=== PATIENT | female | born 1980 | race Caucasian/White ===

== ENCOUNTER 2017-11-21 10:54 | Emergency (ER) | payer MEDICAID, SELFPAY ==
[2017-11-21 11:01] VITALS: BP 120/79; PULSE 91; RESP 18; TEMP 36.6; O2SAT 95
--- NOTE | 2017-11-21 11:17 | W.ED.GENAD ---
Discharge Plan Disposition Patient Disposition: HOME Condition: Fair Discharge Details Chief Complaint: EarProblem Clinical Impression: Acute serous otitis media of right ear Primary Care Provider: Shelli Martin ED Provider: Octaviano Beth Home Meds and New Rx's Prescriptions: New ibuprofen [IBU] 600 mg tablet 600 mg PO QID PRN (Reason: fever or pain) Qty: 14 RF: 0 fluticasone [Flonase Allergy Relief] 50 mcg/actuation spray,suspension 2 spray JUSTIN DAILY 14 Days Qty: 9.9 RF: 0 Continue methadone 10 MG/ML concentrate 40 mg PO DAILY RF: 0 Discharge Instructions Instructions: Serous Otitis Media (ED) Additional Instructions: Feel free to return to the emergency department for any new or worsening symptoms otherwise follow-up with your primary care provider for reassessment in the next 2 weeks if not improving in your symptoms Referrals: Shelli Martin MD [Primary Care Provider] - 2 weeks (If not improving) Medical Decision Making Patient presenting to the emergency department for chief complaint of right ear pain. Patient also states some swelling to her right upper extremity. Patient reports the upper extremity swelling and inability to crack her middle finger knuckle has been going on a week and the right ear pain has been the last 3 days. Patient denies fever or chills, states no other associated symptoms. Physical exam of the upper extremity is unremarkable and I cannot appreciate any swelling, any vascular abnormalities, and range of motion inspection and other assessment of bilateral upper extremities is unremarkable. The only appreciable difference that I can see between the right and left upper extremities slightly increased size of forearm muscle in the right which patient is right-handed. As far as examination of patient's right ear which she said is her main concern it appears that there are abrasions to the right ear canal without any signs of otitis externa and right TM is pearly hall with some clear fluid present behind the TM otherwise no other physical exam findings are noted with HEENT exam. I feel the patient is suffering from serous otitis media. Patient was recommended to take ibuprofen as needed for pain and discomfort and for possible upper respiratory congestion patient placed upon nasal steroid to see if this helps with her serous otitis media otherwise she was recommended to follow-up with her primary care provider in the next 2 weeks for reassessment if this is not improving. After discussion of diagnosis and plan of care patient is no further needs, questions, or concerns and states clear understanding to return to the emergency department for any worsening symptoms. HPI General Mode of arrival: ambulatory. Date/Time Provider Initiated Documentation: 11/21/17 10:55. Limitations to Documentation: no limitations. Information obtained by: patient. History of Present Illness 37 year old F presents to the emergency department with the chief complaint of Right ear pain, described as moderate, with intensity rated at 8. Quality is described as aching and sharp, and is localized to the right (ear). Patient reports no radiation. Patient started experiencing this day(s) (3) and it has been constant. No relieving factors improve symptom(s), No exacerbating factors reported . Patient notes no other symptoms.. Patient did receive the following treatments prior to arrival, none Related Data Home Medications Medication Instructions Recorded Confirmed methadone 40 mg PO DAILY 12/11/16 11/21/17 fluticasone [Flonase Allergy 2 spray JUSTIN DAILY 14 Days #9.9 gm 11/21/17 Relief] ibuprofen [IBU] 600 mg PO QID PRN #14 tab 11/21/17 Previous Rx's Medication Instructions Recorded fluticasone [Flonase Allergy 2 spray JUSTIN DAILY 14 Days #9.9 gm 11/21/17 Relief] ibuprofen [IBU] 600 mg PO QID PRN #14 tab 11/21/17 Allergies Allergy/AdvReac Type Severity Reaction Status Date / Time No Known Allergies Allergy Unverified 11/21/17 11:05 General Stated Complaint: EarProblem CINDY: 4 Review of Systems Constitutional Denies body ache(s), Denies chills and Denies fever(s) ENT Reports as per HPI, Reports otalgia, Reports nasal congestion, Denies nasal discharge, Denies nasal obstruction, Denies sinus pain, Denies sore throat, Denies throat swelling and Denies tongue swelling Cardiovascular Denies chest pain and Denies dyspnea Respiratory Denies dyspnea Gastrointestinal Denies abdominal pain, Denies nausea and Denies vomiting Musculoskeletal Reports other (Right upper extremity swelling) Integumentary/Breasts Denies rash Neurologic Denies confusion and Denies sensory deficit Psychiatric Denies confusion Allergic/Immunologic Denies throat swelling and Denies tongue swelling [facility] Medical History kidney stones Social History Smoking/Tobacco Use Status: Current every day Surgical History section Exam Const General: cooperative, no acute distress and not ill appearing Orientation: alert, awake and oriented x3 [facility] Head: normal to inspection Ears: TM normal on the left, mastoids normal, no periauricular adenopathy, EAC abnormal other (Right sided abrasion within canal); no erythema and no edema and TM abnormal bulging on the right and with fluid behind the TM on the right (clear); with no loss of landmarks General nose exam: external nose normal Face and sinus: normal facial exam Mouth: moist mucous membranes Throat: posterior oropharynx normal Neck Neck: normal visual inspection, full ROM, no lymphadenopathy and no meningeal signs Lymphatic: no lymphadenopathy noted Resp Effort & Inspection: normal respiratory effort, able to speak in complete sentences and no respiratory distress Cardio Rate: regular rate Rhythm: regular rhythm Skin General skin exam: no rashes or lesions noted Neuro General: alert, awake, oriented x3, moves all extremities and no focal motor deficits Sensory Exam: no sensory deficits noted Extrem Right upper extremity: normal to inspection, full ROM, normal capillary refill and no joint enlargement; no edema Left upper extremity: normal to inspection, full ROM, normal capillary refill and no joint enlargement; no edema Course Vital Signs Temperature 36.6 C 11/21/17 11:01 Pulse 91 H 11/21/17 11:01 Respiratory Rate 18 11/21/17 11:01 Blood Pressure 120/79 11/21/17 11:01 Pulse Oximetry 95 11/21/17 11:01 Temperature 36.6 C 11/21/17 11:01 Temperature Source Temporal Artery Scan 11/21/17 11:01 Pulse 91 H 11/21/17 11:01 Respiratory Rate 18 11/21/17 11:01 Respiratory Effort Non-Labored 11/21/17 11:04 Blood Pressure 120/79 11/21/17 11:01 Blood Pressure Position Sitting 11/21/17 11:01 Pulse Oximetry 95 11/21/17 11:01 Oxygen Delivery Method Room Air 11/21/17 11:01 Oxygen Flow Rate 0 11/21/17 11:01 Pain Level 8 11/21/17 11:06
[2017-11-21] MEDS: Ibuprofen 600 MG TAB PO (11:25)
[2017-11-21 11:46] VITALS: BP 120/79; PULSE 91; RESP 18; TEMP 36.6; O2SAT 95
== END 2017-11-21 11:44 | disposition home or self-care (01) ==
PROVIDERS: Emergency Provider Nurse Practitioner Family; PCP Family Medicine
DX: H65.01 Acute serous otitis media, right ear (principal); F17.210 Nicotine dependence, cigarettes, uncomplicated
CPT/HCPCS: 99282

== ENCOUNTER 2018-01-27 12:55 | Emergency (ER) | payer OTHER, MEDICAID, SELFPAY ==
[2018-01-27 12:55] VITALS: BP 133/84; PULSE 100; RESP 27; TEMP 36.8; O2SAT 98
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
[2018-01-27 13:17] LABS: Abs Immature Grans 0.01 k/cumm (0.0-0.09); Absolute Basophil Count 0.08 k/cumm (0.0-0.2); Absolute Eosinophil Count 0.14 k/cumm (0.0-0.7); Absolute Lymphocyte Count 2.48 k/cumm (1.2-3.4); Absolute Monocyte Count 0.57 k/cumm (0.11-0.7); Absolute Neutrophil Count 3.02 k/cumm (1.2-6.7); Basophils % 1.3; Eosinophils % 2.2; HCT 40.6 % (36.0-46.0); HGB 13.3 g/dL (12.0-15.5); Immature Grans % 0.2; Lymphocytes % 39.4; Mean Corp. HGB Concentration 32.8 g/dL (32.0-36.0); Mean Corpuscular Hemoglobin 31.6 pg (27.0-33.0); Mean Corpuscular Volume 96.4 fL (80-95); Mean Platelet Volume 9.8 fL (8.0-11.0); Neutrophils % 47.9; Platelet Count 236 x1000/uL (130-400); RBC 4.21 m/cumm (4.00-5.20); RBC Distribution Width 14.5 % (11.7-14.6)
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
[2018-01-27 13:24] VITALS: PULSE 63; RESP 15; O2SAT 98
[2018-01-27 13:30] VITALS: BP 114/66; PULSE 75; PULSE 80; RESP 13; O2SAT 96
[2018-01-27 13:31] VITALS: PULSE 78; RESP 15; O2SAT 95
[2018-01-27 13:38] LABS: Bilirubin Negative (Negative); Blood Trace-intact (Negative); Clarity Sl Cloudy; Glucose Negative (Negative); Ketones Negative (Negative); Leukocyte Esterase Trace (Negative); Nitrite Positive (Negative); Urobilinogen 0.2 EU/dL (Up TO 0.2)
[2018-01-27 13:43] LABS: ETHANOL BLOOD 261.1 mg/dL (<3)
[2018-01-27 13:48] LABS: ALT 109 U/L (12-78); AST 101 U/L (15-37); Albumin 3.8 g/dL (3.4-5.0); Alkaline Phosphatase 69 U/L (46-116); Anion Gap 8.1 mmol/L (3-11); BUN 10 mg/dL (7-18); Bilirubin, Total 0.3 mg/dL (0.2-1.0); CO2 28.9 mmol/L (21.0-32.0); CREATININE 0.65 mg/dL (0.55-1.02); Calcium 8.9 mg/dL (8.5-10.1); Chloride 105 mmol/L (98-107); Glucose 94 mg/dL (70-100); Magnesium 1.8 mg/dL (1.8-2.4); Potassium 4.6 mmol/L (3.5-5.1); Sodium 142 mmol/L (136-145); Total Protein 8.1 g/dL (6.4-8.2); Troponin I 0.02 ng/mL (0.00-0.06)
[2018-01-27 13:50] LABS: Epithelial Cells Moderate HPF (Negative); RBC 0-2 (0-2)
[2018-01-27 13:51] LABS: Bacteria Many HPF (Negative); C & S Indicated? No/Sq. Contamination; Crystals Negative HPF (Negative); Mucus Moderate (Negative)
[2018-01-27 13:53] VITALS: PULSE 99
[2018-01-27 14:00] VITALS: PULSE 111; O2SAT 99
[2018-01-27] MEDS: Hydrogen Peroxide 3% 480 ML BTL (14:52)
[2018-01-27] MEDS: Amoxicillin 500/Clav. 125 TAB PO (14:52)
[2018-01-27] MEDS: Acetaminophen 500 MG TAB 1000 MG PO (15:16)
[2018-01-27] MEDS: Lidocaine/Epinephri/Tetracaine Topical Gel 3 ML TP (15:16)
== END 2018-01-27 16:54 | disposition home or self-care (01) ==
PROVIDERS: Emergency Provider Nurse Practitioner Family; PCP Family Medicine
DX: S02.32XA Fracture of orbital floor, left side, initial encounter for closed fracture (principal); S16.1XXA Strain of muscle, fascia and tendon at neck level, initial encounter; S01.121A Laceration with foreign body of right eyelid and periocular area, initial encounter; V47.1XXA Car passenger injured in collision with fixed or stationary object in nontraffic accident, initial encounter
CPT/HCPCS: 12013; 36415; 80053; 81025; 90471; 99284; 70450; 70486; 72125; 80320; 81003; 81015; 83735; 84484; 85025

== ENCOUNTER 2018-05-11 13:42 | Emergency (ER) | payer MEDICAID, SELFPAY ==
[2018-05-11 13:47] VITALS: BP 123/86; PULSE 110; RESP 16; TEMP 36.6; O2SAT 123
--- NOTE | 2018-05-11 13:55 | DI.CT_ITS ---
SYMPTOMS/DIAGNOSIS: RT SIDED ABD PAIN CT OF THE ABDOMEN AND PELVIS: Comparison is made with [id number]. The lung bases are clear. The heart size is normal. The liver shows fatty infiltration. There is a peripherally enhancing lesion inferiorly in the lateral right lower lobe likely representing a hemangioma. There is no change in appearance from 2009 exam. The gallbladder, pancreas, adrenals and left kidney are unremarkable. 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 The bowel is unremarkable. There is a small fatty containing umbilical hernia. The urinary bladder is distended but normal in appearance. Tubal ligation clips are noted. The ovaries and uterus are unremarkable. IMPRESSION: No acute abnormality.
--- NOTE | 2018-05-11 13:59 | ED.GENADUL_ITS ---
Discharge Plan Disposition Patient Disposition: HOME Condition: Stable Discharge Details Chief Complaint: Abd Prob Clinical Impression: Alcohol intoxication, Abdominal pain Primary Care Provider: Shelli Martin ED Provider: Devin Estrada Home Meds and New Rx's Prescriptions: New prochlorperazine maleate [Compazine] 10 mg tablet 10 mg PO Q8H PRN (Reason: nausea and vomiting) Qty: 20 RF: 0 lorazepam [Ativan] 1 mg tablet 1 mg PO BID-TID PRN (Reason: anxiety) Qty: 7 RF: 0 No Action methadone 10 MG/ML concentrate 40 mg PO DAILY RF: 0 Discharge Instructions Instructions: Lorazepam (By mouth), Abuse of Alcohol (ED) Additional Instructions: your lab work did not show any concerning findings other than your alcohol level being elevated do not drink alcohol if you take the lorazepam follow up with your primary care provider within 1-2 weeks if you have severe worsening pain, persistent vomit or new symptoms such as difficulty breathing return to the emergency department Medical Decision Making 37 yo female with hx of 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 She states it is right sided and has had n/v as well. She has epigastric, ruq and rlq pain without distention on exam. She does appear anxious, drank a lot of vodka over the weekend and denies drinking everyday but significant other reports she does drink vodka daily at least for 3 months. She has no chest pain or sob. Given her pain and recent alcohol use will obtain imaging and lab wor kto eval for pancreatitis, cholecystitis, and also given antiemetics and also ativan given she does appear anxious and could have mild withdrawal as well pt doing much better, labs and imaging pending but is having less pin, has mild ruq pain Labs show stable elevation in lfts likely from alcohol use, and mild anion gap acidosis likely alcoholic ketosis. Awaiting imaging imaging shows no acute findings. She is now sleeping and no longer has pain. Suspect symptoms from alcohol use and possible alcohol gastritis. She is requesting something for nauea at home and anxiety, and discussed that she cannot drink if taking ativan which she agrees to. Will d/c and advised f/u with pcp and return precautions given Differential Diagnosis alcohol withdrawal, cholecystitis, pancreatitis Imaging Data Radiologic Study: Attestation: I personally reviewed and interpreted this imaging study as follows: Imaging: CT Scan Radiologist's impression: no acute findings Lab Data Lab results reviewed: Yes I reviewed the patient's lab results. HPI General Mode of arrival: ambulatory . Date/Time Provider Initiated Documentation: 05/11/18 13:42 . Limitations to Documentation: no limitations . Information obtained by: patient . History of Present Illness 37 year old F presents to the emergency department with the chief complaint of abdominal pain, described as moderate, Quality is described as stabbing, and is localized to the abdomen. Patient reports no radiation. Patient started experiencing this day(s) (1) and it has been constant. No relieving factors improve symptom(s), No exacerbating factors reported . Patient notes nausea/vomiting. Patient did receive the following treatments prior to arrival, none Related Data Home Medications Medication Instructions Recorded Confirmed methadone 40 mg PO DAILY 12/11/16 05/11/18 lorazepam [Ativan] 1 mg PO BID-TID PRN #7 tab 05/11/18 prochlorperazine maleate 10 mg PO Q8H PRN #20 tab 05/11/18 [Compazine] Previous Rx's Medication Instructions Recorded lorazepam [Ativan] 1 mg PO BID-TID PRN #7 tab 05/11/18 prochlorperazine maleate 10 mg PO Q8H PRN #20 tab 05/11/18 [Compazine] Allergies Allergy/AdvReac Type Severity Reaction Status Date / Time No Known Allergies Allergy Unverified 05/11/18 13:51 General CINDY: 2 Review of Systems Review of Systems All systems reviewed & are unremarkable except as noted in HPI and below Constitutional Denies fever(s) Cardiovascular Denies dyspnea Respiratory Denies dyspnea Genitourinary Denies dysuria Musculoskeletal Denies joint swelling Integumentary/Breasts Denies rash PFSH Medical History kidney stones Surgical History section Social History Smoking/Tobacco Use Status: Current every day Drug use: Current Sobriety Substance use type: does not use Do you feel safe in your relationship?: Yes Exam Const General: anxious Orientation: alert HENMT Head: normal to inspection Ears: external ears normal General nose exam: external nose normal Mouth: moist mucous membranes Eyes General: appearance normal, both eyes and all related structures Neck Neck: normal visual inspection Resp Effort & Inspection: normal respiratory effort and able to speak in complete sentences Cardio Rate: regular rate GI Palpation: soft Skin General skin exam: no rashes or lesions noted Neuro General: alert and oriented x3 Extrem General: normal to inspection Psych Mental Status: mental status grossly normal
[2018-05-11] MEDS: Ketorolac 15 MG/ML VIAL IVP (14:42)
[2018-05-11] MEDS: Normal Saline 1,000 ML 1000 ML IV (14:42)
[2018-05-11] MEDS: Ondansetron 4 MG/2 ML VIAL IVP (14:43)
[2018-05-11] MEDS: LORazepam 2 MG/ML VIAL 1 MG IVP (14:43)
[2018-05-11 14:48] LABS: Abs Immature Grans 0.01 k/cumm (0.0-0.09); Absolute Basophil Count 0.07 k/cumm (0.0-0.2); Absolute Eosinophil Count 0.02 k/cumm (0.0-0.7); Absolute Lymphocyte Count 3.19 k/cumm (1.2-3.4); Absolute Monocyte Count 0.42 k/cumm (0.11-0.7); Absolute Neutrophil Count 3.09 k/cumm (1.2-6.7); Eosinophils % 0.3; HCT 40.3 % (36.0-46.0); HGB 13.6 g/dL (12.0-15.5); Immature Grans % 0.1; Lymphocytes % 46.9; Mean Corp. HGB Concentration 33.7 g/dL (32.0-36.0); Mean Corpuscular Hemoglobin 29.8 pg (27.0-33.0); Mean Corpuscular Volume 88.4 fL (80-95); Mean Platelet Volume 9.8 fL (8.0-11.0); Monocytes % 6.2; Neutrophils % 45.5; Platelet Count 246 x1000/uL (130-400); RBC 4.56 m/cumm (4.00-5.20); RBC Distribution Width 15.8 % (11.7-14.6)
[2018-05-11 15:02] LABS: ALT 122 U/L (12-78); AST 190 U/L (15-37); Albumin 4.1 g/dL (3.4-5.0); Alkaline Phosphatase 94 U/L (46-116); Anion Gap 14.1 mmol/L (3-11); BUN 9 mg/dL (7-18); Bilirubin, Direct 0.35 mg/dL (0.00-0.20); CO2 25.9 mmol/L (21.0-32.0); CREATININE 0.71 mg/dL (0.55-1.02); Calcium 8.9 mg/dL (8.5-10.1); Chloride 98 mmol/L (98-107); ETHANOL BLOOD 279.8 mg/dL (<3); Glucose 86 mg/dL (70-100); Lipase 156 U/L (73-393); Magnesium 1.8 mg/dL (1.8-2.4); Potassium 3.7 mmol/L (3.5-5.1); Sodium 138 mmol/L (136-145); Total Protein 8.8 g/dL (6.4-8.2)
[2018-05-11] MEDS: Omnipaque 350 MG/ML 100 ML BTL IJ (15:25)
[2018-05-11 15:49] LABS: Bilirubin Negative (Negative); Blood Small (Negative); Clarity Cloudy; Glucose Negative (Negative); Ketones Negative (Negative); Leukocyte Esterase Trace (Negative); Nitrite Negative (Negative); Urobilinogen 0.2 EU/dL (Up TO 0.2); pH 6.5 (5-8)
[2018-05-11 15:51] LABS: *AMPHETAMINES SCREEN URINE Negative (Negative); *BARBITURATES SCREEN URINE Negative (Negative); *BENZODIAZEPINES SCREEN URINE Negative (Negative); C & S Indicated? No/Sq. Contamination; Cannabinoids THC POSITIVE (Negative); Cocaine Screen,Urine Negative (Negative); METHADONE URINE SCREEN POSITIVE (Negative); OPIATES URINE SCREEN Negative (Negative)
[2018-05-11 15:52] LABS: Tricyclic Antidepressants Negative (Negative)
--- NOTE | 2018-05-11 16:21 | DI.VRAD_ITS ---
EXAM: CT Abdomen and Pelvis With Contrast EXAM DATE/TIME: 05/11/2018 1:56 PM CLINICAL HISTORY: 37 years old, female; Pain; Abdominal pain; Other: R sided pain TECHNIQUE: Imaging protocol: Axial computed tomography images of the abdomen and pelvis with intravenous contrast. Coronal and sagittal reformatted images were created and reviewed. COMPARISON: CT RENAL COLIC WO CONTRAST 01/09/2015 6:17 AM FINDINGS: Prior bilateral tubal ligation. Atrophic and malrotated right kidney. Normal appearing solid organs. No intestinal obstruction. No obstructive uropathy. No free fluid. No free air. No inflammatory changes. IMPRESSION: No specific etiology identified for the patient's symptoms. Dictated and Authenticated by: Gene Acosta MD. Ordering:OK Beltran MD
== END 2018-05-11 17:10 | disposition home or self-care (01) ==
PROVIDERS: Emergency Provider Emergency Medicine; PCP Family Medicine
DX: F10.120 Alcohol abuse with intoxication, uncomplicated (principal); R10.9 Unspecified abdominal pain; F11.20 Opioid dependence, uncomplicated; Z87.442 Personal history of urinary calculi
CPT/HCPCS: 36415; 80053; 80076; 80307; 83690; 96361; 96374; 96375; 99285; 74177; 80320; 81003; 81015; 83735; 85025; 85610; 85730; 99283; J1885; J2060; J2405; J3490

== ENCOUNTER 2018-09-07 03:55 | Emergency (ER) | payer MEDICAID, SELFPAY ==
[2018-09-07 03:58] VITALS: BP 132/81; PULSE 71; RESP 18; TEMP 36.7; O2SAT 97
--- NOTE | 2018-09-07 04:06 | ED.GENADUL_ITS ---
Discharge Plan Disposition Patient Disposition: HOME Condition: Good Discharge Details Chief Complaint: DentalOral Clinical Impression: Pain, dental Primary Care Provider: Shelli Martin ED Provider: Gokul Milian Home Meds and New Rx's Prescriptions: New amoxicillin-pot clavulanate [Augmentin] 875-125 mg tablet 1 tab PO BID Qty: 20 RF: 0 No Action methadone 10 MG/ML concentrate 40 mg PO DAILY RF: 0 Discharge Instructions Instructions: Toothache (ED) Additional Instructions: Please take the antibiotic as directed. Please take 600 mg of ibuprofen every 6 hours and 1000 mg of Tylenol every 6 hours to help with the pain. Please contact the dentist on the sheet we have provided for removal of your tooth. If you notice any worsening of your symptoms, or any new symptoms such as vomiting, diarrhea, fever, chills, shortness of breath, chest pain, numbness, weakness, or fainting , please return immediately to the emergency department for reevaluation. Please follow up with your primary care provider as soon as possible for reassessment and reevaluation. As always, it was a pleasure participating in your medical care today. Referrals: Shelli Martin MD [Primary Care Provider] - Medical Decision Making This is a 37-year-old female with known dental caries who presents for dental pain. Pain is been present for quite some time, she has not seen a dentist secondary to cost. Exam demonstrates notably poor dentition. No evidence of periapical abscess. Dental block was performed and the patient had near complete resolution of her pain. Augmentin was given here in the ED, and a prescription for home use will be given. She was given the dental resource she recommended close follow-up for tooth extraction. I have extensively reviewed the treatment plan and discharge instructions with the patient and their family. I have addressed all patient concerns at this time. The patient and family was made aware of what symptoms to monitor for that would warrant a return to the emergency department. Discussed the plan with the patient and family, they demonstrate verbal understanding and agreement with our assessment and plan at this time. HPI General Date/Time Provider Initiated Documentation: 09/07/18 03:56 . HPI Narrative: This is a 37-year-old female with a past medical history of dental caries who presents today for dental pain. She has not seen a dentist, she has known caries, she states that insurance is the barrier to her getting complete dental care. Pain is present in the top right molars. Worse with chewing, she has been taking Tylenol and Motrin with no relief. No fevers chills headache or neck pain. No other complaints or modifying factors. Related Data Home Medications Medication Instructions Recorded Confirmed methadone 40 mg PO DAILY 12/11/16 09/07/18 amoxicillin-pot clavulanate 1 tab PO BID #20 tab 09/07/18 [Augmentin] Previous Rx's Medication Instructions Recorded amoxicillin-pot clavulanate 1 tab PO BID #20 tab 09/07/18 [Augmentin] Allergies Allergy/AdvReac Type Severity Reaction Status Date / Time No Known Allergies Allergy Unverified 09/07/18 04:01 General Stated Complaint: DentalOral CINDY: 4 Review of Systems Review of Systems All systems reviewed & are unremarkable except as noted in HPI and below PFSH Social History Smoking/Tobacco Use Status: Current every day Tobacco Type: cigarettes Drug use: Current Sobriety Substance use type: does not use Do you feel safe at home: Yes Do you feel safe in your relationship?: Yes Exam Narrative Exam Narrative: 1.Const: Well-nourished, Well-developed, appearing stated age 2.Eyes: PERRL, no conjunctival injection, and symmetrical lids. 3.ENT: Atraumatic external nose and ears. Moist MM. Neck: Symmetric, trachea midline, No thyromegaly. Notably poor dentition throughout. Caries throughout, no evidence of periapical abscess. 4.CVS: +S1/S2, No murmurs or gallops. Peripheral pulses 2+ and equal in all extremities. Brisk capillary refill in all extremities. 5.RESP: Unlabored respiratory effort. Clear to auscultation bilaterally. No wheezes rales or rhonchi 6.GI: Soft, Nontender/Nondistended, No hepatosplenomegaly. No guarding or rebound. 7.MSK: Normocephalic/Atraumatic, Extremities w/o deformity or ttp No cyanosis or clubbing, Normal movement of all extremities 8.Skin: Warm, Dry. No rashes or lesions. 9.Neuro: wet process miller II-XII grossly intact. Sensation grossly intact, no focal neurologic deficits. 10.Psych: (AAO) x3. Appropriate mood and affect Course Vital Signs Temperature 36.7 C 09/07/18 03:58 Pulse 71 09/07/18 03:58 Respiratory Rate 18 09/07/18 03:58 Blood Pressure 132/81 09/07/18 03:58 Pulse Oximetry 97 09/07/18 03:58 Temperature 36.7 C 09/07/18 03:58 Temperature Source Skin 09/07/18 03:58 Pulse 71 09/07/18 03:58 Respiratory Rate 18 09/07/18 03:58 Respiratory Effort Non-Labored 09/07/18 04:00 Blood Pressure 132/81 09/07/18 03:58 Blood Pressure Position Sitting 09/07/18 03:58 Pulse Oximetry 97 09/07/18 03:58 Oxygen Delivery Method Room Air 09/07/18 03:58 Oxygen Flow Rate 0 09/07/18 03:58 Pain Level 10 09/07/18 04:02
[2018-09-07] MEDS: Bupivacaine 0.5% Pres-Free 30 ML VIAL (04:07)
[2018-09-07] MEDS: Amoxicillin 875/Clav. 125 TAB (04:10)
== END 2018-09-07 04:10 | disposition home or self-care (01) ==
LOC: ER 04:12
PROVIDERS: Emergency Provider Student in an Organized Health Care Education/Training Program; PCP Family Medicine
DX: R68.84 Jaw pain (principal)
CPT/HCPCS: 64402

== ENCOUNTER 2018-09-24 09:42 | Emergency (ER) | payer MEDICAID, SELFPAY ==
[2018-09-24 09:45] VITALS: BP 122/65; PULSE 95; RESP 20; TEMP 36.8; O2SAT 96
--- NOTE | 2018-09-24 09:49 | DI.US_ITS ---
SYMPTOM/DIAGNOSIS: MASS AND PAIN RIGHT BREAST ULTRASOUND: The patient notes tenderness in the right breast. There is no evidence of a cyst, solid mass or ductal dilatation. Dense tissue is seen. No skin abnormality is identified. IMPRESSION: Negative right breast ultrasound.
--- NOTE | 2018-09-24 09:59 | ED.GENADUL_ITS ---
Discharge Plan Disposition Patient Disposition: HOME Condition: Stable Discharge Details Chief Complaint: OPTICAL TECHNICIAN Clinical Impression: Lymphadenopathy Primary Care Provider: Shelli Martin ED Provider: Justin Morse Home Meds and New Rx's Prescriptions: Continued methadone 10 MG/ML concentrate 40 mg PO DAILY RF: 0 No Action amoxicillin-pot clavulanate [Augmentin] 875-125 mg tablet 1 tab PO BID Qty: 20 RF: 0 Discharge Instructions Additional Instructions: Please perform once weekly self breast exams. Follow-up with regular doctor if you have increasing size of mass, discomfort, fever, redness, or any other acute concerns. Medical Decision Making 37-year-old female with a right breast lump to become painful over days to weeks time. She has not had overlying erythema or discharge. Her vital signs are normal. On exam she has a small right-sided lump palpable at approxi-7:00. Referred for ultrasound which was negative and report given to the patient by the radiologist. She is stable for outpatient discharge at this time. May have mild right breast lymphadenopathy, but otherwise reassuring evaluation. I will ask her to continue to perform once weekly self breast examinations, and she will follow-up for any change. She is stable for discharge to home HPI General Mode of arrival: ambulatory . Date/Time Provider Initiated Documentation: 09/24/18 09:45 . Limitations to Documentation: no limitations . Information obtained by: patient . History of Present Illness 37 year old F presents to the emergency department with the chief complaint of Right breast lump and pain over days to weeks, described as moderate, Quality is described as dull and constant, and is localized to the chest and left. Patient reports no radiation. Patient started experiencing this day(s) and it has been constant. No relieving factors improve symptom(s), No exacerbating factors reported . Patient notes no other symptoms.; denies fever/chills. 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 No fall or injury. History of cancer in the family. [facility] Medical History Cervical cancer (Acute) kidney stones Surgical History section Social History Smoking/Tobacco Use Status: Current every day Tobacco Type: cigarettes Alcohol Intake: never Drug use: Current Sobriety Substance use type: does not use Do you feel safe at home: Yes Do you feel safe in your relationship?: Yes Exam Narrative Exam Narrative: GEN: awake, alert, oriented 3. Pleasant, well groomed, interactive. HEAD: Normocephalic, atraumatic ENT: Mucous membranes moist, oropharynx unremarkable, External ear exam unremarkable EYES: PERRL, EOMI NECK: Full ROM, no VERONICA, no menigismus CHEST/RESP: Nontender, clear to auscultation bilateral, no wheeze/rhonchi/rales. The right breast has a small palpable cystic structure at approximately 7:00 inferior to the areola CARDIOVASCULAR: RRR, no murmur, rub bryan. 2+ Rad pulse bilateral EXT: Full ROM, no edema, no rash Neuro: Grossly normal neurologic exam, conversant, interactive. Psych: Speech fluent, thoughts congruent, affect normal Course Vital Signs Temperature 36.8 C 09/24/18 09:45 Pulse 95 H 09/24/18 09:45 Respiratory Rate 20 09/24/18 09:45 Blood Pressure 122/65 09/24/18 09:45 Pulse Oximetry 96 09/24/18 09:45 Temperature 36.8 C 09/24/18 09:45 Temperature Source Temporal Artery Scan 09/24/18 09:45 Pulse 95 H 09/24/18 09:45 Respiratory Rate 20 09/24/18 09:45 Respiratory Effort Non-Labored 09/24/18 09:45 Blood Pressure 122/65 09/24/18 09:45 Pulse Oximetry 96 09/24/18 09:45 Oxygen Delivery Method Room Air 09/24/18 09:45 Oxygen Flow Rate 0 09/24/18 09:45 Pain Level 0 09/24/18 09:45
== END 2018-09-24 10:37 | disposition home or self-care (01) ==
PROVIDERS: Emergency Provider Emergency Medicine; PCP Nurse Practitioner Family
DX: R59.0 Localized enlarged lymph nodes (principal); Z80.3 Family history of malignant neoplasm of breast; Z85.41 Personal history of malignant neoplasm of cervix uteri
CPT/HCPCS: 76642; 99284

== ENCOUNTER 2018-12-15 10:05 | Emergency (ER) | payer MEDICAID, SELFPAY ==
[2018-12-15 10:13] VITALS: BP 120/83; PULSE 92; RESP 16; TEMP 36.3; O2SAT 96
--- NOTE | 2018-12-15 10:27 | W.ED.GENAD ---
Discharge Plan Disposition Patient Disposition: HOME Discharge Details Chief Complaint: DentalOral Clinical Impression: Infected dental carries Primary Care Provider: Robin Hernandez ED Provider: Pradip Melo Home Meds and New Rx's Prescriptions: New penicillin V potassium 500 mg tablet 500 mg PO QID 10 Days Qty: 40 RF: 0 No Action methadone 10 MG/ML concentrate 40 mg PO DAILY RF: 0 Discharge Instructions Instructions: Dental Caries (ED) Additional Instructions: Make sure to take your antibiotics as prescribed. Return should your symptoms acutely worsen or he develop severe facial redness and/or pain. Keep your dental appointment tomorrow as he will most likely require extraction. Continues to take Tylenol and ibuprofen as needed for pain. Referrals: Robin Hernandez, [employer] [Primary Care Provider] - Return if symptoms worsen Medical Decision Making This is a nontoxic-appearing 38-year-old female with a right upper dental carry. She has mild swelling along the zygomatic arch/infraorbital region. Area is nontender. No facial erythema. I do not appreciate a fluctuant or indurated abscess at this time. Will place patient on penicillin V and have her follow-up with her dentist tomorrow as scheduled. Return precautions provided. HPI General Date/Time Provider Initiated Documentation: 12/15/18 10:21. HPI Narrative: Patient is a 38-year-old female with a history of dental infections who presents to the emergency department with right upper tooth tenderness and facial swelling. Patient states that she has had symptoms for several days but noted some swelling along the lower right eyelid today. She took 1 or 2 pills of her previous antibiotics with some relief. She has a scheduled appointment with a dentist tomorrow to discuss extraction. She reports a bad tooth in her right upper mouth. She denies any fevers or facial redness. No neck pain. Related Data Home Medications Medication Instructions Recorded Confirmed methadone 40 mg PO DAILY 12/11/16 12/15/18 penicillin V potassium 500 mg PO QID 10 Days #40 tab 12/15/18 Previous Rx's Medication Instructions Recorded penicillin V potassium 500 mg PO QID 10 Days #40 tab 12/15/18 Allergies Allergy/AdvReac Type Severity Reaction Status Date / Time No Known Allergies Allergy Unverified 12/15/18 10:16 General Stated Complaint: DentalOral CINDY: 4 Review of Systems Constitutional Constitutional: Denies chills, Denies fever(s), Denies headache(s), Denies malaise and Denies weakness Eyes Eyes: Denies eye discharge and Denies loss of vision ENT Ears, Nose, Mouth, and Throat: Reports dental pain, Denies headache(s) and Denies sore throat Cardiovascular Cardiovascular: Denies dyspnea Respiratory Respiratory: Denies cough and Denies dyspnea Integumentary/Breasts Skin/Breast: Denies rash Neurologic Neurologic: Denies headache(s), Denies loss of vision and Denies weakness PFSH Medical History Cervical cancer (Acute) kidney stones Surgical History section x2 Social History Smoking/Tobacco Use Status: Current every day Tobacco Type: cigarettes Alcohol Intake: never Drug use: Current Sobriety Substance use type: does not use Do you feel safe at home: Yes Do you feel safe in your relationship?: Yes Exam Const General: cooperative and comfortable Orientation: alert, awake and oriented x3 HENMT Head: normocephalic and other (Mild swelling along the infraorbital region. No facial erythema. ) Teeth and gingiva: abnormal tooth or associated gingiva and caries Throat: posterior oropharynx normal Eyes Visual Leo: normal visual leo by confrontation Alignment and Position: alignment normal Periorbital: periorbital findings abnormal right (Mild infraorbital swelling) Cornea: corneas normal Pupils: PERRL EOM: EOM intact bilaterally Neck Neck: normal visual inspection and full ROM Chest Chest: normal inspection of the chest Resp Effort & Inspection: normal respiratory effort Cardio Rate: regular rate Rhythm: regular rhythm Pulses: normal peripheral pulses Skin General skin exam: no rashes or lesions noted Course Vital Signs Vital signs: Vital Signs Temperature 36.3 C L 12/15/18 10:13 Pulse 92 H 12/15/18 10:13 Respiratory Rate 16 12/15/18 10:13 Blood Pressure 120/83 12/15/18 10:13 Pulse Oximetry 96 12/15/18 10:13 Temperature 36.3 C L 12/15/18 10:13 Temperature Source Skin 12/15/18 10:13 Pulse 92 H 12/15/18 10:13 Respiratory Rate 16 12/15/18 10:13 Respiratory Effort Non-Labored 12/15/18 10:13 Blood Pressure 120/83 12/15/18 10:13 Blood Pressure Position Sitting 12/15/18 10:13 Pulse Oximetry 96 12/15/18 10:13 Oxygen Delivery Method Room Air 12/15/18 10:13 Oxygen Flow Rate 0 12/15/18 10:13 Pain Level 0 12/15/18 10:19
[2018-12-15] MEDS: Penicillin V POTASSIUM 500 MG TAB PO (10:34)
== END 2018-12-15 10:36 | disposition home or self-care (01) ==
LOC: ER 10:35
PROVIDERS: Emergency Provider Physician Assistant; PCP Nurse Practitioner Family
DX: K04.7 Periapical abscess without sinus (principal); K02.9 Dental caries, unspecified
CPT/HCPCS: 99283

== ENCOUNTER 2019-01-15 14:50 | Emergency (ER) | payer MEDICAID, SELFPAY ==
[2019-01-15 14:55] VITALS: BP 142/92; PULSE 91; RESP 16; TEMP 35.7; O2SAT 97
--- NOTE | 2019-01-15 14:59 | W.ED.GENAD ---
Discharge Plan Disposition Patient Disposition: HOME Condition: Stable Discharge Details Chief Complaint: Orthopedic Clinical Impression: Left knee sprain Primary Care Provider: Rboin Hernandez ED Provider: Devin Estrada Home Meds and New Rx's Prescriptions: Continued methadone 10 MG/ML concentrate 40 mg PO DAILY RF: 0 Discharge Instructions Instructions: Knee Sprain (ED) Additional Instructions: if pain continues in a week follow up with your primary care provider if you have fevers, the joint becomes red and warm to touch return to the emergency department Stand Alone Forms: Work Release Medical Decision Making 38 yo female comes in with left knee pain. It started 6 days ago when she was helping a resident up and strained the left knee, did not fall or have trauma. Continues to have pain so came here, is bearing weight but with a limp. Denies fevers, chills, rashes. On exam has no palpable or visible deformity, has pain with palpation to the medial joint line with full rom, no swelling, warmth or erythema. Will obtain xray though unlikely fx/dislocation. no findings to suggest septic joint. Suspect sprain , less likely meniscus injury and exam is not consistent with ligament tear. xray negative on my read, will place in knee brace and have her f/u with pcp if pain continues and return precautions Differential Diagnosis Differential Diagnosis: strain, sprain, fx, dislocation Imaging Data Radiologic Study: Attestation: I personally reviewed and interpreted this imaging study as follows: Imaging: X-Ray My impression: no acute findings HPI General Mode of arrival: ambulatory. Date/Time Provider Initiated Documentation: 01/15/19 14:50. Limitations to Documentation: no limitations. Information obtained by: patient. History of Present Illness 38 year old F presents to the emergency department with the chief complaint of left knee pain, described as moderate, Quality is described as aching, and is localized to the left and lower extremity. Patient reports no radiation. Patient started experiencing this day(s) (6) and it has been constant. Rest improves symptom(s), Movement worsens symptoms . Patient notes no other symptoms.. Patient did receive the following treatments prior to arrival, NSAID Related Data Home Medications Medication Instructions Recorded Confirmed methadone 40 mg PO DAILY 12/11/16 01/15/19 Allergies Allergy/AdvReac Type Severity Reaction Status Date / Time No Known Allergies Allergy Unverified 01/15/19 14:57 General Stated Complaint: Orthopedic CINDY: 4 Review of Systems All systems reviewed & are unremarkable except as noted in HPI and below Constitutional Constitutional: Denies chills, Denies fever(s) and Denies weakness Cardiovascular Cardiovascular: Denies chest pain and Denies dyspnea Respiratory Respiratory: Denies cough and Denies dyspnea Gastrointestinal Gastrointestinal: Denies abdominal pain, Denies nausea and Denies vomiting Musculoskeletal Musculoskeletal: Denies joint swelling Neurologic Neurologic: Denies weakness [facility] Social History Smoking/Tobacco Use Status: Current every day Tobacco Type: cigarettes Alcohol Intake: never Drug use: Current Sobriety Substance use type: does not use Do you feel safe at home: Yes Do you feel safe in your relationship?: Yes Exam Const General: no acute distress Orientation: alert HENMT Head: normal to inspection Ears: external ears normal General nose exam: external nose normal Mouth: moist mucous membranes Eyes General: appearance normal, both eyes and all related structures Neck Neck: normal visual inspection Resp Effort & Inspection: normal respiratory effort and able to speak in complete sentences Cardio Rate: regular rate Skin General skin exam: no rashes or lesions noted Neuro General: alert and oriented x3 Extrem General: normal to inspection Psych Mental Status: mental status grossly normal Course Vital Signs Vital signs: Vital Signs Temperature 35.7 C L 01/15/19 14:55 Pulse 91 H 01/15/19 14:55 Respiratory Rate 16 01/15/19 14:55 Blood Pressure 142/92 H 01/15/19 14:55 Pulse Oximetry 97 01/15/19 14:55 Temperature 35.7 C L 01/15/19 14:55 Temperature Source Temporal Artery Scan 01/15/19 14:55 Pulse 91 H 01/15/19 14:55 Respiratory Rate 16 01/15/19 14:55 Respiratory Effort Non-Labored 01/15/19 14:55 Blood Pressure 142/92 H 01/15/19 14:55 Pulse Oximetry 97 01/15/19 14:55 Oxygen Delivery Method Room Air 01/15/19 14:55 Oxygen Flow Rate 0 01/15/19 14:55 Pain Level 8 01/15/19 14:55
--- NOTE | 2019-01-15 15:05 | DI.RAD_ITS ---
EXAM: XR KNEE LT 3V AP,LAT,ROBERT CLINICAL HISTORY: pain for 2 weeks TECHNIQUE: The study was performed according to usual protocol. COMPARISON: No exams were available for comparison FINDINGS: Three views were obtained. No bony or soft tissue abnormality seen.
[2019-01-15] MEDS: Lidocaine 5% Patch 1 PATCH (15:25)
--- NOTE | 2019-01-15 15:42 | DI.VRAD_ITS ---
PROCEDURE INFORMATION: Exam: XR Left Knee Exam date and time: 01/15/2019 3:04 PM Age: 38 years old Clinical history: Patient HX: Pain left knee x2 weeks. TECHNIQUE: Imaging protocol: XR Left knee. Views: 3 views. COMPARISON: CR LEFT FEMUR 09/27/2016 6:26 AM FINDINGS: The bony structures are in anatomic alignment. No fracture is present. No radiopaque foreign body is identified. The joint spaces are well maintained. IMPRESSION: No evidence of acute bony abnormality. Dictated and Authenticated by: Gene Acosta MD. Ordering:OK Beltran MD
== END 2019-01-15 15:22 | disposition home or self-care (01) ==
PROVIDERS: Emergency Provider Emergency Medicine; PCP Nurse Practitioner Family
DX: S83.92XA Sprain of unspecified site of left knee, initial encounter (principal); X50.9XXA Other and unspecified overexertion or strenuous movements or postures, initial encounter; Y99.0 Civilian activity done for income or pay
CPT/HCPCS: 29505; 73562; 99283; L1820

== ENCOUNTER 2019-07-25 11:41 | Outpatient (REF) | payer MEDICAID, SELFPAY ==
[2019-07-27 07:08] LABS: COVID-19 RT-PCR Result NEGATIVE (Negative)
== END 2019-07-25 12:01 ==
LOC: LBN 11:41
PROVIDERS: PCP Nurse Practitioner Family; Visit Provider Nurse Practitioner Adult Health
DX: Z11.59 Encounter for screening for other viral diseases (principal)
CPT/HCPCS: U0003

== ENCOUNTER 2019-08-17 18:17 | Outpatient (REF) | payer MEDICAID, SELFPAY ==
[2019-08-19 17:26] LABS: COVID-19 RT-PCR UVMMC Result Negative (Negative)
== END 2019-08-17 18:37 ==
LOC: LBN 18:17
PROVIDERS: PCP Nurse Practitioner Family; Visit Provider Nurse Practitioner Adult Health
DX: Z20.828 Contact with and (suspected) exposure to other viral communicable diseases (principal)
CPT/HCPCS: U0003

== ENCOUNTER 2019-08-19 09:00 | Outpatient (REF) | payer MEDICAID, SELFPAY ==
[2019-08-22 20:12] LABS: SARS-CoV-2 RNA Undetected (Undetected); SARS-CoV-2 Specimen Source Nasopharynx
== END 2019-08-19 09:20 ==
LOC: LBN 09:00
PROVIDERS: PCP Nurse Practitioner Family; Visit Provider Nurse Practitioner Adult Health
DX: Z20.828 Contact with and (suspected) exposure to other viral communicable diseases (principal)
CPT/HCPCS: U0003

== ENCOUNTER 2020-02-23 16:06 | Outpatient (REF) | payer MEDICAID, SELFPAY ==
[2020-02-25 10:09] LABS: Hepatitis C Ab w Rflx HCV PCR Reactive (Negative)
[2020-02-25 10:34] LABS: HIV-1/2 Ag & Ab Screen Negative (Negative)
[2020-02-26 12:55] LABS: HCV RNA Qualitative Detected (Undetected)
== END 2020-02-23 16:26 ==
LOC: NCHCN 16:06
PROVIDERS: PCP Nurse Practitioner Family; Visit Provider Nurse Practitioner Family
DX: Z20.5 Contact with and (suspected) exposure to viral hepatitis (principal); Z11.4 Encounter for screening for human immunodeficiency virus [HIV]; Z11.59 Encounter for screening for other viral diseases; F19.11 Other psychoactive substance abuse, in remission
CPT/HCPCS: 86803; 87389; 87522

== ENCOUNTER 2020-03-03 03:16 | Outpatient (CLI) | payer MEDICAID, SELFPAY ==
[2020-03-03 17:17] LABS: Abs Immature Grans 0.01 10^3/uL (0.0-0.06); Absolute Basophil Count 0.06 10^3/uL (0.0-0.2); Absolute Eosinophil Count 0.03 10^3/uL (0.0-0.7); Absolute Lymphocyte Count 1.68 10^3/uL (1.2-3.4); Absolute Neutrophil Count 2.87 10^3/uL (1.2-6.7); Basophils % 1.2; Eosinophils % 0.6; HCT 38.9 % (36.0-46.0); HGB 12.2 g/dL (11.2-15.7); Immature Grans % 0.2; Lymphocytes % 33.3; MCH 29.2 pg (27.0-33.0); MCHC 31.4 % (32.0-36.0); MCV 93.1 fL (80-95); Monocytes % 7.9; Neutrophils % 56.8; Nucleated RBC 0 %; Platelet Count 217 10^3/uL (130-400); RBC 4.18 10^6/uL (3.93-5.22); RDW 16.1 % (11.7-14.6); RDW-SD 55.3 fL; WBC 5.05 10^3/uL (4.4-10.8)
[2020-03-03 19:00] LABS: ALT 72 U/L (14-59); AST 63 U/L (15-37); Albumin 4.1 g/dL (3.4-5.0); Alkaline Phosphatase 57 U/L (46-116); Anion Gap 6.9 mmol/L (3-11); BUN 9 mg/dL (7-18); Bilirubin, Total 0.5 mg/dL (0.2-1.0); CO2 31.1 mmol/L (21.0-32.0); CREATININE 0.77 mg/dL (0.55-1.02); Calcium 9.2 mg/dL (8.5-10.1); Chloride 100 mmol/L (98-107); Glucose 115 mg/dL (74-106); Potassium 3.6 mmol/L (3.5-5.1); Sodium 138 mmol/L (136-145); Total Protein 8.1 g/dL (6.4-8.2)
[2020-03-07 09:41] LABS: ALT 65 U/L (7-45); ActiTest Grade A1; ActiTest Interpretation minimal activity; ActiTest Score 0.34; Alpha-2-Macroglobulin 171 mg/dL (100 - 280); Apoliprotein A1 156 mg/dL (>=140); Bilirubin, Total 0.5 mg/dL (<=1.2); FibroTest Interpretation no fibrosis; FibroTest Score 0.15; FibroTest Stage F0; GGT 58 U/L (5 - 36); Haptoglobin 83 mg/dL (30 - 200)
[2020-03-07 10:51] LABS: HBs Antibody, Quant 479.6 mIU/mL (See Note); Hepatitis B Surface Ab Positive (See Note)
[2020-03-07 10:56] LABS: Hepatitis B Surface Ag Negative (Negative)
[2020-03-07 11:36] LABS: Hep B Core Antibody Negative (Negative)
[2020-03-07 11:50] LABS: Hep A Total Ab w Rflx IgM Negative (Negative)
[2020-03-08 11:53] LABS: HCV Genotype 3 (Undetected)
== END 2020-03-03 03:36 ==
PROVIDERS: PCP Nurse Practitioner Family; Visit Provider Nurse Practitioner Family
DX: Z20.5 Contact with and (suspected) exposure to viral hepatitis (principal)
CPT/HCPCS: 36415; 80053; 81596; 86704; 86706; 86709; 87340; 85025; 87521

== ENCOUNTER 2020-04-15 17:21 | Outpatient (REF) | payer MEDICAID, SELFPAY ==
[2020-04-15 17:43] LABS: Abs Immature Grans 0.02 10^3/uL (0.0-0.06); Absolute Basophil Count 0.07 10^3/uL (0.0-0.2); Absolute Eosinophil Count 0.15 10^3/uL (0.0-0.7); Absolute Monocyte Count 0.45 10^3/uL (0.1-0.8); Absolute Neutrophil Count 2.87 10^3/uL (1.2-6.7); Basophils % 1.2; Eosinophils % 2.6; HCT 37.7 % (36.0-46.0); HGB 12.3 g/dL (11.2-15.7); Immature Grans % 0.3; Lymphocytes % 39.2; MCH 29.8 pg (27.0-33.0); MCHC 32.6 % (32.0-36.0); MCV 91.3 fL (80-95); MPV 10.7 fL (8.0-11.0); Monocytes % 7.7; Nucleated RBC 0 %; Platelet Count 226 10^3/uL (130-400); RBC 4.13 10^6/uL (3.93-5.22); RDW 15.5 % (11.7-14.6); RDW-SD 52.6 fL; WBC 5.86 10^3/uL (4.4-10.8)
[2020-04-15 17:54] LABS: ALT 15 U/L (14-59); AST 17 U/L (15-37); Albumin 3.7 g/dL (3.4-5.0); Alkaline Phosphatase 69 U/L (46-116); Anion Gap 10.1 mmol/L (3-11); BUN 9 mg/dL (7-18); Bilirubin, Total 0.5 mg/dL (0.2-1.0); CO2 23.9 mmol/L (21.0-32.0); CREATININE 0.7 mg/dL (0.55-1.02); Calcium 8.5 mg/dL (8.5-10.1); Chloride 105 mmol/L (98-107); Glucose 102 mg/dL (74-106); Potassium 3.5 mmol/L (3.5-5.1); Sodium 139 mmol/L (136-145); Total Protein 7.7 g/dL (6.4-8.2)
[2020-04-18 11:37] LABS: Hepatitis C Ab w Rflx HCV PCR Reactive (Negative)
[2020-04-20 14:03] LABS: HCV RNA Qualitative Undetected (Undetected)
== END 2020-04-15 17:22 | disposition home or self-care (01) ==
LOC: NCHCN 17:21
PROVIDERS: PCP Nurse Practitioner Family; Visit Provider Family Medicine
DX: B19.20 Unspecified viral hepatitis C without hepatic coma (principal)
CPT/HCPCS: 80053; 86803; 87522; 85025

== ENCOUNTER 2020-08-25 12:48 | Outpatient (REF) | payer MEDICAID, SELFPAY ==
[2020-08-29 13:39] LABS: Hepatitis C Ab w Rflx HCV PCR Reactive (Negative)
[2020-08-31 14:52] LABS: HCV RNA Qualitative Undetected (Undetected)
== END 2020-08-25 12:49 | disposition home or self-care (01) ==
LOC: NCHCN 12:48
PROVIDERS: PCP Nurse Practitioner Family; Visit Provider Family Medicine
DX: B19.20 Unspecified viral hepatitis C without hepatic coma (principal)
CPT/HCPCS: 86803; 87522

== ENCOUNTER 2020-12-29 10:43 | Emergency (ER) | payer MEDICAID, SELFPAY ==
--- NOTE | 2020-12-29 10:45 | RT.EKG_ITS ---
APPROVED REPORT Exam: Resting ECG Reason for Exam: chest heaviness Patient Location: E HR:79 bpm ECG Measurements Heart Rate 79 AXIS OH 164 P 60 QRSd 97 QRS 70 QT 383 T 58 QTc 440 Conclusion Sinus rhythm...normal P axis, V-rate 60- 99. Sinus. No STEMI. I have reviewed and interpreted ECG and agree with software generated interpretation.
[2020-12-29 10:47] VITALS: BP 162/102; PULSE 94; RESP 18; TEMP 37.4; O2SAT 98
--- NOTE | 2020-12-29 10:54 | W.ED.GENAD ---
Discharge Plan Disposition Patient Disposition: HOME Condition: Stable Discharge Details Clinical Impression: Otitis media, Viral URI with cough Primary Care Provider: Robin Hernandez ED Provider: Susan Mandel Home Meds and New Rx's Prescriptions: New amoxicillin 500 mg tablet 500 mg PO QID 10 Days Qty: 40 RF: 0 prednisone 20 mg tablet See Rx Instructions .ROUTE .COMPLEX Qty: 12 RF: 0 fluticasone propionate [Flonase Allergy Relief] 50 mcg/actuation spray,suspension 1 spray JUSTIN DAILY Qty: 15.8 RF: 0 Continued methadone 10 MG/ML concentrate 40 mg PO DAILY RF: 0 Discharge Instructions Instructions: Ear Infection (ED), Upper Respiratory Infection (ED), Acute Cough (ED) Additional Instructions: Your symptoms may most likely be due to a viral illness. This is best treated with fluids, rest and hwof-voh-[id number] cough and cold medication. If symptoms do not improve, sometimes this means this is evolving into a bacterial illness which is best treated with antibiotics. If you have no relief or worsening of symptoms in the next 2 days, you can start the antibiotics. Drink plenty of fluids and get plenty of rest. Alternate tylenol and motrin as needed and directed for pain. Prescriptions for steroids, antibiotics and a nasal spray have been sent electronically to your pharmacy. You can continue [id number] cough and cold medication as needed and directed. A Covid test was obtained today. You will be contacted by the hospital regarding your result when available. Follow-up with your primary care doctor in 1 week. Return to the emergency department with any worsening or new concerning symptoms. Stand Alone Forms: PENDING COVID-19 TESTING Discharge Data Discharge Date/Time-TO BE ENTERED AT DEPARTURE: 12/29/20 11:49 Discharge Physician: Susan Mandel Medical Decision Making 40-year-old female w/ h/o tubal ligation presents with ear pain and fullness sensation and dry cough for the past 4 days. She denies any complaint of chest pain or shortness of breath to me. She states her main complaint is ear discomfort and feeling clogged in my ears. Her blood pressure is hypertensive at 162/102. EKG done on arrival which noted a rate of 79, sinus, no STEMI nondiagnostic. Patient appears anxious but nontoxic. Bilateral TMs appear erythematous and dull, worse on the right side. Normal oropharynx. Lungs are clear. Suspect most likely viral process including otitis media. She was given a dose of Decadron, Tylenol and Motrin here. A prescription for antibiotics will be sent electronically to her pharmacy if her symptoms not improve or worsen as she is a smoker. A send out Covid swab was obtained. She is advised to follow-up with her PCP for reevaluation. Usual and customary return precautions given prior to discharge. Recheck BP prior to discharge improved. Advised to f/u with her pcp for recheck of her BP. Medical Records Medical records reviewed: Yes I reviewed the patient's medical records. HPI General Mode of arrival: ambulatory. Date/Time Provider Initiated Documentation: 12/29/20 10:54. Limitations to Documentation: no limitations. Information obtained by: patient. HPI Narrative: Pt is a 40yo F who presents to the ED w/ a c/o ear pain, clogged ears, cough and runny nose for the past 4 days. She states that her symptoms started with a cough which has been mainly dry. She states she feels mainly that my ears are clogged and feels like I can hear myself walk within my ears. She states she has been taking [id number] cough and cold medication. She is fully vaccinated for Covid and denies any known exposure to coronavirus. She denies any significant headache, ear drainage, sore throat, chest pain, shortness of breath, vomiting or diarrhea Related Data Home Medications Medication Instructions Recorded Confirmed methadone 40 mg PO DAILY 12/11/16 12/29/20 amoxicillin 500 mg PO QID 10 Days #40 tab 12/29/20 fluticasone propionate [Flonase 1 spray JUSTIN DAILY #15.8 ml 12/29/20 Allergy Relief] prednisone See Rx Instructions .ROUTE 12/29/20 .COMPLEX #12 tab Previous Rx's Medication Instructions Recorded amoxicillin 500 mg PO QID 10 Days #40 tab 12/29/20 fluticasone propionate [Flonase 1 spray JUSTIN DAILY #15.8 ml 12/29/20 Allergy Relief] prednisone See Rx Instructions .ROUTE 12/29/20 .COMPLEX #12 tab Allergies Allergy/AdvReac Type Severity Reaction Status Date / Time No Known Allergies Allergy Unverified 12/29/20 10:50 General Stated Complaint: RespSymp CINDY: 3 Review of Systems All systems reviewed & are unremarkable except as noted in HPI and below Constitutional Constitutional: Reports as per HPI, Denies chills and Denies fever(s) Eyes Eyes: Denies blurry vision ENT Ears, Nose, Mouth, and Throat: Denies dizziness, Reports otalgia, Denies sore throat and Denies throat swelling Cardiovascular Cardiovascular: Denies chest pain and Denies dyspnea Respiratory Respiratory: Reports cough and Denies dyspnea Gastrointestinal Gastrointestinal: Denies abdominal pain, Denies diarrhea and Denies vomiting Genitourinary Genitourinary: Denies hematuria and Denies dysuria Musculoskeletal Musculoskeletal: Denies back pain and Denies numbness Integumentary/Breasts Skin/Breast: Denies lesions and Denies rash Neurologic Neurologic: Denies dizziness, Denies localized weakness and Denies numbness Allergic/Immunologic Allergic/Immunologic: Denies throat swelling [facility] Active Problem List (Updated 12/29/20 @ 11:34 by Ssuan Mandel DO) Otitis media (Acute) Viral URI with cough (Acute) Medical History (Updated 12/29/20 @ 11:34 by Susan Mandel DO) Cervical cancer Hepatitis C kidney stones Surgical History (Updated 12/29/20 @ 11:05 by Susan Mandel DO) section x2 History of bilateral tubal ligation Social History Smoking/Tobacco Use Status: Current every day Tobacco Type: cigarettes Smoking risk assessment performed?: Yes Alcohol Intake: never Drug use: Occasionally Substance use type: marijuana Do you feel safe at home: Yes Do you feel safe in your relationship?: Yes Exam Const General: cooperative, no acute distress and anxious Orientation: alert, awake and oriented x3 HENMT Head: normal to inspection Ears: hearing grossly normal bilaterally, EAC abnormal erythema on the right and on the left and TM abnormal dull on the right and on the left and erythematous on the right and on the left General nose exam: external nose normal Face and sinus: normal facial exam Mouth: oral mucosae normal Throat: posterior oropharynx normal Eyes General: appearance normal, both eyes and all related structures EOM: EOM intact bilaterally Neck Neck: normal visual inspection and No submandibular swelling Lymphatic: no lymphadenopathy noted Chest Chest: normal inspection of the chest and no tenderness Resp Effort & Inspection: normal respiratory effort and able to speak in complete sentences Auscultation: clear to auscultation bilaterally Cardio Rate: regular rate Rhythm: regular rhythm GI Inspection: normal to inspection Palpation: soft, not firm, not rigid and nontender Auscultation: normal bowel sounds Skin General skin exam: no rashes or lesions noted Neuro General: patient alert, patient awake and patient oriented x3 Cognition: normal cognition Speech: speech normal Motor: muscle tone normal throughout Sensory Exam: no sensory deficits noted Extrem General: normal to inspection, full ROM, capillary refill normal, no calf tenderness bilaterally and no edema Psych Appearance: grossly normal Mental Status: mental status grossly normal Speech and Movement: speech and movement normal Affect: normal affect Course Vital Signs Vital signs: Vital Signs Temperature 99.3 F 12/29/20 10:47 Pulse 94 H 12/29/20 10:47 Respiratory Rate 18 12/29/20 10:47 Blood Pressure 162/102 H 12/29/20 10:47 Pulse Oximetry 98 12/29/20 10:47 Temperature 99.3 F 12/29/20 10:47 Temperature Source Oral 12/29/20 10:47 Pulse 94 H 12/29/20 10:47 Respiratory Rate 18 12/29/20 10:47 Respiratory Effort Non-Labored 12/29/20 10:50 Blood Pressure 162/102 H 12/29/20 10:47 Blood Pressure Position Supine 12/29/20 10:47 Pulse Oximetry 98 12/29/20 10:47 Oxygen Delivery Method Room Air 12/29/20 10:47 Oxygen Flow Rate 0 12/29/20 10:47
[2020-12-29] MEDS: predniSONE 20 MG TAB 60 MG PO (11:44)
[2020-12-29] MEDS: Acetaminophen 500 MG TAB 1000 MG PO (11:44)
[2020-12-29] MEDS: Ibuprofen 600 MG TAB PO (11:44)
[2020-12-29 14:16] VITALS: BP 140/98; PULSE 94; RESP 18; TEMP 37; O2SAT 98
[2020-12-30 16:03] LABS: COVID-19 RT-PCR UVMMC Result Negative (Negative)
--- NOTE | 2020-12-30 17:36 | NUR.NOTE ---
[id number] attempted to notify patient of her covid test results. LEft a message for her to contact us.
--- NOTE | 2020-12-31 10:42 | NUR.NOTE ---
letter sent informing her of negative covid result.Nursing Note:
--- NOTE | 2020-12-31 11:15 | NUR.NOTE ---
pt returned call and informed covid test was negative-letter will not be sent.Nursing Note:
== END 2020-12-29 11:49 | disposition home or self-care (01) ==
PROVIDERS: Emergency Provider Physician Assistant; PCP Nurse Practitioner Family
DX: H66.93 Otitis media, unspecified, bilateral (principal); J06.9 Acute upper respiratory infection, unspecified; R05.1 Acute cough; R07.89 Other chest pain; Z20.822 Contact with and (suspected) exposure to COVID-19
CPT/HCPCS: 93005; 99283; U0003; 93010; J7512

== ENCOUNTER 2021-04-16 11:31 | Emergency (ER) | payer MEDICAID, SELFPAY ==
[2021-04-16 11:45] VITALS: BP 153/98; PULSE 84; RESP 18; TEMP 36.8; O2SAT 99
[2021-04-16] MEDS: Lidocaine/Epinephri/Tetracaine Topical Gel 3 ML TP (12:07)
--- NOTE | 2021-04-16 13:02 | ED.GENADUL_ITS ---
Discharge Plan Disposition Patient Disposition: HOME Condition: Good Discharge Details Clinical Impression: Cellulitis Primary Care Provider: Robin Hernandez ED Provider: Ranjana Hernandez Home Meds and New Rx's Prescriptions: New mupirocin 2 % ointment 1 applic topical BID Qty: 15 0RF sulfamethoxazole-trimethoprim [Bactrim DS] 800-160 mg tablet 1 tab PO BID Qty: 14 0RF Continued methadone 10 MG/ML concentrate 40 mg PO DAILY 0RF prednisone 20 mg tablet See Rx Instructions .ROUTE .COMPLEX Qty: 12 0RF Rx Instructions: Take 3 tabs daily for 2 days, then 2 tabs daily for 2 days, then 1 tab daily for 2 days fluticasone propionate [Flonase Allergy Relief] 50 mcg/actuation spray,suspension 1 spray JUSTIN DAILY Qty: 15.8 0RF Rx Instructions: administer into each nostril Discharge Instructions Instructions: Cellulitis (ED) Additional Instructions: Keep wound clean and dry Wash at least 3 times daily with warm soapy water and apply the mupirocin twice daily Take the antibiotics as prescribed Yogurt daily while on antibiotic Return with spreading redness, fever, worsening pain, do not be alarmed if this spreads up to 1 inch, and the antibiotic will likely take 48 hours to work, should it continue to extend, you develop fever, or with any new or worsening complaints my recommendation is that you be reassessed Recheck in 48 hours recommended recommended Referrals: Robin Hernandez, MANAGER APPOINTMENT [Primary Care Provider] - Discharge Data Discharge Date/Time-TO BE ENTERED AT DEPARTURE: 04/16/21 13:12 Medical Decision Making Patient appears well, she declines any current IV drug abuse Started on oral antibiotic Recheck in 48 hours recommended Discharged home in stable condition febrile vital No evidence clinically of drainable abscess at time of my assessment Medical Records Medical records reviewed: Yes I reviewed the patient's medical records. HPI General Date/Time Provider Initiated Documentation: 04/16/21 11:43 . HPI Narrative: This 40-year-old female presents with red rash which started as a pustule to her left forearm approximately 3 days ago. She attempted to aspirate it with a needle and today noticed redness spreading up her arm. She denies any fever. She denies any pain or shortness of breath. She has a history of IV drug abuse but has not used for the past 5 years reportedly. She denies any chance of . She denies any history of DVT. She denies any additional complaints at this time. Related Data Home Medications Medication Instructions Recorded Confirmed methadone 10 mg/mL oral concentrate 40 mg PO DAILY 12/11/16 04/16/21 fluticasone propionate 50 1 spray JUSTIN DAILY #15.8 ml 12/29/20 mcg/actuation nasal spray,suspension (Flonase Allergy Relief) prednisone 20 mg tablet See Rx Instructions .ROUTE 12/29/20 .COMPLEX #12 tab mupirocin 2 % topical ointment 1 applic TOPICAL BID #15 g 04/16/21 sulfamethoxazole 800 1 tab PO BID #14 tab 04/16/21 mg-trimethoprim 160 mg tablet (Bactrim DS) Previous Rx's Medication Instructions Recorded fluticasone propionate 50 1 spray JUSTIN DAILY #15.8 ml 12/29/20 mcg/actuation nasal spray,suspension (Flonase Allergy Relief) prednisone 20 mg tablet See Rx Instructions .ROUTE 12/29/20 .COMPLEX #12 tab mupirocin 2 % topical ointment 1 applic TOPICAL BID #15 g 04/16/21 sulfamethoxazole 800 1 tab PO BID #14 tab 04/16/21 mg-trimethoprim 160 mg tablet (Bactrim DS) Allergies Allergy/AdvReac Type Severity Reaction Status Date / Time No Known Allergies Allergy Unverified 04/16/21 11:48 General Stated Complaint: RashLesion CINDY: 4 Review of Systems All systems reviewed & are unremarkable except as noted in HPI and below PFSH All Active Problems (Updated 04/16/21 @ 13:07 by ROSEANN Valenzuela) Otitis media (Acute) Viral URI with cough (Acute) Cellulitis (Acute) Medical History (Updated 04/16/21 @ 13:07 by ROSEANN Valenzuela) Cervical cancer Hepatitis C kidney stones Surgical History (Updated 12/29/20 @ 11:05 by Susan Mandel DO) section x2 History of bilateral tubal ligation Social History Smoking/Tobacco Use Status: Current every day Tobacco Type: cigarettes Smoking risk assessment performed?: Yes Alcohol Intake: never Drug use: Occasionally Substance use type: marijuana Do you feel safe at home: Yes Do you feel safe in your relationship?: Yes Exam Const General: cooperative, comfortable and no acute distress Eyes Pupils: PERRL Resp Effort & Inspection: normal respiratory effort Cardio Rate: regular rate Heart Sounds: no murmurs Skin General skin exam: no rashes or lesions noted Full body images: 1. Erythema surrounding a macerated lesion on left, slight ulceration, no purulent drainage No lymphangitis Extrem Other: Rash noted above, distal pulses intact Course Vital Signs Vital signs: Vital Signs Temperature 36.8 C 04/16/21 11:45 Pulse 84 04/16/21 11:45 Respiratory Rate 18 04/16/21 11:45 Blood Pressure 153/98 H 04/16/21 11:45 Pulse Oximetry 99 04/16/21 11:45 Temperature 36.8 C 04/16/21 11:45 Temperature Source Temporal Artery Scan 04/16/21 11:45 Pulse 84 04/16/21 11:45 Respiratory Rate 18 04/16/21 11:45 Respiratory Effort Non-Labored 04/16/21 11:48 Blood Pressure 153/98 H 04/16/21 11:45 Blood Pressure Position Sitting 04/16/21 11:45 Pulse Oximetry 99 04/16/21 11:45 Oxygen Delivery Method Room Air 04/16/21 11:45 Oxygen Flow Rate 0 04/16/21 11:45
== END 2021-04-16 13:12 | disposition home or self-care (01) ==
PROVIDERS: Emergency Provider Physician Assistant; PCP Nurse Practitioner Family
DX: L03.114 Cellulitis of left upper limb (principal)
CPT/HCPCS: 99283

== ENCOUNTER 2021-06-03 09:40 | Emergency (ER) | payer MEDICAID, SELFPAY ==
[2021-06-03 09:43] VITALS: BP 169/94; PULSE 92; RESP 16; TEMP 36.6; O2SAT 99
--- NOTE | 2021-06-03 09:45 | DI.RAD_ITS ---
Exam(s) XR HIP RT COMPLETE AP PELVIS EXAM: XR HIP RT COMPLETE AP PELVIS CLINICAL HISTORY: hip pain, popping sensation when walking. TECHNIQUE: 2D digital imaging was performed. FINDINGS: Two views No evidence of pelvic nor hip fracture. Benign bone island is noted in the left femoral neck. Degen erative subarticular cyst is seen in the superior aspect of the right hip acetabulum and left hip yonny tabulum. Surgical clips are seen both sides of the pelvis. Phleboliths are noted in both sides of the pelvis. IMPRESSION: No acute hip fractures. Some degenerative change noted in both hips DATA REPOSITORY: RADIATION DOSE DELIVERED:
[2021-06-03] MEDS: Cyclobenzaprine 10 MG TAB PO (10:05)
--- NOTE | 2021-06-03 10:13 | ED.GENADUL_ITS ---
Discharge Plan Disposition Patient Disposition: HOME Condition: Stable Discharge Details Clinical Impression: Osteoarthritis, Chronic hip pain Primary Care Provider: Robin Hernandez ED Provider: Rick Silva Home Meds and New Rx's Prescriptions: New cyclobenzaprine 5 mg tablet 5 mg PO BID PRN (Reason: muscle spasm) Qty: 10 0RF lidocaine [Lidoderm] 5 % adhesive patch,medicated 1 patch topical DAILY PRN (Reason: pain) Qty: 1 0RF Rx Instructions: leave on most painful area for up to 12 hrs No Action methadone 10 MG/ML concentrate 40 mg PO DAILY 0RF Discharge Instructions Instructions: Osteoarthritis (ED) Additional Instructions: Please follow-up with pharmacy specialist as needed. Use medications as directed. Return to the emergency department for any worsening symptoms such as severe pain falling weakness numbness fevers or other abnormal symptoms. Medical Decision Making 40-year-old female presents with several weeks of atraumatic right hip pain intermittent nature worse with ambulation, described as a popping sensation, no acute distress resting comfortably, hemodynamically stable, no overlying skin changes no deformity no crepitus, full active and passive range of motion neurovascular exam of limb intact, consider meniscal injury versus osteoarthritis versus neuropathic pain versus less likely fracture or dislocation, no evidence of infectious process such as septic joint cellulitis or abscess, will perform screening x-ray, analgesia, home care instructions and will provide orthopedic follow-up likely to be discharged home Patient resting comfortably no acute distress. Evidence of osteoarthritis on x- ray. Will be given orthopedic follow-up. HPI General Date/Time Provider Initiated Documentation: 06/03/21 09:54 . HPI Narrative: 40-year-old female on methadone, presents with atraumatic right hip pain over the past several days to weeks, feels as if her hip is popping intermittently when she walks painful sensation lateral hip, denies any falling denies any pain at rest. No infectious symptomatology. No skin changes. Related Data Home Medications Medication Instructions Recorded Confirmed methadone 10 mg/mL oral concentrate 40 mg PO DAILY 12/11/16 06/03/21 cyclobenzaprine 5 mg tablet 5 mg PO BID PRN #10 tab 06/03/21 lidocaine 5 % topical patch 1 patch TOPICAL DAILY PRN #1 ea 06/03/21 (Lidoderm) Previous Rx's Medication Instructions Recorded cyclobenzaprine 5 mg tablet 5 mg PO BID PRN #10 tab 06/03/21 lidocaine 5 % topical patch 1 patch TOPICAL DAILY PRN #1 ea 06/03/21 (Lidoderm) Allergies Allergy/AdvReac Type Severity Reaction Status Date / Time No Known Allergies Allergy Unverified 06/03/21 09:47 General Stated Complaint: Orthopedic CINDY: 3 Review of Systems Narrative: Review of Systems Constitutional: negative Eyes: negative ENT: negative Cardiovascular: negative Respiratory: negative Gastrointestinal: negative : negative Musculoskeletal: Right hip pain Skin: negative Neurologic: negative Psych: negative PFSH All Active Problems (Updated 06/03/21 @ 10:43 by Rick Silva MD) Otitis media (Acute) Viral URI with cough (Acute) Osteoarthritis (Chronic) Chronic hip pain (Acute) Medical History (Updated 06/03/21 @ 10:43 by Rick Silva MD) Cervical cancer Hepatitis C kidney stones Surgical History (Updated 12/29/20 @ 11:05 by Susan Mandel DO) section x2 History of bilateral tubal ligation Social History Smoking/Tobacco Use Status: Current every day Tobacco Type: cigarettes Smoking risk assessment performed?: Yes Alcohol Intake: never Drug use: Occasionally Substance use type: marijuana Do you feel safe at home: Yes Do you feel safe in your relationship?: Yes Exam Narrative Exam Narrative: Physical Examination General: alert, awake, cooperative, resting comfortably, no acute distress HEENT: normocephalic, atraumatic; PERRL, EOM intact, conjunctiva normal; no nasal discharge; moist mucous membranes, oral and pharyngeal mucosa normal, tolerating secretions Neck: supple, trachea midline; full ROM Chest: normal to inspection Respiratory: normal respiratory effort, speaking in full sentences, clear to auscultation, no wheezing, rales or rhonchi Cardiac: regular rate, regular rhythm, S1S2 intact, no murmurs rubs or gallops GI: abdomen soft, non-tender, non-distended; no palpable mass or hepatosplenomegaly Skin: no lesions, rashes or trauma appreciated Neuro: AAOx3, normal speech, moving all extremities Extremities: Right lower extremity: Full active and passive range of motion of right hip, no overlying skin changes, no deformity no crepitus, soft compar tments, warm sensate extremity, DP pulse intact, patient ambulatory Psych: Appropriate mood and affect Course Vital Signs Vital signs: Vital Signs Temperature 36.6 C 06/03/21 09:43 Pulse 92 H 06/03/21 09:43 Respiratory Rate 16 06/03/21 09:43 Blood Pressure 169/94 H 06/03/21 09:43 Pulse Oximetry 99 06/03/21 09:43 Temperature 36.6 C 06/03/21 09:43 Temperature Source Temporal Artery Scan 06/03/21 09:43 Pulse 92 H 06/03/21 09:43 Respiratory Rate 16 06/03/21 09:43 Respiratory Effort 06/03/21 09:46 Blood Pressure 169/94 H 06/03/21 09:43 Blood Pressure Position Sitting 06/03/21 09:43 Pulse Oximetry 99 06/03/21 09:43 Oxygen Delivery Method Room Air 06/03/21 09:43 Oxygen Flow Rate 0 06/03/21 09:43 Pain Level 0 06/03/21 09:43
[2021-06-03] MEDS: Lidocaine 5% Patch 1 PATCH TP (10:18)
--- NOTE | 2021-06-03 10:23 | DI.VRAD_ITS ---
PROCEDURE INFORMATION: Exam: XR Right Hip Exam date and time: 06/03/2021 10:12 AM Age: 40 years old Clinical indication: Hip pain; Right hip; Patient HX: Popping sensation while walking. TECHNIQUE: Imaging protocol: XR Right hip. Views: 2 or 3 views hip with pelvis when performed. COMPARISON: CT ABDOMEN PELVIS W 05/11/2018 3:19 PM FINDINGS: Bones/joints: No fractures or suspicious osseous lesions are identified. There are changes of mild osteoarthritis in both hips, with multiple small subchondral cysts and subchondral sclerosis in the acetabula, as well as small marginal osteophytes. Soft tissues: No acute or suspicious abnormality in the regional soft tissues. IMPRESSION: Mild right hip osteoarthritis. No acute abnormality. Dictated and Authenticated by: Jackie Fraser MD. Ordering:GARY Cabrera MD
== END 2021-06-03 10:48 | disposition home or self-care (01) ==
PROVIDERS: Emergency Provider Emergency Medicine; PCP Nurse Practitioner Family
DX: M16.11 Unilateral primary osteoarthritis, right hip (principal); M25.551 Pain in right hip; G89.29 Other chronic pain
CPT/HCPCS: 99283; 73502

== ENCOUNTER 2023-04-04 15:08 | Emergency (ER) | payer MEDICAID, SELFPAY ==
[2023-04-04] VITALS (7 sets, daily range): BP systolic 135–160; BP diastolic 91–120; PULSE 105–140; RESP 16; TEMP 36.7; O2SAT 95–98
--- NOTE | 2023-04-04 15:15 | DI.CT_ITS ---
Exam(s) CT ABDOMEN PELVIS W EXAM: CT ABDOMEN PELVIS W CLINICAL HISTORY: left lower abd pain, heavy drinking TECHNIQUE: Imaging Protocol: Axial computed tomography images with coronal and sagittal reformatted images were created and reviewed. CONTRAST MATERIAL: Intravenous: Omnipaque 350 Contrast volume:100 mL Oral: No COMPARISON: CT RENAL COLIC WO CONTRAST from 01/09/[address] ABDOMEN PELVIS W from 05/11/2018 FINDINGS: ABDOMEN: Lung Bases: Normal where visualized. Liver: There is decreased attenuation of the liver consistent with fatty infiltration. There is a st able hypodense mass in the right lobe of the liver laterally. Previous imaging show findings consist ent with a hemangioma. No suspicious hepatic lesions are seen. Portal, Superior Mesenteric, and Splenic Veins: Unremarkable. Gallbladder and Biliary Tract: No radiodense calculus or dilation. Pancreas: Normal density, no abnormal calcifications or inflammatory process. Spleen: There is a tiny cyst or hemangioma in the lateral aspect of the spleen. Adrenals: No masses seen. Kidneys: There is atrophy of the right kidney. There are calcifications seen in the right renal caroline which may reflect nonobstructing stones. No obstructive uropathy. No masses seen. Abdominal Aorta: Abdominal portion non-dilated. Bowel: No obstruction or bowel wall thickening. No evidence of appendicitis. Peritoneal Cavity: No ascites, collection or mesenteric inflammatory response. No free air. Lymph Nodes: Within normal limits. Bones: Within normal limits for the patient's age. Soft Tissues: There is a fat containing umbilical hernia. PELVIS: Bladder: There is diffuse thickening of the wall of the urinary bladder. There is also a small amoun t of air seen within the dependent portion of the urinary bladder. Mild stranding is seen around the bladder. Reproductive Organs: Unremarkable as visualized. Lymph Nodes: Within normal limits. Bones: Within normal limits for the patient's age. IMPRESSION: 1. Diffuse thickening of the wall of the urinary bladder. Small amount of air within the urinary terra dder of indeterminate source. Given the findings of the bladder infection should be considered. Rocco plasm cannot be excluded. Please correlate clinically. 2. Stable right hepatic lesion previously seen to be a hemangioma. 3. Diffuse fatty infiltration of the liver. 4. Right renal cortical atrophy. Calcifications seen within the right renal caroline which may represent nonobstructing stones. RADIATION DOSE DELIVERED: 886.56mGy.cm Total DLP DATA REPOSITORY: All CT scans at this facility are submitted to the National Radiology Data Registry (NRDR) Dose Index Registry (DIR) with the [employer] (A[employer]). RADIATION OPTIMIZATION: All CT scans at this facility use at least one of these dose optimization te chniques: automated exposure control; mA and/or kV adjustment per patient size (includes targeted exa ms where dose is matched to clinical indication); or iterative reconstruction.
--- NOTE | 2023-04-04 15:29 | ED.GENADUL_ITS ---
HPI General Date/Time Provider Initiated Documentation: 04/04/23 15:11 . HPI Narrative: 42-year-old female history of alcoholism, daily drinking, presents with atraumatic left lower abdominal discomfort felt a lump on her left side and feels as if her abdomen is swollen. Last drink earlier this afternoon Related Data Home Medications Medication Instructions Recorded Confirmed methadone 10 mg/mL oral concentrate 40 mg PO DAILY 12/11/16 06/30/21 cyclobenzaprine 5 mg tablet 5 mg PO BID PRN muscle spasm #10 06/03/21 06/30/21 tabs lidocaine 5 % topical patch 1 patch topical DAILY PRN pain #1 06/03/21 06/30/21 (Lidoderm) ea cefpodoxime 100 mg tablet 100 mg PO BID 5 days #10 tabs 04/04/23 chlordiazepoxide HCl 25 mg capsule 25 mg PO ONCE #15 caps 04/04/23 Previous Rx's Medication Instructions Recorded cyclobenzaprine 5 mg tablet 5 mg PO BID PRN muscle spasm #10 06/03/21 tabs lidocaine 5 % topical patch 1 patch topical DAILY PRN pain #1 06/03/21 (Lidoderm) ea cefpodoxime 100 mg tablet 100 mg PO BID 5 days #10 tabs 04/04/23 chlordiazepoxide HCl 25 mg capsule 25 mg PO ONCE #15 caps 04/04/23 Allergies Allergy/AdvReac Type Severity Reaction Status Date / Time No Known Allergies Allergy Unverified 06/30/21 08:04 General Stated Complaint: Abd Prob CINDY: 3 Review of Systems Narrative: Review of Systems Constitutional: negative Eyes: negative ENT: negative Cardiovascular: negative Respiratory: negative Gastrointestinal: Abdominal pain : negative Musculoskeletal: negative Skin: negative Neurologic: negative Psych: negative Exam Narrative Exam Narrative: Physical Examination General: alert, awake, cooperative, resting comfortably, no acute distress HEENT: normocephalic, atraumatic; PERRL, EOM intact, conjunctiva normal; no nasal discharge; moist mucous membranes, oral and pharyngeal mucosa normal, tolerating secretions Neck: supple, trachea midline; full ROM Chest: normal to inspection Respiratory: normal respiratory effort, speaking in full sentences, clear to auscultation, no wheezing, rales or rhonchi Cardiac: Tachycardia, regular rhythm, S1S2 intact, no murmurs rubs or gallops GI: abdomen soft, non-tender, mild to moderate distention; no palpable mass or hepatosplenomegaly Skin: no lesions, rashes or trauma appreciated Neuro: AAOx3, normal speech, moving all extremities; mild resting tremor Psych: Appropriate mood and affect Course Vital Signs Vital signs: Vital Signs Temperature 36.7 C 04/04/23 15:16 Pulse 140 H 04/04/23 15:16 Respiratory Rate 16 04/04/23 15:16 Blood Pressure 160/120 H 04/04/23 15:16 Pulse Oximetry 98 04/04/23 15:16 Temperature 36.7 C 04/04/23 15:16 Pulse 140 H 04/04/23 15:16 Respiratory Rate 16 04/04/23 15:16 Respiratory Effort Normal 04/04/23 15:20 Blood Pressure 160/120 H 04/04/23 15:16 Blood Pressure Position Sitting 04/04/23 15:16 Pulse Oximetry 98 04/04/23 15:16 Oxygen Delivery Method Room Air 04/04/23 15:16 Oxygen Flow Rate 0 04/04/23 15:16 Pain Level 5 04/04/23 15:16 Medical Decision Making 42-year-old female history of alcoholism presents with left lower abdominal discomfort abdominal swelling and pain over the last several hours, endorses daily heavy drinking for years, last drink before arrival, noted to be tach ycardic and hypertensive in arrival likely related to discomfort must also consider early withdrawal as patient does have fine tremor. Abdomen nonperitoneal slightly distended on examination consider developing ascites versus diverticulitis versus colitis versus lower sufficient for bowel obstruction or malignancy versus must consider pancreatitis lower suspicion for cholecystitis or appendicitis. Will obtain screening labs urinalysis CT abdomen pelvis with IV contrast, will load with Librium p.o. and dose Ativan IV, fluids Zofran close reassessment of symptoms 16: 51 greatly improved after meds and fluids. Tremor has resolved tachycardia improving now heart rate 105. Patient would like to try to stop drinking, have offered Librium taper which he is amenable to. Given strict instructions with regards to Librium taper. Given return precautions for any worsening symptoms. Treating for cystitis. Quality:SDOH Health Related Social Needs: No Data to Display PFSH All Active Problems (Updated 04/04/23 @ 16:53 by Rick Silva MD) UTI (urinary tract infection) (Acute) Osteoarthritis of right hip (Acute) Labral tear of right hip joint (Acute) Otitis media (Acute) Viral URI with cough (Acute) Medical History (Updated 04/04/23 @ 16:53 by Rick Silva MD) Hepatitis C Cervical cancer kidney stones Surgical History (Updated 12/29/20 @ 11:05 by Susan Mandel DO) History of bilateral tubal ligation section x2 Social History Smoking/Tobacco Use Status: Current every day Tobacco Type: cigarettes Smoking risk assessment performed?: Yes Alcohol Intake: current Alcohol Intake frequency: 3 or more drinks per day Alcohol type: hard liquor Drug use: Occasionally Substance use type: marijuana, heroin and methamphetamine Do you feel safe at home: Yes Do you feel safe in your relationship?: Yes PAWSS Have you Been Recently Intoxicated or Drunk Within the Last 30 days?: Yes Have you Ever Experienced Previous Episodes of Alcohol Withdrawal?: Yes Have you ever Experienced Delirium Tremens(DT)s?: Yes Have you ever undergone Alcohol Rehabilitation Treatment (i.e, inpt ot outpatien t treatment programs)?: No Have you ever Experienced Blackouts?: Yes Have you ever Combined Alcohol with other Downers within the last 90 days?: No Have you ever Combined Alcohol with any other Substance of Abuse during the last 90 days?: No Result: 4 Discharge Plan Disposition Patient Disposition: Home Condition: Improving Discharge Details Clinical Impression: UTI (urinary tract infection) Primary Care Provider: None,None ED Provider: Rick Silva Home Meds and New Rx's Prescriptions: New cefpodoxime 100 mg tablet 100 mg PO BID 5 Days Qty: 10 0RF Rx Instructions: must administer with a meal/food chlordiazepoxide HCl 25 mg capsule 25 mg PO ONCE Qty: 15 0RF Rx Instructions: day1: 50 mg (2 caps) q6hr; day 2: 50 mg q12hr; day 3: 50 mg qday; day 4: 25mg qday No Action cyclobenzaprine 5 mg tablet 5 mg PO BID PRN (Reason: muscle spasm) Qty: 10 0RF lidocaine [Lidoderm] 5 % adhesive patch,medicated 1 patch topical DAILY PRN (Reason: pain) Qty: 1 0RF Rx Instructions: leave on most painful area for up to 12 hrs methadone 10 MG/ML concentrate 40 mg PO DAILY Discharge Instructions Instructions: Urinary Tract Infection in Women (ED) Additional Instructions: We have printed a prescription for antibiotic as well as Librium taper. Please take directly to pharmacy and fill this evening. Please return to the emergency department for any worsening symptoms.
[2023-04-04 15:45] LABS: Abs Immature Grans 0.03 10^3/uL (0.0-0.06); Absolute Basophil Count 0.07 10^3/uL (0.0-0.2); Absolute Eosinophil Count 0.06 10^3/uL (0.0-0.7); Absolute Lymphocyte Count 2.05 10^3/uL (1.2-3.4); Absolute Monocyte Count 0.44 10^3/uL (0.1-0.8); Absolute Neutrophil Count 3.74 10^3/uL (1.2-6.7); Basophils % 1.1; Eosinophils % 0.9; HCT 38.1 % (36.0-46.0); HGB 13.3 g/dL (11.2-15.7); Immature Grans % 0.5; Lymphocytes % 32.1; MCH 34.9 pg (27.0-33.0); MCHC 34.9 % (32.0-36.0); MCV 100 fL (80-95); MPV 9.9 fL (8.0-11.0); Monocytes % 6.9; Neutrophils % 58.5; Platelet Count 174 10^3/uL (130-400); RBC 3.81 10^6/uL (3.93-5.22); RDW-SD 47.8 fL; WBC 6.39 10^3/uL (4.4-10.8)
[2023-04-04] MEDS: Lactated Ringers 1,000 ML 1000 ML IV (15:58)
[2023-04-04] MEDS: LORazepam 2 MG/ML VIAL 1 MG IVP (15:59)
[2023-04-04 16:00] LABS: ALT 112 U/L (14-59); AST 273 U/L (15-37); Albumin 4.1 g/dL (3.4-5.0); Alkaline Phosphatase 110 U/L (46-116); Anion Gap 11.7 mmol/L (3-11); BUN 8 mg/dL (7-18); Bilirubin, Total 0.6 mg/dL (0.2-1.0); CO2 29.3 mmol/L (21.0-32.0); CREATININE 0.6 mg/dL (0.55-1.02); Calcium 9.7 mg/dL (8.5-10.1); Chloride 100 mmol/L (98-107); ETHANOL BLOOD 146.7 mg/dL (<10); Estimated GFR 114.86 (mL/min/1.73m2); Glucose 110 mg/dL (74-106); Magnesium 1.4 mg/dL (1.8-2.4); Potassium 3.7 mmol/L (3.5-5.1); Sodium 141 mmol/L (136-145)
[2023-04-04] MEDS: chlordiazePOXIDE 25 MG CAP 50 MG PO (16:00)
[2023-04-04] MEDS: Normal Saline 1,000 ML 1000 ML IV (16:00)
[2023-04-04] MEDS: Ondansetron 4 MG/2 ML VIAL IVP (16:00)
[2023-04-04 16:06] LABS: Bilirubin Negative (Negative); Blood Negative (Negative); Clarity Sl Cloudy (Clear); Glucose Negative (Negative); Ketones Negative (Negative); Leukocyte Esterase Moderate (Negative); Nitrite Positive (Negative); Specific Gravity 1.015 (1.005-1.025); Urobilinogen 0.2 mg/dL (Up to 0.2)
[2023-04-04] MEDS: Normal Saline - Diluent 50 ML VIAL IJ (16:15)
[2023-04-04] MEDS: Omnipaque 350 MG/ML 100 ML BTL IJ (16:16)
[2023-04-04 16:17] LABS: Bacteria Many HPF (Negative); C & S Indicated? No/Sq. Contamination; Casts Negative LPF (Negative); Crystals Negative HPF (Negative); Epithelial Cells Many HPF (Negative); Mucus Negative (Negative); RBC Negative HPF (0-2)
[2023-04-04] MEDS: Cefpodoxime 200 MG TAB PO (16:50)
[2023-04-04 16:59] LABS: INR 1.2 (0.9-1.1); PTT Activated 24.8 sec (23.6-32.8); Prothrombin Time 11.6 sec (9.1-11.1)
[2023-04-04 16:59] LABS: Lipase 142 U/L (16-77)
== END 2023-04-04 17:09 | disposition home or self-care (01) ==
PROVIDERS: Emergency Provider Emergency Medicine
DX: N39.0 Urinary tract infection, site not specified (principal); N26.1 Atrophy of kidney (terminal); D18.09 Hemangioma of other sites; K76.0 Fatty (change of) liver, not elsewhere classified; F10.20 Alcohol dependence, uncomplicated; F17.210 Nicotine dependence, cigarettes, uncomplicated
CPT/HCPCS: 80053; 83690; 96361; 96374; 96375; 99285; 74177; 80320; 81003; 81015; 83735; 85025; 85610; 85730; 99284; J2060; J2405; J3490

== ENCOUNTER 2023-07-15 16:47 | Inpatient (IN) | payer MEDICAID, SELFPAY ==
[2023-07-15] VITALS (54 sets, daily range): BP systolic 113–155; BP diastolic 62–111; PULSE 112–152; RESP 12–28; TEMP 35.6–36.8; O2SAT 87–100
--- NOTE | 2023-07-15 17:21 | W.ED.GENAD ---
Discharge Plan Disposition Patient Disposition: Admit to [facility] Condition: Stable Discharge Details Chief Complaint: Nausea/Vomit/Diar Clinical Impression: Pancreatitis Primary Care Provider: Unknown,Unknown ED Provider: Rick Silva Home Meds and New Rx's Prescriptions: No Action cyclobenzaprine 5 mg tablet 5 mg PO BID PRN (Reason: muscle spasm) Qty: 10 0RF lidocaine [Lidoderm] 5 % adhesive patch,medicated 1 patch topical DAILY PRN (Reason: pain) Qty: 1 0RF Rx Instructions: leave on most painful area for up to 12 hrs methadone 10 MG/ML concentrate 40 mg PO DAILY chlordiazepoxide HCl 25 mg capsule 25 mg PO ONCE Qty: 15 0RF Rx Instructions: day1: 50 mg (2 caps) q6hr; day 2: 50 mg q12hr; day 3: 50 mg qday; day 4: 25mg qday HPI General Date/Time Provider Initiated Documentation: 07/15/23 17:07. HPI Narrative: 42-year-old female history of alcohol abuse presents with epigastric discomfort nausea vomiting over the last couple of days, bringing up dark emesis. Related Data Home Medications Medication Instructions Recorded Confirmed methadone 10 mg/mL oral concentrate 40 mg PO DAILY 12/11/16 06/30/21 cyclobenzaprine 5 mg tablet 5 mg PO BID PRN muscle spasm #10 06/03/21 06/30/21 tabs lidocaine 5 % topical patch 1 patch topical DAILY PRN pain #1 06/03/21 06/30/21 (Lidoderm) ea chlordiazepoxide HCl 25 mg capsule 25 mg PO ONCE #15 caps 04/04/23 Previous Rx's Medication Instructions Recorded cyclobenzaprine 5 mg tablet 5 mg PO BID PRN muscle spasm #10 06/03/21 tabs lidocaine 5 % topical patch 1 patch topical DAILY PRN pain #1 06/03/21 (Lidoderm) ea chlordiazepoxide HCl 25 mg capsule 25 mg PO ONCE #15 caps 04/04/23 Allergies Allergy/AdvReac Type Severity Reaction Status Date / Time No Known Allergies Allergy Unverified 07/15/23 16:59 General Stated Complaint: Nausea/Vomit/Diar CINDY: 3 Review of Systems Narrative: Review of Systems Constitutional: negative Eyes: negative ENT: negative Cardiovascular: negative Respiratory: negative Gastrointestinal: Nausea vomiting abdominal pain : negative Musculoskeletal: negative Skin: negative Neurologic: negative Psych: negative Exam Narrative Exam Narrative: Physical Examination General: alert, awake, cooperative, resting comfortably, no acute distress HEENT: normocephalic, atraumatic; PERRL, EOM intact, scleral icterus; no nasal discharge; moist mucous membranes, oral and pharyngeal mucosa normal, tolerating secretions Neck: supple, trachea midline; full ROM Chest: normal to inspection Respiratory: normal respiratory effort, speaking in full sentences, clear to auscultation, no wheezing, rales or rhonchi Cardiac: Tachycardia, regular rhythm, S1S2 intact, no murmurs rubs or gallops GI: abdomen soft, non-tender, non-distended; no palpable mass or hepatosplenomegaly Skin: no lesions, rashes or trauma appreciated Neuro: AAOx3, normal speech, moving all extremities; no tremors no fasciculation Psych: Appropriate mood and affect Course Vital Signs Vital signs: Vital Signs Temperature 36.8 C 07/15/23 16:53 Pulse 152 H 07/15/23 16:53 Respiratory Rate 24 07/15/23 16:53 Blood Pressure 135/98 H 07/15/23 16:53 Pulse Oximetry 99 07/15/23 16:53 Temperature 36.8 C 07/15/23 16:53 Temperature Source Temporal Artery Scan 07/15/23 16:53 Pulse 152 H 07/15/23 16:53 Respiratory Rate 24 07/15/23 16:53 Respiratory Effort Normal, Non-Labored 07/15/23 16:58 Blood Pressure 135/98 H 07/15/23 16:53 Blood Pressure Position Sitting 07/15/23 16:53 Pulse Oximetry 99 07/15/23 16:53 Oxygen Delivery Method Room Air 07/15/23 16:53 Oxygen Flow Rate 0 07/15/23 16:53 Pain Level 8 07/15/23 16:53 Medical Decision Making 42-year-old female history of alcohol use presents epigastric abdominal discomfort nausea vomiting for the last several days, bringing up dark emesis at home, notable scleral icterus on examination, tachycardia, dry heaving into emesis basin, abdomen soft nontender nondistended, consider gastritis with upper GI bleed versus variceal bleed versus acute alcoholic hepatitis versus acute on chronic hepatitis lower suspicion for Boerhaave's. Screening labs fluids antiemetics benzodiazepine pantoprazole will empirically dose octreotide given history. CT abdomen pelvis close reassessment admission likely 21: 33 evidence of pancreatitis, likely component of gastritis as well, doing much better after medications and fluids. Given dose of pantoprazole and octreotide. Have loaded with Librium. No fasciculations no tremor heart rate downtrending to more normal range. Will keep n.p.o. admit for fluids and close monitoring Quality:SDOH Health Related Social Needs: No Data to Display PFSH All Active Problems (Updated 07/15/23 @ 21:34 by Rick Silva MD) Pancreatitis (Chronic) Osteoarthritis of right hip (Acute) Labral tear of right hip joint (Acute) Otitis media (Acute) Viral URI with cough (Acute) Medical History (Updated 07/15/23 @ 21:34 by Rick Silva MD) Hepatitis C Cervical cancer kidney stones Surgical History (Updated 12/29/20 @ 11:05 by Susan Mandel DO) History of bilateral tubal ligation section x2 Social History Smoking/Tobacco Use Status: Current every day Tobacco Type: cigarettes Smoking risk assessment performed?: Yes Alcohol Intake: current Alcohol Intake frequency: 3 or more drinks per day Alcohol type: hard liquor Drug use: Occasionally Substance use type: marijuana, heroin and methamphetamine Do you feel safe at home: Yes Do you feel safe in your relationship?: Yes PAWSS Have you Been Recently Intoxicated or Drunk Within the Last 30 days?: No Have you Ever Experienced Previous Episodes of Alcohol Withdrawal?: Yes Have you ever Experienced Withdrawal Seizures?: No Have you ever Experienced Delirium Tremens(DT)s?: Yes Have you ever undergone Alcohol Rehabilitation Treatment (i.e, inpt ot outpatient treatment programs)?: Yes Have you ever Experienced Blackouts?: Yes Have you ever Combined Alcohol with other Downers within the last 90 days?: No Have you ever Combined Alcohol with any other Substance of Abuse during the last 90 days?: No Positive Blood Alcohol level on Presentation? [PCS.BAL]: Unable to Obtain Evidence of Increased Autonomic Activity (i.e. HR>120, tremor, sweating, agitation, nausea)?: Yes Result: 5
[2023-07-15 17:28] LABS: Abs Immature Grans 0.05 10^3/uL (0.0-0.06); Absolute Basophil Count 0.05 10^3/uL (0.0-0.2); Absolute Eosinophil Count 0.01 10^3/uL (0.0-0.7); Absolute Lymphocyte Count 1.09 10^3/uL (1.2-3.4); Absolute Monocyte Count 0.48 10^3/uL (0.1-0.8); Basophils % 0.5 %; Eosinophils % 0.1 %; HCT 39.4 % (36.0-46.0); HGB 13.8 g/dL (11.2-15.7); Immature Grans % 0.5 %; MCH 35.3 pg (27.0-33.0); MCV 101 fL (80-95); Monocytes % 4.9 %; Platelet Count 147 10^3/uL (130-400); RBC 3.91 10^6/uL (3.93-5.22); RDW 13.1 % (11.7-14.6); RDW-SD 48.8 fL; WBC 9.88 10^3/uL (4.4-10.8)
[2023-07-15 17:43] LABS: INR 1.2 (0.9-1.1); Prothrombin Time 11.5 sec (9.1-11.1)
[2023-07-15 17:44] LABS: ALT 69 U/L (14-59); AST 219 U/L (15-37); Albumin 4.3 g/dL (3.4-5.0); Alkaline Phosphatase 125 U/L (46-116); Anion Gap 19.8 mmol/L (3-11); BUN 12 mg/dL (7-18); Bilirubin, Total 2.7 mg/dL (0.2-1.0); CO2 19.2 mmol/L (21.0-32.0); Calcium 9.7 mg/dL (8.5-10.1); Chloride 92 mmol/L (98-107); ETHANOL BLOOD 230.3 mg/dL (<10); Estimated GFR 72.13 (mL/min/1.73m2); Glucose 138 mg/dL (74-106); Potassium 3.3 mmol/L (3.5-5.1); Sodium 131 mmol/L (136-145); Total Protein 8.7 g/dL (6.4-8.2)
[2023-07-15 17:45] LABS: Lipase > 375 U/L (16-77)
[2023-07-15 17:55] LABS: BE (Venous) -6 mmol/L (-2-3); HCO3 (Venous) 19 mmol/L (23-28); O2 Sat (Venous) 95 %; TCO2 (Venous) 17 mmol/L (24-29); pCO2 (Venous) 33 mmHg (41-51); pH (Venous) 7.38 (7.31-7.41); pO2 (Venous) 75 mmHg
[2023-07-15] MEDS: Octreotide 100 MCG/ML VIAL 50 MCG IVP (17:56)
[2023-07-15] MEDS: LORazepam 2 MG/ML VIAL 1 MG IVP (17:56)
[2023-07-15] MEDS: Normal Saline 1,000 ML 1000 ML IV (17:58)
[2023-07-15] MEDS: Ondansetron 4 MG/2 ML VIAL IVP (17:58)
[2023-07-15] MEDS: Pantoprazole 40 MG VIAL 80 MG IVP (17:59)
[2023-07-15] MEDS: Normal Saline Flush 10 ML SYR IVP (18:19)
[2023-07-15] MEDS: Normal Saline - Diluent 50 ML VIAL IJ (18:20)
[2023-07-15] MEDS: Omnipaque 350 MG/ML 100 ML BTL IJ (18:21)
--- NOTE | 2023-07-15 18:29 | DI.CT_ITS ---
Exam(s) CT ABDOMEN PELVIS W EXAM: CT ABDOMEN PELVIS W CLINICAL HISTORY: nausea vomiting epi abd pain, hx drinking TECHNIQUE: Imaging Protocol: Axial computed tomography images with coronal and sagittal reformatted images were created and reviewed. CONTRAST MATERIAL: Intravenous: Omnipaque 350 Contrast volume:100 mL Oral: No COMPARISON: CT CT ABDOMEN PELVIS W from 05/11/[address] ABDOMEN PELVIS W from 04/04/2023 FINDINGS: ABDOMEN: Lung Bases: There is mild thickening of the wall of the distal esophagus. Liver: There is diffuse decreased attenuation of the liver consistent with fatty infiltration. No me asurable mass. Hepatomegaly. Portal, Superior Mesenteric, and Splenic Veins: Unremarkable. Gallbladder and Biliary Tract: The gallbladder is distended. No stones are seen. The common duct me asures up to 9 mm. This is unchanged compared to the prior examination. Pancreas: Normal density, no abnormal calcifications or inflammatory process. Spleen: There are 2 stable hypodensities in the spleen which may represent small cysts or hemangiomas . Adrenals: No masses seen. Kidneys: There is unchanged atrophy of the right kidney. No suspicious renal masses are seen. There is a nonobstructing stone in the upper pole of the right kidney. No masses seen. Abdominal Aorta: Abdominal portion non-dilated. Bowel: No obstruction or bowel wall thickening. No evidence of appendicitis. The colon is incomplete ly distended limiting evaluation. Peritoneal Cavity: No ascites, collection or mesenteric inflammatory response. No free air. Lymph Nodes: Within normal limits. Bones: Within normal limits for the patient's age. Soft Tissues: There is a fat containing umbilical hernia. There is atrophy of the right lateral abdo ann-marie wall musculature. PELVIS: Bladder: There is mild thickening of the wall of the urinary bladder. This may be due to underdisten tion, but cystitis cannot be excluded. Reproductive Organs: There are surgical clips seen in the adnexa bilaterally which may represent prio r tubal ligation. There is a 4 cm right ovarian cyst. Lymph Nodes: Within normal limits. Bones: Within normal limits for the patient's age. IMPRESSION: 1. No acute abdominal or pelvic process. 2. Mild thickening of the wall of the urinary bladder. This may be due to underdistention, but cysti tis cannot be excluded. Please correlate clinically. 3. Right nephrolithiasis, no hydronephrosis. 4. 4 cm right ovarian cyst. 5. Mild thickening of the wall of the distal esophagus. This may be due to underdistention but gastr itis should be considered. Please correlate clinically. RADIATION DOSE DELIVERED: 917.2mGy.cm Total DLP DATA REPOSITORY: All CT scans at this facility are submitted to the National Radiology Data Registry (NRDR) Dose Index Registry (DIR) with the [employer] (A[employer]). RADIATION OPTIMIZATION: All CT scans at this facility use at least one of these dose optimization te chniques: automated exposure control; mA and/or kV adjustment per patient size (includes targeted exa ms where dose is matched to clinical indication); or iterative reconstruction.
--- NOTE | 2023-07-15 19:28 | DI.VRAD_ITS ---
PROCEDURE INFORMATION: Exam: CT Abdomen And Pelvis With Contrast Exam date and time: 07/15/2023 6:23 PM Age: 42 years old Clinical indication: Nausea and vomiting; Abdominal pain; Generalized; Patient HX: Nausea vomiting epi abd pain, HX drinking TECHNIQUE: Imaging protocol: Computed tomography of the abdomen and pelvis with contrast. Radiation optimization: All CT scans at this facility use at least one of these dose optimization techniques: automated exposure control; mA and/or kV adjustment per patient size (includes targeted exams where dose is matched to clinical indication); or iterative reconstruction. Contrast material: [id number]; Contrast volume: 100 ml; Contrast route: INTRAVENOUS (IV); COMPARISON: CT ABDOMEN PELVIS W 04/04/2023 16:17 FINDINGS: Lungs: Visualized lung bases are clear. Liver: Marked fatty infiltration of the liver. No mass or ductal dilatation. Liver enlarged to 25.3 cm sagittal diameter. Gallbladder and bile ducts: Normal. No calcified stones. No ductal dilation. Pancreas: Normal. No mass or ductal dilation. Spleen: Normal. No splenomegaly. Adrenal glands: Normal. No mass. Kidneys and ureters: Right kidney is atrophic. Left kidney is normal. Stomach and bowel: Unremarkable. No significant dilatation or obstruction. No mucosal thickening or visible mass. Appendix: No evidence of appendicitis. Intraperitoneal space: Unremarkable. No free air. No significant fluid collection. Vasculature: Unremarkable. No abdominal aortic aneurysm or significant atherosclerosis. Lymph nodes: No enlarged retroperitoneal or mesenteric lymph nodes. Urinary bladder: No mass or wall thickening. Reproductive: 4.2 cm right adnexal cyst. Left adnexa is normal. Uterus is retroflexed. Bilateral fallopian tube clips. Bones/joints: Unremarkable. No acute fracture. No lytic lesion. Soft tissues: Unremarkable. IMPRESSION: 1. Hepatomegaly with hepatic steatosis. 2. 4.2 cm right adnexal cyst. 3. No other acute abnormality. Dictated and Authenticated by: Justin Daniel MD. Ordering:GARY Cabrera MD
[2023-07-15] MEDS: chlordiazePOXIDE 25 MG CAP PO (21:53)
[2023-07-15] MEDS: Nicotine 2 MG GUM CH (22:09)
--- NOTE | 2023-07-15 23:03 | W.PM.HP.N ---
Date of service: 07/15/23 Time of Service: 23:30 Assessment and Plan Assessment and plan (1) Pancreatitis: Status: Chronic Assessment and plan: Clinically conistent with alcoholic pancreatitis and alcoholic gastritis together. She would like to try conservative clears, will allow continue fluids overnight. Pain not bad, monitor. (2) Coffee ground emesis: Status: Acute Assessment and plan: reports severe days of vomiting black chunky material, but no anemia on labs. I'm not sure she needs octreotide right now, no history of cirrhosis or signs of portal HTN on imaging. Continue high dose PPI. Follow blood counts (3) Alcoholic hepatitis: Status: Acute Assessment and plan: Liver inflammation in alcoholic pattern, aslo signs of dysfunction with elevation of bilirubin and INR. Mild at this point, steroids not indicated, but follow. I am for developing cirrhosis based on her labs including low plts and albumin, but cirrhosis not evident on imaging. Follow liver function closely. H/o HCV but was treated, last HCV VL negative 08/2020. retesting viral panel done today (4) Alcohol abuse: Status: Chronic Assessment and plan: She is at risk for withdrawl, given a dose of chlorodiazepoxide and lorazepam in the ED, not in withdrawal currently. Monitor on CIWA. I don't think it makes sense to transition to phenobarbitol now. She is interested in treatment options, discuss medical and behavioral options before discharge. (5) Hypokalemia: Status: Acute Assessment and plan: replaced, follow. (6) Hypomagnesemia: Status: Acute Assessment and plan: replaced, follow (7) DVT prophylaxis: Status: Acute Assessment and plan: SCDs/TEDs given possible active bleed. (8) Opioid use disorder, moderate, in early remission, on maintenance therapy, dependence: Assessment and plan: continue methadone (9) Smoker: Status: Acute Assessment and plan: Denies NRT for now History of Present Illness History of Present Illness Chief Complaint: vomiting Narrative: 42 yo with stable OUD on methadone, active alcohol use disorder with daily drinking, presenting with 2 months of persistent vomiting. Over the last 2-3 days the vomiting has worsened with constant wretching and vomiting up black chunks along with increased epigastric pain. Pain is in mid epigastric area, burning, constant, worse after vomiting. Some pain to the RUQ, no other radiation. She has had firmer stools recently, no blood or melena. She has noted increased fatigue and jaundice during this time. She can swallow food, still a little hungry, but tends to vomit food and liquid up. Tolerating ice chips after medication in ED. Still very thirsty. She drinks a fifth of liquor every day, has for years. If she doesn't drink, she get the shakes, but she has never had withdrawal seizures. Has never been in rehab or treatment for alcohol. Uses cannabis but not daily, not in the past 5 days. Hot showers don't help nausea. Review of Systems All systems reviewed & are unremarkable except as noted in HPI and below Constitutional Constitutional: Denies fever(s), Denies headache(s) and Denies weight loss ENT Ears, Nose, Mouth, and Throat: Denies headache(s) Cardiovascular Cardiovascular: Denies dyspnea Respiratory Respiratory: Denies cough, Denies hemoptysis and Denies dyspnea Gastrointestinal Gastrointestinal: Reports as per HPI Genitourinary Genitourinary: Denies hematuria, Denies dysuria and Denies pelvic pain Comments: periods regular, LMP 06/19/23 Neurologic Neurologic: Denies headache(s) PFSH All Active Problems Smoker (Acute) Coffee ground emesis (Acute) Hypomagnesemia (Acute) Hypokalemia (Acute) DVT prophylaxis (Acute) Alcohol abuse (Chronic) Alcoholic hepatitis (Acute) Pancreatitis (Chronic) Osteoarthritis of right hip (Acute) Labral tear of right hip joint (Acute) Otitis media (Acute) Viral URI with cough (Acute) Medical History Opioid use disorder, moderate, in early remission, on maintenance therapy, dependence Hepatitis C Treated Cervical cancer kidney stones Surgical History History of bilateral tubal ligation section x2 Social History Smoking/Tobacco Use Status: Current every day Tobacco Type: cigarettes Smoking risk assessment performed?: Yes Alcohol Intake: current Alcohol Intake frequency: 3 or more drinks per day Alcohol type: hard liquor Drug use: Occasionally Substance use type: marijuana, heroin and methamphetamine Do you feel safe at home: Yes Do you feel safe in your relationship?: Yes Meds Allergies and Home Medications Allergies Allergy/AdvReac Type Severity Reaction Status Date / Time No Known Allergies Allergy Unverified 07/15/23 16:59 Home Medications Medication Instructions Recorded Confirmed Type methadone 10 mg/mL oral concentrate 40 mg PO DAILY 12/11/16 06/30/21 History cyclobenzaprine 5 mg tablet 5 mg PO BID PRN muscle spasm #10 06/03/21 06/30/21 Rx tabs lidocaine 5 % topical patch 1 patch topical DAILY PRN pain #1 06/03/21 06/30/21 Rx (Lidoderm) ea chlordiazepoxide HCl 25 mg capsule 25 mg PO ONCE #15 caps 04/04/23 Rx Exam Narrative Exam Narrative: GEN: Alert and oriented, pleasant and cooperative, gives linear history. Uncomfortable appearing, but not in acute distress HEENT: Head atraumatic. Conjunctiva clear, mild icterus. PEERL, EOMI. no rhinorrhea. MMM, OP benign. Neck is supple with no masses or lymphadenopathy, trachea midline LUNGS: CTAB with normal effort CV: RRR with no murmurs, gallops, or rubs. ABD: +BS, soft, with gassy distention. Tender in epigastrum to RUQ. No masses/HSM palpable. no rebound. NO fluid wave. EXT: no cyanosis, clubbing, or edema. legs not tender MSK: No joint redness or swelling NEURO: CN 2-12 grossly intact. Normal movement of 4 extremities. Normal speech and coordination. no tremor SKIN: No rashes or open wounds. PSYCH: mildly depressed mood and affect, nl thought process, no hallucinations Results Imaging Abdomen CT scan report/results: report reviewed (1. Hepatomegaly with hepatic steatosis. 2. 4.2 cm right adnexal cyst. 3. No other acute abnormality. ) Labs 07/15/23 17:14 07/15/23 17:14 Labs: Laboratory Results - last 24 hr 07/15/23 07/15/23 07/15/23 17:14 17:30 17:50 WBC 9.88 RBC 3.91 L Hgb 13.8 Hct 39.4 MCV 101 H MCH 35.3 H MCHC 35.0 RDW 13.1 Plt Count 147 MPV 10.0 Immature Gran % 0.5 Neutrophils % 83.0 Lymphocytes % 11.0 Monocytes % 4.9 Eosinophils % 0.1 Basophils % 0.5 Nucleated RBC % 0.0 Absolute Neutrophils 8.20 H Absolute Lymphocytes 1.09 L Absolute Monocytes 0.48 Absolute Eosinophils 0.01 Absolute Basophils 0.05 PT 11.5 H INR 1.2 H APTT 20.0 L VBG pH 7.38 VBG pCO2 33 L VBG pO2 75 VBG HCO3 19 L VBG Total CO2 17 L VBG O2 Saturation 95 VBG Base Excess -6 L Sodium 131 L Potassium 3.3 L Chloride 92 L Carbon Dioxide 19.2 L Anion Gap 19.8 H BUN 12 Creatinine 1.0 Est GFR (CKD-EPI 2020) 72.13 Glucose 138 H Calcium 9.7 Total Bilirubin 2.7 H AST 219 H ALT 69 H Alkaline Phosphatase 125 H Total Protein 8.7 H Albumin 4.3 Lipase > 375 H Ethyl Alcohol 230.3 H ABO/Rh A Positive Antibody Screen NEGATIVE Last Vital Signs Temp 36.8 C 07/15/23 21:50 Pulse 129 H 07/15/23 22:15 Resp 19 07/15/23 22:20 BP 118/72 07/15/23 22:15 Pulse Ox 98 07/15/23 22:20 PAWSS Have you Been Recently Intoxicated or Drunk Within the Last 30 days?: No Have you Ever Experienced Previous Episodes of Alcohol Withdrawal?: Yes Have you ever Experienced Withdrawal Seizures?: No Have you ever Experienced Delirium Tremens(DT)s?: Yes Have you ever undergone Alcohol Rehabilitation Treatment (i.e, inpt ot outpatient treatment programs)?: Yes Have you ever Experienced Blackouts?: Yes Have you ever Combined Alcohol with other Downers within the last 90 days?: No Have you ever Combined Alcohol with any other Substance of Abuse during the last 90 days?: No Positive Blood Alcohol level on Presentation? [PCS.BAL]: Unable to Obtain Evidence of Increased Autonomic Activity (i.e. HR>120, tremor, sweating, agitation, nausea)?: Yes Result: 5 Time Spent Time spent with Patient: 55-74 minutes Time was spent: preparing to see the patient(eg.review tests), obtaining and/or reviewing separately otained hiistory, ordering medications,tests, procedures, referring, communicating with other health healthcare insurance sales agent, indepentently interpreting results, counseling the patient and care coordination
[2023-07-16] VITALS (13 sets, daily range): BP systolic 117–138; BP diastolic 79–101; PULSE 102–131; RESP 14–21; TEMP 36–37; O2SAT 96–98; BMI 27.9
[2023-07-16] MEDS: POTASSIUM CHLORIDE 20 MEQ/100 ML BAG 50 MEQ IVINF (00:15)
[2023-07-16] MEDS: MAGNESIUM SULFATE 2 GM/50 ML BAG IVINF (00:16)
[2023-07-16] MEDS: Lactated Ringers 1,000 ML 125 ML IV ×2 (00:33→12:15)
[2023-07-16] MEDS: LORazepam 1 MG TAB PO/SL ×2 (01:47→07:00)
[2023-07-16 07:27] LABS: Abs Immature Grans 0.04 10^3/uL (0.0-0.06); Absolute Basophil Count 0.04 10^3/uL (0.0-0.2); Absolute Eosinophil Count 0.04 10^3/uL (0.0-0.7); Absolute Lymphocyte Count 0.79 10^3/uL (1.2-3.4); Absolute Monocyte Count 0.45 10^3/uL (0.1-0.8); Absolute Neutrophil Count 7.53 10^3/uL (1.2-6.7); Basophils % 0.4 %; Eosinophils % 0.4 %; HCT 34.6 % (36.0-46.0); HGB 12.1 g/dL (11.2-15.7); Immature Grans % 0.4 %; Lymphocytes % 8.9 %; MCH 35.5 pg (27.0-33.0); MCV 102 fL (80-95); Monocytes % 5.1 %; Neutrophils % 84.8 %; RBC 3.41 10^6/uL (3.93-5.22); RDW 13.2 % (11.7-14.6); RDW-SD 49.5 fL; WBC 8.89 10^3/uL (4.4-10.8)
[2023-07-16 07:45] LABS: ALT 66 U/L (14-59); AST 251 U/L (15-37); Albumin 3.5 g/dL (3.4-5.0); Alkaline Phosphatase 99 U/L (46-116); Anion Gap 17.6 mmol/L (3-11); BUN 9 mg/dL (7-18); Bilirubin, Total 2.8 mg/dL (0.2-1.0); CO2 19.4 mmol/L (21.0-32.0); CREATININE 0.8 mg/dL (0.55-1.02); Calcium 8.6 mg/dL (8.5-10.1); Chloride 95 mmol/L (98-107); Estimated GFR 94.28 (mL/min/1.73m2); Glucose 97 mg/dL (74-106); Magnesium 1.9 mg/dL (1.8-2.4); Potassium 3.3 mmol/L (3.5-5.1); Sodium 132 mmol/L (136-145); Total Protein 7.2 g/dL (6.4-8.2)
--- NOTE | 2023-07-16 08:07 | ANES.PREOP_ITS ---
General Info Date of Service Date Performed: 07/16/23 Height: 5 ft 7 in Weight: 81 kg Body Mass Index (BMI): 27.9 Surgical Procedure: Operation Date: 07/16/23 12:35 Proposed Procedure Side Surgeon p Gastroscopy Ana Alicia, Meds Allergies and Home Medications Allergies Allergy/AdvReac Type Severity Reaction Status Date / Time No Known Allergies Allergy Unverified 07/15/23 16:59 Home Medication Medication Instructions Recorded methadone 10 mg/mL oral concentrate 40 mg PO DAILY 12/11/16 cyclobenzaprine 5 mg tablet 5 mg PO BID PRN muscle spasm #10 06/03/21 tabs lidocaine 5 % topical patch 1 patch topical DAILY PRN pain #1 06/03/21 (Lidoderm) ea chlordiazepoxide HCl 25 mg capsule 25 mg PO ONCE #15 caps 04/04/23 Current Visit Medications: Current Medications Generic Name Dose Route Start Last Admin Trade Name Freq PRN Reason Stop Dose Admin Diazepam 0 mg 07/15/23 21:54 Diazepam 10 Mg/2 Ml Syr IVP DIRECTED PRN Hydromorphone HCl 2 mg 07/16/23 05:06 Hydromorphone 2 Mg/Ml Syr IVP Q2H PRN Octreotide Acetate 250 mcg/ 250 mls @ 50 mls/hr 07/15/23 17:30 Sodium Chloride IV INFUSION JACOBO Protocol 50 MCG/HR Multivitamins 10 ml/ Thiamine 1,011.2 mls @ 42 mls/hr 07/16/23 08:30 HCl 100 mg/ Folic Acid 1 mg/ IV Dextrose/Sodium Chloride DAILY JACOBO Ringer's Solution 1,000 mls @ 125 mls/hr 07/15/23 23:45 07/16/23 00:33 IV 125 mls/hr INFUSION JACOBO Administration Iohexol 100 ml 07/15/23 18:30 07/15/23 18:21 Omnipaque 350 Mg/Ml 100 Ml Btl IJ 08/14/23 23:59 100 ml DIRECTED JACOBO Administration Lidocaine 1 patch 07/15/23 21:53 Lidocaine 5% Patch TP DAILY PRN pain Lorazepam 0 mg 07/15/23 21:54 07/16/23 07:00 Lorazepam 1 Mg Tab PO/SL 1 mg DIRECTED PRN Administration Methadone HCl 40 mg 07/16/23 08:30 Methadone Liquid 10 Mg/Ml PO DAILY JACOBO Metoclopramide HCl 10 mg 07/16/23 05:06 Metoclopramide 10 Mg/2 Ml Vial IVP Q6H PRN PRN Nicotine 2 mg 07/15/23 21:44 07/15/23 22:09 Nicotine 2 Mg Gum CH 2 mg Q4H PRN PRN Administration Ondansetron HCl 4 mg 07/16/23 05:07 Ondansetron 4 Mg/2 Ml Vial IVP Q8H PRN PRN Pantoprazole Sodium 40 mg 07/15/23 22:00 07/16/23 01:37 Pantoprazole 40 Mg Vial IVP Not Given Q12H JACOBO Sodium Chloride 0 ml 07/15/23 18:19 07/15/23 18:19 Normal Saline Flush 10 Ml Syr IVP 10 ml PRN PRN Administration Sodium Chloride 50 ml 07/15/23 18:30 07/15/23 18:20 Normal Saline - Diluent 50 Ml Vial IJ 50 ml .FOR DI USE JACOBO Administration PFSH Active Problems Active Problems: Problem Status Onset Code Smoker F17.200 Coffee ground emesis K92.0 Hypomagnesemia E83.42 Hypokalemia E87.6 DVT prophylaxis Z29.9 Alcohol abuse F10.10 Alcoholic hepatitis K70.10 Pancreatitis K85.90 Osteoarthritis of right hip M16.11 Labral tear of right hip joint S73.191A Otitis media H66.90 Viral URI with cough J06.9 Medical History Medical History Opioid use disorder, moderate, in early remission, on maintenance therapy, dependence Hepatitis C Treated Cervical cancer kidney stones Surgical History Surgical History History of bilateral tubal ligation section x2 Tobacco Smoking/Tobacco Use Status: Current every day Tobacco Type: cigarettes Alcohol Alcohol Intake: current Alcohol intake frequency: 3 or more drinks per day Alcohol type: hard liquor Substance Use Substance use: Occasionally Substance use type: marijuana, heroin and methamphetamine Vital Signs and Lab Results Vital Signs Most Recent Vital Signs in EMR: Most Recent Vital Signs Temp Pulse Resp BP Pulse Ox 36.4 C L 113 H 17 138/86 96 07/16/23 07:41 07/16/23 07:41 07/16/23 07:41 07/16/23 07:41 07/16/23 07:41 Lab Results 07/15/23 17:14 07/16/23 06:50 Blood Type / Crossmatch: 2 Antibody Screen NEGATIVE 07/15/23 Complete Blood Count: 2 White Blood Count 8.89 10^3/uL (4.4-10.8) 07/16/23 06:50 Red Blood Count 3.41 10^6/uL (3.93-5.22) L 07/16/23 06:50 Hemoglobin 12.1 g/dL (11.2-15.7) 07/16/23 06:50 Hematocrit 34.6 % (36.0-46.0) L 07/16/23 06:50 Platelet Count 10^3/uL (130-400) 07/16/23 06:50 Complete Metabolic Panel: 2 Sodium 132 mmol/L (136-145) L 07/16/23 06:50 Potassium 3.3 mmol/L (3.5-5.1) L 07/16/23 06:50 Chloride 95 mmol/L (98-107) L 07/16/23 06:50 Carbon Dioxide 19.4 mmol/L (21.0-32.0) L 07/16/23 06:50 BUN 9 mg/dL (7-18) 07/16/23 06:50 Creatinine 0.8 mg/dL (0.55-1.02) 07/16/23 06:50 Est GFR (CKD-EPI 2020) 94.28 (mL/min/1.73m2) 07/16/23 06:50 Magnesium 1.9 mg/dL (1.8-2.4) 07/16/23 06:50 Calcium 8.6 mg/dL (8.5-10.1) 07/16/23 06:50 Albumin 3.5 g/dL (3.4-5.0) 07/16/23 06:50 Glucose 97 mg/dL (74-106) 07/16/23 06:50 Liver Function Panel: 2 Alanine Aminotransferase (ALT/SGPT) 66 U/L (14-59) H 07/16/23 0 6:50 Aspartate Amino Transf (AST/SGOT) 251 U/L (15-37) H 07/16/23 06 :50 Coagulation Panel: 2 INR International Normalized Ratio 1.2 (0.9-1.1) H 07/16/23 08 :01 Prothrombin Time 11.8 sec (9.1-11.1) H 07/16/23 08:01 Activated Partial Thromboplast Time 20.0 sec (23.6-32.8) L 07/15/23 17:14 Cardiac Panel: 2 No Data to Display Arterial Blood Gas: 2 No Data to Display Venous Blood Gas: 2 Venous Blood pH 7.38 (7.31-7.41) 07/15/23 17:50 Venous Blood Partial Pressure O2 75 mmHg 07/15/23 17:50 Venous Blood Partial Pressure CO2 33 mmHg (41-51) L 07/15/23 17 :50 Venous Blood Oxygen Saturation 95 % 07/15/23 17:50 Venous Blood HCO3 19 mmol/L (23-28) L 07/15/23 17:50 Venous Blood Base Excess -6 mmol/L (-2-3) L 07/15/23 17:50 Venous Blood Total Carbon Dioxide 17 mmol/L (24-29) L 07/15/23 17:50 Pancreas Panel: 2 Lipase > 375 U/L (16-77) H 07/15/23 17:14 Thyroid Panel: 2 No Data to Display Infectious Disease: 2 No Data to Display Blood Cultures: 2 No Data to Display Toxicology Panel: 2 Ethyl Alcohol Level 230.3 mg/dL (<10) H 07/15/23 17:14 Panel: 2 Serum HCG, Qualitative Negative 07/16/23 10:13 Anesthesia Assessment and Plan Anesthesia History Personal History: No History of Anesthesia Complications Family History: No Family History of Anesthesia Complications Exercise Tolerance Exercise Tolerance: Metabolic Equivalents>4 Pertinent Negatives Pertinent Negatives: No Major Cardiovascular Symptoms or Complaints, No Major Pulmonary Symptoms or Complaints and No History of CVA/TIA Cardiac & Pulmonary Exam Cardiac Exam: Normal S1/S2 Heart Sounds Pulmonary Exam: Clear Bilateral Breath Sounds Implantable Cardiac Device Does patient have a Pacemaker or an ICD?: No Airway Exam Known Difficult Airway: No Mallampati Class: 3 Mouth Opening: Narrow (< 3cm) Thyromental Distance: Greater than 3 cm Neck Range of Motion: Full ROM Neck Circumference: Normal Teeth Condition: Normal Dentition ASA Classification ASA Score: ASA 3 Emergency Case?: No NPO Status NPO Status: NPO Clears >2 hours, Solids >8 hours Status Status: Negative HCG Anesthesia Plan Resuscitation Status: Full Code Anesthesia Technique: General Anesthesia Airway Planned: Endotracheal Tube Monitors Used: Standard Monitors
[2023-07-16 08:19] LABS: INR 1.2 (0.9-1.1); Prothrombin Time 11.8 sec (9.1-11.1)
[2023-07-16 08:19] LABS: Diff Comment Diff Reviewed; RBC Morphology Normal
[2023-07-16] MEDS: MULTIVITAMIN 10 ML, THIAMINE 100 MG, FOLIC ACID 1 MG in DEXTROSE 5%-0.45% SALINE 1,000 ML 42 ML IV (08:45)
[2023-07-16] MEDS: Pantoprazole 40 MG VIAL IVP ×2 (08:46→23:22)
[2023-07-16] MEDS: Normal Saline Flush 10 ML SYR IVP ×3 (08:46→23:23)
[2023-07-16] MEDS: Normal Saline 10 ML VIAL (08:46)
--- NOTE | 2023-07-16 09:16 | W.SURGCON ---
Date of service: 07/16/23 Time of Service: 10:00 Assessment and Plan Assessment and plan (1) Alcoholic hepatitis: Status: Acute (2) Pancreatitis: Status: Chronic (3) Hypokalemia: Status: Acute (4) Hypomagnesemia: Status: Acute (5) Alcohol abuse: Status: Chronic (6) Hepatitis C: (7) Opioid use disorder, moderate, in early remission, on maintenance therapy, dependence: (8) Smoker: Status: Acute (9) Coffee ground emesis: Status: Acute Assessment and plan: Informed consent is obtained for the procedural (explained in simple layman's terms that the pt. and/or family could understand) explaining risks vs benefits and alternatives to the procedure and consequences if we do not do the procedure and need/rational for the procedure. Risks include but are not limited to: bleeding, infection, perforation of esophagus, stomach, colon, small intestines, bronchus or trachea, or PTX. This would necessitate emergency surgery to repair the damage w/ possible ostomy; and other associated complications w/ the required surgery. Also complications of anesthesia including aspiration, OH/CVA/. (10) History of duodenal ulcer: Status: Acute (11) Kidney atrophy: Status: Acute Assessment and plan: Patient states she has had 2 surgeries on this kidney. Is unknown if this is functional Right (12) Umbilical hernia: Status: Acute (13) Ovarian cyst, right: Status: Acute (14) History of marijuana use: Status: Acute History of Present Illness Narrative: Patient is a 42-year-old female with a history of alcohol and IV drug abuse. She says she is not actively using opioids right now and that she is on methadone. She does smoke cigarettes and pot. She does drink daily. Patient complains of sharp abdominal pain in the epigastric area. She has not had any active vomiting today. She vomited up coffee-ground yesterday. She denies any dark tarry stools or gross blood. She is not on any stomach medication. She has never had a scope before-see below. Patient is a very poor historian. She is not anemic. She does have a history of gastritis and ulcers. Patient has been medicated and no signs of active withdrawal Past surgical history significant for 2 C-sections and [address] 07/15/23 ABDOMEN: Lung Bases: There is mild thickening of the wall of the distal esophagus. Liver: There is diffuse decreased attenuation of the liver consistent with fatty infiltration. No measurable mass. Hepatomegaly. Portal, Superior Mesenteric, and Splenic Veins: Unremarkable. Gallbladder and Biliary Tract: The gallbladder is distended. No stones are seen. The common duct measures up to 9 mm. This is unchanged compared to the prior examination. Pancreas: Normal density, no abnormal calcifications or inflammatory process. Spleen: There are 2 stable hypodensities in the spleen which may represent small cysts or hemangiomas. Adrenals: No masses seen. Kidneys: There is unchanged atrophy of the right kidney. No suspicious renal masses are seen. There is a nonobstructing stone in the upper pole of the right kidney. No masses seen. Abdominal Aorta: Abdominal portion non-dilated. Bowel: No obstruction or bowel wall thickening. No evidence of appendicitis. The colon is incompletely distended limiting evaluation. Peritoneal Cavity: No ascites, collection or mesenteric inflammatory response. No free air. Lymph Nodes: Within normal limits. Bones: Within normal limits for the patient's age. Soft Tissues: There is a fat containing umbilical hernia. There is atrophy of the right lateral abdominal wall musculature. PELVIS: Bladder: There is mild thickening of the wall of the urinary bladder. This may be due to underdistention, but cystitis cannot be excluded. Reproductive Organs: There are surgical clips seen in the adnexa bilaterally which may represent prior tubal ligation. There is a 4 cm right ovarian cyst. Lymph Nodes: Within normal limits. Bones: Within normal limits for the patient's age. IMPRESSION: 1. No acute abdominal or pelvic process. 2. Mild thickening of the wall of the urinary bladder. This may be due to underdistention, but cystitis cannot be excluded. Please correlate clinically. 3. Right nephrolithiasis, no hydronephrosis. 4. 4 cm right ovarian cyst. 5. Mild thickening of the wall of the distal esophagus. This may be due to underdistention but gastritis should be considered. Please correlate clinically. April 05, 2014 Preoperative Diagnosis: Abdominal pain, weight loss. Postoperative Diagnosis: Gastritis, duodenal ulcer. Title of Procedure: EGD with biopsies. Anesthesia: Fentanyl and Versed, followed by Propofol by Sandy Pierre CRNA. EBL: Minimal. Specimens: 1. Biopsy of duodenal ulcer. 2. Antral ulcer for H. pylori. 3. Biopsy of GE junction, r/o Ordonez's. Procedure: After informed consent was obtained, the patient was taken to the endoscopy suite and placed in the supine position. Monitors were applied and a time out was done. After the time out, the patient was given Versed and Fentanyl and a bite block was placed. Once the patient was asleep and comfortable, the scope was introduced and an attempt was made to advance the scope. However, the patient kept waking up and gagging, grabbing the scope, pulling it out, even after 9 mg of Versed and 150 mcg of Fentanyl, therefore anesthesia was asked to come into the room and give the patient Propofol. The patient was given 120 mg of Propofol and was finally comfortable enough that I was able to place the scope through the oropharynx and into the esophagus. Proximal and mid-esophagus were normal. The distal esophagus, some mild esophagitis was identified and biopsies of the GE junction were done. The scope was advanced through the stomach and through the pylorus into the third portion of the duodenum. Third and second portion were normal and in the duodenal bulb, a small ulcer was identified and a biopsy was done. Scope was retracted into the stomach and a biopsy of the antrum was done for H. pylori. The scope was retracted back into the esophagus and removed. The patient was woken up and taken back to PACU in stable condition. Review of Systems Narrative: Poor historian All systems reviewed & are unremarkable except as noted in HPI and below PFSH All Active Problems (Updated 07/16/23 @ 10:09 by Ana Alicia DO) History of marijuana use (Acute) Daily Ovarian cyst, right (Acute) Umbilical hernia (Acute) Kidney atrophy (Acute) History of duodenal ulcer (Acute) Smoker (Acute) Coffee ground emesis (Acute) Hypomagnesemia (Acute) Hypokalemia (Acute) DVT prophylaxis (Acute) Alcohol abuse (Chronic) Alcoholic hepatitis (Acute) Pancreatitis (Chronic) Osteoarthritis of right hip (Acute) Labral tear of right hip joint (Acute) Otitis media (Acute) Viral URI with cough (Acute) Medical History Opioid use disorder, moderate, in early remission, on maintenance therapy, dependence Hepatitis C Treated Cervical cancer kidney stones Surgical History History of bilateral tubal ligation section x2 Social History Smoking/Tobacco Use Status: Current every day Tobacco Type: cigarettes Smoking risk assessment performed?: Yes Alcohol Intake: current Alcohol Intake frequency: 3 or more drinks per day Alcohol type: hard liquor Drug use: Occasionally Substance use type: marijuana, heroin and methamphetamine Housing: house Do you feel safe at home: Yes Do you feel safe in your relationship?: Yes Exam Const General: no acute distress and disheveled Nutritional Appearance: average body habitus Orientation: oriented x3 HENMT Other: No jaundice Poor dentition Multiple piercings and tattoos Resp Effort & Inspection: normal respiratory effort Other: Clear to auscultation Cardio Rate: regular rate Rhythm: regular rhythm GI Other: Post C-sections noted. Epigastric tenderness. No distention or diffuse peritonitis Skin General skin exam: no rashes or lesions noted Extrem General: no clubbing, cyanosis or edema Other: Moving all extremities independently Results Last Vital Signs Temp 36.4 C L 07/16/23 07:41 Pulse 113 H 07/16/23 07:41 Resp 17 07/16/23 07:41 BP 138/86 07/16/23 07:41 Pulse Ox 96 07/16/23 07:41 Labs 07/16/23 06:50 07/16/23 06:50 Labs: Laboratory Results - last 24 hr 07/15/23 07/15/23 07/15/23 17:14 17:30 17:50 WBC 9.88 RBC 3.91 L Hgb 13.8 Hct 39.4 MCV 101 H MCH 35.3 H MCHC 35.0 RDW 13.1 Plt Count 147 MPV 10.0 Immature Gran % 0.5 Neutrophils % 83.0 Lymphocytes % 11.0 Monocytes % 4.9 Eosinophils % 0.1 Basophils % 0.5 Nucleated RBC % 0.0 Absolute Neutrophils 8.20 H Absolute Lymphocytes 1.09 L Absolute Monocytes 0.48 Absolute Eosinophils 0.01 Absolute Basophils 0.05 RBC Morphology PT 11.5 H INR 1.2 H APTT 20.0 L VBG pH 7.38 VBG pCO2 33 L VBG pO2 75 VBG HCO3 19 L VBG Total CO2 17 L VBG O2 Saturation 95 VBG Base Excess -6 L Sodium 131 L Potassium 3.3 L Chloride 92 L Carbon Dioxide 19.2 L Anion Gap 19.8 H BUN 12 Creatinine 1.0 Est GFR (CKD-EPI 2020) 72.13 Glucose 138 H Calcium 9.7 Magnesium Total Bilirubin 2.7 H AST 219 H ALT 69 H Alkaline Phosphatase 125 H Total Protein 8.7 H Albumin 4.3 Lipase > 375 H Ethyl Alcohol 230.3 H ABO/Rh A Positive Antibody Screen NEGATIVE 07/16/23 07/16/23 06:50 08:01 WBC 8.89 RBC 3.41 L Hgb 12.1 Hct 34.6 L MCV 102 H MCH 35.5 H MCHC 35.0 RDW 13.2 Plt Count MPV Immature Gran % 0.4 Neutrophils % 84.8 Lymphocytes % 8.9 Monocytes % 5.1 Eosinophils % 0.4 Basophils % 0.4 Nucleated RBC % 0.0 Absolute Neutrophils 7.53 H Absolute Lymphocytes 0.79 L Absolute Monocytes 0.45 Absolute Eosinophils 0.04 Absolute Basophils 0.04 RBC Morphology Normal PT 11.8 H INR 1.2 H APTT VBG pH VBG pCO2 VBG pO2 VBG HCO3 VBG Total CO2 VBG O2 Saturation VBG Base Excess Sodium 132 L Potassium 3.3 L Chloride 95 L Carbon Dioxide 19.4 L Anion Gap 17.6 H BUN 9 Creatinine 0.8 Est GFR (CKD-EPI 2020) 94.28 Glucose 97 Calcium 8.6 Magnesium 1.9 Total Bilirubin 2.8 H AST 251 H ALT 66 H Alkaline Phosphatase 99 Total Protein 7.2 Albumin 3.5 Lipase Ethyl Alcohol ABO/Rh Antibody Screen Imaging Abdomen CT scan report/results: image reviewed
--- NOTE | 2023-07-16 09:33 | INITIAL_ITS ---
Date of service: 07/16/23 Time of Service: 09:33 Care Management Initial Assmt Initial Assessment Reason for Hospitalization: Pancreatitis Functional Status/Living Situation Patient Presentation: Daphnie was awake and lying in bed when CM met with her. She engages in conversation, minimally. Per pt, she is tired and her IV Pump woke her up many times last night. CM will continue to follow and support discharge planning considerations. Town of Residence: [facility] Resides with: Child (son) and Other (Boyfriend) Significant Other/Family: [facility] Employment Status: Unemployed Instrumental Activities of Daily Living (ADLs): Independent Medications Medication Management: No Issues/Barriers identified Physical Functioning/Mobility Assistive Device: None Advance Directives Advance Directives: Do you have an Advance Directive: N 12/09/13 13:54 AD On File at [facility]: N 11/10/12 19:26 Date Asked 07/15/23 07/15/23 16:50 AD Date Reviewed COLST On File at [facility] COLST Date Scanned Code Status Resuscitation Status Full Code Portal Pt does not currently have a portal and education provided: No Portal Education: Patient declined Insurance Coverage/Financial Issues Insurance: Medicaid ACO Member: No Care Team Visit Care Team Role Provider Type Unknown Unknown Primary Care Provider STAFF PHYSICIAN Nancy Kimble MD Other Providers NON-[facility] STAFF PHYSICIAN ROSEANN Nichols Other Providers PHYSICIANS ASSISTANT Cesar Arias MD Other Providers CONSULTING PHYSICIAN Klaus Garcia, DO Other Providers CONSULTING PHYSICIAN Chris Burleson MD Other Providers [facility] STAFF PHYSICIAN Barak Talbert Other Providers CONSULTING PHYSICIAN Ciro Osborne MD Other Providers CONSULTING PHYSICIAN Ana Alicia, DO Other Providers OSTEOPATHIC DOCTOR Bhumika Aparicio, DO Other Providers CONSULTING PHYSICIAN Drake Haider MD Other Providers CONSULTING PHYSICIAN Bruno Shanks, DO Other Providers CONSULTING PHYSICIAN Yael Mason Other Providers NON-[facility] STAFF PHYSICIAN Jarvis Da Silva MD Other Providers [facility] STAFF PHYSICIAN Lulu Pickens, DO Other Providers OSTEOPATHIC DOCTOR Carlo Aragon, DO Other Providers OSTEOPATHIC DOCTOR Dafne Arriaga MD Other Providers [facility] STAFF PHYSICIAN Rick Silva MD Emergency Provider [facility] STAFF PHYSICIAN Jonnathan Crespo Admit Provider [facility] STAFF PHYSICIAN Attending Provider Other: PCP: Deepthi Johnson Discharge Potential Discharge Needs: PCP F/U Appt and Other ( Treatment resources Substance/ETOH ) Anticipated Barriers to Discharge: None Identified Patient/Family Education Needs: Review discharge instructions, discuss Ask Me Three Transportation: Private vehicle Plan: Surgical consult ordered, EGD done. Continues to be closely monitored on CIWA and not scoring currently, ETOH treatment resources will be offered. Pt will need Last Dose Letter for Methodone prescribed by MISHA. Anticipate, Daphnie will follow up with community providers and her discharge plan of care as instructed. CM will continue to follow and support discharge considerations. PFSH All Active Problems (Updated 07/16/23 @ 10:09 by Ana Alicia DO) History of marijuana use (Acute) Daily Ovarian cyst, right (Acute) Umbilical hernia (Acute) Kidney atrophy (Acute) History of duodenal ulcer (Acute) Smoker (Acute) Coffee ground emesis (Acute) Hypomagnesemia (Acute) Hypokalemia (Acute) DVT prophylaxis (Acute) Alcohol abuse (Chronic) Alcoholic hepatitis (Acute) Pancreatitis (Chronic) Osteoarthritis of right hip (Acute) Labral tear of right hip joint (Acute) Otitis media (Acute) Viral URI with cough (Acute) Medical History Opioid use disorder, moderate, in early remission, on maintenance therapy, dependence Hepatitis C Treated Cervical cancer kidney stones Surgical History History of bilateral tubal ligation section x2 Social History Smoking/Tobacco Use Status: Current every day Tobacco Type: cigarettes Smoking risk assessment performed?: Yes Alcohol Intake: current Alcohol Intake frequency: 3 or more drinks per day Alcohol type: hard liquor Drug use: Occasionally Substance use type: marijuana, heroin and methamphetamine Housing: house Do you feel safe at home: Yes Do you feel safe in your relationship?: Yes SDOH(Care Management) Screening Will the Patient Participate in the Screening?: Declined to provide Do you worry about having a steady place to live?: no In the past 12 months, have you had to go without electric, gas, oil or water in your home?: no Have you or anyone in your house had to go without enough food to eat?: no Has lack of transportation kept you from medical appointments or from doing things needed for daily living?: no Has anyone in your support network made you feel unsafe for any reason?: no
[2023-07-16 10:40] LABS: Bilirubin Moderate (Negative); Blood Trace-lysed (Negative); Clarity Sl Cloudy (Clear); Glucose Negative (Negative); Ketones 80 mg/dL (Negative); Leukocyte Esterase Negative (Negative); Nitrite Positive (Negative); Specific Gravity 1.025 (1.005-1.025)
[2023-07-16 10:52] LABS: HCG Qual (Serum) Negative
[2023-07-16 11:03] LABS: Bacteria Many HPF (Negative); C & S Indicated? Yes; Casts 3-5 Hyaline LPF (Negative); Crystals Negative HPF (Negative); Epithelial Cells Few HPF (Negative); Mucus Trace (Negative)
[2023-07-16 11:15] LABS: *AMPHETAMINES SCREEN URINE Negative (Negative); *BARBITURATES SCREEN URINE Negative (Negative); *BENZODIAZEPINES SCREEN URINE Negative (Negative); Cannabinoids THC Positive (Negative); Cocaine Screen,Urine Negative (Negative); METHADONE URINE SCREEN Positive (Negative); OPIATES URINE SCREEN Negative (Negative); Tricyclic Antidepressants Negative (Negative)
[2023-07-16] MEDS: HYDROmorphone 2 MG/ML SYR IVP ×2 (11:18→16:34)
[2023-07-16 12:18] LABS: Folate 2.5 ng/mL (8.6-20.0); Vitamin B12 496 pg/mL (193-986)
[2023-07-16 12:21] LABS: Ferritin 1573 ng/mL (8-252)
--- NOTE | 2023-07-16 12:33 | STOM_PTH ---
PATIENT: Daphnie Guzman LOC: U#:[id number] AGE/SX: 42/F ROOM: RE07/15/[address]: Jonnathan Crespo : 1980 BED: A DIS: 07/21/2023 SPEC #: [id number] RECD: 07/16/23 13:18 STATUS: SOUMaria Elena REQ #: [id number] CATALINA: 07/16/23 12:[address]: Jonnathan Crespo DEPT: Surgical Specimen RECD BY: Ranjana Fernández ENTERED: 07/16/23 13:20 SP TYPE: STOMACH OTHR DR: ROSEANN Nichols Shola Mark A Dittenbir, MD Wendy Frye, MD Christopher Husko, DO Kaplin, Aviva W Annick Kaufman, MD Robert G Kloos, DO Leung, Christie Paul Pace, MD Jacob Petrosky, MD Schroer,MD Maral Acuña,Ana Ceja Unknown,Unknown Tissues: 1 - STOMACH BIOPSY 2 - ESOPHAGUS BIOPSY Procedures: GROSS AND MICRO LEVEL 4 IMMUNOPEROXIDASE STAIN SPECIAL STAIN 1 Comments:
--- NOTE | 2023-07-16 12:43 | W.PM.ENDDOP ---
Date of service: 07/16/23 Time of Service: 12:43 Endoscopy Report DATE OF PROCEDURE: 07/16/23 PRE-OP DIAGNOSIS: Hematemesis POST-OP DIAGNOSIS: same (Moderate bile reflux gastritis and severe esophagitis/esophageal stricture) SURGEON: Ana Alicia ANESTHESIA TYPE: General LMA/ETT ESTIMATED BLOOD LOSS: 1 PATHOLOGY: other COMPLICATIONS: None DISPOSITION: PACU PROCEDURE DESCRIPTION: After informed consent was obtained the patient was take to the procedure room and placed in a supine position. Patient's room air sat was 93% prior to giving any anesthesia. Monitors were applied and a time out was done. The patients name, date of , procedure type, allergies to medications and metal in their body was reviewed. General anesthesia is administered per the department of anesthesia. Patient does have an extremely loose tooth on the bottom and there is a high probability this tooth will be lost. Once sedated and comfortable, the gastroscope was advanced through the oropharynx which was grossly normal into the esophagus. The proximal and mid-esophagus show no esophageal varices. The GE junction was at 38 cm. She has severe erosive esophagitis. She is developing a stricture; I am even able to easily pass the scope and does not require dilation at this time. Multiple biopsies are taken at the GE junction. There is no varices. There is no hiatal hernia. There are no masses. The scope was advanced into the stomach and through the pylorus into the 3rd portion of the duodenum. The duodenum was noted to be normal. Biopsies were done, all specimens are retrieved and no bleeding is noted. The scope was retracted back into the stomach and biopsies were done to rule out H. pylori. He has significant bile reflux that is noted all the way up to the GE junction. She has moderate gastritis which covers the entirety of the stomach. There is no active bleeding. The scope was retroflexed. There are no masses or tumors. The scope was removed and the patient was woken up and taken back to PACU
--- NOTE | 2023-07-16 13:09 | W.ANESPOSTOP ---
Postoperative Evaluation Date, Time and Location Date Performed: 07/16/23 Time Performed: 13:09 Patient Location: PACU Vital Signs Most Recent Imported Vital Signs: Most Recent Vital Signs Temp Pulse Resp BP Pulse Ox 37.0 C 128 H 18 131/85 96 07/16/23 12:58 07/16/23 12:58 07/16/23 12:58 07/16/23 12:58 07/16/23 12:58 Pain Score Most Recent Pain Score: Most Recent Pain Score Pain Level 0 07/16/23 12:58 Assessment Mental Status: Arousable with meaningful communication Airway and Respiratory Function: Patent airway with normal (patient baseline) respiratory exam Cardiovascular Function: Hemodynamically Stable Hydration Status: Adequately Hydrated Nausea & Vomiting: No Nausea or Vomiting Pain: Pt. Denies Any Pain Peripheral Nerve Block: Patient did not receive a nerve block
[2023-07-16] MEDS: Potassium Chloride Liquid 20 MEQ PKT PO ×2 (13:31→16:34)
[2023-07-16] MEDS: Sucralfate 1 GM TAB PO ×2 (16:34→23:22)
--- NOTE | 2023-07-16 17:34 | W.PM.PROGNOT ---
Date of Service Date of service: 07/16/23 Time of Service: 17:35 Assessment and Plan Assessment and plan (1) Pancreatitis: Status: Chronic Assessment and plan: Clinically conistent with alcoholic pancreatitis and alcoholic gastritis together. on clear liquid diet, post EGD. continue iv fluids, antiemetic, analgesics (2) Coffee ground emesis: Status: Acute Assessment and plan: reports severe days of vomiting black chunky material, but no anemia on labs. No further emesis since admission; s/p EGD today that demonstrated moderate bile reflux gastritis and severe esophagitis and esophageal stricture continue protonix 40 mg bid (can change to oral tomorrow morning), carafate 1 gm AC/HS added today by Dr. Alicia (3) Alcoholic hepatitis: Status: Acute Assessment and plan: Liver inflammation in alcoholic pattern, aslo signs of dysfunction with elevation of bilirubin and INR. Mild at this point, steroids not indicated, but follow. Maddrey score remains low at 6, therefore corticosteroids not indicated. H/o HCV but was treated, last HCV VL negative 08/2020. retesting viral panel done yesterday Qualifiers: Ascites presence: without ascites Qualified Code(s): K70.10 - Alcoholic hepatitis without ascites (4) Alcohol abuse: Status: Chronic Assessment and plan: will give schedule phenobarbital loading dose of 6 mg/kg as she is showing signs of withdrawal (5) Hypokalemia: Status: Acute Assessment and plan: repeat K 3.3 this morning, put on oral replacement, will monitor, she only got one dose of 20 meq today. will give additional iv replacement (6) Hypomagnesemia: Status: Acute Assessment and plan: replaced, follow (7) DVT prophylaxis: Status: Acute Assessment and plan: SCDs/TEDs given possible active bleed. (8) Opioid use disorder, moderate, in early remission, on maintenance therapy, dependence: Assessment and plan: continue methadone (9) Smoker: Status: Acute Assessment and plan: Denies NRT for now Subjective Subjective Interval history since last seen: Daphnie presented w/ acute tremors, nausea, vomiting and abdominal pain. Patient drinks a small bottle of vodka daily. She presented intoxicated w/ TISH of 230. She reportedly has not been scoring however, she remain tremulous and has persistent tachycardia sinus tachycardia 113 bpm, despite given iv fluids and pain medications. She has had no further vomiting today but still has diffuse abdominal pain. she was put on the benzodiazepine alcohol withdrawal protocol but has not been getting any valium (we do not hae lorazepam d/t shortage). I will put her on scheduled loading dose of phenobarbital 6 mg/kg along w/ prn w/ goal of RASS of -1. Patient had EGD done today by Dr. Alicia and is likely lethargic from medications for her EGD. Exam Narrative Exam Narrative: Daphnie is sleepy but awakens easily and is oriented, to person , place ([facility], [facility]) and month and year. She is not diaphoretic, she is tachycardic, speech is clear, coherent. she denies any auditory or visual hallucinations Lungs: clear Heart: regular but tachycardic (per monitor sinus tachycardia at 113 bpm) Abdomen: hepatomegaly, diffusely tender w/out rebound, positive bowel sounds extremities: tremulous hands, skin non-diaphoretic, normal ROM and strength, no edema Objective Last Vital Signs Temp 36.5 C 07/16/23 15:29 Pulse 121 H 07/16/23 15:29 Resp 16 07/16/23 15:29 BP 136/95 H 07/16/23 15:29 Pulse Ox 96 07/16/23 15:29 Laboratory Results - last 24 hr 07/15/23 07/15/23 07/15/23 17:14 17:30 17:50 WBC 9.88 RBC 3.91 L Hgb 13.8 Hct 39.4 MCV 101 H MCH 35.3 H MCHC 35.0 RDW 13.1 Plt Count 147 MPV 10.0 Immature Gran % 0.5 Neutrophils % 83.0 Lymphocytes % 11.0 Monocytes % 4.9 Eosinophils % 0.1 Basophils % 0.5 Nucleated RBC % 0.0 Absolute Neutrophils 8.20 H Absolute Lymphocytes 1.09 L Absolute Monocytes 0.48 Absolute Eosinophils 0.01 Absolute Basophils 0.05 RBC Morphology PT 11.5 H INR 1.2 H APTT 20.0 L VBG pH 7.38 VBG pCO2 33 L VBG pO2 75 VBG HCO3 19 L VBG Total CO2 17 L VBG O2 Saturation 95 VBG Base Excess -6 L Sodium 131 L Potassium 3.3 L Chloride 92 L Carbon Dioxide 19.2 L Anion Gap 19.8 H BUN 12 Creatinine 1.0 Est GFR (CKD-EPI 2020) 72.13 Glucose 138 H Calcium 9.7 Magnesium Ferritin Total Bilirubin 2.7 H AST 219 H ALT 69 H Alkaline Phosphatase 125 H Total Protein 8.7 H Albumin 4.3 Lipase > 375 H Vitamin B12 Folate Serum HCG, Qual Urine Color Urine Clarity Urine pH Ur Specific [place] Urine Protein Urine Ketones Urine Blood Urine Nitrite Urine Bilirubin Urine Urobilinogen Ur Leukocyte Esterase Urine RBC Urine WBC Ur Epithelial Cells Urine Crystals Urine Bacteria Urine Casts Urine Mucus Urine Other Ur Culture Indicated? Urine Glucose Urine Opiates Screen Urine Methadone Screen Ur Barbiturates Screen Ur Tricyclics Screen Ur Amphetamines Screen U Benzodiazepines Scrn Urine Cocaine Screen Ur THC Screen Ethyl Alcohol 230.3 H Add-On Test Request ABO/Rh A Positive Antibody Screen NEGATIVE 07/16/23 07/16/23 07/16/23 06:50 08:01 10:04 WBC 8.89 RBC 3.41 L Hgb 12.1 Hct 34.6 L MCV 102 H MCH 35.5 H MCHC 35.0 RDW 13.2 Plt Count MPV Immature Gran % 0.4 Neutrophils % 84.8 Lymphocytes % 8.9 Monocytes % 5.1 Eosinophils % 0.4 Basophils % 0.4 Nucleated RBC % 0.0 Absolute Neutrophils 7.53 H Absolute Lymphocytes 0.79 L Absolute Monocytes 0.45 Absolute Eosinophils 0.04 Absolute Basophils 0.04 RBC Morphology Normal PT 11.8 H INR 1.2 H APTT VBG pH VBG pCO2 VBG pO2 VBG HCO3 VBG Total CO2 VBG O2 Saturation VBG Base Excess Sodium 132 L Potassium 3.3 L Chloride 95 L Carbon Dioxide 19.4 L Anion Gap 17.6 H BUN 9 Creatinine 0.8 Est GFR (CKD-EPI 2020) 94.28 Glucose 97 Calcium 8.6 Magnesium 1.9 Ferritin Total Bilirubin 2.8 H AST 251 H ALT 66 H Alkaline Phosphatase 99 Total Protein 7.2 Albumin 3.5 Lipase Vitamin B12 Folate Serum HCG, Qual Urine Color Clarice Urine Clarity Sl Cloudy Urine pH 6.0 Ur Specific [place] 1.025 Urine Protein 100 H Urine Ketones 80 H Urine Blood Trace-lysed H Urine Nitrite Positive H Urine Bilirubin Moderate H Urine Urobilinogen 2.0 H Ur Leukocyte Esterase Negative Urine RBC 3-5 H Urine WBC 10-20 H Ur Epithelial Cells Few Urine Crystals Negative Urine Bacteria Many Urine Casts 3-5 Hyaline Urine Mucus Trace Urine Other Few Trichomonas Ur Culture Indicated? Yes Urine Glucose Negative Urine Opiates Screen Negative Urine Methadone Screen Positive A Ur Barbiturates Screen Negative Ur Tricyclics Screen Negative Ur Amphetamines Screen Negative U Benzodiazepines Scrn Negative Urine Cocaine Screen Negative Ur THC Screen Positive A Ethyl Alcohol Add-On Test Request ABO/Rh Antibody Screen 07/16/23 07/16/23 10:13 10:33 WBC RBC Hgb Hct MCV MCH MCHC RDW Plt Count MPV Immature Gran % Neutrophils % Lymphocytes % Monocytes % Eosinophils % Basophils % Nucleated RBC % Absolute Neutrophils Absolute Lymphocytes Absolute Monocytes Absolute Eosinophils Absolute Basophils RBC Morphology PT INR APTT VBG pH VBG pCO2 VBG pO2 VBG HCO3 VBG Total CO2 VBG O2 Saturation VBG Base Excess Sodium Potassium Chloride Carbon Dioxide Anion Gap BUN Creatinine Est GFR (CKD-EPI 2020) Glucose Calcium Magnesium Ferritin 1573 H Total Bilirubin AST ALT Alkaline Phosphatase Total Protein Albumin Lipase Vitamin B12 496 Folate 2.5 L Serum HCG, Qual Negative Urine Color Urine Clarity Urine pH Ur Specific [place] Urine Protein Urine Ketones Urine Blood Urine Nitrite Urine Bilirubin Urine Urobilinogen Ur Leukocyte Esterase Urine RBC Urine WBC Ur Epithelial Cells Urine Crystals Urine Bacteria Urine Casts Urine Mucus Urine Other Ur Culture Indicated? Urine Glucose Urine Opiates Screen Urine Methadone Screen Ur Barbiturates Screen Ur Tricyclics Screen Ur Amphetamines Screen U Benzodiazepines Scrn Urine Cocaine Screen Ur THC Screen Ethyl Alcohol Add-On Test Request TNP ABO/Rh Antibody Screen PAWSS Have you Been Recently Intoxicated or Drunk Within the Last 30 days?: No Have you Ever Experienced Previous Episodes of Alcohol Withdrawal?: Yes Have you ever Experienced Withdrawal Seizures?: No Have you ever Experienced Delirium Tremens(DT)s?: Yes Have you ever undergone Alcohol Rehabilitation Treatment (i.e, inpt ot outpatient treatment programs)?: Yes Have you ever Experienced Blackouts?: Yes Have you ever Combined Alcohol with other Downers within the last 90 days?: No Have you ever Combined Alcohol with any other Substance of Abuse during the last 90 days?: No Positive Blood Alcohol level on Presentation? [PCS.BAL]: Unable to Obtain Evidence of Increased Autonomic Activity (i.e. HR>120, tremor, sweating, agitation, nausea)?: Yes Result: 5 Time Spent with Patient Time Spent with Patient: 35-49 minutes Time was spent: preparing to see the patient(eg.review tests), ordering medications,tests, procedures, referring, communicating with other health care attendant, indepentently interpreting results, counseling the patient and care coordination
[2023-07-16] MEDS: PHENobarbital 150 MG in Normal Saline 50 ML 100 MG IVPB (18:42)
[2023-07-16 19:40] LABS: Hepatitis A Antibody IgM Negative (Negative); Hepatitis B Core Antibody Negative (Negative); Hepatitis B surface Ag Negative (Negative); Hepatitis C Ab w Rflx HCV PCR Reactive (Negative)
[2023-07-16] MEDS: POTASSIUM CHLORIDE 10 MEQ/100 ML BAG 100 MEQ IVINF ×2 (21:04→23:52)
[2023-07-16] MEDS: PHENobarbital 110 MG in Normal Saline 50 ML 100 MG IVPB (22:06)
[2023-07-16 23:08] LABS: Hemoglobin A1C 4.6 % (<5.7)
[2023-07-17] MEDS: PHENobarbital 110 MG in Normal Saline 50 ML 100 MG IVPB (00:03)
[2023-07-17] MEDS: POTASSIUM CHLORIDE 10 MEQ/100 ML BAG 100 MEQ IVINF (01:33)
[2023-07-17] MEDS: HYDROmorphone 2 MG/ML SYR IVP ×4 (01:46→21:02)
[2023-07-17 03:45] VITALS: BP 137/96; PULSE 118; RESP 15; TEMP 36.8; O2SAT 100
[2023-07-17] MEDS: Normal Saline Flush 10 ML SYR IVP ×2 (03:53→11:02)
[2023-07-17] MEDS: Ondansetron 4 MG/2 ML VIAL IVP ×2 (03:59→21:02)
[2023-07-17] MEDS: Lactated Ringers 1,000 ML 125 ML IV ×3 (04:06→22:27)
[2023-07-17] MEDS: Pantoprazole 40 MG TABCR PO ×3 (06:35→12:49)
[2023-07-17 07:57] LABS: ALT 63 U/L (14-59); AST 256 U/L (15-37); Alkaline Phosphatase 94 U/L (46-116); Bilirubin, Total 2.7 mg/dL (0.2-1.0); Magnesium 1.6 mg/dL (1.8-2.4); Total Protein 6.6 g/dL (6.4-8.2)
[2023-07-17] MEDS: Sucralfate 1 GM TAB PO ×4 (07:58→21:03)
[2023-07-17] MEDS: Potassium Chloride Liquid 20 MEQ PKT PO ×2 (07:58→21:03)
[2023-07-17 08:00] LABS: ALT 65 U/L (14-59); AST 265 U/L (15-37); Albumin 3.1 g/dL (3.4-5.0); Alkaline Phosphatase 92 U/L (46-116); Anion Gap 11.9 mmol/L (3-11); BUN 6 mg/dL (7-18); Bilirubin, Total 2.7 mg/dL (0.2-1.0); CO2 25.1 mmol/L (21.0-32.0); CREATININE 0.6 mg/dL (0.55-1.02); Calcium 8.6 mg/dL (8.5-10.1); Chloride 93 mmol/L (98-107); Estimated GFR 114.86 (mL/min/1.73m2); Glucose 114 mg/dL (74-106); Potassium 3.3 mmol/L (3.5-5.1); Sodium 130 mmol/L (136-145); Total Protein 6.6 g/dL (6.4-8.2)
[2023-07-17 08:05] LABS: PHOSPHORUS < 2.0 mg/dL (2.6-4.7)
[2023-07-17 08:07] LABS: Lipase > 375 U/L (16-77)
[2023-07-17 08:12] VITALS: BP 123/88; PULSE 117; RESP 18; TEMP 36.7
[2023-07-17 09:06] LABS: Abs Immature Grans 0.03 10^3/uL (0.0-0.06); Absolute Basophil Count 0.01 10^3/uL (0.0-0.2); Absolute Eosinophil Count 0.03 10^3/uL (0.0-0.7); Absolute Lymphocyte Count 0.53 10^3/uL (1.2-3.4); Basophils % 0.2 %; Eosinophils % 0.6 %; HCT 31.6 % (36.0-46.0); HGB 11.1 g/dL (11.2-15.7); Immature Grans % 0.6 %; Lymphocytes % 9.8 %; MCHC 35.1 % (32.0-36.0); MCV 100 fL (80-95); MPV 10.9 fL (8.0-11.0); Monocytes % 3.7 %; Neutrophils % 85.1 %; RBC 3.17 10^6/uL (3.93-5.22); RDW 12.5 % (11.7-14.6); RDW-SD 46.6 fL
[2023-07-17 09:14] LABS: INR 1.2 (0.9-1.1)
[2023-07-17 10:47] LABS: Platelet Count 64 10^3/uL (130-400)
[2023-07-17 11:45] VITALS: BP 111/77; PULSE 106; RESP 18; TEMP 35.5; O2SAT 97
--- NOTE | 2023-07-17 11:47 | PGE_ITS ---
Date of Service Date of service: 07/17/23 Time of Service: 11:47 Assessment and Plan Assessment and plan (1) Pancreatitis: Status: Chronic Assessment and plan: Clinically conistent with alcoholic pancreatitis and alcoholic gastritis together. on clear liquid diet, post EGD yesterday continue iv fluids, antiemetic, analgesics, replace K, Mg and Phosph; rescan abdomen in light of increasing abdominal pain Qualifiers: Chronicity: acute Pancreatitis type: alcohol induced Acute pancreatitis complication: no infection or necrosis Qualified Code(s): K85.20 - Alcohol induced acute pancreatitis without necrosis or infection (2) Esophagitis with gastritis: Status: Acute Assessment and plan: s/p EGD on 07/15, now on protonix and carafate, awaiting H pylori results (3) Esophageal stricture: Status: Acute (4) Alcoholic hepatitis: Status: Acute Assessment and plan: Liver inflammation in alcoholic pattern, aslo signs of dysfunction with elevation of bilirubin and INR. Mild at this point, steroids not indicated, but follow. Maddrey score remains low at 6, therefore corticosteroids not indicated. H/o HCV but was treated, last HCV VL negative 08/2020. retesting viral panel done yesterday Qualifiers: Ascites presence: without ascites Qualified Code(s): K70.10 - Alcoholic hepatitis without ascites (5) Alcohol abuse: Status: Chronic Assessment and plan: tremors and mentation better today. patient received loading dose of phenobarbital 6 mg/kg yesterday but has not required any prn dosing. (6) Coffee ground emesis: Status: Acute Assessment and plan: secondary to alcoholic gastritis/esophagitis (7) Hypokalemia: Status: Acute Assessment and plan: K still low at 3.3 and Mg low at 1.6 and phosphorus low at <2.0. will give iv and oral replacements, monitor levels. (8) Hypomagnesemia: Status: Acute Assessment and plan: replete and monitor (9) Opioid use disorder, moderate, in early remission, on maintenance therapy, dependence: Assessment and plan: continue methadone (10) Smoker: Status: Acute Assessment and plan: Denies NRT for now (11) DVT prophylaxis: Status: Acute Assessment and plan: SCDs/TEDs given possible active bleed. Subjective Subjective Interval history since last seen: Patient still having significant abdominal pain but no emesis. She is taking clear liquids w/out vomiting. She still requires dilaudid for her abomdinal pain. LFT remain elevated but are not rising, lipase remains elevated. She says that her abdomen hurts when she moves. She is afebrile. Exam Narrative Exam Narrative: Middle age white female lying on her side, does not want to move or get out of bed d/t abdominal pain Lungs: clear Heart: RRR Abdomen: +bowel sounds but diffusely tender to palpation, w/out rebound tenderness, but with voluntary guarding Extremities: no tremors or diaphoresis Objective Last Vital Signs Temp 36.7 C 07/17/23 08:12 Pulse 117 H 07/17/23 08:12 Resp 18 07/17/23 08:12 BP 123/88 07/17/23 08:12 Pulse Ox 100 07/17/23 03:45 Laboratory Results - last 24 hr 07/15/23 07/16/23 07/16/23 19:00 08:01 10:13 WBC RBC Hgb Hct MCV MCH MCHC RDW Plt Count MPV Immature Gran % Neutrophils % Lymphocytes % Monocytes % Eosinophils % Basophils % Nucleated RBC % Absolute Neutrophils Absolute Lymphocytes Absolute Monocytes Absolute Eosinophils Absolute Basophils PT INR Sodium Potassium Chloride Carbon Dioxide Anion Gap BUN Creatinine Est GFR (CKD-EPI 2020) Glucose Hemoglobin A1c 4.6 Calcium Phosphorus Magnesium Ferritin 1573 H Total Bilirubin Conjugated Bilirubin AST ALT Alkaline Phosphatase Total Protein Albumin Lipase Vitamin B12 496 Folate 2.5 L Hepatitis A IgM Ab Negative Hep Bs Antigen Negative Hep B Core Total Ab Negative Hepatitis C Antibody Reactive A 07/17/23 07/17/23 07/17/23 05:35 07:10 08:15 WBC 5.40 RBC 3.17 L Hgb 11.1 L Hct 31.6 L MCV 100 H MCH 35.0 H MCHC 35.1 RDW 12.5 Plt Count 64 L D MPV 10.9 Immature Gran % 0.6 Neutrophils % 85.1 Lymphocytes % 9.8 Monocytes % 3.7 Eosinophils % 0.6 Basophils % 0.2 Nucleated RBC % 0.0 Absolute Neutrophils 4.60 Absolute Lymphocytes 0.53 L Absolute Monocytes 0.20 Absolute Eosinophils 0.03 Absolute Basophils 0.01 PT 12.0 H INR 1.2 H Sodium 130 L Potassium 3.3 L Chloride 93 L Carbon Dioxide 25.1 Anion Gap 11.9 H BUN 6 L Creatinine 0.6 Est GFR (CKD-EPI 2020) 114.86 Glucose 114 H Hemoglobin A1c Calcium 8.6 Phosphorus < 2.0 L Magnesium 1.6 L Ferritin Total Bilirubin 2.7 H 2.7 H Conjugated Bilirubin AST 256 H 265 H ALT 63 H 65 H Alkaline Phosphatase 94 92 Total Protein 6.6 6.6 Albumin 3.0 L 3.1 L Lipase > 375 H Vitamin B12 Folate Hepatitis A IgM Ab Hep Bs Antigen Hep B Core Total Ab Hepatitis C Antibody PAWSS Have you Been Recently Intoxicated or Drunk Within the Last 30 days?: No Have you Ever Experienced Previous Episodes of Alcohol Withdrawal?: Yes Have you ever Experienced Withdrawal Seizures?: No Have you ever Experienced Delirium Tremens(DT)s?: Yes Have you ever undergone Alcohol Rehabilitation Treatment (i.e, inpt ot outpatient treatment programs)?: Yes Have you ever Experienced Blackouts?: Yes Have you ever Combined Alcohol with other Downers within the last 90 days?: No Have you ever Combined Alcohol with any other Substance of Abuse during the last 90 days?: No Positive Blood Alcohol level on Presentation? [PCS.BAL]: Unable to Obtain Evidence of Increased Autonomic Activity (i.e. HR>120, tremor, sweating, agitation, nausea)?: Yes Result: 5 Time Spent with Patient Time Spent with Patient: 35-49 minutes Time was spent: preparing to see the patient(eg.review tests), ordering medications,tests, procedures, referring, communicating with other health manager home healthcare, indepentently interpreting results, counseling the patient and care coordination
[2023-07-17] MEDS: MAGNESIUM SULFATE 4 GM/100 ML BAG IVINF (12:18)
[2023-07-17] MEDS: MULTIVITAMIN 10 ML, THIAMINE 100 MG, FOLIC ACID 1 MG in DEXTROSE 5%-0.45% SALINE 1,000 ML 42 ML IV (12:19)
[2023-07-17] MEDS: POTASSIUM CHLORIDE 20 MEQ/100 ML BAG 50 MEQ IVINF ×2 (12:20→14:36)
[2023-07-17] MEDS: Potassium Chloride Liquid 20 MEQ PKT 40 MEQ PO (12:20)
[2023-07-17 12:43] LABS: HCV RNA Qualitative Undetected (Undetected)
[2023-07-17] MEDS: Magnesium Gluconate 500 MG TAB PO ×2 (12:43→21:03)
--- NOTE | 2023-07-17 15:07 | CMPROGNOTE_ITS ---
Date of service: 07/17/23 Time of Service: 15:08 Care Management Progress Note Progress Note Text Progress Note Text: S/O: Daphnie was lying in bed awake when CM met with her. She didn't sleep well last night and keeps getting woken up each time she's about to fall asleep today, which frustrates her. Daphnie continues to require close monitoring and treatment for Pancreatitis and ETOH abuse. Daphnie feels that by the time she is discharged from here she wont need community follow up for ETOH use and declines recourses. CM will revisit at a later time. In addition, pt is on Methodone which is prescribed by MISHA and will need last dose letter prior to discharge. A: 42 year old female admitted to [facility] on 07/15/23 with pancreatitis and ETOH withdrawal Discharge Potential Discharge Needs: PCP F/U Appt (PCP is Deepthi Johnson) Anticipated Barriers to Discharge: None Identified Patient/Family Education Needs: Review discharge instructions, discuss Ask Me Three Transportation: Private vehicle Plan: Daphnie requires inpatient hospitalization for pancreatits and ETOH withdrawal. Pt will need Last Dose Letter on discharge. Anticipate, Daphnie will follow up with community providers and her discharge plan of care as instructed. CM will continue to follow and support discharge considerations. SDOH(Care Management) Screening Will the Patient Participate in the Screening?: Declined to provide Do you worry about having a steady place to live?: no In the past 12 months, have you had to go without electric, gas, oil or water in your home?: no Have you or anyone in your house had to go without enough food to eat?: no Has lack of transportation kept you from medical appointments or from doing things needed for daily living?: no Has anyone in your support network made you feel unsafe for any reason?: no
--- NOTE | 2023-07-17 15:30 | DI.US_ITS ---
Exam(s) US ABDOMEN EXAM: US ABDOMEN CLINICAL HISTORY: abdominal pain, pancreatitis, PUD TECHNIQUE: Ultrasound abdomen performed using standard protocol. COMPARISON: CT CT ABDOMEN PELVIS W from 04/04/[address] ABDOMEN PELVIS W from 07/15/2023 FINDINGS: Exam limited by patient body habitus. LIVER: Enlarged, 24 cm in length.. No focal liver lesions are seen. Posterior portions of the liver are not able to be visualized. GALLBLADDER: No evidence of cholelithiasis. No evidence of wall thickening. No pericholecystic fluid identified. CAMPOS'S SIGN: Negative. BILIARY SYSTEM: No biliary ductal dilation. Common bile duct measures 12 millimeters, this is stabl e with previous exams. KIDNEYS: Right renal atrophy and scarring. Some compensatory hypertrophy of the left kidney. No ronel dence of renal calculi. No evidence of hydronephrosis. No renal mass or cyst identified. PANCREAS: Normal where visualized. Partially obscured by bowel gas. SPLEEN: Not enlarged. ABDOMINAL AORTA AND IVC: Visualized portions normal caliber. Aorta mostly obscured by bowel gas. No rmal on prior CT. ASCITES: None seen. IMPRESSION: Enlarged fatty liver. Stable mild dilatation of the common bile duct to 12 millimeters. No common duct stone. No evidence of gallstones or acute cholecystitis. DATA REPOSITORY:
[2023-07-17 16:06] VITALS: BP 122/90; PULSE 127; RESP 17; TEMP 36.5; O2SAT 97
[2023-07-17 16:24] LABS: Potassium 3.5 mmol/L (3.5-5.1)
--- NOTE | 2023-07-17 16:32 | PHA.REVIEW2 ---
Pharmacy Admission Review Admission Clinical Review Admission Pharmacy Review: Esophageal stricture (Acute) Esophagitis with gastritis (Acute) History of marijuana use (Acute) Ovarian cyst, right (Acute) Umbilical hernia (Acute) Kidney atrophy (Acute) History of duodenal ulcer (Acute) Smoker (Acute) Coffee ground emesis (Acute) Hypomagnesemia (Acute) Hypokalemia (Acute) DVT prophylaxis (Acute) Alcoholic hepatitis (Acute) No Known Allergies Allergy (Unverified 07/15/23 16:59) Resuscitation Status Full Code Height 5 ft 7 in Weight 81 kg Pharmacy Admission Review Renal Dosing Renal Dosing: BUN 6 mg/dL (7-18) L 07/17/23 07:10 Creatinine 0.6 mg/dL (0.55-1.02) 07/17/23 07:10 Medications needing adjustments: Reviewed (CrCl 133.71 mL/min) List of meds needing interventions: Current medications are okay Anticoagulation Anticoagulation: Hgb 11.1 g/dL (11.2-15.7) L 07/17/23 08:15 Hct 31.6 % (36.0-46.0) L 07/17/23 08:15 Plt Count 64 10^3/uL (130-400) L D 07/17/23 08:15 INR 1.2 (0.9-1.1) H 07/17/23 08:15 Creatinine 0.6 mg/dL (0.55-1.02) 07/17/23 07:10 DVT Prophylaxis: Reviewed (SCDs/TEDs - possible active bleed) Opiate Usage Evaluate Pain Scale/Pains Meds: Reviewed (Hydromorphone PRN and daily methadone) Scheduled Bowel Reg ordered if on Opiates?: No Relevant Labs Relevant Labs: Sodium 130 mmol/L (136-145) L 07/17/23 07:10 Potassium 3.5 mmol/L (3.5-5.1) 07/17/23 16:10 Chloride 93 mmol/L (98-107) L 07/17/23 07:10 Phosphorus < 2.0 mg/dL (2.6-4.7) L 07/17/23 05:35 Magnesium 1.6 mg/dL (1.8-2.4) L 07/17/23 05:35 Electrolytes, C-Reactive P, ESR: Reviewed (Na 130, Phos < 2, Mg 1.6 - banana bag + electrolyte infusions, INR 1.2, Hgb decreased from 12.1 to 11.1, PLT count decreased to 64, AST/ALT 265/65, glucose 114) Cardiac Review BP, HR, EF%: Reviewed (BP 122/90 and HR 127) QTc Review QTc: Reviewed (440 from 12/29/20 - last EKG on file) IV to PO Switch IV Medications: Reviewed (phenobarbital, ondansetron, metoclopramide and banana bag) Home Meds Home Med List reviewed: Intervened Relevent Home Meds Not ordered & why?: Cyclobenzaprine (PRN) Confirmed methadone dose of 45mg daily with take home doses through the with [facility] in [facility] Current Meds Current Medication Order Review: Reviewed Comments: Patient refused methadone dose this morning, returned syringe to [address] Banana bag was originally going to be discontinued today but patient has continued electrolyte imbalances Phenobarbital for withdrawal Soft stop: 924mg Hard: 1232mg So far patient has received all 3 loading doses = 370mg total No PRN doses have been given CIWA score 0 at 1617
[2023-07-17 18:44] LABS: HIV-1/2 Ag & Ab Screen Negative (Negative)
[2023-07-17 19:24] VITALS: BP 118/84; PULSE 115; RESP 18; TEMP 36.9; O2SAT 98
[2023-07-17] MEDS: Pantoprazole 40 MG TABCR 80 MG PO (21:03)
[2023-07-17 23:21] VITALS: BP 113/85; PULSE 102; RESP 18; TEMP 36.3; O2SAT 97
[2023-07-18] MEDS: Normal Saline Flush 10 ML SYR IVP ×3 (00:28→15:32)
[2023-07-18] MEDS: HYDROmorphone 2 MG/ML SYR IVP ×7 (00:28→22:30)
[2023-07-18 03:21] VITALS: BP 121/89; PULSE 99; RESP 18; TEMP 36.1; O2SAT 99
[2023-07-18 07:15] LABS: Abs Immature Grans 0.04 10^3/uL (0.0-0.06); Absolute Basophil Count 0.02 10^3/uL (0.0-0.2); Absolute Lymphocyte Count 0.51 10^3/uL (1.2-3.4); Absolute Monocyte Count 0.26 10^3/uL (0.1-0.8); Absolute Neutrophil Count 4.78 10^3/uL (1.2-6.7); Basophils % 0.4 %; Eosinophils % 1.8 %; HCT 30.5 % (36.0-46.0); HGB 10.6 g/dL (11.2-15.7); Immature Grans % 0.7 %; Lymphocytes % 8.9 %; MCH 34.9 pg (27.0-33.0); MCHC 34.8 % (32.0-36.0); MCV 100 fL (80-95); MPV 11.6 fL (8.0-11.0); Monocytes % 4.6 %; Neutrophils % 83.6 %; RBC 3.04 10^6/uL (3.93-5.22); RDW 12.8 % (11.7-14.6); RDW-SD 47.2 fL; WBC 5.71 10^3/uL (4.4-10.8)
[2023-07-18 07:23] LABS: INR 1.3 (0.9-1.1); Prothrombin Time 12.7 sec (9.1-11.1)
[2023-07-18 07:24] LABS: Ammonia 25 umol/L (11-32)
[2023-07-18] MEDS: Lactated Ringers 1,000 ML 125 ML IV (07:24)
[2023-07-18 07:28] LABS: PHOSPHORUS < 2.0 mg/dL (2.6-4.7)
[2023-07-18 07:29] LABS: Lipase > 375 U/L (16-77)
[2023-07-18 07:40] LABS: Magnesium 1.8 mg/dL (1.8-2.4)
[2023-07-18 07:49] LABS: ALT 71 U/L (14-59); AST 225 U/L (15-37); Alkaline Phosphatase 104 U/L (46-116); Anion Gap 5.9 mmol/L (3-11); BUN 2 mg/dL (7-18); Bilirubin, Total 1.7 mg/dL (0.2-1.0); CO2 32.1 mmol/L (21.0-32.0); CREATININE 0.5 mg/dL (0.55-1.02); Chloride 96 mmol/L (98-107); Estimated GFR 120.02 (mL/min/1.73m2); Glucose 117 mg/dL (74-106); Sodium 134 mmol/L (136-145); Total Protein 6.5 g/dL (6.4-8.2)
[2023-07-18 07:52] LABS: Potassium 2.8 mmol/L (3.5-5.1)
[2023-07-18 08:01] VITALS: BP 150/111; PULSE 118; RESP 23; TEMP 36.1; O2SAT 97
[2023-07-18 08:18] LABS: Diff Comment Diff Reviewed; Platelet Count 66 10^3/uL (130-400); RBC Morphology Normal
[2023-07-18] MEDS: Ondansetron 4 MG/2 ML VIAL IVP (08:21)
[2023-07-18] MEDS: Pantoprazole 40 MG TABCR 80 MG PO ×2 (08:29→21:01)
[2023-07-18] MEDS: Magnesium Gluconate 500 MG TAB PO ×2 (08:29→21:03)
[2023-07-18] MEDS: Sucralfate 1 GM TAB PO ×4 (08:29→21:05)
[2023-07-18] MEDS: MAGNESIUM SULFATE 1 GM/100 ML BAG IVINF (08:30)
[2023-07-18] MEDS: POTASSIUM CHLORIDE 10 MEQ/100 ML BAG 100 MEQ IVINF ×4 (08:31→13:52)
--- NOTE | 2023-07-18 09:07 | PDOC.CMPRO ---
Date of service: 07/18/23 Time of Service: 09:07 Care Management Progress Note Progress Note Text Progress Note Text: S/O: Daphnie was lying in bed awake when CM met with her. She is tolerating fluids and her diet is being advanced as tolerated. Her partner Dino will be here soon to help her with her shower, pt declines help from staff. Daphnie hasn't been taking her Methodone X 2 days because she doesn't want to throw them up. Per pt, she has been keeping Ruth at [facility] and will need a last dose letter when she discharges. Daphnie is not interested in community resources for ETOH abuse, at this time. CM will follow. A: 42 year old female admitted to [facility] on 07/15/23 with pancreatitis and ETOH withdrawal Discharge Plan: Daphnie requires inpatient hospitalization for pancreatits and ETOH withdrawal. Pt will need Last Dose Letter on discharge. Anticipate, Daphnie will follow up with community providers and her discharge plan of care as instructed. CM will continue to follow and support discharge considerations. SDOH(Care Management) Screening Will the Patient Participate in the Screening?: Declined to provide Do you worry about having a steady place to live?: no In the past 12 months, have you had to go without electric, gas, oil or water in your home?: no Have you or anyone in your house had to go without enough food to eat?: no Has lack of transportation kept you from medical appointments or from doing things needed for daily living?: no Has anyone in your support network made you feel unsafe for any reason?: no
[2023-07-18 11:10] VITALS: BP 110/83; PULSE 100; RESP 18; TEMP 36.7; O2SAT 97
[2023-07-18] MEDS: Potassium Chloride 20 MEQ TABCR PO ×3 (12:20→21:02)
[2023-07-18] MEDS: Thiamine 100 MG TAB PO (12:46)
[2023-07-18] MEDS: Multivitamin TAB 1 TAB PO (12:46)
[2023-07-18] MEDS: Folic Acid 1 MG TAB 5 MG PO (12:46)
--- NOTE | 2023-07-18 15:02 | W.PM.PROGNOT ---
Date of Service Date of service: 07/18/23 Time of Service: 15:02 Assessment and Plan Assessment and plan (1) Pancreatitis: Status: Chronic Assessment and plan: LFT stable, but have not returned to normal yet. AST 225, ALT 71 but total bilir slightly down to 1.7, normal alkaline phosphatase, lipase still elevated. ammonia is normal, INR 1.3. Maddrey score still low. Diet advanced to solids, low fat diet as tolerated. I have stopped her iv fluids at this point as she is no longer having emesis. Still need correction of electrolytes, K down again today at 2.8, giving her both oral and iv replacement. recheck k level this afternoon. continue carafate and protonix for her PUD/esophagitis. Qualifiers: Chronicity: acute Pancreatitis type: alcohol induced Acute pancreatitis complication: no infection or necrosis Qualified Code(s): K85.20 - Alcohol induced acute pancreatitis without necrosis or infection (2) Esophagitis with gastritis: Status: Acute Assessment and plan: s/p EGD on 07/15, now on protonix and carafate, awaiting H pylori results (3) Esophageal stricture: Status: Acute (4) Alcoholic hepatitis: Status: Acute Assessment and plan: Liver inflammation in alcoholic pattern, aslo signs of dysfunction with elevation of bilirubin and INR. Mild at this point, steroids not indicated, but follow. Maddrey score remains low at 9.1, therefore corticosteroids not indicated. H/o HCV but was treated, last HCV VL negative 08/2020. retesting viral panel and HCV antibody positive but RNA PCR was undetected. HIV screen also negative. Qualifiers: Ascites presence: without ascites Qualified Code(s): K70.10 - Alcoholic hepatitis without ascites (5) Alcohol abuse: Status: Chronic Assessment and plan: no further symptoms of alcohol withdrawal and patient was treated w/ phenobarbital loading dose of 6 mg/kg on 07/15, last prn dose was given on 07/16. will dc further phenobarbital and CIWA monitoring (6) Coffee ground emesis: Status: Acute Assessment and plan: secondary to alcoholic gastritis/esophagitis (7) Hypokalemia: Status: Acute Assessment and plan: K still low at 2.8 and Mg low normal at 1.8, phosphorus low at <2.0. will give iv and oral replacements, monitor levels. (8) Hypomagnesemia: Status: Acute Assessment and plan: replete and monitor (9) Opioid use disorder, moderate, in early remission, on maintenance therapy, dependence: Assessment and plan: continue methadone (10) Smoker: Status: Acute Assessment and plan: Denies NRT for now (11) DVT prophylaxis: Status: Acute Assessment and plan: SCDs/TEDs given possible active bleed. Subjective Subjective Interval history since last seen: Daphnie feels somewhat better today.Abdominal pain is not as severe and nausea improved. No vomiting. She tried some solids but only couple crackers and juice. She would like more solids but is afraid of vomiting. She has been voiding. Exam Narrative Exam Narrative: Middle age female, alert and oriented, she has been getting in/out of bed on her own Lungs: clear Heart: regular but tachycardic, no murmur or rub Abdomen: nondistended, normal bowel sounds, soft but char conveyor tender cellar particularly in the epigastrium but also in the RUQ, no rebound tenderness Extremities: no edema Objective Last Vital Signs Temp 36.7 C 07/18/23 11:10 Pulse 100 H 07/18/23 11:10 Resp 18 07/18/23 11:10 BP 110/83 07/18/23 11:10 Pulse Ox 97 07/18/23 11:10 Laboratory Results - last 24 hr 07/15/23 07/17/23 07/17/23 19:00 07:10 16:10 WBC RBC Hgb Hct MCV MCH MCHC RDW Plt Count MPV Immature Gran % Neutrophils % Lymphocytes % Monocytes % Eosinophils % Basophils % Nucleated RBC % Absolute Neutrophils Absolute Lymphocytes Absolute Monocytes Absolute Eosinophils Absolute Basophils RBC Morphology PT INR Sodium Potassium 3.5 Chloride Carbon Dioxide Anion Gap BUN Creatinine Est GFR (CKD-EPI 2020) Glucose Calcium Phosphorus Magnesium Total Bilirubin AST ALT Alkaline Phosphatase Ammonia Total Protein Albumin Lipase HCV RNA Qual (PCR) Undetected Hepatitis C RNA Quant Not Applicable HIV 1&2 Ag/Ab, 4th Gen Negative 07/18/23 07/18/23 05:35 06:56 WBC 5.71 RBC 3.04 L Hgb 10.6 L Hct 30.5 L MCV 100 H MCH 34.9 H MCHC 34.8 RDW 12.8 Plt Count 66 L MPV 11.6 H Immature Gran % 0.7 Neutrophils % 83.6 Lymphocytes % 8.9 Monocytes % 4.6 Eosinophils % 1.8 Basophils % 0.4 Nucleated RBC % 0.0 Absolute Neutrophils 4.78 Absolute Lymphocytes 0.51 L Absolute Monocytes 0.26 Absolute Eosinophils 0.10 Absolute Basophils 0.02 RBC Morphology Normal PT 12.7 H INR 1.3 H Sodium 134 L Potassium 2.8 L* Chloride 96 L Carbon Dioxide 32.1 H Anion Gap 5.9 BUN 2 L Creatinine 0.5 L Est GFR (CKD-EPI 2020) 120.02 Glucose 117 H Calcium 8.0 L Phosphorus < 2.0 L Magnesium 1.8 Total Bilirubin 1.7 H AST 225 H ALT 71 H Alkaline Phosphatase 104 Ammonia 25 Total Protein 6.5 Albumin 3.0 L Lipase > 375 H HCV RNA Qual (PCR) Hepatitis C RNA Quant HIV 1&2 Ag/Ab, 4th Gen PAWSS Have you Been Recently Intoxicated or Drunk Within the Last 30 days?: No Have you Ever Experienced Previous Episodes of Alcohol Withdrawal?: Yes Have you ever Experienced Withdrawal Seizures?: No Have you ever Experienced Delirium Tremens(DT)s?: Yes Have you ever undergone Alcohol Rehabilitation Treatment (i.e, inpt ot outpatient treatment programs)?: Yes Have you ever Experienced Blackouts?: Yes Have you ever Combined Alcohol with other Downers within the last 90 days?: No Have you ever Combined Alcohol with any other Substance of Abuse during the last 90 days?: No Positive Blood Alcohol level on Presentation? [PCS.BAL]: Unable to Obtain Evidence of Increased Autonomic Activity (i.e. HR>120, tremor, sweating, agitation, nausea)?: Yes Result: 5 Time Spent with Patient Time Spent with Patient: 25-34 minutes Time was spent: preparing to see the patient(eg.review tests), ordering medications,tests, procedures, referring, communicating with other health palliative care nurse, indepentently interpreting results, counseling the patient and care coordination
[2023-07-18 16:07] VITALS: BP 139/93; PULSE 106; RESP 15; TEMP 36.8; O2SAT 96
[2023-07-18 16:40] LABS: Potassium 3.1 mmol/L (3.5-5.1)
--- NOTE | 2023-07-18 17:59 | W.PM.PROGNOT ---
Date of Service Date of service: 07/18/23 Time of Service: 21:40 Assessment and Plan Assessment and plan (1) H pylori ulcer: Status: Acute Assessment and plan: Patient is positive for H. pylori and needs to be started on treatment. If she can oral tolerate it with her pancreatitis/withdrawal/acute liver failure. Will follow her case peripherally. (2) H. pylori infection: Status: Acute (3) Pancreatitis: Status: Chronic Qualifiers: Acute pancreatitis complication: no infection or necrosis Chronicity: acute Pancreatitis type: alcohol induced Qualified Code(s): K85.20 - Alcohol induced acute pancreatitis without necrosis or infection (4) Alcoholic hepatitis: Status: Acute Qualifiers: Ascites presence: without ascites Qualified Code(s): K70.10 - Alcoholic hepatitis without ascites (5) Esophagitis with gastritis: Status: Acute (6) Esophageal stricture: Status: Acute (7) Smoker: Status: Acute (8) History of marijuana use: Status: Acute Objective Last Vital Signs Temp 36.8 C 07/18/23 16:07 Pulse 106 H 07/18/23 16:07 Resp 15 07/18/23 16:07 BP 139/93 H 07/18/23 16:07 Pulse Ox 96 07/18/23 16:07 Laboratory Results - last 24 hr 07/17/23 07/18/23 07/18/23 07:10 05:35 06:56 WBC 5.71 RBC 3.04 L Hgb 10.6 L Hct 30.5 L MCV 100 H MCH 34.9 H MCHC 34.8 RDW 12.8 Plt Count 66 L MPV 11.6 H Immature Gran % 0.7 Neutrophils % 83.6 Lymphocytes % 8.9 Monocytes % 4.6 Eosinophils % 1.8 Basophils % 0.4 Nucleated RBC % 0.0 Absolute Neutrophils 4.78 Absolute Lymphocytes 0.51 L Absolute Monocytes 0.26 Absolute Eosinophils 0.10 Absolute Basophils 0.02 RBC Morphology Normal PT 12.7 H INR 1.3 H Sodium 134 L Potassium 2.8 L* Chloride 96 L Carbon Dioxide 32.1 H Anion Gap 5.9 BUN 2 L Creatinine 0.5 L Est GFR (CKD-EPI 2020) 120.02 Glucose 117 H Calcium 8.0 L Phosphorus < 2.0 L Magnesium 1.8 Total Bilirubin 1.7 H AST 225 H ALT 71 H Alkaline Phosphatase 104 Ammonia 25 Total Protein 6.5 Albumin 3.0 L Lipase > 375 H HIV 1&2 Ag/Ab, 4th Gen Negative 07/18/23 16:06 WBC RBC Hgb Hct MCV MCH MCHC RDW Plt Count MPV Immature Gran % Neutrophils % Lymphocytes % Monocytes % Eosinophils % Basophils % Nucleated RBC % Absolute Neutrophils Absolute Lymphocytes Absolute Monocytes Absolute Eosinophils Absolute Basophils RBC Morphology PT INR Sodium Potassium 3.1 L Chloride Carbon Dioxide Anion Gap BUN Creatinine Est GFR (CKD-EPI 2020) Glucose Calcium Phosphorus Magnesium Total Bilirubin AST ALT Alkaline Phosphatase Ammonia Total Protein Albumin Lipase HIV 1&2 Ag/Ab, 4th Gen PAWSS Have you Been Recently Intoxicated or Drunk Within the Last 30 days?: No Have you Ever Experienced Previous Episodes of Alcohol Withdrawal?: Yes Have you ever Experienced Withdrawal Seizures?: No Have you ever Experienced Delirium Tremens(DT)s?: Yes Have you ever undergone Alcohol Rehabilitation Treatment (i.e, inpt ot outpatient treatment programs)?: Yes Have you ever Experienced Blackouts?: Yes Have you ever Combined Alcohol with other Downers within the last 90 days?: No Have you ever Combined Alcohol with any other Substance of Abuse during the last 90 days?: No Positive Blood Alcohol level on Presentation? [PCS.BAL]: Unable to Obtain Evidence of Increased Autonomic Activity (i.e. HR>120, tremor, sweating, agitation, nausea)?: Yes Result: 5 Time Spent with Patient Time Spent with Patient: <25 minutes Time was spent: preparing to see the patient(eg.review tests), ordering medications,tests, procedures, referring, communicating with other health healthcare administrative assistant, indepentently interpreting results and care coordination
[2023-07-18 21:29] VITALS: BP 134/99; PULSE 114; RESP 16; TEMP 36.2; O2SAT 98
[2023-07-19] MEDS: HYDROmorphone 2 MG/ML SYR IVP ×6 (02:21→22:57)
[2023-07-19 03:45] VITALS: BP 117/86; PULSE 97; RESP 18; TEMP 36.5; O2SAT 99
[2023-07-19] MEDS: Normal Saline Flush 10 ML SYR IVP ×4 (06:18→19:58)
[2023-07-19] MEDS: Folic Acid 1 MG TAB 5 MG PO (07:44)
[2023-07-19] MEDS: Pantoprazole 40 MG TABCR 80 MG PO ×2 (07:45→20:01)
[2023-07-19] MEDS: Clarithromycin 500 MG TAB PO ×2 (07:45→20:03)
[2023-07-19] MEDS: Potassium Chloride 20 MEQ TABCR PO ×4 (07:46→20:03)
[2023-07-19] MEDS: Thiamine 100 MG TAB PO (07:46)
[2023-07-19] MEDS: Multivitamin TAB 1 TAB PO (07:46)
[2023-07-19] MEDS: Magnesium Gluconate 500 MG TAB PO ×2 (07:46→20:02)
[2023-07-19] MEDS: Sucralfate 1 GM TAB PO ×4 (07:47→22:57)
[2023-07-19] MEDS: Amoxicillin 875 MG TAB 1000 MG PO (07:48)
[2023-07-19 08:14] LABS: Abs Immature Grans 0.02 10^3/uL (0.0-0.06); Absolute Basophil Count 0.02 10^3/uL (0.0-0.2); Absolute Eosinophil Count 0.09 10^3/uL (0.0-0.7); Absolute Lymphocyte Count 0.59 10^3/uL (1.2-3.4); Absolute Monocyte Count 0.37 10^3/uL (0.1-0.8); Absolute Neutrophil Count 4.21 10^3/uL (1.2-6.7); Basophils % 0.4 %; Eosinophils % 1.7 %; HCT 32.1 % (36.0-46.0); HGB 11.1 g/dL (11.2-15.7); Immature Grans % 0.4 %; Lymphocytes % 11.1 %; MCH 35.6 pg (27.0-33.0); MCHC 34.6 % (32.0-36.0); MCV 103 fL (80-95); MPV 11.4 fL (8.0-11.0); Neutrophils % 79.4 %; RBC 3.12 10^6/uL (3.93-5.22); RDW 12.9 % (11.7-14.6); RDW-SD 48.7 fL
[2023-07-19 08:32] LABS: ALT 95 U/L (14-59); AST 252 U/L (15-37); Albumin 3.2 g/dL (3.4-5.0); Alkaline Phosphatase 124 U/L (46-116); Anion Gap 6.4 mmol/L (3-11); BUN 3 mg/dL (7-18); Bilirubin, Total 1.2 mg/dL (0.2-1.0); CO2 33.6 mmol/L (21.0-32.0); CREATININE 0.6 mg/dL (0.55-1.02); Calcium 8.7 mg/dL (8.5-10.1); Chloride 95 mmol/L (98-107); Estimated GFR 114.86 (mL/min/1.73m2); Glucose 112 mg/dL (74-106); Magnesium 1.8 mg/dL (1.8-2.4); Potassium 3.4 mmol/L (3.5-5.1); Sodium 135 mmol/L (136-145); Total Protein 7.1 g/dL (6.4-8.2)
[2023-07-19 08:39] LABS: INR 1.1 (0.9-1.1); Prothrombin Time 11.2 sec (9.1-11.1)
[2023-07-19 08:46] LABS: PHOSPHORUS < 2.0 mg/dL (2.6-4.7)
[2023-07-19 08:52] VITALS: BP 127/90; PULSE 115; RESP 15; TEMP 36.6; O2SAT 99
[2023-07-19 08:57] LABS: Diff Comment PLT Morph Reviewed; Platelet Count 84 10^3/uL (130-400); RBC Morphology Normal
[2023-07-19] MEDS: Lidocaine 5% Patch 1 PATCH TP (10:09)
[2023-07-19 15:31] VITALS: BP 122/92; PULSE 114; RESP 17; TEMP 36.6; O2SAT 98
--- NOTE | 2023-07-19 16:49 | CHAPLAIN ---
Daphnie was hesitant to have a conversation at first, but slowly began engaging in a conversation. She was teary telling me about having blood drawn every day and how she doesn't want to be poked any more. She said a nurse last night told her that with her new IV staff would be able to draw blood from that, but this morning she was told that wasn't the case. She said I went off on them when they told me that. She really wants to have a cigarette, so that is frustrating for her. She said she is allergic to the nicotine patches and she can't chew the gum because her teeth are bad. She has decided to sleep the time away for now. Her significant other and son visit when they are done with their [employer] jobs, but it's usually late so they don't get to stay for long before visiting hours are over. Daphnie said she's also not sure what's going on with her, and would like more explanantion about her plan of care. I encouraged her to ask questions. She showed me her tattoos and told me the stories behind them.
--- NOTE | 2023-07-19 16:55 | PDOC.CMPRO ---
Date of service: 07/19/23 Time of Service: 16:55 Care Management Progress Note Progress Note Text Progress Note Text: S/O: Daphnie was lying in bed awake when CM met with her. She is tolerating fluids and her diet is being advanced as tolerated. Her partner Dino will be here soon to help her with her shower, pt declines help from staff. Daphnie hasn't been taking her Methodone X 3 days because she doesn't want to throw them up. Anticipate Pt will be here through the weekend, and will need a last dose letter when she discharges. Daphnie is not interested in community resources for ETOH abuse, at this time. CM will follow. A: 42 year old female admitted to [facility] on 07/15/23 with pancreatitis and ETOH withdrawal Discharge Anticipated Barriers to Discharge: None Identified Patient/Family Education Needs: Review discharge instructions, discuss Ask Me Three Transportation: Private vehicle Plan: Daphnie requires inpatient hospitalization for pancreatits and ETOH withdrawal. Pt will need Last Dose Letter on discharge. Anticipate, Daphnie will follow up with community providers and her discharge plan of care as instructed. CM will continue to follow and support discharge considerations. SDOH(Care Management) Screening Will the Patient Participate in the Screening?: Declined to provide Do you worry about having a steady place to live?: no In the past 12 months, have you had to go without electric, gas, oil or water in your home?: no Have you or anyone in your house had to go without enough food to eat?: no Has lack of transportation kept you from medical appointments or from doing things needed for daily living?: no Has anyone in your support network made you feel unsafe for any reason?: no
--- NOTE | 2023-07-19 19:07 | W.PM.PROGNOT ---
Date of Service Date of service: 07/19/23 Time of Service: 13:30 Assessment and Plan Assessment and plan (1) Pancreatitis: Status: Chronic Assessment and plan: LFT stable total bilir 0.9 alkaline phosphatase 124,Maddrey score still low. K down again today at 3.4, giving her both oral and iv replacement. Continue carafate and protonix for her PUD/esophagitis. Qualifiers: Chronicity: acute Pancreatitis type: alcohol induced Acute pancreatitis complication: no infection or necrosis Qualified Code(s): K85.20 - Alcohol induced acute pancreatitis without necrosis or infection (2) Esophagitis with gastritis: Status: Acute Assessment and plan: s/p EGD on 07/15, now on protonix and carafate H Pylori positive (3) Esophageal stricture: Status: Acute (4) Alcoholic hepatitis: Status: Acute Assessment and plan: Liver inflammation in alcoholic pattern Maddrey score remains low at 9.1, therefore corticosteroids not indicated. H/o HCV but was treated, last HCV VL negative 08/2020. retesting viral panel and HCV antibody positive but RNA PCR was undetected. HIV screen also negative. Qualifiers: Ascites presence: without ascites Qualified Code(s): K70.10 - Alcoholic hepatitis without ascites (5) Alcohol abuse: Status: Chronic Assessment and plan: n o s/s of wd from EToH (6) Coffee ground emesis: Status: Resolved Assessment and plan: secondary to alcoholic gastritis/esophagitis; resolved (7) Hypokalemia: Status: Acute Assessment and plan: K 3.4; repleted (8) Hypomagnesemia: Status: Acute Assessment and plan: Mag 1.8 monitor (9) Opioid use disorder, moderate, in early remission, on maintenance therapy, dependence: Assessment and plan: Patient has refused methadone for 3 days (10) Smoker: Status: Acute Assessment and plan: Denies NRT for now (11) DVT prophylaxis: Status: Acute Assessment and plan: SCDs/TEDs given possible active bleed. (12) Insomnia: Status: Acute Assessment and plan: Scheduled melatonin, ambien prn Subjective Subjective Patient reports: no new complaints, tolerating a regular diet, voiding w/o difficulty, bowel movement and afebrile; denies diarrhea, nausea or vomiting Exam Const General: no acute distress and disheveled Nutritional Appearance: average body habitus Orientation: oriented x3 HENMT Other: No jaundice Poor dentition Multiple piercings and tattoos Resp Effort & Inspection: normal respiratory effort Other: Clear to auscultation Cardio Rate: regular rate Rhythm: regular rhythm GI Other: Post C-sections noted. Epigastric tenderness. No distention or diffuse peritonitis Skin General skin exam: no rashes or lesions noted Extrem General: no clubbing, cyanosis or edema Other: Moving all extremities independently Objective Last Vital Signs Temp 36.6 C 07/19/23 15:31 Pulse 114 H 07/19/23 15:31 Resp 17 07/19/23 15:31 BP 122/92 H 07/19/23 15:31 Pulse Ox 98 07/19/23 15:31 Laboratory Results - last 24 hr 07/19/23 07/19/23 07/19/23 07:40 07:40 07:40 WBC 5.30 RBC 3.12 L Hgb 11.1 L Hct 32.1 L MCV 103 H MCH 35.6 H MCHC 34.6 RDW 12.9 Plt Count 84 L MPV 11.4 H Immature Gran % 0.4 Neutrophils % 79.4 Lymphocytes % 11.1 Monocytes % 7.0 Eosinophils % 1.7 Basophils % 0.4 Nucleated RBC % 0.0 Absolute Neutrophils 4.21 Absolute Lymphocytes 0.59 L Absolute Monocytes 0.37 Absolute Eosinophils 0.09 Absolute Basophils 0.02 RBC Morphology Normal PT 11.2 H INR 1.1 Sodium 135 L Potassium 3.4 L Chloride 95 L Carbon Dioxide 33.6 H Anion Gap 6.4 BUN 3 L Creatinine 0.6 Est GFR (CKD-EPI 2020) 114.86 Glucose 112 H Calcium 8.7 Phosphorus < 2.0 L Cancelled Magnesium 1.8 Cancelled Total Bilirubin 1.2 H AST 252 H ALT 95 H Alkaline Phosphatase 124 H Total Protein 7.1 Albumin 3.2 L PAWSS Have you Been Recently Intoxicated or Drunk Within the Last 30 days?: No Have you Ever Experienced Previous Episodes of Alcohol Withdrawal?: Yes Have you ever Experienced Withdrawal Seizures?: No Have you ever Experienced Delirium Tremens(DT)s?: Yes Have you ever undergone Alcohol Rehabilitation Treatment (i.e, inpt ot outpatient treatment programs)?: Yes Have you ever Experienced Blackouts?: Yes Have you ever Combined Alcohol with other Downers within the last 90 days?: No Have you ever Combined Alcohol with any other Substance of Abuse during the last 90 days?: No Positive Blood Alcohol level on Presentation? [PCS.BAL]: Unable to Obtain Evidence of Increased Autonomic Activity (i.e. HR>120, tremor, sweating, agitation, nausea)?: Yes Result: 5 Time Spent with Patient Time Spent with Patient: 35-49 minutes Time was spent: preparing to see the patient(eg.review tests), ordering medications,tests, procedures, referring, communicating with other health child caregiver private home, indepentently interpreting results, counseling the patient and care coordination
[2023-07-19 19:20] VITALS: BP 129/101; PULSE 110; RESP 20; TEMP 36.6; O2SAT 99
[2023-07-19] MEDS: HYDROmorphone 2 MG/ML SYR 1 MG IVP (19:58)
[2023-07-19] MEDS: Zolpidem 5 MG TAB PO (20:02)
[2023-07-19] MEDS: Melatonin 3 MG TAB 9 MG PO (20:02)
[2023-07-19] MEDS: Amoxicillin 500 MG CAP PO (20:03)
[2023-07-19 23:00] VITALS: BP 123/91; PULSE 114; RESP 20; TEMP 36.6; O2SAT 99
[2023-07-20] MEDS: Normal Saline Flush 10 ML SYR IVP ×7 (02:39→20:10)
[2023-07-20] MEDS: HYDROmorphone 2 MG/ML SYR IVP ×7 (02:39→23:08)
[2023-07-20 07:12] LABS: Abs Immature Grans 0.02 10^3/uL (0.0-0.06); Absolute Basophil Count 0.02 10^3/uL (0.0-0.2); Absolute Lymphocyte Count 0.66 10^3/uL (1.2-3.4); Absolute Monocyte Count 0.54 10^3/uL (0.1-0.8); Absolute Neutrophil Count 3.09 10^3/uL (1.2-6.7); Basophils % 0.5 %; Eosinophils % 2.3 %; HCT 31.4 % (36.0-46.0); HGB 10.9 g/dL (11.2-15.7); Immature Grans % 0.5 %; Lymphocytes % 14.9 %; MCH 35.5 pg (27.0-33.0); MCHC 34.7 % (32.0-36.0); MCV 102 fL (80-95); MPV 10.7 fL (8.0-11.0); Monocytes % 12.2 %; Neutrophils % 69.6 %; Platelet Count 110 10^3/uL (130-400); RBC 3.07 10^6/uL (3.93-5.22); RDW 13.2 % (11.7-14.6); RDW-SD 49.3 fL; WBC 4.43 10^3/uL (4.4-10.8)
[2023-07-20 07:28] LABS: INR 1.2 (0.9-1.1); Prothrombin Time 11.5 sec (9.1-11.1)
[2023-07-20 07:37] LABS: ALT 105 U/L (14-59); AST 205 U/L (15-37); Albumin 3.1 g/dL (3.4-5.0); Alkaline Phosphatase 129 U/L (46-116); Anion Gap 7.9 mmol/L (3-11); BUN 4 mg/dL (7-18); Bilirubin, Total 0.9 mg/dL (0.2-1.0); CO2 30.1 mmol/L (21.0-32.0); CREATININE 0.5 mg/dL (0.55-1.02); Calcium 8.7 mg/dL (8.5-10.1); Chloride 96 mmol/L (98-107); Estimated GFR 120.02 (mL/min/1.73m2); Glucose 97 mg/dL (74-106); Potassium 3.6 mmol/L (3.5-5.1); Sodium 134 mmol/L (136-145)
[2023-07-20 07:40] LABS: PHOSPHORUS 2.6 mg/dL (2.6-4.7)
[2023-07-20 08:10] VITALS: BP 128/89; PULSE 116; RESP 16; TEMP 36; O2SAT 99
[2023-07-20] MEDS: Sucralfate 1 GM TAB PO ×4 (08:12→23:02)
[2023-07-20] MEDS: Pantoprazole 40 MG TABCR 80 MG PO ×2 (08:12→20:10)
[2023-07-20] MEDS: Amoxicillin 500 MG CAP PO ×2 (08:13→20:10)
[2023-07-20] MEDS: Potassium Chloride 20 MEQ TABCR PO ×4 (08:14→20:10)
[2023-07-20] MEDS: Magnesium Gluconate 500 MG TAB PO ×2 (08:14→20:10)
[2023-07-20] MEDS: Clarithromycin 500 MG TAB PO ×2 (08:14→20:10)
[2023-07-20] MEDS: Thiamine 100 MG TAB PO (08:15)
[2023-07-20] MEDS: Folic Acid 1 MG TAB 5 MG PO (08:15)
[2023-07-20] MEDS: Multivitamin TAB 1 TAB PO (08:15)
[2023-07-20 09:27] LABS: Lab Add On Test DONE
[2023-07-20 09:43] LABS: Lipase > 375 U/L (16-77)
[2023-07-20 11:57] VITALS: BP 141/108; PULSE 110; RESP 15; TEMP 36.5; O2SAT 98
[2023-07-20 15:24] VITALS: BP 134/94; PULSE 118; RESP 15; TEMP 36.8; O2SAT 98
--- NOTE | 2023-07-20 18:25 | W.PM.PROGNOT ---
Date of Service Date of service: 07/20/23 Time of Service: 09:30 Assessment and Plan Assessment and plan (1) Pancreatitis: Status: Chronic Assessment and plan: LFT stable total bilir 0.9 alkaline phosphatase 129,Maddrey score still low. K up today at 3.6, trend Continue carafate and protonix for her PUD/esophagitis. Qualifiers: Chronicity: acute Pancreatitis type: alcohol induced Acute pancreatitis complication: no infection or necrosis Qualified Code(s): K85.20 - Alcohol induced acute pancreatitis without necrosis or infection (2) Esophagitis with gastritis: Status: Acute Assessment and plan: s/p EGD on 07/15, now on protonix and carafate H Pylori positive (3) Esophageal stricture: Status: Acute Assessment and plan: able to swallow food without issues (4) Alcoholic hepatitis: Status: Acute Assessment and plan: Liver inflammation in alcoholic pattern Maddrey score remains low at 9.1, therefore corticosteroids not indicated. H/o HCV but was treated, last HCV VL negative 08/2020. retesting viral panel and HCV antibody positive but RNA PCR was undetected. HIV screen also negative. Qualifiers: Ascites presence: without ascites Qualified Code(s): K70.10 - Alcoholic hepatitis without ascites (5) Alcohol abuse: Status: Chronic Assessment and plan: n o s/s of wd from EToH (6) Coffee ground emesis: Status: Resolved Assessment and plan: secondary to alcoholic gastritis/esophagitis; resolved (7) Hypokalemia: Status: Acute Assessment and plan: K 3.6 monitor (8) Hypomagnesemia: Status: Acute Assessment and plan: not done today; 1.8 yesterday - monitor (9) Opioid use disorder, moderate, in early remission, on maintenance therapy, dependence: Assessment and plan: Patient has refused methadone for 4 days She is taking hydromorphone for pain (10) Smoker: Status: Acute Assessment and plan: Denies NRT for now (11) DVT prophylaxis: Status: Acute Assessment and plan: SCDs/TEDs given possible active bleed. (12) Insomnia: Status: Acute Assessment and plan: Scheduled melatonin, ambien prn Subjective Subjective Patient reports: no new complaints, voiding w/o difficulty, bowel movement and afebrile; denies flatus, diarrhea, nausea or vomiting Interval history since last seen: Eating well, no nausea or vomiting. States she continues to have pain 4/10 that is resolved with hydromorphone Exam Const General: no acute distress and disheveled Nutritional Appearance: average body habitus Orientation: oriented x3 HENMT Other: No jaundice Poor dentition Multiple piercings and tattoos Resp Effort & Inspection: normal respiratory effort Other: Clear to auscultation Cardio Rate: regular rate Rhythm: regular rhythm GI Other: Post C-sections noted. Epigastric tenderness. No distention or diffuse peritonitis Skin General skin exam: no rashes or lesions noted Extrem General: no clubbing, cyanosis or edema Other: Moving all extremities independently Objective Last Vital Signs Temp 36.8 C 07/20/23 15:24 Pulse 118 H 07/20/23 15:24 Resp 15 07/20/23 15:24 BP 134/94 H 07/20/23 15:24 Pulse Ox 98 07/20/23 15:24 Laboratory Results - last 24 hr 07/20/23 06:50 WBC 4.43 RBC 3.07 L Hgb 10.9 L Hct 31.4 L MCV 102 H MCH 35.5 H MCHC 34.7 RDW 13.2 Plt Count 110 L MPV 10.7 Immature Gran % 0.5 Neutrophils % 69.6 Lymphocytes % 14.9 Monocytes % 12.2 Eosinophils % 2.3 Basophils % 0.5 Nucleated RBC % 0.0 Absolute Neutrophils 3.09 Absolute Lymphocytes 0.66 L Absolute Monocytes 0.54 Absolute Eosinophils 0.10 Absolute Basophils 0.02 PT 11.5 H INR 1.2 H Sodium 134 L Potassium 3.6 Chloride 96 L Carbon Dioxide 30.1 Anion Gap 7.9 BUN 4 L Creatinine 0.5 L Est GFR (CKD-EPI 2020) 120.02 Glucose 97 Calcium 8.7 Phosphorus 2.6 Total Bilirubin 0.9 AST 205 H ALT 105 H Alkaline Phosphatase 129 H Total Protein 7.0 Albumin 3.1 L Lipase > 375 H Add-On Test Request DONE PAWSS Have you Been Recently Intoxicated or Drunk Within the Last 30 days?: No Have you Ever Experienced Previous Episodes of Alcohol Withdrawal?: Yes Have you ever Experienced Withdrawal Seizures?: No Have you ever Experienced Delirium Tremens(DT)s?: Yes Have you ever undergone Alcohol Rehabilitation Treatment (i.e, inpt ot outpatient treatment programs)?: Yes Have you ever Experienced Blackouts?: Yes Have you ever Combined Alcohol with other Downers within the last 90 days?: No Have you ever Combined Alcohol with any other Substance of Abuse during the last 90 days?: No Positive Blood Alcohol level on Presentation? [PCS.BAL]: Unable to Obtain Evidence of Increased Autonomic Activity (i.e. HR>120, tremor, sweating, agitation, nausea)?: Yes Result: 5 Time Spent with Patient Time Spent with Patient: 25-34 minutes Time was spent: preparing to see the patient(eg.review tests), ordering medications,tests, procedures, referring, communicating with other health childcare administrator, indepentently interpreting results, counseling the patient and care coordination
[2023-07-20] MEDS: Melatonin 3 MG TAB 9 MG PO (20:09)
[2023-07-20] MEDS: Zolpidem 5 MG TAB PO (20:10)
[2023-07-20 20:13] VITALS: BP 125/87; PULSE 110; RESP 18; TEMP 36.5; O2SAT 98
[2023-07-20 23:04] VITALS: BP 126/99; PULSE 116; RESP 18; TEMP 36.8; O2SAT 97
[2023-07-21] MEDS: HYDROmorphone 2 MG/ML SYR IVP ×4 (01:49→11:00)
[2023-07-21] MEDS: Normal Saline Flush 10 ML SYR IVP ×3 (04:08→11:01)
[2023-07-21 06:47] LABS: HCT 30.5 % (36.0-46.0); HGB 10.2 g/dL (11.2-15.7); MCH 35.5 pg (27.0-33.0); MCHC 33.4 % (32.0-36.0); MCV 106 fL (80-95); MPV 9.8 fL (8.0-11.0); Platelet Count 143 10^3/uL (130-400); RBC 2.87 10^6/uL (3.93-5.22); RDW-SD 53.3 fL; WBC 3.81 10^3/uL (4.4-10.8)
[2023-07-21 06:57] LABS: Anion Gap 3.2 mmol/L (3-11); BUN 5 mg/dL (7-18); CO2 31.8 mmol/L (21.0-32.0); CREATININE 0.6 mg/dL (0.55-1.02); Calcium 8.7 mg/dL (8.5-10.1); Chloride 102 mmol/L (98-107); Estimated GFR 114.86 (mL/min/1.73m2); Glucose 123 mg/dL (74-106); Magnesium 1.6 mg/dL (1.8-2.4); Potassium 4.4 mmol/L (3.5-5.1); Sodium 137 mmol/L (136-145)
[2023-07-21 07:26] LABS: Absolute Basophil Count 0.04 10^3/uL (0.0-0.2); Absolute Eosinophil Count 0.04 10^3/uL (0.0-0.7); Absolute Lymphocyte Count 0.88 10^3/uL (1.2-3.4); Absolute Monocyte Count 0.27 10^3/uL (0.1-0.8); Absolute Neutrophil Count 2.59 10^3/uL (1.2-6.7); Atypical Lymphocytes % 6 %; Diff Comment Manual Differential; Macrocytosis 2+
[2023-07-21] MEDS: Amoxicillin 500 MG CAP PO (07:41)
[2023-07-21] MEDS: Potassium Chloride 20 MEQ TABCR PO (07:42)
[2023-07-21] MEDS: Pantoprazole 40 MG TABCR 80 MG PO (07:42)
[2023-07-21] MEDS: Sucralfate 1 GM TAB PO ×2 (07:42→11:00)
[2023-07-21] MEDS: Thiamine 100 MG TAB PO (07:42)
[2023-07-21] MEDS: Multivitamin TAB 1 TAB PO (07:43)
[2023-07-21] MEDS: Magnesium Gluconate 500 MG TAB PO (07:43)
[2023-07-21] MEDS: Clarithromycin 500 MG TAB PO (07:43)
[2023-07-21] MEDS: Folic Acid 1 MG TAB 5 MG PO (07:43)
[2023-07-21 08:13] VITALS: BP 133/105; PULSE 101; RESP 17; TEMP 36.8; O2SAT 97
[2023-07-21 09:17] LABS: Lab Add On Test DONE
[2023-07-21] MEDS: MAGNESIUM SULFATE 2 GM/50 ML BAG IVINF (09:36)
[2023-07-21 09:47] LABS: Lipase > 375 U/L (16-77)
--- NOTE | 2023-07-21 12:25 | W.PM.DS.N ---
Date of service: 07/21/23 Time of Service: 12:25 DS: Diagnosis Discharge Diagnosis (1) H pylori ulcer: Status: Acute (2) Pancreatitis: Status: Chronic (3) Alcoholic hepatitis: Status: Acute (4) Esophagitis with gastritis: Status: Acute (5) Esophageal stricture: Status: Acute (6) Smoker: Status: Acute (7) History of marijuana use: Status: Acute Discharge Plan Disposition Patient Disposition: Home Condition: Improving Discharge Details Reason For Visit: Pancreatitis, Alcohol Intoxication Admit Date/Time: 07/15/23 22:10 Admit Provider: Jonnathan Crespo Attending Provider: Jonnathan Crespo Primary Care Provider: Unknown,Unknown Hospital Course Hospital Course: The patient presented to the [facility] ED with complaints of epigastric abdominal discomfort, nausea, and vomiting, including dark emesis at home. Past medical history significant for alcohol use disorder and opiod use disorder. Initial Management: Screening labs, fluids, antiemetics, benzodiazepine administration, pantoprazole, and octreotide were administered based on the patient's history. Subsequent evaluation revealed evidence of pancreatitis. The patient responded well to medications and fluids and was loaded with Librium. There were no fasciculations or tremors and no tachycardia. The persistent vomiting, worsening epigastric pain, and jaundice raised concerns for potential liver pathology, such as alcoholic hepatitis or liver cirrhosis. Black chunks in the vomit suggested upper gastrointestinal bleeding. Given the patient's history of heavy alcohol use, the presentation is consistent with alcohol-related complications. Laboratory tests, including liver function tests, complete blood count, coagulation profile. Surgery was consulted. An upper endoscopy revealed an esophageal stricture, mild esophagitis, and a small ulcer in the duodenal bulb. Biopsies were taken from the GE junction, duodenal bulb, and antrum for H. pylori, which was found to be positive. The patient was started on Clarithromycin, amoxicillin, and protonix for a 14-day course. Sucralfate 1 gm before meals and at bedtime was also initiated. Magnesium levels were low and repleted; supplementation was recommended post-discharge. The patient's diet advanced, and she tolerated egg rolls without nausea or vomiting. Lipase remained elevated (>375) and should be checked outpatient next week. The patient declined methadone throughout hospitalization. She expressed intent to seek medication-assisted treatment for alcohol use disorder from her PCP. Care managers provided community resources for substance abuse and advised cessation of alcohol, drugs, and smoking. Follow-up with the PCP for initiation of alcohol cessation medication and monitoring of lipase levels. Continued outpatient monitoring for improvement of symptoms and compliance with treatment regimen. Home Meds and New Rx's Prescriptions: New sucralfate 1 gram Tablet 1 g PO AC & HS Qty: 120 0RF pantoprazole 40 mg Tablet,Delayed Release (Dr/Ec) 40 mg PO BID@729,1999 Qty: 60 0RF amoxicillin 500 mg Capsule 1,000 mg PO BID Qty: 46 0RF clarithromycin 500 mg Tablet 500 mg PO BID Qty: 23 0RF magnesium gluconate 27 mg magnesium (500 mg) Tablet 500 mg PO BID Qty: 0 0RF Continued lidocaine [Lidoderm] 5 % adhesive patch,medicated 1 patch topical DAILY PRN (Reason: pain) Qty: 1 0RF Rx Instructions: leave on most painful area for up to 12 hrs methadone 10 MG/ML concentrate 40 mg PO DAILY No Action cyclobenzaprine 5 mg tablet 5 mg PO BID PRN (Reason: muscle spasm) Qty: 10 0RF chlordiazepoxide HCl 25 mg capsule 25 mg PO ONCE Qty: 15 0RF Rx Instructions: day1: 50 mg (2 caps) q6hr; day 2: 50 mg q12hr; day 3: 50 mg qday; day 4: 25mg qday Discharge Instructions Instructions: Amoxicillin (By mouth), Clarithromycin (By mouth), Pantoprazole (By mouth), Pancreatitis (DC), Helicobacter Pylori (GEN) Additional Instructions: Avoiding alcohol completely is crucial for promoting healing and preventing further complications. Alcohol can indeed exacerbate pancreatitis, delay healing, and contribute to the development of ulcers. It's essential to adhere strictly to zero alcohol intake. ?Quit smoking to reduce the risk of complications and promote healing. ? Take antibiotics until course if completed. ?Follow a low-fat diet to ease the workload on your pancreas. Avoid fried foods, fatty meats, and high-fat dairy products. ?Eat small, frequent meals rather than large meals to reduce the strain on your digestive system. ?Drink plenty of fluids, preferably water, to stay hydrated. ? Maintain a healthy weight through diet and exercise to reduce the risk of recurrent pancreatitis. ?Be vigilant for symptoms such as severe abdominal pain, nausea, vomiting, fever, or jaundice, as they may indicate a complication requiring medical attention, go to the Emergency department. ?Get plenty of rest to allow your body to heal properly. ?Avoid strenuous activities or heavy lifting ? Finish the prescribed course of antibiotics; amoxicillin, clarithromycin, ?along with a proton pump inhibitor (PPI) pantoprazole to reduce stomach acid. ? Follow-up appointment with your PCP to monitor your progress and ensure the infection has been eradicated. This is usually done with a breath test, stool test, or sometimes a follow-up endoscopy and to check your liver function and pancreas. ? Avoid foods and beverages that can irritate the stomach lining, such as spicy foods, acidic foods, caffeine, and absolutely no alcohol. Focus on a diet that includes plenty of fruits, vegetables, lean proteins, and whole grains. ? Stress can exacerbate symptoms of H. pylori infection, so practice stress-reduction techniques such as deep breathing exercises, meditation, yoga, or spending time on hobbies you enjoy. ? H. pylori bacteria can be transmitted through close contact with an infected person's saliva, vomit, or fecal matter. Practice good hygiene, including washing your hands regularly with soap and water, especially before eating or preparing food, and after using the restroom. ? Inform your household members about the infection and encourage them to practice good hygiene to prevent the spread of the bacteria. ? Pay attention to any recurring symptoms such as abdominal pain, bloating, nausea, vomiting, or black, tarry stools. If you experience any of these symptoms, contact your PCP promptly. ? Nonsteroidal anti-inflammatory drugs (NSAIDs) such as ibuprofen and aspirin can worsen symptoms and increase the risk of stomach ulcers. Use acetaminophen instead for pain relief, maximum 2000 mg daily, for maximum of 5 days - only if needed. Your magnesium is low; take a magnesium supplement daily. Your liver enzymes and lipase are elevated and should be checked by your PCP in the next week. Stand Alone Forms: Nursing Discharge Form Referrals: Lulu Pickens DO [OSTEOPATHIC DOCTOR] - (1-2 weeks; recommend liver enzymes and lipase be checked, Please call to make this appointment ) Ana Alicia DO [OSTEOPATHIC DOCTOR] - (Please call the office to set up this appointment. ) Activity:: Activity as Tolerated Equipment/Supplies:: No Equipment Needed Diet:: As Tolerated Discharge Orders Discharge Orders: Discharge Order (Routine); Ordered 07/21/23 Ordered By: Felecia Rivera Discharge Data Discharge Date/Time-TO BE ENTERED AT DEPARTURE: 07/21/23 13:13 DS: Summary Time Spent with Patient providing and/or coordinating discharge services: Greater than 30 minutes Status at Discharge Functional status at discharge: independent ambulation Overall status at discharge: patient is back to baseline Mental Status: mental status grossly normal Speech and Movement: speech and movement normal Mood: congruent mood Affect: normal affect Quality:SDOH Health Related Social Needs: No Data to Display Exam Const General: no acute distress and disheveled Nutritional Appearance: average body habitus Orientation: oriented x3 HENMT Other: No jaundice Poor dentition Multiple piercings and tattoos Resp Effort & Inspection: normal respiratory effort Other: Clear to auscultation Cardio Rate: regular rate Rhythm: regular rhythm GI Other: Post C-sections noted. Epigastric tenderness. No distention or diffuse peritonitis Skin General skin exam: no rashes or lesions noted Extrem General: no clubbing, cyanosis or edema Other: Moving all extremities independently Psych Mental Status: mental status grossly normal Speech and Movement: speech and movement normal Mood: congruent mood Affect: normal affect DS: Data Vitals/I&O Vitals and I&O: Vital Signs Temperature 36.8 C 07/21/23 08:13 Temperature Source Tympanic 07/21/23 08:13 Pulse 101 H 07/21/23 08:13 Pulse Rhythm Regular 07/21/23 07:45 Pulse 116 H 07/15/23 22:20 Respiratory Rate 17 07/21/23 08:13 Respiratory Effort Normal, Non-Labored 07/21/23 07:45 Respiratory Depth Normal 07/21/23 07:45 Respiratory Pattern Normal 07/21/23 07:45 Blood Pressure 133/105 H 07/21/23 08:13 Blood Pressure Mean 82 07/15/23 22:15 Blood Pressure Position Sitting 07/15/23 21:50 Pulse Oximetry 97 07/21/23 08:13 Respiratory End-tidal CO2 31 07/16/23 13:05 Oxygen Delivery Method Room Air 07/21/23 08:13 Oxygen Flow Rate 0 07/21/23 08:13 Pain Level 7 07/21/23 11:00 Comment [employer] Notified 07/19/23 23:00 Intake & Output 07/20/23 07/21/23 07/21/23 23:59 11:59 23:59 Intake Total 240 / 470 Output Total 400 / 400 Balance -160 / 70 Intake: Oral 240 / 440 Output: Urine 400 / 400 Other: Urine Color Yellow Urine Appearance Clear Clear Urine Odor None None Comment Independent. Voiding Methods Toilet Toilet Data Completed and Pending Labs on day of discharge: Labs from last 24 hours 07/21/23 06:33 WBC 3.81 L RBC 2.87 L Hgb 10.2 L Hct 30.5 L MCV 106 H D MCH 35.5 H MCHC 33.4 RDW 14.0 Plt Count 143 MPV 9.8 Immature Gran % 0.0 Neutrophils % 68.0 Lymphocytes % 17.0 Atypical Lymphs % 6 Monocytes % 7.0 Eosinophils % 1.0 Basophils % 1.0 Nucleated RBC % 0.0 Absolute Neutrophils 2.59 Absolute Lymphocytes 0.88 L Absolute Monocytes 0.27 Absolute Eosinophils 0.04 Absolute Basophils 0.04 RBC Morphology See Below Macrocytosis 2+ Sodium 137 Potassium 4.4 Chloride 102 Carbon Dioxide 31.8 Anion Gap 3.2 BUN 5 L Creatinine 0.6 Est GFR (CKD-EPI 2020) 114.86 Glucose 123 H Calcium 8.7 Magnesium 1.6 L Lipase > 375 H Add-On Test Request DONE PFSH All Active Problems (Updated 07/21/23 @ 12:09 by Felecia Rivera NP) Insomnia (Acute) H. pylori infection (Acute) H pylori ulcer (Acute) Esophageal stricture (Acute) Esophagitis with gastritis (Acute) History of marijuana use (Acute) Daily Ovarian cyst, right (Acute) Umbilical hernia (Acute) Kidney atrophy (Acute) History of duodenal ulcer (Acute) Smoker (Acute) Hypomagnesemia (Acute) Hypokalemia (Acute) DVT prophylaxis (Acute) Alcohol abuse (Chronic) Alcoholic hepatitis (Acute) Pancreatitis (Chronic) Osteoarthritis of right hip (Acute) Labral tear of right hip joint (Acute) Otitis media (Acute) Viral URI with cough (Acute) Medical History Opioid use disorder, moderate, in early remission, on maintenance therapy, dependence Hepatitis C Treated Cervical cancer kidney stones Surgical History History of bilateral tubal ligation section x2 Social History Smoking/Tobacco Use Status: Current every day Tobacco Type: cigarettes Smoking risk assessment performed?: Yes Alcohol Intake: current Alcohol Intake frequency: 3 or more drinks per day Alcohol type: hard liquor Drug use: Occasionally Substance use type: marijuana, heroin and methamphetamine Housing: house Do you feel safe at home: Yes Do you feel safe in your relationship?: Yes Time Spent with Patient Time Spent with Patient: 70-84 minutes4 Time was spent: preparing to see the patient(eg.review tests), ordering medications,tests, procedures, referring, communicating with other health career representative, indepentently interpreting results, counseling the patient and care coordination
--- NOTE | 2023-07-21 13:17 | PDOC.CMDIS ---
Date of service: 07/21/23 Time of Service: 13:17 LACE Index Scoring Tool Questions: Length of Stay (in days): 4 - 6 Was the patient admitted via the E.D.?: Yes Comorbidities: Liver or Renal Disease E.D. Visits: 1 Answers: Total Score: 13 Risk of Readmission: High Risk Care Management Discharge Plan Reason for Hospitalization: pancreatitis, alcohol intoxication Discharge Plan: Daphnie returned home today with no new services. CM discussed recovery support in the community; she stated that she plans to talk to her PCP about medication that will give her negative side effects if she drinks alcohol. Her boyfriend drove her home via private vehicle. She will follow up with her PCP, surgical services, and her discharge plan of care. She is happy to be going home. Patient/Family Education Needs: Review discharge instructions and limitations, discussion of self care needs including ask me three. SDOH Health Related Social Needs: No Data to Display
== END 2023-07-21 13:13 | disposition home or self-care (01) | DRG 438 ==
LOC: ER 21:34 → MS 22:47
PROVIDERS: Internal Medicine; Nurse Anesthetist, Certified Registered; Nurse Practitioner Family; Surgery; Admitting Provider Family Medicine; Emergency Provider Emergency Medicine; Visit Provider Family Medicine
PROC: 0DJ68ZZ Inspection of Stomach, Via Natural or Artificial Opening Endoscopic (ICD-10-PCS; CPT 43235; principal; 2023-07-16 12:30)
DX: K85.20 Alcohol induced acute pancreatitis without necrosis or infection (principal); K26.4 Chronic or unspecified duodenal ulcer with hemorrhage; K29.21 Alcoholic gastritis with bleeding; F11.20 Opioid dependence, uncomplicated; F10.239 Alcohol dependence with withdrawal, unspecified; K70.10 Alcoholic hepatitis without ascites; E87.6 Hypokalemia; E83.42 Hypomagnesemia; F17.210 Nicotine dependence, cigarettes, uncomplicated; B19.20 Unspecified viral hepatitis C without hepatic coma; N26.1 Atrophy of kidney (terminal); K42.9 Umbilical hernia without obstruction or gangrene; N83.201 Unspecified ovarian cyst, right side; K29.70 Gastritis, unspecified, without bleeding; K22.2 Esophageal obstruction; K20.90 Esophagitis, unspecified without bleeding; G47.00 Insomnia, unspecified; K08.89 Other specified disorders of teeth and supporting structures; M16.11 Unilateral primary osteoarthritis, right hip; F10.229 Alcohol dependence with intoxication, unspecified; Y90.7 Blood alcohol level of 200-239 mg/100 ml; B96.81 Helicobacter pylori [H. pylori] as the cause of diseases classified elsewhere
CPT/HCPCS: 43239; 00123; 36415; 80048; 80053; 80076; 80307; 82805; 83690; 86704; 86709; 86803; 86850; 86900; 86901; 87077; 87340; 87389; 87522; 88305; 96361; 96374; 96375; 99285; 74177; 76700; 80320; 81003; 81015; 82140; 82607; 82728; 82746; 83036; 83735; 84100; 84132; 84703; 85025; 85610; 85730; 87086; 87186; 88312; 88361; 99222; 99231; 99232; 99239; J0330; J1170; J2001; J2060; J2354; J2405; J2470; J2560; J2704; J3411; J3475; J3480; J3490

== ENCOUNTER 2023-07-23 07:30 | Inpatient (IN) | payer MEDICAID, SELFPAY ==
[2023-07-23] VITALS (45 sets, daily range): BP systolic 100–163; BP diastolic 70–118; PULSE 88–152; RESP 8–33; TEMP 36.5–37.4; O2SAT 95–99
--- NOTE | 2023-07-23 07:45 | RT.EKG_ITS ---
APPROVED REPORT Exam: Resting ECG Reason for Exam: arrythymia Patient Location: E HR:125 bpm ECG Measurements Heart Rate 125 AXIS MD 114 P -4 QRSd 85 QRS 67 QT 315 T 30 QTc 453 Conclusion Sinus tachycardia...rate> 99 Ventricular premature complex...V complex w/ short R-R interval Probable inferior infarct, old...Q>35mS, II III aVF
--- NOTE | 2023-07-23 07:45 | DI.RAD_ITS ---
Exam(s) XR PORTABLE CHEST AP EXAM: XR PORTABLE CHEST AP CLINICAL HISTORY: perforated viscous. TECHNIQUE: 2D digital imaging was performed. COMPARISON: No exams were available for comparison FINDINGS: Single AP portable view. Heart size is upper normal. The mediastinum is not widened. Lungs are clear. No infiltrates nor obvious pleural effusions. IMPRESSION: No acute pulmonary findings on this single AP portable view of the chest. DATA REPOSITORY: RADIATION DOSE DELIVERED:
--- NOTE | 2023-07-23 07:50 | ED.GENADUL_ITS ---
Discharge Plan Disposition Patient Disposition: Admit to [facility] Condition: Stable Discharge Details Chief Complaint: Abd Prob Clinical Impression: Pancreatitis, Abdominal pain Primary Care Provider: Unknown,Unknown ED Provider: Kishore Estrada Home Meds and New Rx's Prescriptions: No Action cyclobenzaprine 5 mg tablet 5 mg PO BID PRN (Reason: muscle spasm) Qty: 10 0RF lidocaine [Lidoderm] 5 % adhesive patch,medicated 1 patch topical DAILY PRN (Reason: pain) Qty: 1 0RF Rx Instructions: leave on most painful area for up to 12 hrs sucralfate 1 gram Tablet 1 g PO AC & HS Qty: 120 0RF pantoprazole 40 mg Tablet,Delayed Release (Dr/Ec) 40 mg PO BID@729,1999 Qty: 60 0RF amoxicillin 500 mg Capsule 1,000 mg PO BID Qty: 46 0RF clarithromycin 500 mg Tablet 500 mg PO BID Qty: 23 0RF magnesium gluconate 27 mg magnesium (500 mg) Tablet 500 mg PO BID Qty: 0 0RF methadone 10 MG/ML concentrate 40 mg PO DAILY chlordiazepoxide HCl 25 mg capsule 25 mg PO ONCE Qty: 15 0RF Rx Instructions: day1: 50 mg (2 caps) q6hr; day 2: 50 mg q12hr; day 3: 50 mg qday; day 4: 25mg qday HPI General Date/Time Provider Initiated Documentation: 07/23/23 07:37 . HPI Narrative: 42-year-old female recent hospitalization for pancreatitis and duodenal ulcer secondary to H. pylori infection and also experienced alcohol withdrawal is now presenting with nausea vomiting and abdominal pain. Was initially doing okay when she left the hospital. Was taking her triple therapy for the H. pylori infection and the duodenal ulcer. She has not been drinking alcohol. Denies any other drug use. She said the symptoms have just gotten worse and she has significant upper abdominal pain with nausea and vomiting. No black or bloody vomit. She is endorsing diarrhea but no black or bloody stools. No urinary symptoms. No vaginal bleeding or discharge. She feels as if her stomach is more distended now. Related Data Home Medications Medication Instructions Recorded Confirmed methadone 10 mg/mL oral concentrate 40 mg PO DAILY 12/11/16 07/23/23 cyclobenzaprine 5 mg tablet 5 mg PO BID PRN muscle spasm #10 06/03/21 07/23/23 tabs lidocaine 5 % topical patch 1 patch topical DAILY PRN pain #1 06/03/21 07/23/23 (Lidoderm) ea chlordiazepoxide HCl 25 mg capsule 25 mg PO ONCE #15 caps 04/04/23 07/23/23 amoxicillin 500 mg capsule 1,000 mg (2 x 500 mg) PO BID #46 07/21/23 07/23/23 caps clarithromycin 500 mg tablet 500 mg PO BID #23 tabs 07/21/23 07/23/23 magnesium gluconate 27 mg 500 mg (18.5185 x 27 mg magnesium 07/21/23 07/23/23 magnesium (500 mg) tablet (500 mg)) PO BID #0 tabs pantoprazole 40 mg tablet,delayed 40 mg PO BID@729,1999 #60 tabs 07/21/23 07/23/23 release sucralfate 1 gram tablet 1 g PO AC & HS #120 tabs 07/21/23 07/23/23 Previous Rx's Medication Instructions Recorded cyclobenzaprine 5 mg tablet 5 mg PO BID PRN muscle spasm #10 06/03/21 tabs lidocaine 5 % topical patch 1 patch topical DAILY PRN pain #1 06/03/21 (Lidoderm) ea chlordiazepoxide HCl 25 mg capsule 25 mg PO ONCE #15 caps 04/04/23 amoxicillin 500 mg capsule 1,000 mg (2 x 500 mg) PO BID #46 07/21/23 caps clarithromycin 500 mg tablet 500 mg PO BID #23 tabs 07/21/23 magnesium gluconate 27 mg 500 mg (18.5185 x 27 mg magnesium 07/21/23 magnesium (500 mg) tablet (500 mg)) PO BID #0 tabs pantoprazole 40 mg tablet,delayed 40 mg PO BID@729,1999 #60 tabs 07/21/23 release sucralfate 1 gram tablet 1 g PO AC & HS #120 tabs 07/21/23 Allergies Allergy/AdvReac Type Severity Reaction Status Date / Time No Known Allergies Allergy Unverified 07/23/23 09:10 General Stated Complaint: Abd Prob CINDY: 3 Review of Systems Constitutional Constitutional: Denies chills, Denies fever(s) and Denies headache(s) Eyes Eyes: Denies change in vision ENT Ears, Nose, Mouth, and Throat: Denies headache(s) and Denies odynophagia Cardiovascular Cardiovascular: Denies chest pain and Denies dyspnea Respiratory Respiratory: Denies dyspnea Gastrointestinal Gastrointestinal: Reports abdominal pain, Denies melena, Denies cramping, Reports diarrhea, Reports nausea, Denies odynophagia, Reports vomiting and Denies hematemesis Genitourinary Genitourinary: Denies abnormal vaginal bleeding, Denies dysuria, Denies pelvic pain, Denies urinary incontinence, Denies urinary hesitancy, Denies urinary urgency and Denies vaginal discharge Musculoskeletal Musculoskeletal: Denies myalgias Integumentary/Breasts Skin/Breast: Denies changing lesions Neurologic Neurologic: Denies behavioral changes and Denies headache(s) Psychiatric Psychiatric: Denies behavioral changes Endocrine Endocrine: Denies heat intolerance Hematologic/Lymphatic Hematologic/Lymphatic: Denies lymphadenopathy Exam Const General: cooperative Nutritional Appearance: average body habitus Orientation: alert, awake and oriented x3 HENMT Head: normal to inspection Ears: external ears normal Mouth: moist mucous membranes Eyes Pupils: PERRL EOM: EOM intact bilaterally and No nystagmus Neck Neck: full ROM and no tracheal deviation Chest Chest: normal inspection of the chest Resp Auscultation: clear to auscultation bilaterally Cardio Rate: tachycardic Rhythm: regular rhythm GI Inspection: normal to inspection Palpation: soft, no guarding and not rigid Other: Tender throughout the abdomen with no significant guarding, rigidity, or rebound. Worse in the epigastric region. Back/Spine/Pelvis Back: No no CVA tenderness Thoracic/Lumbar Spine: thoracic and lumbar spine normal to inspection Skin General skin exam: no rashes or lesions noted Neuro General: patient alert, patient awake and patient oriented x3 Cranial Nerves: CN's II-XI intact bilaterally, PERRL and no nystagmus Cognition: normal cognition Motor: muscle tone normal throughout and strength 5/5 throughout Sensory Exam: no sensory deficits noted Extrem General: normal to inspection Course Vital Signs Vital signs: Vital Signs Temperature 36.5 C 07/23/23 07:33 Pulse 145 H 07/23/23 07:33 Respiratory Rate 20 07/23/23 07:33 Blood Pressure 156/118 H 07/23/23 07:33 Pulse Oximetry 99 07/23/23 07:33 Temperature 36.5 C 07/23/23 07:33 Temperature Source Skin 07/23/23 07:33 Pulse 145 H 07/23/23 07:33 Respiratory Rate 20 07/23/23 07:33 Respiratory Effort Normal, Non-Labored 07/23/23 07:48 Blood Pressure 156/118 H 07/23/23 07:33 Blood Pressure Position Sitting 07/23/23 07:33 Pulse Oximetry 99 07/23/23 07:33 Oxygen Delivery Method Room Air 07/23/23 07:33 Oxygen Flow Rate 0 07/23/23 07:33 Pain Level 8 07/23/23 07:33 Medical Decision Making 42-year-old female recent hospitalization for pancreatitis and duodenal ulcer secondary to H. pylori infection and also experienced alcohol withdrawal is now presenting with nausea vomiting and abdominal pain. Certainly concerning for persisting pancreatitis. Will send lipase and other biliary labs to evaluate for signs of biliary obstruction or persistent pancreatitis. CT imaging previously was unremarkable without signs of obstruction or stones and no evidence of stones on the ultrasound of the right upper quadrant additionally. Will get chest x-ray to screen for perforated viscus but given the lack of distention on examination I think that this is much less likely at this time. Will get broad labs to look for electrolyte or metabolic derangements that are contributing. She says that she has not been drinking alcohol. It is unclear if her present tachycardia and hypertension are secondary to alcohol withdrawal or secondary to her discomfort. Will treat the pain for the suspected ulcer and pancreatitis to see if this helps with the patient's symptoms. Will await initial testing and reevaluate. 1053am Labs unremarkable other than elevated lipase. Multiple incidental findings on CT. Could not definitively identify the appendix but she does not have a white count she does not have right lower quadrant or lower abdominal tenderness so I do not think this represents appendicitis. Despite multiple rounds of pain medications and IV fluids here still having significant discomfort and inability to tolerate p.o. Would likely benefit from remaining n.p.o. with IV fluids and continued pain medications. Admitted to the hospitalist Dr. Morel for pancreatitis. Imaging Data Radiologic Study: Attestation: I personally reviewed and interpreted this imaging study as follows: Imaging: X-Ray (chest) My impression: unremarkable Radiologist's impression: unremarkable Radiologic Study #2: Attestation: I personally reviewed and interpreted this imaging study as follows: Imaging: CT Scan (abd and pelvis) Radiologist's impression: ct abd and pelvis IMPRESSION: 1. Compared to the prior CT scan of 07/15/2023 there is again noted a 4.4 x 3.4 x 4 cm cystic structure in the right ovary. This has not decreased in size. No associated free fluid in the right adnexa nor within the cul-de-sac. Opposite- left adnexa appears unremarkable. 2. The appendix is difficult to identify as a separate structure. There is, however, a calcification measuring 2 x 1.8 cm which is either in the inferior tip of the cecum or within a distended appendix. This is immediately above the above described finding in the right ovary. Correlation any clinical signs of appendicitis recommended. 3. There is a diffuse fat halo sign involving the entire colon. The colon is again noted be almost completely collapsed. This finding is often seen with chronic inflammatory bowel disease such as chronic ulcerative colitis or Crohn's colitis. It can also sometimes be seen in a normal collapsed colon with out a pre-existing diagnosis of inflammatory bowel disease. 4. Right kidney is again noted be smaller than the left and contains a few small nonobstructive calculi. Left kidney appears unremarkable. The appearance of the liver is slightly smaller and less steatotic than on the recent CT scan of 07/15/2023. Again noted is a subcapsular lesion in the right hepatic lobe measuring 1.6 x 1.2 cm, unchanged from prior CT scans listed above. This is not a cyst. Statistically is probably a I subcapsular hemangioma but difficult to assess on this type of study without repetitive postcontrast sequences and can be further investigated with hemangioma protocol MRI study. Lab Data Lab results reviewed: Yes I reviewed the patient's lab results. Labs: Elevated lipase but otherwise labs unremarkable ECG Data Interpretation: Sinus tachycardia with normal axis and normal MA intervals with no ST or T wave changes. Quality:SDOH Health Related Social Needs: No Data to Display PFSH All Active Problems (Updated 07/23/23 @ 10:56 by Kishore Estrada MD) Abdominal pain (Acute) Pancreatitis (Chronic) H. pylori infection (Acute) Esophageal stricture (Acute) Esophagitis with gastritis (Acute) Smoker (Acute) Alcohol abuse (Chronic) Alcoholic hepatitis (Acute) Pancreatitis (Chronic) Osteoarthritis of right hip (Acute) Labral tear of right hip joint (Acute) Otitis media (Acute) Viral URI with cough (Acute) Medical History Insomnia H pylori ulcer History of marijuana use Daily Ovarian cyst, right Umbilical hernia Kidney atrophy History of duodenal ulcer Opioid use disorder, moderate, in early remission, on maintenance therapy, dependence Hepatitis C Treated Cervical cancer kidney stones Surgical History History of bilateral tubal ligation section x2 Social History Smoking/Tobacco Use Status: Current every day Tobacco Type: cigarettes Smoking risk assessment performed?: Yes Alcohol Intake: former Drug use: Current Sobriety Substance use type: marijuana, heroin and methamphetamine Details: occasional marijuana, denies ETOH use since last admission Housing: house Do you feel safe at home: Yes Do you feel safe in your relationship?: Yes
[2023-07-23 07:58] LABS: Abs Immature Grans 0.05 10^3/uL (0.0-0.06); Absolute Basophil Count 0.04 10^3/uL (0.0-0.2); Absolute Eosinophil Count 0.02 10^3/uL (0.0-0.7); Absolute Lymphocyte Count 1.12 10^3/uL (1.2-3.4); Absolute Monocyte Count 0.97 10^3/uL (0.1-0.8); Basophils % 0.6 %; Eosinophils % 0.3 %; HCT 37.8 % (36.0-46.0); HGB 12.7 g/dL (11.2-15.7); Immature Grans % 0.8 %; Lymphocytes % 17.5 %; MCH 34.6 pg (27.0-33.0); MCHC 33.6 % (32.0-36.0); MCV 103 fL (80-95); Monocytes % 15.2 %; Neutrophils % 65.6 %; Platelet Count 461 10^3/uL (130-400); RBC 3.67 10^6/uL (3.93-5.22); RDW 14.4 % (11.7-14.6); RDW-SD 54.5 fL
[2023-07-23 08:12] LABS: INR 1.1 (0.9-1.1); PTT Activated 24.2 sec (23.6-32.8); Prothrombin Time 11.2 sec (9.1-11.1)
[2023-07-23 08:14] LABS: ALT 94 U/L (14-59); AST 98 U/L (15-37); Albumin 3.8 g/dL (3.4-5.0); Alkaline Phosphatase 140 U/L (46-116); Anion Gap 10.7 mmol/L (3-11); BUN 5 mg/dL (7-18); Bilirubin, Total 0.8 mg/dL (0.2-1.0); CO2 26.3 mmol/L (21.0-32.0); CREATININE 0.8 mg/dL (0.55-1.02); Calcium 9.7 mg/dL (8.5-10.1); Chloride 104 mmol/L (98-107); Estimated GFR 94.28 (mL/min/1.73m2); Glucose 132 mg/dL (74-106); Magnesium 1.8 mg/dL (1.8-2.4); Potassium 3.7 mmol/L (3.5-5.1); Sodium 141 mmol/L (136-145); Total Protein 8.7 g/dL (6.4-8.2)
[2023-07-23 08:19] LABS: ETHANOL BLOOD < 3.0 mg/dL (<10); Lipase > 375 U/L (16-77)
[2023-07-23] MEDS: Pantoprazole 40 MG VIAL IVP (08:21)
[2023-07-23] MEDS: PHENobarbital 130 MG/ML VIAL IVP (08:22)
[2023-07-23] MEDS: Ondansetron 4 MG/2 ML VIAL IVP (08:22)
[2023-07-23 08:24] LABS: HCG Qual (Serum) Negative
[2023-07-23 08:25] LABS: Bilirubin Negative (Negative); Blood Small (Negative); Clarity Cloudy (Clear); Glucose Negative (Negative); Ketones Negative (Negative); Leukocyte Esterase Large (Negative); Nitrite Negative (Negative); Specific Gravity 1.025 (1.005-1.025); Urobilinogen 0.2 mg/dL (Up to 0.2); pH 6.5 (5-8)
[2023-07-23 08:33] LABS: Bacteria Moderate HPF (Negative); C & S Indicated? No/Sq. Contamination; Casts 0-2 Hyaline LPF (Negative); Crystals Negative HPF (Negative); Epithelial Cells Many HPF (Negative); Mucus Negative (Negative); WBC >50 HPF (0-5)
[2023-07-23] MEDS: Omnipaque 350 MG/ML 100 ML BTL IJ (09:02)
[2023-07-23] MEDS: Normal Saline - Diluent 50 ML VIAL IJ (09:03)
--- NOTE | 2023-07-23 09:06 | DI.CT_ITS ---
Exam(s) CT ABDOMEN PELVIS W EXAM: CT ABDOMEN PELVIS W CLINICAL HISTORY: abdominal pain, acute, nonlocalized. TECHNIQUE: Imaging Protocol: Axial computed tomography images with coronal and sagittal reformatted images were created and reviewed CONTRAST MATERIAL: Intravenous: Omnipaque-350 100cc Oral: None COMPARISON: CT CT ABDOMEN PELVIS W from 04/04/[address] ABDOMEN PELVIS W from 07/15/2023 FINDINGS: VISUALIZED LUNG BASES: No nodules nor pleural effusions evident. ABDOMEN: There is no ascites. LIVER: There is a subtle subcapsular lesion in the right hepatic lobe measuring 1.6 x 1.2 cm again no sam, unchanged from the 2 prior studies listed above. This is not a cyst. Probably hemangioma but d ifficult diagnosis of this type study. In addition, the liver is somewhat less hypodense than on the previous CT scan of 07/15/2023 and appears slightly smaller in size. No dilated intrahepatic ducts. GALLBLADDER/BILIARY: No obvious gallbladder pathology. CBD is not dilated. PANCREAS: No evidence of pancreatic mass nor dilatation of the pancreatic duct. SPLEEN: Spleen is not enlarged. Small benign cyst is again evident in the anterior aspect of the spl een which measures 1 0.0 x 1.0 cm. Splenic and portal veins are patent. ADRENALS: Left adrenal gland unremarkable. Small nodules are again evident in the right adrenal glan d which are probably adenomas. KIDNEYS:Left kidney remains unremarkable in appearance. The right kidney is again noted to be relati vely atrophic. It also contains a few small nonobstructive calculi. No solid renal masses. No hydr onephrosis.. ABDOMINAL AORTA: Abdominal aorta is not enlarged. LYMPH NODES:There is no retroperitoneal nor paraaortic adenopathy. ABDOMINAL WALL: There is a fat only containing anterior abdominal wall umbilical hernia again noted. No bowel loops therein. GI: There is a fat halo sign evident throughout a large part of the colon, similar to previous. [place] n is mostly collapsed. This may be related to senior living inflammatory bowel disease such as ulcerativ e colitis.. No evidence of significant diverticular disease. PELVIS: GI: There is difficult to identify the appendix with certainty here but there does appear to be 2 x 1 .8 cm partially calcified structure in what is either the tip of the cecum or distended appendix. Th ere is no surrounding streaking nor fluid. LYMPH NODES: There is no intrapelvic nor inguinal adenopathy. REPRODUCTIVE: Uterus is retroverted. Tubal ligation clips are noted bilaterally. No abnormal findin gs in the left adnexa. There is a cyst in the right adnexa-right ovary again noted which measures 4. 4 cm x 3.4 cm x 4 cm, similar to the previous CT scan of 07/15/2023. There is no surrounding free fl uid. URINARY BLADDER: Urinary bladder wall is uniformly thickened which is either related to cystitis or u nder distension or a combination of both. OSSEOUS: No fractures and no significant osseous lesions. Chronic disc space narrowing L5-S1 level noted. IMPRESSION: 1. Compared to the prior CT scan of 07/15/2023 there is again noted a 4.4 x 3.4 x 4 cm cystic structu re in the right ovary. This has not decreased in size. No associated free fluid in the right adnexa nor within the cul-de-sac. Opposite-left adnexa appears unremarkable. 2. The appendix is difficult to identify as a separate structure. There is, however, a calcification measuring 2 x 1.8 cm which is either in the inferior tip of the cecum or within a distended appendix . This is immediately above the above described finding in the right ovary. Correlation any clinica l signs of appendicitis recommended. 3. There is a diffuse fat halo sign involving the entire colon. The colon is again noted be almost c ompletely collapsed. This finding is often seen with chronic inflammatory bowel disease such as barrel lathe operator outside sury ulcerative colitis or Crohn's colitis. It can also sometimes be seen in a normal collapsed colon with out a pre-existing diagnosis of inflammatory bowel disease. 4. Right kidney is again noted be smaller than the left and contains a few small nonobstructive calcu li. Left kidney appears unremarkable. The appearance of the liver is slightly smaller and less steatotic than on the recent CT scan of 06/19. Again noted is a subcapsular lesion in the right hepatic lobe measuring 1.6 x 1.2 cm, unchan ged from prior CT scans listed above. This is not a cyst. Statistically is probably a I subcapsular hemangioma but difficult to assess on this type of study without repetitive postcontrast sequences a nd can be further investigated with hemangioma protocol MRI study. Small benign cyst in the anterior aspect of the spleen again noted. Spleen size is normal. Findings discussed with ER physician. RADIATION DOSE DELIVERED: 1,040.96mGy.cm Total DLP DATA REPOSITORY: All CT scans at this facility are submitted to the National Radiology Data Registry (NRDR) Dose Index Registry (DIR) with the [employer] ([employer]). RADIATION OPTIMIZATION: All CT scans at this facility use at least one of these dose optimization te chniques: automated exposure control; mA and/or kV adjustment per patient size (includes targeted exa ms where dose is matched to clinical indication); or iterative reconstruction.
[2023-07-23] MEDS: MORPHine 4 MG/ML SYR IVP (09:52)
--- NOTE | 2023-07-23 11:03 | W.PM.HP.N ---
Date of service: 07/23/23 Time of Service: 11:03 Assessment and Plan Assessment and plan (1) Pancreatitis: Status: Chronic Assessment and plan: IVF scheduled APAP NPO except duodenal ulcer treatment antiemetics PRN (2) H. pylori infection: Status: Acute Assessment and plan: Amoxicillin PPI Clarithromycin Give antiemetic prior (3) History of duodenal ulcer: Assessment and plan: As above Avoid NSAIDs (4) Contraindication to deep vein thrombosis (DVT) prophylaxis: Status: Acute Assessment and plan: duodenal ulcer TEDs (5) Discharge planning issues: Status: Acute Assessment and plan: CM to f/u (6) Alcohol withdrawal: Status: Acute Assessment and plan: CIWA scoring ordered Discussed with Maria Teresa History of Present Illness History of Present Illness Chief Complaint: nausea, vomiting, abdominal pain Narrative: This 43-year-old female patient with a past medical history of recent hospitalization for pancreatitis and duodenal ulcer secondary to H pylori infection, EtOH withdrawal with daily drinking, presented to the to the ED at [facility] for evaluation of nausea, vomiting and abdominal pain. Patient reported that when she initially left the hospital she was doing okay. The patient was discharged status post pancreatitis on 07/21/2023 on triple therapy for the H. pylori infection and the duodenal ulcer. Denied drinking alcohol or using any other drugs. The patient reported that her symptoms got worse with significant upper abdominal pain, nausea and vomiting. The patient denies hematochezia, melena, hematemesis or coffee-ground vomiting, or dysuria. The patient reports diarrhea and increased stomach distention. Initially the patient was tachycardic and hypertensive in the ED which subsided with pain medicine administration. Labs were unremarkable except for an elevated lipase over 375. The CT of her abdomen showed an absence of the appendix without complaint of lower abdominal pain or tenderness or fever. Other incidental findings on the CT are again right ovary cyst, diffuse fat halo sign involving the entire colon often seen in chronic inflammatory bowel disease, smaller left kidney with small nonobstructive calculi with recommendation for hemangioma protocol MRI study. The patient received antiemetic and opiate pain medicine in the ED and was still unable to tolerate oral intake. The hospitalist was contacted and the patient admitted to the medical surgical floor for evaluation and management of resistant acute pancreatitis. When seen, the patient reported that pain was getting better. Also reported not taking any of her medicine today, including a treatment for H. pylori. The patient denied change in vision, dizziness coughing, chest pain. The patient was inquiring about eating but informed that we will keep her n.p.o.except for her H. Pylori treatment, and on IVF, analgesics and antiemetic overnight as per her report her minimal food intake causes her to have worsening symptoms.Smoked since discharged but refusing NRT. PFSH All Active Problems (Updated 07/23/23 @ 12:03 by JAY LIVE) Alcohol withdrawal (Acute) Discharge planning issues (Acute) Contraindication to deep vein thrombosis (DVT) prophylaxis (Acute) Abdominal pain (Acute) Pancreatitis (Chronic) H. pylori infection (Acute) Esophageal stricture (Acute) Esophagitis with gastritis (Acute) Smoker (Acute) Alcohol abuse (Chronic) Alcoholic hepatitis (Acute) Pancreatitis (Chronic) Osteoarthritis of right hip (Acute) Labral tear of right hip joint (Acute) Otitis media (Acute) Viral URI with cough (Acute) Medical History Insomnia H pylori ulcer History of marijuana use Daily Ovarian cyst, right Umbilical hernia Kidney atrophy History of duodenal ulcer Opioid use disorder, moderate, in early remission, on maintenance therapy, dependence Hepatitis C Treated Cervical cancer kidney stones Surgical History History of bilateral tubal ligation section x2 Social History Smoking/Tobacco Use Status: Current every day Tobacco Type: cigarettes Smoking risk assessment performed?: Yes Alcohol Intake: former Drug use: Current Sobriety Substance use type: marijuana, heroin and methamphetamine Details: occasional marijuana, denies ETOH use since last admission Housing: house Do you feel safe at home: Yes Do you feel safe in your relationship?: Yes Meds Allergies and Home Medications Allergies Allergy/AdvReac Type Severity Reaction Status Date / Time No Known Allergies Allergy Unverified 07/23/23 09:10 Home Medications Medication Instructions Recorded Confirmed Type methadone 10 mg/mL oral concentrate 40 mg PO DAILY 12/11/16 07/23/23 History cyclobenzaprine 5 mg tablet 5 mg PO BID PRN muscle spasm #10 06/03/21 07/23/23 Rx tabs lidocaine 5 % topical patch 1 patch topical DAILY PRN pain #1 06/03/21 07/23/23 Rx (Lidoderm) ea chlordiazepoxide HCl 25 mg capsule 25 mg PO ONCE #15 caps 04/04/23 07/23/23 Rx amoxicillin 500 mg capsule 1,000 mg (2 x 500 mg) PO BID #46 07/21/23 07/23/23 Rx caps clarithromycin 500 mg tablet 500 mg PO BID #23 tabs 07/21/23 07/23/23 Rx magnesium gluconate 27 mg 500 mg (18.5185 x 27 mg magnesium 07/21/23 07/23/23 Rx magnesium (500 mg) tablet (500 mg)) PO BID #0 tabs pantoprazole 40 mg tablet,delayed 40 mg PO BID@07,1999 #60 tabs 07/21/23 07/23/23 Rx release sucralfate 1 gram tablet 1 g PO AC & HS #120 tabs 07/21/23 07/23/23 Rx Exam Narrative Exam Narrative: Constitutional The patient is in bed uncomfortable HENMT: Facial structures with normal appearance Neuro:alert and oriented to self, person, place, time and situation. No focal deficit Chest:Chest is symmetrical and normal appearance Resp: Normal respiratory pattern, speaks in full sentences, unlabored breathing, clear lung bilaterally Cardio: regular rhythm, S1, S2, positive radial and pedal pulses GI: Abdomen is not distended, soft and non tender, bowel sounds are present : Negative Costovertebral angle tenderness Back/spine/Pelvis: No back tenderness, normal alignment Integumentary:scattered bruises on previous IV sites Extremities: strength 5/5 to bilateral lower and upper extremities Psych: RASS 0, congruent mood and normal affect. Results Labs 07/23/23 07:45 07/23/23 07:45 Labs: Laboratory Results - last 24 hr 07/23/23 07/23/23 07/23/23 07:35 07:45 07:47 WBC 6.40 RBC 3.67 L Hgb 12.7 D Hct 37.8 MCV 103 H MCH 34.6 H MCHC 33.6 RDW 14.4 Plt Count 461 H D MPV 9.0 Immature Gran % 0.8 Neutrophils % 65.6 Lymphocytes % 17.5 Monocytes % 15.2 Eosinophils % 0.3 Basophils % 0.6 Nucleated RBC % 0.0 Absolute Neutrophils 4.20 Absolute Lymphocytes 1.12 L Absolute Monocytes 0.97 H Absolute Eosinophils 0.02 Absolute Basophils 0.04 PT 11.2 H INR 1.1 APTT 24.2 Sodium 141 Potassium 3.7 Chloride 104 Carbon Dioxide 26.3 Anion Gap 10.7 BUN 5 L Creatinine 0.8 Est GFR (CKD-EPI 2020) 94.28 Glucose 132 H Calcium 9.7 Magnesium 1.8 Total Bilirubin 0.8 AST 98 H ALT 94 H Alkaline Phosphatase 140 H Total Protein 8.7 H Albumin 3.8 Lipase > 375 H Cancelled Serum HCG, Qual Negative Urine Color Yellow Urine Clarity Cloudy Urine pH 6.5 Ur Specific [place] 1.025 Urine Protein 30 H Urine Ketones Negative Urine Blood Small H Urine Nitrite Negative Urine Bilirubin Negative Urine Urobilinogen 0.2 Ur Leukocyte Esterase Large H Urine RBC 3-5 H Urine WBC >50 H Ur Epithelial Cells Many Urine Crystals Negative Urine Bacteria Moderate Urine Casts 0-2 Hyaline Urine Mucus Negative Ur Culture Indicated? No/Sq. Contamination Urine Glucose Negative Ethyl Alcohol < 3.0 Cancelled Last Vital Signs Temp 36.5 C 07/23/23 10:32 Pulse 111 H 07/23/23 10:32 Resp 21 07/23/23 10:32 BP 151/110 H 07/23/23 10:32 Pulse Ox 99 07/23/23 10:32 Time Spent Time spent with Patient: >75 minutes Time was spent: preparing to see the patient(eg.review tests), obtaining and/or reviewing separately otained hiistory, ordering medications,tests, procedures, referring, communicating with other health youth care specialist, indepentently interpreting results, counseling the patient and care coordination
[2023-07-23] MEDS: Lactated Ringers 1,000 ML 150 ML IV ×2 (12:47→19:38)
[2023-07-23] MEDS: Normal Saline Flush 10 ML SYR IVP ×4 (12:49→19:40)
[2023-07-23] MEDS: Prochlorperazine 10 MG/2 ML VIAL 5 MG IVP ×2 (14:11→19:40)
[2023-07-23] MEDS: HYDROmorphone 2 MG/ML SYR IVP ×3 (14:12→22:38)
[2023-07-23] MEDS: Amoxicillin 500 MG CAP 1000 MG PO ×2 (15:18→20:32)
[2023-07-23] MEDS: Clarithromycin 500 MG TAB PO ×2 (15:18→20:32)
[2023-07-23] MEDS: Pantoprazole 40 MG TABCR PO ×2 (15:19→20:32)
[2023-07-23] MEDS: ACETAMINOPHEN 1,000 MG/100 ML BTL 400 MG IVPB ×2 (15:19→19:39)
--- NOTE | 2023-07-23 15:34 | PHACLINREV_ITS ---
Pharmacy Admission Review Admission Clinical Review Admission Pharmacy Review: Alcohol withdrawal (Acute) Discharge planning issues (Acute) Contraindication to deep vein thrombosis (DVT) prophylaxis (Acute) Abdominal pain (Acute) H. pylori infection (Acute) No Known Allergies Allergy (Unverified 07/23/23 09:10) Resuscitation Status Full Code Height 5 ft 7 in Weight 78.471 kg Pharmacy Admission Review Renal Dosing Renal Dosing: BUN 5 mg/dL (7-18) L 07/23/23 07:45 Creatinine 0.8 mg/dL (0.55-1.02) 07/23/23 07:45 Medications needing adjustments: Reviewed (CrCl 98.84 mL/min) List of meds needing interventions: Current medications are okay Anticoagulation Anticoagulation: Hgb 12.7 g/dL (11.2-15.7) D 07/23/23 07:45 Hct 37.8 % (36.0-46.0) 07/23/23 07:45 Plt Count 461 10^3/uL (130-400) H D 07/23/23 07:45 INR 1.1 (0.9-1.1) 07/23/23 07:45 Creatinine 0.8 mg/dL (0.55-1.02) 07/23/23 07:45 DVT Prophylaxis: Reviewed (Duodenal ulcer - TEDs only ) Opiate Usage Evaluate Pain Scale/Pains Meds: Reviewed (PRN hydromorphone - 1 dose given so far) Scheduled Bowel Reg ordered if on Opiates?: No Relevant Labs Relevant Labs: Sodium 141 mmol/L (136-145) 07/23/23 07:45 Potassium 3.7 mmol/L (3.5-5.1) 07/23/23 07:45 Chloride 104 mmol/L (98-107) 07/23/23 07:45 Magnesium 1.8 mg/dL (1.8-2.4) 07/23/23 07:45 Electrolytes, C-Reactive P, ESR: Reviewed (PLT count 461, AST/ALT 98/94, glucose 132) Cardiac Review Cardiac Review: Blood Pressure 117/92 1459 Blood Pressure 139/104 1211 Blood Pressure 139/105 1206 Blood Pressure 140/108 1046 Blood Pressure 151/110 1032 Blood Pressure 148/118 1031 BP, HR, EF%: Reviewed (BP 117/92 and HR 104) QTc Review QTc: Reviewed (453 from 07/23/23) IV to PO Switch IV Medications: Reviewed (hydromorphone, acetaminophen, prochlorperazine) Home Meds Home Med List reviewed: Intervened Relevent Home Meds Not ordered & why?: Chlordiazepoxide (last filled 11/30/22), cyclobenzaprine (not taking per patient), lidocaine patch (not taking per patient), Magnesium gluconate, methadone (not taking per patient), sucralfate Reached out to provider regarding sucralfate. Per provider, waiting to see if p atient tolerates her other medications first, then will order if needed. Current Meds Current Medication Order Review: Reviewed Pharmacy Antibiotic Review Pharmacy Antibiotic Activity: Reviewed, no change Comments: Amoxicillin PO 1000mg BID and clarithromycin 500mg PO BID for H Pylori ulcer treatment
[2023-07-24] VITALS (7 sets, daily range): BP systolic 119–140; BP diastolic 71–106; PULSE 70–91; RESP 16–17; TEMP 36.4–36.8; O2SAT 96–99
[2023-07-24] MEDS: Lactated Ringers 1,000 ML 150 ML IV ×3 (02:30→20:19)
[2023-07-24] MEDS: HYDROmorphone 2 MG/ML SYR IVP ×5 (02:31→22:10)
[2023-07-24] MEDS: ACETAMINOPHEN 1,000 MG/100 ML BTL 400 MG IVPB ×4 (02:31→20:33)
[2023-07-24] MEDS: Prochlorperazine 10 MG/2 ML VIAL 5 MG IVP (06:45)
[2023-07-24 07:21] LABS: Abs Immature Grans 0.02 10^3/uL (0.0-0.06); Absolute Basophil Count 0.04 10^3/uL (0.0-0.2); Absolute Eosinophil Count 0.15 10^3/uL (0.0-0.7); Absolute Lymphocyte Count 1.24 10^3/uL (1.2-3.4); Absolute Monocyte Count 0.87 10^3/uL (0.1-0.8); Absolute Neutrophil Count 2.59 10^3/uL (1.2-6.7); Basophils % 0.8 %; Eosinophils % 3.1 %; HGB 10.7 g/dL (11.2-15.7); Immature Grans % 0.4 %; Lymphocytes % 25.3 %; MCH 34.5 pg (27.0-33.0); MCHC 33.4 % (32.0-36.0); MCV 103 fL (80-95); MPV 9.1 fL (8.0-11.0); Monocytes % 17.7 %; Neutrophils % 52.7 %; Platelet Count 396 10^3/uL (130-400); RDW-SD 53.3 fL; WBC 4.91 10^3/uL (4.4-10.8)
[2023-07-24] MEDS: Pantoprazole 40 MG TABCR PO ×2 (07:45→20:35)
[2023-07-24] MEDS: Clarithromycin 500 MG TAB PO ×2 (07:46→20:34)
[2023-07-24] MEDS: Amoxicillin 500 MG CAP 1000 MG PO ×2 (07:46→20:34)
--- NOTE | 2023-07-24 08:38 | INITIAL_ITS ---
Date of service: 07/24/23 Time of Service: 08:38 Care Management Initial Assmt Initial Assessment Reason for Hospitalization: Acute Pancreatitis, Nausea, Vomiting Functional Status/Living Situation Patient Presentation: Daphnie is awake and sitting up in bed when CM met with her. Pt is pleasant and easily engages in conversation. Daphnie was discharged from [facility] on Saturday and Readmitted on Saturday after her stomach became hard as a rock and so painful it had her hunched over. Daphnie shares with CM that she has not used ETOH since her last discharge and hasn't even had a craving. During her last admission she stopped taking Methodone because it make her nauseous and hasn't taken it since. Town of Residence: [facility] Resides with: Child (Son) and Spouse (Boyfriend) Significant Other/Family: [facility] Employment Status: Unemployed Instrumental Activities of Daily Living (ADLs): Independent Medications Medication Management: No Issues/Barriers identified Physical Functioning/Mobility Assistive Device: None Advance Directives Advance Directives: Do you have an Advance Directive: N 12/09/13 13:54 AD On File at [facility]: N 11/10/12 19:26 Date Asked 07/23/23 07/23/23 12:03 AD Date Reviewed COLST On File at [facility] COLST Date Scanned Code Status Resuscitation Status Full Code Portal Pt does not currently have a portal and education provided: Yes Insurance Coverage/Financial Issues ACO Member: No Care Team Visit Care Team Role Provider Type Unknown Unknown Primary Care Provider STAFF PHYSICIAN Kishore Estrada MD Emergency Provider [facility] STAFF PHYSICIAN Eric Morel MD Admit Provider [facility] STAFF PHYSICIAN Attending Provider Discharge Potential Discharge Needs: PCP F/U Appt and Other (Treatment resources Substance/ETOH- Declined by patient) Anticipated Barriers to Discharge: None Identified Patient/Family Education Needs: Review discharge instructions, discuss Ask Me Three Transportation: Private vehicle Plan: Marva is being treated for pancreatitis. Anticipate, Daphnie will follow up with community providers and her discharge plan of care as instructed. CM will continue to follow and support discharge considerations. PFSH All Active Problems (Updated 07/24/23 @ 14:33 by Linda Everett APRN) Duodenal ulcer (Acute) Alcohol withdrawal (Acute) Discharge planning issues (Acute) Contraindication to deep vein thrombosis (DVT) prophylaxis (Acute) Abdominal pain (Acute) Pancreatitis (Chronic) H. pylori infection (Acute) Esophageal stricture (Acute) Esophagitis with gastritis (Acute) Smoker (Acute) Alcohol abuse (Chronic) Alcoholic hepatitis (Acute) Pancreatitis (Chronic) Osteoarthritis of right hip (Acute) Labral tear of right hip joint (Acute) Otitis media (Acute) Viral URI with cough (Acute) Medical History Insomnia H pylori ulcer History of marijuana use Daily Ovarian cyst, right Umbilical hernia Kidney atrophy History of duodenal ulcer Opioid use disorder, moderate, in early remission, on maintenance therapy, dependence Hepatitis C Treated Cervical cancer kidney stones Surgical History History of bilateral tubal ligation section x2 Social History Smoking/Tobacco Use Status: Current every day Tobacco Type: cigarettes Smoking risk assessment performed?: Yes Alcohol Intake: former Drug use: Current Sobriety Substance use type: marijuana, heroin and methamphetamine Details: occasional marijuana, denies ETOH use since last admission Housing: house Do you feel safe at home: Yes Do you feel safe in your relationship?: Yes Readmission Within the Past 30 Days Yes or No: Yes Date of First Admission Date of 1st Admission: 07/16/23 Date of this Admission Date of Admission: 07/23/23 This admission was: Through ED Office Visit Since 1st Admission Have you seen your PCP in the office since discharge?: No Had an appointment Been Scheduled?: No Speicalist Appointments Have you seen any other specialist since your 1st Admission?: No I. Interview patient and/or Family Describe barriers fpr purchasing or taking medication: No barriers, patient reports took meds, including d/c medications as directed. How do you take your medications and set up your pills?: self Describe your typical meals since you have been home: Minimal dietary intake: banana, toast, tuna sandwich. Did you feel ready for discharge when you left the last time: Yes Did you call your physician beore you came to the ED?: No Did your physician tell you to come in?: No ED visits How many ED visits in the past 12 months: 3 Assessment for Readmission Summary of readmission circumstances, based upon interviews: Patient has Pancreatitis and H. pylori, needs continued treatment and more time SDOH(Care Management) Screening Will the Patient Participate in the Screening?: Yes Do you worry about having a steady place to live?: no Problems where you live: no known problems In the past 12 months, have you had to go without electric, gas, oil or water in your home?: no Have you or anyone in your house had to go without enough food to eat?: no Has lack of transportation kept you from medical appointments or from doing things needed for daily living?: no Has anyone in your support network made you feel unsafe for any reason?: no
--- NOTE | 2023-07-24 09:21 | PGE_ITS ---
Date of Service Date of service: 07/24/23 Time of Service: 09:21 Assessment and Plan Assessment and plan (1) Pancreatitis: Status: Chronic Assessment and plan: Continue IVF Continue scheduled APAP and PRN opioids at an higher frequency NPO except duodenal ulcer treatment -Will try ice chips today and might progress to clear liquids this evening Continue antiemetic PRN Lipase in AM, was > 375 yesterday LFT's trending down from 07/20/2023 (2) H. pylori infection: Status: Acute Assessment and plan: Continue H. Pylori treatment initiated during last stay with -Amoxicillin -PPI -Clarithromycin Give antiemetic prior Will initiate sucralfate today Counseled on the need for member of her household to refer to their PCP to discuss screening Folate was 2.5 earlier; considering supplementation (3) Duodenal ulcer: Status: Acute (4) Contraindication to deep vein thrombosis (DVT) prophylaxis: Status: Acute Assessment and plan: duodenal ulcer TEDs (5) Alcohol withdrawal: Status: Acute Assessment and plan: CIWA scoring ordered but not scoring consideirng d/c after 48 hours Patient reported no drinking since previous admission (6) Discharge planning issues: Status: Acute Assessment and plan: CM to f/u no further needs at this time D/c ome when medically cleared Discussed with Maria Teresa Subjective Subjective Patient reports: feels better, still having pain, voiding w/o difficulty, diarrhea and other (Reported stumbling in the BR w/o injury); denies tolerating liquids well, tolerating a regular diet, blood in stool, nausea, vomiting, shortness of breath or fever Exam Narrative Exam Narrative: Constitutional The patient is in bed uncomfortable HENMT: Facial structures with normal appearance Neuro:alert and oriented X 4 Resp: clear lung bilaterally Cardio: regular rhythm, S1, S2, positive radial and pedal pulses GI: Abdomen is not distended, soft and non tender, bowel sounds are present : Negative Costovertebral angle tenderness Integumentary:scattered bruises on previous IV sites Extremities: strength 5/5 to bilateral lower and upper extremities, no bruising to feet Psych: RASS 0, congruent mood and normal affect. Objective Last Vital Signs Temp 36.6 C 07/24/23 07:21 Pulse 83 07/24/23 07:21 Resp 16 07/24/23 07:21 BP 135/106 H 07/24/23 07:21 Pulse Ox 98 07/24/23 07:21 Laboratory Results - last 24 hr 07/24/23 06:52 WBC 4.91 RBC 3.10 L Hgb 10.7 L D Hct 32.0 L MCV 103 H MCH 34.5 H MCHC 33.4 RDW 14.0 Plt Count 396 MPV 9.1 Immature Gran % 0.4 Neutrophils % 52.7 Lymphocytes % 25.3 Monocytes % 17.7 Eosinophils % 3.1 Basophils % 0.8 Nucleated RBC % 0.0 Absolute Neutrophils 2.59 Absolute Lymphocytes 1.24 Absolute Monocytes 0.87 H Absolute Eosinophils 0.15 Absolute Basophils 0.04 Time Spent with Patient Time Spent with Patient: >50 minutes Time was spent: preparing to see the patient(eg.review tests), obtaining and/or reviewing separately otained hiistory, ordering medications,tests, procedures, referring, communicating with other health healthcare insurance sales agent, indepentently interpreting results, counseling the patient and care coordination
[2023-07-24 09:34] LABS: Magnesium 1.6 mg/dL (1.8-2.4)
[2023-07-24 09:40] LABS: ALT 74 U/L (14-59); AST 102 U/L (15-37); Albumin 3.1 g/dL (3.4-5.0); Alkaline Phosphatase 103 U/L (46-116); BUN 7 mg/dL (7-18); Bilirubin, Total 0.7 mg/dL (0.2-1.0); CREATININE 0.6 mg/dL (0.55-1.02); Calcium 8.8 mg/dL (8.5-10.1); Chloride 103 mmol/L (98-107); Estimated GFR 114.86 (mL/min/1.73m2); Glucose 84 mg/dL (74-106); Potassium 3.4 mmol/L (3.5-5.1); Sodium 137 mmol/L (136-145); Total Protein 6.9 g/dL (6.4-8.2)
[2023-07-24] MEDS: Normal Saline Flush 10 ML SYR IVP ×4 (11:45→22:11)
[2023-07-24] MEDS: Sucralfate 1 GM TAB PO ×3 (11:45→22:11)
[2023-07-24] MEDS: MAGNESIUM SULFATE 2 GM/50 ML BAG IVINF (12:33)
[2023-07-24] MEDS: POTASSIUM CHLORIDE 10 MEQ/100 ML BAG 100 MEQ IVINF ×2 (13:06→16:45)
--- NOTE | 2023-07-24 16:27 | CHAPLAIN ---
Daphnie was discharged on 07/20 and readmitted on 07/22. She said her stomach became hard and painful. During her last admission, she said she only wanted to sleep to pass the time. She seems to be calmer now and more interactive. She's frustrated because she hasn't eaten since Saturday. She showed me videos of her dogs at home that she can see on her phone. Daphnie expects that her boyfriend will visit after work today.
[2023-07-25] MEDS: ACETAMINOPHEN 1,000 MG/100 ML BTL 100 MG IVPB (02:19)
[2023-07-25 02:31] VITALS: BP 145/112; PULSE 83; RESP 20; TEMP 36.6; O2SAT 98
[2023-07-25] MEDS: Normal Saline Flush 10 ML SYR IVP ×6 (02:48→19:33)
[2023-07-25] MEDS: HYDROmorphone 2 MG/ML SYR IVP ×5 (02:48→19:14)
[2023-07-25] MEDS: Lactated Ringers 1,000 ML 150 ML IV (03:49)
[2023-07-25 06:31] LABS: Abs Immature Grans 0.01 10^3/uL (0.0-0.06); Absolute Basophil Count 0.08 10^3/uL (0.0-0.2); Absolute Eosinophil Count 0.16 10^3/uL (0.0-0.7); Absolute Lymphocyte Count 1.12 10^3/uL (1.2-3.4); Absolute Monocyte Count 0.56 10^3/uL (0.1-0.8); Absolute Neutrophil Count 2.46 10^3/uL (1.2-6.7); Basophils % 1.8 %; Eosinophils % 3.6 %; HCT 33.5 % (36.0-46.0); HGB 11.3 g/dL (11.2-15.7); Immature Grans % 0.2 %; Lymphocytes % 25.5 %; MCH 34.7 pg (27.0-33.0); MCHC 33.7 % (32.0-36.0); MCV 103 fL (80-95); MPV 9.1 fL (8.0-11.0); Monocytes % 12.8 %; Neutrophils % 56.1 %; Platelet Count 420 10^3/uL (130-400); RBC 3.26 10^6/uL (3.93-5.22); RDW 13.6 % (11.7-14.6); RDW-SD 51.8 fL; WBC 4.39 10^3/uL (4.4-10.8)
[2023-07-25 07:19] VITALS: BP 136/103; PULSE 80; RESP 17; TEMP 36.6; O2SAT 98
[2023-07-25 07:22] LABS: ALT 68 U/L (14-59); AST 94 U/L (15-37); Albumin 3.1 g/dL (3.4-5.0); Alkaline Phosphatase 104 U/L (46-116); Anion Gap 9.3 mmol/L (3-11); BUN 4 mg/dL (7-18); Bilirubin, Total 0.7 mg/dL (0.2-1.0); CO2 25.7 mmol/L (21.0-32.0); CREATININE 0.6 mg/dL (0.55-1.02); Calcium 8.8 mg/dL (8.5-10.1); Chloride 102 mmol/L (98-107); Estimated GFR 114.86 (mL/min/1.73m2); Glucose 90 mg/dL (74-106); Magnesium 1.7 mg/dL (1.8-2.4); Potassium 3.3 mmol/L (3.5-5.1); Sodium 137 mmol/L (136-145); Total Protein 7.1 g/dL (6.4-8.2)
[2023-07-25 07:25] LABS: Lipase 340 U/L (16-77)
[2023-07-25] MEDS: ACETAMINOPHEN 1,000 MG/100 ML BTL 400 MG IVPB ×2 (08:03→15:14)
[2023-07-25] MEDS: Pantoprazole 40 MG TABCR PO ×2 (08:05→19:18)
[2023-07-25] MEDS: Clarithromycin 500 MG TAB PO ×2 (08:06→19:19)
[2023-07-25] MEDS: Sucralfate 1 GM TAB PO ×4 (08:06→21:59)
[2023-07-25] MEDS: Amoxicillin 500 MG CAP 1000 MG PO ×2 (08:07→19:18)
--- NOTE | 2023-07-25 10:18 | PDOC.CMPRO ---
Date of service: 07/25/23 Time of Service: 10:18 Care Management Progress Note Progress Note Text Progress Note Text: S/O: Marva was awake and watching TV when CM met with her. She spoke fondly of her pets and became tearful at times because she misses them. Fortunately, she has a home monitor and is able to watch them on her phone. Daphnie is tolerating a clear diet and her pain is tollerable. Daphnie weaned herself off Methodone and hasn't had any alcohol since her last admission. She does not feel that sobriety coaching would be beneficial at this point. No change to overall discharge plan. A:42 year old female admitted to [facility] on 07/23/23 with Acute Pancreatitis, Nausea, Vomiting Discharge Anticipated Barriers to Discharge: None Identified Patient/Family Education Needs: Review discharge instructions, discuss Ask Me Three Transportation: Private vehicle Plan: Marva is being treated for pancreatitis. Anticipate, Daphnie will discharge home via private vehicle with family when Medically cleared by provider. Pt will follow up with community providers and her discharge plan of care as instructed. CM will continue to follow and support discharge considerations. No new serivces are anticipated at this time. SDOH(Care Management) Screening Will the Patient Participate in the Screening?: Yes Do you worry about having a steady place to live?: no Problems where you live: no known problems In the past 12 months, have you had to go without electric, gas, oil or water in your home?: no Have you or anyone in your house had to go without enough food to eat?: no Has lack of transportation kept you from medical appointments or from doing things needed for daily living?: no Has anyone in your support network made you feel unsafe for any reason?: no
--- NOTE | 2023-07-25 11:03 | W.PM.PROGNOT ---
Date of Service Date of service: 07/25/23 Time of Service: 11:03 Assessment and Plan Assessment and plan (1) Pancreatitis: Status: Chronic Assessment and plan: Continue IVF Continue scheduled APAP and PRN opioids Diet : full liquid balnd, tolerated clears but c/o of salt in broth -Advanced as tolerated Continue antiemetic PRN, but no further N/V but diarrhea Lipase in AM, was > 375 then 340 on 07/24; no further trending warranted - clinically improving, Ca 8.8 (2) H. pylori infection: Status: Acute Assessment and plan: Continue H. Pylori treatment initiated during last stay with -Amoxicillin -PPI -Clarithromycin Give antiemetic prior- will oral compazine and IV if it fails Will start a probiotic at pt's request Continue sucralfate today PRN mylanta Counseled for 2 previous days on the need for member of her household to refer to their PCP to discuss screening (3) Duodenal ulcer: Status: Acute Assessment and plan: As above (4) Contraindication to deep vein thrombosis (DVT) prophylaxis: Status: Acute Assessment and plan: duodenal ulcer TEDs ambulatory (5) Alcohol withdrawal: Status: Acute Assessment and plan: CIWA scoring ordered but not scoring consideirng d/c after 48 hours Patient reported no drinking since previous admission Will discontinue (6) Hypomagnesemia: Status: Resolved Assessment and plan: Mg 1.7, supplementation ordered Mag level in AM (7) Hypokalemia: Status: Resolved Assessment and plan: K 3.3 supplementation ordered BMP in AM (8) Discharge planning issues: Status: Acute Assessment and plan: CM to f/u no further needs at this time D/c ome when medically cleared probably tomorrow Discussed with Maria Teresa Subjective Subjective Patient reports: tolerating liquids well, voiding w/o difficulty and diarrhea; denies still having pain, blood in stool, nausea, vomiting, shortness of breath or fever Exam Narrative Exam Narrative: Constitutional The patient is in bed uncomfortable HENMT: Facial structures with normal appearance Neuro:alert and oriented X 4 Resp: clear lung bilaterally Cardio: regular rhythm, S1, S2, positive radial and pedal pulses GI: Abdomen is not distended, semi-firm epigastric region but soft elsewhere non tender, bowel sounds are present : Negative Costovertebral angle tenderness Extremities: strength 5/5 to bilateral lower and upper extremities Psych: RASS 0, congruent mood and normal affect. Objective Last Vital Signs Temp 36.6 C 07/25/23 07:19 Pulse 80 07/25/23 07:19 Resp 17 07/25/23 07:19 BP 136/103 H 07/25/23 07:19 Pulse Ox 98 07/25/23 07:19 Laboratory Results - last 24 hr 07/25/23 07/25/23 06:05 06:05 WBC 4.39 L RBC 3.26 L Hgb 11.3 Hct 33.5 L MCV 103 H MCH 34.7 H MCHC 33.7 RDW 13.6 Plt Count 420 H MPV 9.1 Immature Gran % 0.2 Neutrophils % 56.1 Lymphocytes % 25.5 Monocytes % 12.8 Eosinophils % 3.6 Basophils % 1.8 Nucleated RBC % 0.0 Absolute Neutrophils 2.46 Absolute Lymphocytes 1.12 L Absolute Monocytes 0.56 Absolute Eosinophils 0.16 Absolute Basophils 0.08 Sodium 137 Potassium 3.3 L Chloride 102 Carbon Dioxide 25.7 Anion Gap 9.3 BUN 4 L Creatinine 0.6 Est GFR (CKD-EPI 2020) 114.86 Glucose 90 Calcium 8.8 Magnesium 1.7 L Cancelled Total Bilirubin 0.7 AST 94 H ALT 68 H Alkaline Phosphatase 104 Total Protein 7.1 Albumin 3.1 L Lipase 340 H Time Spent with Patient Time Spent with Patient: >50 minutes Time was spent: preparing to see the patient(eg.review tests), obtaining and/or reviewing separately otained hiistory, ordering medications,tests, procedures, referring, communicating with other health hospice patient care secretary, indepentently interpreting results, counseling the patient and care coordination
[2023-07-25 11:14] VITALS: BP 132/98; PULSE 79; RESP 18; TEMP 36.6; O2SAT 97
[2023-07-25] MEDS: MAGNESIUM SULFATE 2 GM/50 ML BAG IVINF (12:32)
--- NOTE | 2023-07-25 14:24 | W.NUTRFU ---
Date of service: 07/24/23 Time of Service: 10:20 Nutrition Note NOTE: Daphnie NPO status due to Nausea and dry heaving. She was discharged from here 4 days ago from pancreatitis/alcohol abuse She states she has not eaten since Saturday evening (plain spaghetti noodles). States she is having diarrhea. States she is doing fine with water/ice chips and feels she could tolerate something more. advanced diet to clears after consulting with hospitalist. As of today (07/24) she has advanced to bland full liquid diet (low sodium as well). Went up to check toleration and pt in tears because she cannot eat what she wants. they said I can't have bananas (her boyfriend brought some in for her). I explained her current diet order and what is considered a full liquid. She will make due with ice cream, yogurt and other full liquids and hope to advance again joanna. I will monitor diet toleration and provide education as she gets back to baseline of eating normal foods Time Spent in Nutritional Counseling and Treatment: 10 minutes
[2023-07-25] MEDS: Lactobacillus Acidophilus CAP 1 CAP PO (14:30)
[2023-07-25 14:47] VITALS: BP 144/113; PULSE 93; RESP 18; TEMP 36.5; O2SAT 97
[2023-07-25] MEDS: POTASSIUM CHLORIDE 20 MEQ/100 ML BAG 50 MEQ IVINF (15:13)
[2023-07-25 19:21] VITALS: BP 131/95; PULSE 94; RESP 18; TEMP 36.6; O2SAT 96
[2023-07-25] MEDS: Acetaminophen 500 MG TAB 1000 MG PO (21:58)
[2023-07-25] MEDS: Melatonin 3 MG TAB 9 MG PO (21:59)
[2023-07-25 22:02] VITALS: BP 127/100; PULSE 80; RESP 16; TEMP 36.7; O2SAT 97
--- NOTE | 2023-07-26 | DI.CT_ITS ---
Exam(s) CT ABDOMEN PELVIS W EXAM: CT ABDOMEN PELVIS W CLINICAL HISTORY: persitant abdominal pain,pancreatitis, TECHNIQUE: Imaging Protocol: Axial computed tomography images with coronal and sagittal reformatted images were created and reviewed. CONTRAST MATERIAL: Intravenous: Omnipaque 350 Contrast volume:100 mL Oral: No COMPARISON: CT RENAL COLIC WO CONTRAST from 01/09/[address] ABDOMEN PELVIS W from 05/11/[address] ABDOMEN PELVIS W from 04/04/[address] ABDOMEN PELVIS W from 07/15/[address] ABDOMEN PELVIS W from 07/23/2023 FINDINGS: ABDOMEN: Lung Bases: There is a calcified granuloma in the left lower lobe. There are infiltrates seen in the right middle lobe, left lingular and the lower lobes bilaterally which were not present on the prior examination. These may represent areas of atelectasis or pneumonia. Please correlate clinically. Liver: There is decreased attenuation of the liver suggesting fatty infiltration. The liver is enlar ged. There is no change in appearance of the hypodense lesion in the inferior aspect of the right lo be of the liver. No suspicious hepatic masses are seen. Portal, Superior Mesenteric, and Splenic Veins: Unremarkable. Gallbladder and Biliary Tract: No radiodense calculus or dilation. Pancreas: Normal density, no abnormal calcifications or inflammatory process. Spleen: There is a tiny hypodensity in the spleen which may represent a small cyst or hemangioma. Adrenals: No masses seen. Kidneys: There is moderately atrophic right kidney. There is compensatory hypertrophy of the left kid antonia. Calcifications are seen in the right kidney which may represent nonobstructing stones. No masses seen. Abdominal Aorta: Abdominal portion non-dilated. Bowel: No obstruction or bowel wall thickening. There is a 1.5 cm partially calcified lesion in the m id appendix. There is distention of the appendix distally up to 1.9 cm. The appendix proximal to the lesion is of normal caliber. There is no wall thickening or Nemo appendiceal inflammation. Peritoneal Cavity: No ascites, collection or mesenteric inflammatory response. No free air. Lymph Nodes: Within normal limits. Bones: Within normal limits for the patient's age. Soft Tissues: There is a fat containing umbilical hernia. PELVIS: Bladder: The urinary bladder is incompletely distended limiting evaluation. Reproductive Organs: There is a 4.6 x 3.4 cm right ovarian cyst. Lymph Nodes: Within normal limits. Bones: Within normal limits for the patient's age. IMPRESSION: 1. Normal appearance of the pancreas. No CT evidence to suggest acute pancreatitis. 2. 1.5 cm partially calcified lesion in the mid appendix. There is distal dilatation of the appendix. No appendiceal wall thickening or Nemo appendiceal inflammatory changes are seen. This may represent a appendicolith versus an appendiceal neoplasm. No inflammatory changes are seen around the appendix at this time. 3. 4.6 x 3.4 cm simple right ovarian cyst. 4. New basilar infiltrates in the lungs which may represent atelectasis or pneumonia. Please correlat e clinically. 5. No evidence of pneumoperitoneum. RADIATION DOSE DELIVERED: 1,020.31mGy.cm Total DLP DATA REPOSITORY: All CT scans at this facility are submitted to the National Radiology Data Registry (NRDR) Dose Index Registry (DIR) with the [employer] (A[employer]). RADIATION OPTIMIZATION: All CT scans at this facility use at least one of these dose optimization te chniques: automated exposure control; mA and/or kV adjustment per patient size (includes targeted exa ms where dose is matched to clinical indication); or iterative reconstruction.
[2023-07-26] MEDS: HYDROmorphone 2 MG/ML SYR IVP ×3 (00:54→11:23)
[2023-07-26] MEDS: Normal Saline Flush 10 ML SYR IVP ×5 (00:54→19:43)
[2023-07-26 03:21] VITALS: BP 128/101; PULSE 72; RESP 14; TEMP 36.5; O2SAT 98
[2023-07-26] MEDS: Acetaminophen 500 MG TAB 1000 MG PO ×4 (03:21→21:40)
[2023-07-26 06:57] LABS: Abs Immature Grans 0.02 10^3/uL (0.0-0.06); Absolute Basophil Count 0.06 10^3/uL (0.0-0.2); Absolute Eosinophil Count 0.11 10^3/uL (0.0-0.7); Absolute Lymphocyte Count 1.14 10^3/uL (1.2-3.4); Absolute Monocyte Count 0.48 10^3/uL (0.1-0.8); Absolute Neutrophil Count 2.79 10^3/uL (1.2-6.7); Basophils % 1.3 %; Eosinophils % 2.4 %; HCT 34.3 % (36.0-46.0); HGB 11.5 g/dL (11.2-15.7); Immature Grans % 0.4 %; Lymphocytes % 24.8 %; MCH 34.3 pg (27.0-33.0); MCHC 33.5 % (32.0-36.0); MCV 102 fL (80-95); MPV 9.1 fL (8.0-11.0); Monocytes % 10.4 %; Neutrophils % 60.7 %; Platelet Count 434 10^3/uL (130-400); RBC 3.35 10^6/uL (3.93-5.22); RDW 13.3 % (11.7-14.6); RDW-SD 49.7 fL
[2023-07-26 07:16] LABS: Magnesium 1.9 mg/dL (1.8-2.4)
[2023-07-26 07:18] VITALS: BP 132/88; PULSE 68; RESP 16; TEMP 36.5; O2SAT 99
[2023-07-26 07:31] LABS: ALT 65 U/L (14-59); AST 114 U/L (15-37); Albumin 3.3 g/dL (3.4-5.0); Alkaline Phosphatase 107 U/L (46-116); Anion Gap 10.9 mmol/L (3-11); BUN 2 mg/dL (7-18); Bilirubin, Total 0.6 mg/dL (0.2-1.0); CO2 25.1 mmol/L (21.0-32.0); CREATININE 0.6 mg/dL (0.55-1.02); Calcium 9.2 mg/dL (8.5-10.1); Chloride 104 mmol/L (98-107); Estimated GFR 114.86 (mL/min/1.73m2); Glucose 99 mg/dL (74-106); Potassium 3.6 mmol/L (3.5-5.1); Sodium 140 mmol/L (136-145); Total Protein 7.4 g/dL (6.4-8.2)
[2023-07-26] MEDS: Clarithromycin 500 MG TAB PO ×2 (08:19→19:43)
[2023-07-26] MEDS: Pantoprazole 40 MG TABCR PO ×2 (08:19→19:44)
[2023-07-26] MEDS: Amoxicillin 500 MG CAP 1000 MG PO ×2 (08:19→19:43)
[2023-07-26] MEDS: Sucralfate 1 GM TAB PO ×4 (08:20→21:41)
[2023-07-26] MEDS: Lactobacillus Acidophilus CAP 1 CAP PO (08:20)
--- NOTE | 2023-07-26 08:38 | NUR.NOTE ---
Nursing Note:pt sitting up in bed at this time pt having abdominal pain, pt being compliant with MDs order for waiting till having sucralfate until eating, pt reports abdominal pain starts 45 mins after eating and goes to a 8/10, pt has relief with IVP hydromorphone, pt states that the pain feels like a rock ball that is against my skin that wants to pop out, after medications pain is at a 3/10, after the medication the patients states the pain feels irritated, then I usually, have a bowel movement of diarrhea, which makes it feel worse. pt states I feel frustrated with the situation this nurse will bring the pts concerns up with the charge nurse and
[2023-07-26] MEDS: traMADol 50 MG TAB PO (09:54)
[2023-07-26 11:10] VITALS: BP 151/112; PULSE 95; RESP 22; TEMP 37.3; O2SAT 98
[2023-07-26] MEDS: Normal Saline - Diluent 50 ML VIAL IJ (13:49)
[2023-07-26] MEDS: Omnipaque 350 MG/ML 100 ML BTL IJ (13:50)
--- NOTE | 2023-07-26 14:51 | PDOC.CMPRO ---
Date of service: 07/26/23 Time of Service: 14:51 Care Management Progress Note Progress Note Text Progress Note Text: Daphnie reports 8/10 abdominal pain after eating, decreases to a 3/10 after IV hydromorphone. Pt went down for an abdominal CT, results are pending. Daphnie is anticipating discharging home tomorrow if she is medically ready. Pt states that she misses her boyfriend and her dogs and is ready to discharge home when her pain is better. Discharge Potential Discharge Needs: PCP F/U Appt and Surgical F/U Appt Anticipated Barriers to Discharge: None Identified Patient/Family Education Needs: Review discharge instructions, discuss Ask Me Three Transportation: EMS Plan: Marva is being treated for pancreatitis. Anticipate, Daphnie will discharge home via private vehicle with family when Medically cleared by provider, potentially Saturday. Pt will follow up with community providers and her discharge plan of care as instructed. CM will continue to follow and support discharge considerations. No new services are anticipated at this time. SDOH(Care Management) Screening Will the Patient Participate in the Screening?: Yes Do you worry about having a steady place to live?: no Problems where you live: no known problems In the past 12 months, have you had to go without electric, gas, oil or water in your home?: no Have you or anyone in your house had to go without enough food to eat?: no Has lack of transportation kept you from medical appointments or from doing things needed for daily living?: no Has anyone in your support network made you feel unsafe for any reason?: no
[2023-07-26 15:13] VITALS: BP 137/95; PULSE 76; RESP 18; TEMP 37; O2SAT 98
--- NOTE | 2023-07-26 17:02 | W.PM.PROGNOT ---
Date of Service Date of service: 07/26/23 Time of Service: 10:40 Assessment and Plan Assessment and plan (1) Pancreatitis: Status: Chronic Assessment and plan: Continue IVF Continue scheduled APAP and PRN opioids Diet : full liquid balnd, tolerated clears but c/o of salt in broth -Advanced as tolerated Continue antiemetic PRN, but no further N/V but diarrhea Lipase in AM, was > 375 then 340 on 07/24; no further trending warranted - clinically improving Ongoing pain complaint during deescalation of IV opioids CT abd/plevis Showed -IMPRESSION: 1. Normal appearance of the pancreas. No CT evidence to suggest acute pancreatitis. 2. 1.5 cm partially calcified lesion in the mid appendix. There is distal dilatation of the appendix. No appendiceal wall thickening or Nemo appendiceal inflammatory changes are seen. This may represent a appendicolith versus an appendiceal neoplasm. No inflammatory changes are seen around the appendix at this time. 3. 4.6 x 3.4 cm simple right ovarian cyst. 4. New basilar infiltrates in the lungs which may represent atelectasis or pneumonia. Please correlate clinically. 5. No evidence of pneumoperitoneum. Surgical consult place for appendiceal findings. (2) H. pylori infection: Status: Acute Assessment and plan: Continue H. Pylori treatment initiated during last stay -Amoxicillin -PPI -Clarithromycin Give antiemetic prior- will oral compazine Continue probiotic at pt's request Continue sucralfate PRN mylanta Counseled for 2 previous days on the need for member of her household to refer to their PCP to discuss screening (3) Duodenal ulcer: Status: Acute Assessment and plan: As above no S&S of GIB Tolerating oral intake despite pain Will transition to oral pain today (4) Contraindication to deep vein thrombosis (DVT) prophylaxis: Status: Acute Assessment and plan: Duodenal ulcer TEDs Ambulatory (5) Alcohol withdrawal: Status: Acute Assessment and plan: CIWA scoring ordered but not scoring consideirng d/c after 48 hours Patient reported no drinking since previous admission CIWA score discontinued (6) Hypomagnesemia: Status: Resolved Assessment and plan: Mg 1.9 resolved Mag level in AM (7) Hypokalemia: Status: Resolved Assessment and plan: K 3.6 resolved BMP in AM (8) Discharge planning issues: Status: Acute Assessment and plan: CM to f/u no further needs at this time D/c home when medically cleared and as per surgical consult f/u probably tomorrow Discussed with Maria Teresa Subjective Subjective Patient reports: still having pain, tolerating liquids well, tolerating a regular diet, voiding w/o difficulty, diarrhea and afebrile; denies pain is less, blood in stool, nausea, vomiting or shortness of breath Exam Narrative Exam Narrative: Constitutional The patient is in bed uncomfortable HENMT: Facial structures with normal appearance Neuro:alert and oriented X 4 Resp: clear lung bilaterally Cardio: regular rhythm, S1, S2, positive radial and pedal pulses GI: Abdomen is not distended, semi-firm epigastric region but soft elsewhere non tender, bowel sounds are present -On later examination after pain medicine, the abdomen was soft with ongoing tenderness to the epigastric region Extremities: strength 5/5 to bilateral lower and upper extremities Psych: RASS 1-2 , congruent mood and normal- elated affect. Psych Speech and Movement: agitated Mood: irritable mood Affect: hostile, irritable affect and elated Attitude: belligerent Thought Process: perseverating Insight: poor and other (Poor impulse control) Judgment: poor Other: Verbally aggressive when she was in pain then once IV opioids given the patient became apologetic. Objective Last Vital Signs Temp 37 C 07/26/23 15:13 Pulse 76 07/26/23 15:13 Resp 18 07/26/23 15:13 BP 137/95 H 07/26/23 15:13 Pulse Ox 98 07/26/23 15:13 Laboratory Results - last 24 hr 07/26/23 06:30 WBC 4.60 RBC 3.35 L Hgb 11.5 Hct 34.3 L MCV 102 H MCH 34.3 H MCHC 33.5 RDW 13.3 Plt Count 434 H MPV 9.1 Immature Gran % 0.4 Neutrophils % 60.7 Lymphocytes % 24.8 Monocytes % 10.4 Eosinophils % 2.4 Basophils % 1.3 Nucleated RBC % 0.0 Absolute Neutrophils 2.79 Absolute Lymphocytes 1.14 L Absolute Monocytes 0.48 Absolute Eosinophils 0.11 Absolute Basophils 0.06 Sodium 140 Potassium 3.6 Chloride 104 Carbon Dioxide 25.1 Anion Gap 10.9 BUN 2 L Creatinine 0.6 Est GFR (CKD-EPI 2020) 114.86 Glucose 99 Calcium 9.2 Magnesium 1.9 Total Bilirubin 0.6 AST 114 H ALT 65 H Alkaline Phosphatase 107 Total Protein 7.4 Albumin 3.3 L Time Spent with Patient Time Spent with Patient: >50 minutes Time was spent: preparing to see the patient(eg.review tests), obtaining and/or reviewing separately otained hiistory, ordering medications,tests, procedures, referring, communicating with other health manager respiratory care, indepentently interpreting results, counseling the patient and care coordination
[2023-07-26] MEDS: HYDROmorphone 2 MG TAB PO ×2 (17:38→21:40)
[2023-07-26 19:28] VITALS: BP 124/83; PULSE 82; RESP 16; TEMP 36.8; O2SAT 96
[2023-07-26] MEDS: Melatonin 3 MG TAB 9 MG PO (19:44)
[2023-07-26 21:44] VITALS: BP 138/98; PULSE 91; RESP 18; TEMP 36.4; O2SAT 96
[2023-07-27] MEDS: HYDROmorphone 2 MG TAB PO ×2 (01:34→05:51)
[2023-07-27] MEDS: Acetaminophen 500 MG TAB 1000 MG PO ×2 (03:42→09:37)
[2023-07-27 06:25] LABS: Abs Immature Grans 0.02 10^3/uL (0.0-0.06); Absolute Basophil Count 0.07 10^3/uL (0.0-0.2); Absolute Eosinophil Count 0.07 10^3/uL (0.0-0.7); Absolute Lymphocyte Count 0.99 10^3/uL (1.2-3.4); Absolute Monocyte Count 0.35 10^3/uL (0.1-0.8); Absolute Neutrophil Count 3.79 10^3/uL (1.2-6.7); Basophils % 1.3 %; Eosinophils % 1.3 %; HGB 12.1 g/dL (11.2-15.7); Immature Grans % 0.4 %; Lymphocytes % 18.7 %; MCH 34.5 pg (27.0-33.0); MCHC 33.6 % (32.0-36.0); MCV 103 fL (80-95); Monocytes % 6.6 %; Neutrophils % 71.7 %; Platelet Count 446 10^3/uL (130-400); RBC 3.51 10^6/uL (3.93-5.22); RDW 13.6 % (11.7-14.6); RDW-SD 51.2 fL; WBC 5.29 10^3/uL (4.4-10.8)
[2023-07-27 06:36] LABS: Magnesium 1.7 mg/dL (1.8-2.4)
[2023-07-27 06:45] LABS: ALT 66 U/L (14-59); AST 105 U/L (15-37); Albumin 3.3 g/dL (3.4-5.0); Alkaline Phosphatase 108 U/L (46-116); Anion Gap 11.4 mmol/L (3-11); BUN 3 mg/dL (7-18); Bilirubin, Total 0.6 mg/dL (0.2-1.0); CO2 24.6 mmol/L (21.0-32.0); CREATININE 0.7 mg/dL (0.55-1.02); Calcium 9.1 mg/dL (8.5-10.1); Chloride 105 mmol/L (98-107); Estimated GFR 110.67 (mL/min/1.73m2); Glucose 108 mg/dL (74-106); Potassium 3.5 mmol/L (3.5-5.1); Sodium 141 mmol/L (136-145); Total Protein 7.5 g/dL (6.4-8.2)
[2023-07-27 07:59] VITALS: BP 125/94; PULSE 86; RESP 17; TEMP 36.9; O2SAT 96
[2023-07-27] MEDS: Normal Saline Flush 10 ML SYR IVP (08:04)
[2023-07-27] MEDS: Amoxicillin 500 MG CAP 1000 MG PO (08:05)
[2023-07-27] MEDS: Lactobacillus Acidophilus CAP 1 CAP PO (08:05)
[2023-07-27] MEDS: Sucralfate 1 GM TAB PO (08:06)
[2023-07-27] MEDS: Clarithromycin 500 MG TAB PO (08:06)
[2023-07-27] MEDS: Pantoprazole 40 MG TABCR PO (08:06)
--- NOTE | 2023-07-27 09:12 | W.PM.DS.N ---
Date of service: 07/27/23 Time of Service: 09:13 DS: Diagnosis Discharge Diagnosis (1) Pancreatitis: Status: Chronic (2) H. pylori infection: Status: Acute (3) Duodenal ulcer: Status: Acute (4) Contraindication to deep vein thrombosis (DVT) prophylaxis: Status: Acute (5) Alcohol withdrawal: Status: Acute (6) Hypomagnesemia: Status: Resolved (7) Hypokalemia: Status: Resolved Discharge Plan Disposition Patient Disposition: Home Condition: Improving Discharge Details Reason For Visit: Acute Pancreatitis, nausea, vomiting Admit Date/Time: 07/23/23 10:57 Admit Provider: Eric Morel Attending Provider: Eric Morel Primary Care Provider: Unknown,Unknown Hospital Course Hospital Course: This 42 years old female patient with a past medical history of recent hospitalization for pancreatitis discharged on 07/21/2023 with duodenal ulcer secondary to H pylori infection, EtOH withdrawal with daily drinking presented to the ED at [facility] on 07/23/2023 for evaluation of nausea vomiting and abdominal pain. The patient reported that when she initially left the hospital, she was doing okay. The patient had been discharged status post acute pancreatitis with treatment for therapy for the H. pylori infection and duodenal ulcer. The patient denied drinking alcohol or using any other drugs. The patient reported that her symptoms got worse with significant upper abdominal pain nausea and vomiting as per the ED provider's note. The patient denied hematochezia, melena, hematemesis, coffee-ground vomiting or dysuria. On arrival to the ED the patient was tachycardic and hypertensive which subsided with pain medicine administration. Workup in the ED was positive for an elevated lipase at over 375. CT of her abdomen with multiple incidental findings including the absence of an appendix without complaint of lower abdominal pain tenderness or fever, again right ovary cyst, diffuse fat halo sign involving the entire colon often seen in chronic inflammatory bowel disease, smaller left kidney with small nonobstructive calculi with recommendation for hemangioma protocol MRI study. In the ED the patient received antiemetic, opiate pain medicine and was still unable to tolerate oral intake. The hospitalist was contacted and the patient was admitted to the medical surgical floor for evaluation and management of resistant acute pancreatitis. The patient was kept n.p.o. overnight. The next morning the patient verbalized that she was having less pain and mentioned that she never vomited but was only dry-heaving and requested food as she was feeling hungry. The patient resumed a liquid diet and was later able to tolerate solid food without nausea or vomiting. The patient received scheduled acetaminophen and as needed hydromorphone IV. The patient continued to request IV pain medicine but mentioned that the pain was worse after meals. The patient was transitioned to oral pain meds. Patient also mentioned that she stopped taking methadone ordered for her opioid drug use disorder due to the fact that did not like the way it made her feel. Patient encouraged to discuss resumption with PCP and was also educated during previous stay on community resources for substance abuse as she was advised regarding cessation of alcohol, drugs, and smoking. The patient will be discharged home with a small amount of hydromorphone 2 mg to take as needed for severe pain not relieved by scheduled acetaminophen. The patient is to avoid the use of NSAIDs such as ibuprofen, Motrin. During the stay the patient continued to receive treatment for her duodenal ulcer which will have to be continued outpatient. The patient will be discharged home on liquid antacid as needed, probiotic as per request, small supply of Compazine to take if the nausea returns. The patient tolerated food without nausea or vomiting for the past 48 hours. Recommendation given to patient to follow-up with her primary care practitioner regarding alcohol cessation and seeking resumption of treatment for opioid use disorder with [facility]. The patient will have to follow-up with her PCP within 7 days of discharge. An abdominal CT with without contrast was completed and showed no evidence of pancreatitis, incidental finding of a calcified mid appendix with distal dilation without wall thickening or alvin-appendiceal inflammatory changes questioning of appendicolith versus appendiceal neoplasm. Surgery was consulted and no acute interventions recommended but an outpatient follow-up in the office; referral initiated and patient to call back if the office does not call her back on Saturday. Her initial CT showed findings correlating with chronic inflammatory bowel disease in the setting of reported chronic diarrhea by the patient for which we recommended her PCP to initiate a gastro-enterology referral. Discussed with Dr. Maria Teresa Manning Meds and New Rx's Prescriptions: New prochlorperazine maleate 5 mg Tablet 5 mg PO Q8H PRN PRNQty: 6 0RF Bio-K plus 50 billion cell capsule,delayed release(DR/EC) 1 cap PO DAILY Qty: 30 0RF acetaminophen 500 mg capsule 1,000 mg PO Q6H Qty: 40 0RF alum-mag hydroxide-simeth [Advanced Antacid-Antigas] 400-400-40 mg/5 mL suspension 30 ml PO TID PRNQty: 300 0RF Rx Instructions: Please educate the patient on interval between antacids and antibiotics hydromorphone 2 mg tablet 2 mg PO Q6H PRNQty: 8 0RF Rx Instructions: Take only if pain is severe and not relieved by scheduled acetaminophen. Continued lidocaine [Lidoderm] 5 % adhesive patch,medicated 1 patch topical DAILY PRN (Reason: pain) Qty: 1 0RF Rx Instructions: leave on most painful area for up to 12 hrs sucralfate 1 gram Tablet 1 g PO AC & HS Qty: 120 0RF pantoprazole 40 mg Tablet,Delayed Release (Dr/Ec) 40 mg PO BID@30,1999 Qty: 60 0RF amoxicillin 500 mg Capsule 1,000 mg PO BID Qty: 46 0RF clarithromycin 500 mg Tablet 500 mg PO BID Qty: 23 0RF magnesium gluconate 27 mg magnesium (500 mg) Tablet 500 mg PO BID Qty: 0 0RF methadone 10 MG/ML concentrate 40 mg PO DAILY chlordiazepoxide HCl 25 mg capsule 25 mg PO ONCE Qty: 15 0RF Rx Instructions: day1: 50 mg (2 caps) q6hr; day 2: 50 mg q12hr; day 3: 50 mg qday; day 4: 25mg qday Held cyclobenzaprine 5 mg tablet 5 mg PO BID PRN (Reason: muscle spasm) Qty: 10 0RF Hold Instructions: Resume on 08/02/23. Resume as per PCP Discharge Instructions Additional Instructions: Avoiding alcohol completely is crucial for promoting healing and preventing further complications. Alcohol can indeed exacerbate pancreatitis, delay healing, and contribute to the development of ulcers. It's essential to adhere strictly to zero alcohol intake. ?Quit smoking to reduce the risk of complications and promote healing. ? Take antibiotics until course if completed. ?Follow a low-fat diet to ease the workload on your pancreas. Avoid fried foods, fatty meats, and high-fat dairy products. ?Eat small, frequent meals rather than large meals to reduce the strain on your digestive system. ?Drink plenty of fluids, preferably water, to stay hydrated. ? Maintain a healthy weight through diet and exercise to reduce the risk of recurrent pancreatitis. ?Be vigilant for symptoms such as severe abdominal pain, nausea, vomiting, fever, or jaundice, as they may indicate a complication requiring medical attention, go to the Emergency department. ?Get plenty of rest to allow your body to heal properly. ?Avoid strenuous activities or heavy lifting ? Finish the prescribed course of antibiotics; amoxicillin, clarithromycin, ?along with a proton pump inhibitor (PPI) pantoprazole to reduce stomach acid. ? Follow-up appointment with your PCP to monitor your progress and ensure the infection has been eradicated. This is usually done with a breath test, stool test, or sometimes a follow-up endoscopy and to check your liver function and pancreas. ? Avoid foods and beverages that can irritate the stomach lining, such as spicy foods, acidic foods, caffeine, and absolutely no alcohol. Focus on a diet that includes plenty of fruits, vegetables, lean proteins, and whole grains. ? Stress can exacerbate symptoms of H. pylori infection, so practice stress-reduction techniques such as deep breathing exercises, meditation, yoga, or spending time on hobbies you enjoy. ? H. pylori bacteria can be transmitted through close contact with an infected person's saliva, vomit, or fecal matter. Practice good hygiene, including washing your hands regularly with soap and water, especially before eating or preparing food, and after using the restroom. ? Inform your household members about the infection and encourage them to practice good hygiene to prevent the spread of the bacteria. ? Pay attention to any recurring symptoms such as abdominal pain, bloating, nausea, vomiting, or black, tarry stools. If you experience any of these symptoms, contact your PCP promptly. ? Nonsteroidal anti-inflammatory drugs (NSAIDs) such as ibuprofen and aspirin can worsen symptoms and increase the risk of stomach ulcers. Use acetaminophen instead for pain relief, maximum 4000 mg daily, for maximum of 5 days - only if needed. Your magnesium is low; take a magnesium supplement daily. Your liver enzymes and lipase are elevated and should be checked by your PCP in the next week. Stand Alone Forms: Nursing Discharge Form Referrals: Klaus Garcia DO [MD CONSULTING PHYSICIAN] - (Abnormal ABD CT. Referral initiated Please call the office on Saturday if they have not called you ) Unknown,Unknown [Primary Care Provider] - (please make an appointment with your PCP for 1-2 weeks! ) Activity:: Activity as Tolerated Equipment/Supplies:: No Equipment Needed Diet:: As tolrerated, soft and bland, no alcohol Discharge Orders Discharge Orders: Discharge Order (Routine); Ordered 07/27/23 Ordered By: Linda Everett DS: Summary Time Spent with Patient providing and/or coordinating discharge services: Greater than 30 minutes Status at Discharge Functional status at discharge: independent ambulation Overall status at discharge: patient is back to baseline Mental Status: mental status grossly normal Speech and Movement: speech and movement normal Mood: congruent mood Affect: normal affect Quality:SDOH Health Related Social Needs: No Data to Display Exam Narrative Exam Narrative: Constitutional The patient is in bed uncomfortable HENMT: Facial structures with normal appearance Neuro:alert and oriented X 4 Resp: clear lung bilaterally Cardio: regular rhythm, S1, S2, positive radial and pedal pulses GI: Abdomen is not distended, soft with slight tenderness to the epigastric region, bowel sounds are present Extremities: strength 5/5 to bilateral lower and upper extremities Psych: RASS 1-2 , congruent mood and normal- elated affect. Psych Mental Status: mental status grossly normal Speech and Movement: speech and movement normal Mood: congruent mood Affect: normal affect DS: Data Vitals/I&O Vitals and I&O: Vital Signs Temperature 36.9 C 07/27/23 07:59 Temperature Source Temporal Artery Scan 07/27/23 07:59 Pulse 86 07/27/23 07:59 Pulse Rhythm Regular 07/27/23 03:59 Pulse 112 H 07/23/23 11:50 Respiratory Rate 17 07/27/23 07:59 Respiratory Effort Normal 06/08/24 03:59 Respiratory Depth Normal 07/27/23 03:59 Respiratory Pattern Normal 07/27/23 03:59 Blood Pressure 125/94 H 07/27/23 07:59 Blood Pressure Mean 114 07/23/23 10:46 Blood Pressure Position Sitting 07/23/23 07:33 Pulse Oximetry 96 07/27/23 07:59 Oxygen Delivery Method Room Air 07/27/23 07:59 Oxygen Flow Rate 0 07/27/23 07:59 Pain Level 4 07/27/23 07:59 Comment pt upset and crying at this time 07/26/23 11:10 Intake & Output 07/26/23 07/26/23 07/27/23 11:59 23:59 11:59 Intake Total 410 / 410 250 / 250 Output Total 1200 / 1200 Balance -1200 / -790 410 / -790 250 / 250 Intake: IV 10 Oral 400 / 400 250 / 250 Output: Urine 1200 / 1200 Other: Urine Color Yellow Urine Appearance Clear Clear Clear Comment pt reports 900 ml urine output. pt states she has been to the bathroom multiple times today Stool Size Small Voiding Methods Toilet Toilet Data Completed and Pending Labs on day of discharge: Labs from last 24 hours 07/27/23 06:00 WBC 5.29 RBC 3.51 L Hgb 12.1 Hct 36.0 MCV 103 H MCH 34.5 H MCHC 33.6 RDW 13.6 Plt Count 446 H MPV 9.0 Immature Gran % 0.4 Neutrophils % 71.7 Lymphocytes % 18.7 Monocytes % 6.6 Eosinophils % 1.3 Basophils % 1.3 Nucleated RBC % 0.0 Absolute Neutrophils 3.79 Absolute Lymphocytes 0.99 L Absolute Monocytes 0.35 Absolute Eosinophils 0.07 Absolute Basophils 0.07 Sodium 141 Potassium 3.5 Chloride 105 Carbon Dioxide 24.6 Anion Gap 11.4 H BUN 3 L Creatinine 0.7 Est GFR (CKD-EPI 2020) 110.67 Glucose 108 H Calcium 9.1 Magnesium 1.7 L Total Bilirubin 0.6 AST 105 H ALT 66 H Alkaline Phosphatase 108 Total Protein 7.5 Albumin 3.3 L PFSH All Active Problems (Updated 07/24/23 @ 14:33 by Linda Everett APRN) Duodenal ulcer (Acute) Alcohol withdrawal (Acute) Discharge planning issues (Acute) Contraindication to deep vein thrombosis (DVT) prophylaxis (Acute) Abdominal pain (Acute) Pancreatitis (Chronic) H. pylori infection (Acute) Esophageal stricture (Acute) Esophagitis with gastritis (Acute) Smoker (Acute) Alcohol abuse (Chronic) Alcoholic hepatitis (Acute) Pancreatitis (Chronic) Osteoarthritis of right hip (Acute) Labral tear of right hip joint (Acute) Otitis media (Acute) Viral URI with cough (Acute) Medical History Insomnia H pylori ulcer History of marijuana use Daily Ovarian cyst, right Umbilical hernia Kidney atrophy History of duodenal ulcer Opioid use disorder, moderate, in early remission, on maintenance therapy, dependence Hepatitis C Treated Cervical cancer kidney stones Surgical History History of bilateral tubal ligation section x2 Social History Smoking/Tobacco Use Status: Current every day Tobacco Type: cigarettes Smoking risk assessment performed?: Yes Alcohol Intake: former Drug use: Current Sobriety Substance use type: marijuana, heroin and methamphetamine Details: occasional marijuana, denies ETOH use since last admission Housing: house Do you feel safe at home: Yes Do you feel safe in your relationship?: Yes Time Spent with Patient Time Spent with Patient: >85 minutes Time was spent: preparing to see the patient(eg.review tests), obtaining and/or reviewing separately otained hiistory, ordering medications,tests, procedures, referring, communicating with other health career education teacher, indepentently interpreting results, counseling the patient and care coordination
[2023-07-27] MEDS: HYDROmorphone 4 MG TAB 2 MG PO (09:37)
--- NOTE | 2023-07-27 12:10 | CMDISCH_ITS ---
Date of service: 07/27/23 Time of Service: 12:10 LACE Index Scoring Tool Questions: Length of Stay (in days): 4 - 6 Was the patient admitted via the E.D.?: Yes Comorbidities: Liver or Renal Disease E.D. Visits: 3 Answers: Total Score: 15 Risk of Readmission: High Risk Care Management Discharge Plan Reason for Hospitalization: pancreatitis Discharge Plan: Daphnie will be discharged home with no new services. She will follow up with her PCP and plan of care and transport with family. Patient/Family Education Needs: Review discharge instructions, pain management, alcohol cessation, limitations, follow up plan and discuss Ask Me Three [facility] Health Related Social Needs: No Data to Display
== END 2023-07-27 11:22 | disposition home or self-care (01) | DRG 439 ==
LOC: ER 10:56 → MS 12:03
PROVIDERS: Nurse Practitioner Acute Care; Admitting Provider Family Medicine; Emergency Provider Student in an Organized Health Care Education/Training Program; Visit Provider Family Medicine
DX: K85.90 Acute pancreatitis without necrosis or infection, unspecified (principal); K26.3 Acute duodenal ulcer without hemorrhage or perforation; E83.42 Hypomagnesemia; E87.6 Hypokalemia; B96.81 Helicobacter pylori [H. pylori] as the cause of diseases classified elsewhere; K22.2 Esophageal obstruction; K20.90 Esophagitis, unspecified without bleeding; K29.70 Gastritis, unspecified, without bleeding; F17.210 Nicotine dependence, cigarettes, uncomplicated; K70.10 Alcoholic hepatitis without ascites; G47.00 Insomnia, unspecified; N83.201 Unspecified ovarian cyst, right side; F12.90 Cannabis use, unspecified, uncomplicated; F11.21 Opioid dependence, in remission; R93.3 Abnormal findings on diagnostic imaging of other parts of digestive tract
CPT/HCPCS: 00123; 36415; 80053; 83690; 93005; 96374; 96375; 99285; 71045; 74177; 80320; 81003; 81015; 83735; 84703; 85025; 85610; 85730; 87086; 93010; 99223; 99233; 99239; J0131; J0780; J1170; J2270; J2405; J2470; J2560; J3475; J3480; J3490

== ENCOUNTER 2023-08-01 15:28 | Outpatient (REF) | payer MEDICAID, SELFPAY ==
[2023-08-01 19:39] LABS: Abs Immature Grans 0.02 10^3/uL (0.0-0.06); Absolute Basophil Count 0.12 10^3/uL (0.0-0.2); Absolute Eosinophil Count 0.15 10^3/uL (0.0-0.7); Absolute Lymphocyte Count 1.43 10^3/uL (1.2-3.4); Absolute Monocyte Count 0.39 10^3/uL (0.1-0.8); Absolute Neutrophil Count 4.01 10^3/uL (1.2-6.7); Eosinophils % 2.5 %; HCT 35.2 % (36.0-46.0); HGB 11.4 g/dL (11.2-15.7); Immature Grans % 0.3 %; Lymphocytes % 23.4 %; MCH 34.2 pg (27.0-33.0); MCHC 32.4 % (32.0-36.0); MCV 106 fL (80-95); MPV 9.9 fL (8.0-11.0); Monocytes % 6.4 %; Neutrophils % 65.4 %; Platelet Count 387 10^3/uL (130-400); RBC 3.33 10^6/uL (3.93-5.22); RDW 13.3 % (11.7-14.6); RDW-SD 51.8 fL; WBC 6.12 10^3/uL (4.4-10.8)
[2023-08-01 19:47] LABS: Macrocytosis 2+
[2023-08-01 19:51] LABS: ALT 65 U/L (14-59); AST 131 U/L (15-37); Albumin 3.4 g/dL (3.4-5.0); Alkaline Phosphatase 101 U/L (46-116); Amylase 81 U/L (25-115); Anion Gap 6.9 mmol/L (3-11); BUN 7 mg/dL (7-18); Bilirubin, Total 0.4 mg/dL (0.2-1.0); CO2 27.1 mmol/L (21.0-32.0); CREATININE 0.6 mg/dL (0.55-1.02); Chloride 105 mmol/L (98-107); Estimated GFR 114.86 (mL/min/1.73m2); Glucose 99 mg/dL (74-106); Lipase 183 U/L (16-77); Potassium 4.3 mmol/L (3.5-5.1); Sodium 139 mmol/L (136-145); Total Protein 7.4 g/dL (6.4-8.2)
== END 2023-08-01 15:29 | disposition home or self-care (01) ==
LOC: NCHCN 15:28
PROVIDERS: Visit Provider Nurse Practitioner Family
DX: K70.10 Alcoholic hepatitis without ascites (principal); K85.90 Acute pancreatitis without necrosis or infection, unspecified
CPT/HCPCS: 80053; 83690; 82150; 85025

== ENCOUNTER 2023-08-30 23:08 | Outpatient (REF) | payer MEDICAID, SELFPAY ==
[2023-08-30 18:23] LABS: Abs Immature Grans 0.02 10^3/uL (0.0-0.06); Absolute Basophil Count 0.08 10^3/uL (0.0-0.2); Absolute Lymphocyte Count 1.98 10^3/uL (1.2-3.4); Absolute Neutrophil Count 6.18 10^3/uL (1.2-6.7); Basophils % 0.9 %; Eosinophils % 1.1 %; HCT 38.3 % (36.0-46.0); HGB 12.6 g/dL (11.2-15.7); Immature Grans % 0.2 %; Lymphocytes % 22.3 %; MCH 32.5 pg (27.0-33.0); MCHC 32.9 % (32.0-36.0); MCV 99 fL (80-95); Monocytes % 5.6 %; Neutrophils % 69.9 %; RBC 3.88 10^6/uL (3.93-5.22); RDW 12.6 % (11.7-14.6); RDW-SD 45.5 fL; WBC 8.86 10^3/uL (4.4-10.8)
--- OUTSIDE RECORDS SUMMARY | 2023-08-30 23:13 | XMS_ITS | Referral Summary ---
Author Organization [facility] Address [address] [place] [address] Care Team Providers Care Parts Counter Salesperson Name Role Phone Gay Pablo NP Primary Care Provider + [phone] Encounters Date Type Department Care Team Description 07/17/2023 Lab Requisition [facility] Laboratory [address] [address] Outr Resulting Lab, Provider 07/16/2023 Lab Requisition [facility] [address] [address] Ana Alicia, DO Alcoholic hepatitis without ascites; Hematemesis; Acute pancreatitis without necrosis or infection, unspecified 07/16/2023 Lab Requisition [facility] Pathology Laboratory [address] [address] Outr Resulting Lab, Provider from Last 3 Months Social History Tobacco Use Types Packs/Day Years Used Date Smoking Tobacco: Never Assessed Interpersonal Safety Answer Date Record ed Physically Hurt Never 09/20/2019 Verbally Threaten Not on file 09/20/2019 Sex and Gender Information Value Date Recorded Sex Assigned at Not on file Gender Identity Not on file Sexual Orientation Not on file Plan of Treatment Not on file Procedures Procedure Name Priority Date/Time Associated Diagnosis Comments HIV 1/2 ANTIGEN AND ANTIBODY, 4TH GENERATION Routine 07/17/2023 7:10 EDT SURGICAL PATHOLOGY Today 07/16/2023 12 :33 EDT Alcoholic hepatitis without ascites Hematemesis Acute pancreatitis without necrosis or infection, unspecified HCV RNA DETECT QUANT Today 07/15/2023 19:00 EDT ACUTE HEPATITIS PROFILE Routine 07/15/2023 19:00 EDT from Last 3 Months Results * HIV 1/2 ANTIGEN AND ANTIBODY, 4TH GENERATION (07/17/2023 7:10 EDT) HIV 1 and 2 Antibody/p24 Antigen, 4th Generation Negative Negative 07/17/2023 18:39 EDT [facility] Comment:If acute HIV-1 infec tion is suspected in a high risk patient, submit plasma specimen for HIV-1 RNA quantitation test. Blood VENOUS BLOOD / Unknown 07/17/2023 7:10 EDT 07/17/2023 16:38 EDT Narrative [facility] - 07/17/2023 18:39 EDT Fourth Generation assay performed on the [employer] XPT. Provider Outr Resulting Lab IMMUNOLOGY A ND SEROLOGY ORDERABLES [facility] [address] [place] [id number] * SURGICAL PATHOLOGY (07/16/2023 12:33 EDT) Note to Patient The following pathology results have been interpreted by your pathologist and may be available to you before your health provider has had the opportunity to review them. Please allow time for your provider to receive these results and explore management options, if applicable. 07/18/2023 11:29 EDT [facility] Final Diagnosis A. STOMACH, ANTRUM, BIOPSY: - Mild chronic focally active gastritis. - Helicobacter pylori is positive on immunohistochemistr y. See comment. B. GE STRICTURE, BIOPSY: - Erosive acute esophagitis. - Silver stain is negative for fungal microorganisms. 07/18/2023 11:29 EDT [facility] Diagnosis Comment Positive and negative controls are staining appropriately. Immunoperoxidase stains were performed on this case to further characterize the lesion. Receipt And Report Clerk slides of this case were reviewed at the intradepartmental consultation conference. ANTIBODY(CLONE)(BLO CK):RESULT H pylori (Rabbit Monoclonal (SP48), [place]) (A1): Positive NOTE: One or more of the reagents used in immunoperoxidase testing in this case may not have been cleared or approved by the U.S. Food and Drug Administration (FDA). The FDA has determined that such clearance or approval is not necessary. These tests are used for clinical purposes. They should not be regarded as investigational or for research. These reagents' performance characteristics have been determined by [facility] and/or by the referring laboratory. The positive and negative controls worked appropriately. If immunoperoxidase staining has been performed on alcohol fixed cytology specimens, which has not been fully validated, the assays should be interpreted with caution and correlated with clinical data. This laboratory is certified under the Clinical Laboratory Improvement Amendments of 1988 (CLIA-88) as qualified to perform high complexity clinical laboratory testing. 07/18/2023 11:29 [facility] Attestation By the signature below, the attending physician certifies that they have 1) personally conducted a gross and/or microscopic examination of the described specimen(s), and/or personally interpreted the results of laboratory testing of the described specimen(s), and 2) personally rendered or confirmed the above diagnosis. 07/18/2023 11:29 [facility] at 1129 Clinical History Coffee ground emesis, esophagitis, mild bile reflux gastritis 07/18/2023 11:29 [facility] Gross Description A. Received in formalin labelled with proper patient identification (initials L, B) and antrum bx is a mcneal-brown tissue fragment, 0.5 x 0.3 x 0.2 cm. Entirely submitted in A1. B. Received in formalin labelled with proper patient identification (initials L, B) and GE stricture bx are four mcneal tissue fragments ranging from 0.1 cm in greatest dimension to 0.2 x 0.2 x 0.1 cm. Entirely submitted in B1. ROSEANN MATTA(ASCP) 07/16/2023 17:20 07/18/2023 11:29 [facility] Performing Lab [facility] 07/18/2023 11:29 EDT [facility] Scanned Images 07/18/2023 11:29 EDT [facility] Tissue ESOPHAGEAL STRUCTURE / Unknown 07/16/2023 12:33 EDT 07/16/2023 16:55 EDT Tissue specimen (specimen) ESOPHAGEAL STRUCTURE / Unknown 07/16/2023 12:33 EDT 07/16/2023 16:55 EDT Ana Alicia DO PATHOLOGY ORDERABLES Performing Organization Address [facility] Co de Phone Number [facility] [address], [place] [address] * HCV RNA DETECT QUANT (07/15/2023 19:00 EDT) [facility] HCV RNA Qualitative Undetected Undetected 07/17/2023 12:38 EDT [facility] Blood VENOUS BLOOD / Unknown 07/15/2023 19:00 EDT 07/16/2023 17:19 EDT Narrative [facility] - 07/17/2023 12:38 EDT The quantification range of this assay is 15 IU/mL to 100,000,000 IU/mL. Testing was performed using the Miranda HCV test ([employer] with the miranda [id number] System. Provider Outr Resulting Lab CHEMISTRY & BLOOD GAS ORDERABLES Performing Organization Address [facility] Co de Phone Number [facility] [address] [place] [phone] * (ABNORMAL) ACUTE HEPATITIS PROFILE (07/15/2023 19:00 EDT) [facility] Hep B Surface Ag Negative Negative 07/16/2023 19:37 EDT [facility] Hep C Antibody Reactive(A) Negative 19:37 EDT [facility] Comment: Supplemental testing for HCV RNA is ordered to rule out active HCV infection. Hepatitis A Antibody, IgM Negative Negative 07/16/2023 19:37 EDT [facility] Comment:The results of this assay can be falsely lowered due to the consumption of Biotin. Hepatitis B Core Ab, Total Negative Negative 07/16/2023 19:37 EDT [facility] Blood VENOUS BLOOD / Unknown 07/15/2023 19:00 EDT 07/16/2023 17:19 EDT Provider Outr Resulting Lab CHEMISTRY & BLOOD GAS ORDERABLES [facility] [address] [place] [address] from Last 3 Months Care Teams Parts Counter Salesperson Relationship Specialty Start Date End Date Gay Pablo NP [address] [place] [id number] PCP - General 04/07/14
--- OUTSIDE RECORDS SUMMARY | 2023-08-30 23:13 | XMS_ITS | Clinical Summary ---
Author Organization [facility] Address [address] [place] [address] Care Team Providers Care Tailor Women'S Garment Alteration Name Role Phone Gay Pablo NP Primary Care Provider + [phone] Encounters Date Type Department Care Team Description 07/17/2023 Lab Requisition [facility] Pathology & Laboratory [address] [address] Outr Resulting Lab, Provider 07/16/2023 Lab Requisition [facility] Pathology & Laboratory [address] [address] Ana Alicia, DO Alcoholic hepatitis without ascites; Hematemesis; Acute pancreatitis without necrosis or infection, unspecified 07/16/2023 Lab Requisition [facility] Pathology Laboratory [address] [address] Outr Resulting Lab, Provider from Last 3 Months Social History Tobacco Use Types Packs/Day Years Used Date Smoking Tobacco: Never Assessed Interpersonal Safety Answer Date Record ed Physically Hurt Never 09/20/2019 Verbally Threaten Not on file 09/20/2019 Sex and Gender Information Value Date Recorded Sex Assigned at Not on file Gender Identity Not on file Sexual Orientation Not on file Plan of Treatment Health Maintenance Due Date Last Done Comments Hepatitis B Vaccine (1 of 3 - 19+ 3-dose series) 10/15/1999 COVID-19 Vaccine (2022-2 4 season) 2022 Hepatitis C Screen Completed 07/15/2023, 0 08/25/2020, 08/25/2020, Additional history exists Procedures Procedure Name Priority Date/Time Associated Diagnosis [...] 4th Generation Negative Negative 07/17/2023 18:39 EDT [facility] Comment:If acute HIV-1 infec tion is suspected in a high risk patient, submit plasma specimen for HIV-1 RNA quantitation test. Blood VENOUS BLOOD / Unknown 07/17/2023 7:10 EDT 07/17/2023 16:38 EDT Narrative [facility] - 07/17/2023 18:39 EDT Fourth Generation assay performed on the Siem[employer] XPT. Provider Outr Resulting Lab IMMUNOLOGY A ND SEROLOGY ORDERABLES Performing Organization Address [facility]/State/ZIP Co de Phone Number [facility] [address] [place] [address] * SURGICAL PATHOLOGY (07/16/2023 12:33 EDT) Note to Patient The following pathology results have been interpreted by your pathologist and may be available to you before your health provider has had the opportunity to review them. Please allow time for your provider to receive these results and explore management options, if applicable. 07/18/2023 11:29 EDT [facility] Final Diagnosis A. STOMACH, ANTRUM, BIOPSY: - Mild chronic focally active gastritis. - Helicobacter pylori is positive on immunohistochemistr y. See comment. B. GE STRICTURE, BIOPSY: - Erosive acute esophagitis. - Silver stain is negative for fungal microorganisms. 07/18/2023 11:29 [facility] Diagnosis Comment Positive and negative controls are staining appropriately. Immunoperoxidase stains were performed on this case to further characterize the lesion. Bricklayer Helper slides of this case were reviewed at the intradepartmental consultation conference. ANTIBODY(CLONE)(BLO CK):RESULT H pylori (Rabbit Monoclonal (SP48), [place]) (A1): Positive NOTE: One or more of [...] performance characteristics have been determined by [facility] and/or by the referring laboratory. The [...] high complexity clinical laboratory testing. 07/18/2023 11:29 [facility] Attestation By the signature below, the attending physician certifies that they have 1) personally conducted a gross and/or microscopic examination of the described specimen(s), and/or personally interpreted the results of laboratory testing of the described specimen(s), and 2) personally rendered or confirmed the above diagnosis. 07/18/2023 11:29 [facility] at 1129 Clinical History Coffee ground emesis, esophagitis, mild bile reflux gastritis 07/18/2023 11:29 [facility] Gross Description A. [...] B1. ROSEANN MATTA(ASCP) 07/16/2023 17:20 07/18/2023 11:29 EDT [facility] Performing Lab [facility] 07/18/2023 11:29 EDT [facility] Scanned Images 07/18/2023 11:29 EDT [facility] Tissue ESOPHAGEAL STRUCTURE / Unknown 07/16/2023 12:33 EDT 07/16/2023 16:55 EDT Tissue specimen (specimen) ESOPHAGEAL STRUCTURE / Unknown 07/16/2023 12:33 EDT 07/16/2023 16:55 EDT Ana Alicia DO PATHOLOGY ORDERABLES Performing Organization Address [facility]/ZIP Co de Phone Number [facility] [address] [place] [address] * HCV RNA DETECT QUANT (07/15/2023 19:00 EDT) Pathologist [facility] HCV RNA Qualitative Undetected Undetected 07/17/2023 12:38 EDT [facility] Blood VENOUS BLOOD / Unknown 07/15/2023 19:00 EDT 07/16/2023 17:19 EDT Narrative [facility] - 07/17/2023 12:38 EDT The quantification range of this assay is 15 IU/mL to 100,000,000 IU/mL. Testing was performed using the Miranda HCV test ([employer] with the miranda 6800 System. Provider Outr Resulting Lab CHEMISTRY & BLOOD GAS ORDERABLES Performing Organization Address [facility]/ZIP Co de Phone Number [facility] [address] [place] [address] * (ABNORMAL) ACUTE HEPATITIS PROFILE (07/15/2023 19:00 EDT) Hep B Surface Ag Negative Negative 07/16/2023 19:37 EDT [facility] Hep C Antibody Reactive(A) Negative 19:37 EDT [facility] Comment: Supplemental testing for HCV RNA is ordered to rule out active HCV infection. Hepatitis A Antibody, IgM Negative Negative 07/16/2023 19:37 EDT [facility] Comment:The results of this assay can be falsely lowered due to the consumption of Biotin. Hepatitis B Core Ab, Total Negative Negative 07/16/2023 19:37 EDT [facility] Blood VENOUS BLOOD / Unknown 07/15/2023 19:00 EDT 07/16/2023 17:19 EDT Provider Outr Resulting Lab CHEMISTRY & BLOOD GAS ORDERABLES [facility] [address] [place] [address] from Last 3 Months Care Teams Tailor Women'S Garment Alteration Relationship Specialty Start Date End Date Gay Pablo NP [address] [place] [address] [address] [place] [address] [facility] - General 04/07/14
--- OUTSIDE RECORDS SUMMARY | 2023-08-30 23:14 | XMS_ITS | Encounter Summary ---
Author Organization [facility] Address [address] [place] [address] Care Team Providers Care Clay Miner Name Role Phone Gay Pablo NP Primary Care Provider + [phone] Encounter Details Date Type Department Care Team (Late st Contact Info) Description 07/16/[address] [facility] Pathology & Laboratory Medicine - [facility] [address] [place] [address] Outr Resulting Lab, Provider Social History Tobacco Use Types Packs/Day Years Used Date Smoking Tobacco: Never Assessed Interpersonal Safety Answer Date Record ed Physically Hurt Never 09/20/2019 Verbally Threaten Not on file 09/20/2019 Sex and Gender Information Value Date Recorded Sex Assigned at Not on file Gender Identity Not on file Sexual Orientation Not on file documented as of this encounter Plan of Treatment Not on file documented as of this encounter Procedures Procedure Name Priority Date/Time Associated Diagnosis Comments HCV RNA DETECT QUANT Today 07/15/2023 19:00 EDT ACUTE HEPATITIS PROFILE Routine 07/15/2023 19:00 EDT documented in this encounter Results * HCV RNA DETECT QUANT (07/15/2023 19:00 EDT) HCV RNA Qualitative Undetected Undetected 07/17/2023 12:38 EDT [facility] Blood VENOUS BLOOD / Unknown 07/15/2023 19:00 EDT 07/16/2023 17:19 EDT Narrative [facility] - 07/17/2023 12:38 EDT The quantification range of this assay is 15 IU/mL to 100,000,000 IU/mL. Testing was performed using the Miranda HCV test ([employer] with the miranda 6800 System. Provider Outr Resulting Lab CHEMISTRY & BLOOD GAS ORDERABLES Performing Organization Address [facility] Co de Phone Number [facility] [address] [place], [place] [phone] * (ABNORMAL) ACUTE HEPATITIS PROFILE (07/15/2023 19:00 EDT) Hep B Surface Ag Negative Negative 07/16/2023 19:37 EDT [facility] Hep C Antibody Reactive(A) Negative 19:37 EDT [facility] Comment: Supplemental testing for HCV RNA is ordered to rule out active HCV infection. Hepatitis A Antibody, IgM Negative Negative 07/16/2023 19:37 EDT [facility] Comment:The results of this assay can be falsely lowered due to the consumption of Biotin. Hepatitis B Core Ab, Total Negative Negative 07/16/2023 19:37 EDT [facility] Blood VENOUS BLOOD / Unknown 07/15/2023 19:00 EDT 07/16/2023 17:19 EDT Provider Outr Resulting Lab CHEMISTRY & BLOOD GAS ORDERABLES Performing Organization Address [facility] Co de Phone Number [facility] [address] [place], [place] [address] documented in this encounter Visit Diagnoses Not on filedocumented in this encounter Care Teams Clay Miner Relationship Specialty Start Date End Date Gay Pablo NP [address] [place] [address] [address] [place] [address] PCP - General 04/07/14 documented as of this encounter
--- OUTSIDE RECORDS SUMMARY | 2023-08-30 23:14 | XMS_ITS | Encounter Summary ---
Author Organization [facility] Address [address] [place] [address] Care Team Providers Care Physician Non Invasive Cardiologist Name Role Phone Unavailable Primary Care Provider Unavailabl e Encounter Details Date Type Department Care Team (Late st Contact Info) Description 10/05/2005 Results Only [facility] Family Medicine - [place] [address] [place] [address] Gabriela Burr MD [address] [place] [phone] Social History Tobacco Use Types Packs/Day Years Used Date Smoking Tobacco: Never Assessed Sex and Gender Information Value Date Recorded Sex Assigned at Not on file Gender Identity Not on file Sexual Orientation Not on file documented as of this encounter Plan of Treatment Not on file documented as of this encounter Procedures Procedure Name Priority Date/Time Associated Diagnosis Comments HPV DETECTION, HIGH RISK TYPES Routine 10/05/2005 10:02 EDT CYTOPATHOLOGY Routine 10/05/2005 0:00 EDT documented in this encounter Results * HUMAN PAPILLOMA VIRUS DNA TEST (10/05/2005 10:02 EDT) Specimen Description Cervix, ThinPrep vial [facility] Result Positive for one or more of HPV types 16,18,31,33,35 ,39,45,51,52,5 6,58,59, or 68. These high/intermedi ate risk HPV types are associated with dysplasia and some cervical cancers. [facility] Report Status Final [id number] [facility] 10/05/2005 10:0 2 EDT 10/16/2005 10:02 EDT Gabriela Burr MD MICROBIOLOGY - GENER AL ORDERABLES [facility] [address] [place] [address] * CYTOPATHOLOGY (10/05/2005 0:00 EDT) Pathology Report: CYTOPATHOLOGY REPORT Reports generated via electronic interface contain original data; however they are lacking the format of the original report. Caution should be taken when reading/interpreti ng unformatted reports. Name: ? JESSEEKENYA ERENDIRA ? Accession #: ? [id number] : ? 1980 (Age: 24) ??F ?Collect Date: ? 10/05/2005 Location: ? [facility] ? Receive Date: ? 10/09/2005 Provider: ?GABRIELA BURR MD Copy to: ?ELIZABETH DEL RIO MD ? Specimen/Source: ?ThinPrep Pap Test, Endocervix, processed on [employer] ThinPrep Imaging System, with manual evaluation Last Menstrual Period: ? 09/18/05 Previous Gynecologic Pathology: ? HSIL Other: ? HPVDX - HPV testing requested regardless of diagnosis on current ThinPrep Pap test. ? SPECIMEN ADEQUACY ? Satisfactory for Evaluation - transformation zone component present GENERAL CATEGORIZATION ? Epithelial Cell Abnormality INTERPRETATION ? Squamous Cell Abnormality - High grade squamous intraepithelial lesion (HSIL). EDUCATIONAL NOTES/RECOMMENDATI ONS ? [facility] recommends following the 2001 Consensus Guidelines for the Management of Women with Cervical Cytological Abnormalities (CESAR,2002;287:212 0-9). Management algorithms have been distributed by [facility] and are available online at www.ASCCP.org. ? Document reviewed and electronically signed by: ? K[facility]LYN [facility]ONZALEZChoctaw [facility] Hospital ? Report Date: ??10/15/2005 14:32 End of Report [facility] 10/05/2005 10/09/2005 Gabriela Burr MD PATHOLOGY ORDERABLES [facility] [address] [place] [address] documented in this encounter Visit Diagnoses Not on filedocumented in this encounter
--- OUTSIDE RECORDS SUMMARY | 2023-08-30 23:14 | XMS_ITS | Encounter Summary ---
Author Organization [facility] Address [address] [place] [address] Care Team Providers Care Electronic Musical Instrument Repairer Name Role Phone Gay Pablo NP Primary Care Provider + [phone] Encounter Details Date Type Department Care Team (Late st Contact Info) Description 04/26/2020 Lab Requisition [facility] Pathology & Laboratory Medicine - [facility] [address] [place] [address] Roxie Adkins MD [address] [place] [id number] Contact with and (suspected) exposure to other viral communicable diseases Social History Tobacco Use Types Packs/Day Years [...] Procedure Name Priority Date/Time Associated Diagnosis Comments ZZCOVID-19 TEST [facility] PCR Today 04/26/2020 13:25 EST Contact with and (suspected) exposure to other viral communicable diseases COVID-19 TESTING Today 04/26/2020 13:2 5 EST Contact with and (suspected) exposure to other viral communicable diseases documented in this encounter Results * COVID-19 TEST [facility] PCR (04/26/2020 13:25 EST) Swab NASAL / Unknown 04/26/2020 1 3:25 EST 04/26/2020 21:34 EST Roxie Adkins MD MICROBIOLOGY - GENER AL ORDERABLES [facility] [address] [place] [address] * COVID-19 TESTING (04/26/2020 13:25 EST) COVID-19 rt-PCR Result Negative Negative 04/27/2020 11:27 EST [facility] Comment: This test has not been FDA cleared or approved. This test has been authorized by FDA under an EUA for use by authorized laboratories. This test has been authorized only for detection of nucleic acid from 2019-nCoV, not for any other viruses or pathogens. This test is only authorized for the duration of the declaration that circumstances exist justifying the authorization of emergency use of in vitro diagnostic tests for detection and/or diagnosis of 2019-nCoV under section 564(b)(1) of Act, 21 U.S.C ?? 360bbb-3(b) (1), unless the authorization is terminated or revoked sooner. Negative results do not preclude 2019-nCoV infection and should not be used as the sole basis for treatment or other patient management decisions. Negative results must be combined with clinical observations, patient history, and epidemiological information. Testing was performed using the miranda SARS-CoV-2 assay ([employer] on the Miranda 6800 System Performing Lab Miranda 6800 [facility] 04/27/2020 11:27 EST [facility] Swab NASAL / Unknown 04/26/2020 1 3:25 EST 04/26/2020 21:34 EST Roxie Adkins MD MICROBIOLOGY - GENER AL ORDERABLES [facility] [address] [place] [address] documented in this encounter Visit Diagnoses Diagnosis Contact with and (suspected) exposure to other viral communicable diseases documented in this encounter Care Teams Electronic Musical Instrument Repairer Relationship Specialty Start Date End Date Gay Pablo NP [address] [place] [address] [address] [place] [phone] PCP - General 04/07/14 documented as of this encounter
--- OUTSIDE RECORDS SUMMARY | 2023-08-30 23:14 | XMS_ITS | Encounter Summary ---
Author Organization [facility] Address [address] [place] [address] Care Team Providers Care Telegraph Repeater Mechanic Name Role Phone Gay Pablo NP Primary Care Provider + [phone] Encounter Details Date Type Department Care Team (Late st Contact Info) Description 03/04/2020 Lab Requisition [facility] Pathology & Laboratory Medicine - [facility] [address] [place], [place] [phone] Outr Resulting Lab, Provider Social History Tobacco [...] Procedure Name Priority Date/Time Associated Diagnosis Comments HOLD SST Today 03/03/2020 16:45 EST HEPATITIS A TOTAL ANTIBODY W REFLEX Today 03/03/2020 16:45 EST HEPATITIS B CORE ANTIBODY (TOTAL) Today 03/03/2020 16:45 EST HEPATITIS B SURFACE ANTIBODY Today 03/03/2020 16:45 EST HEPATITIS B SURFACE ANTIGEN Today 03/03/2020 16:45 EST documented in this encounter Results * HOLD SST (03/03/2020 16:45 EST) Hold Hold 03/04/2020 18:31 EST [facility] Blood VENOUS BLOOD / Unknown 03/03/2020 16:45 EST 03/04/2020 17:16 EST Provider Outr Resulting Lab LAB INFO SER VICE AND SUPPORT & PHONE RESULT Performing Organization Address City/[facility]/ZIP Co de Phone Number [facility] [address] [place] [address] * HEPATITIS B SURFACE ANTIBODY (03/03/2020 16:45 EST) Hep B Surface Ab, Quantitative 479.6 See Note mIU/mL 03/07/2020 10:46 EST [facility] Comment: Reference Range for Hep B Surface Ab, Quant: Positive: >= 10.0 mIU/mL Negative: ??< 10.0 mIU/mL Patient is presumed to be immune to infection with Hepatitis B Virus. Hep B Surface Ab, Qualitative Positive See Note 03/07/2020 10:46 EST [facility] Comment: Reference Range for Hep B Surface Ab, Qual: Unvaccinated: ??Negative Vaccinated: ??Positive Blood VENOUS BLOOD / Unknown 03/03/2020 16:45 EST 03/04/2020 17:15 EST Provider Outr Resulting Lab CHEMISTRY & BLOOD GAS ORDERABLES Performing Organization Address City/[facility]/ZIP Co de Phone Number [facility] [address] [place] [address] * HEPATITIS B CORE ANTIBODY (TOTAL) (03/03/2020 16:45 EST) Pathologist [facility] Hepatitis B Core Ab, Total Negative Negative 03/07/2020 11:32 EST [facility] Blood VENOUS BLOOD / Unknown 03/03/2020 16:45 EST 03/04/2020 17:15 EST Provider Outr Resulting Lab CHEMISTRY & BLOOD GAS ORDERABLES Performing Organization Address City/[facility]/ZIP Co de Phone Number [facility] [address] [place] [phone] * HEPATITIS B SURFACE ANTIGEN (03/03/2020 16:45 EST) Hep B Surface Ag Negative Negative 03/07/2020 10:52 EST [facility] Blood VENOUS BLOOD / Unknown 03/03/2020 16:45 EST 03/04/2020 17:15 EST Provider Outr Resulting Lab CHEMISTRY & BLOOD GAS ORDERABLES Performing Organization Address City/[facility] Co de Phone Number [facility] [address] [place] [address] * HEPATITIS A TOTAL ANTIBODY W REFLEX (03/03/2020 16:45 EST) Hepatitis A Antibody, Total Negative Negative 03/07/2020 11:45 EST [facility] Blood VENOUS BLOOD / Unknown 03/03/2020 16:45 EST 03/04/2020 17:15 EST Narrative [facility] - 03/07/2020 11:45 EST The result of this assay can be falsely elevated (Positive) due to the consumption of Biotin. Provider Outr Resulting Lab CHEMISTRY & BLOOD GAS ORDERABLES Performing Organization Address [facility] Co de Phone Number [facility] [address] [place] [address] documented in this encounter Visit Diagnoses Not on filedocumented in this encounter Care Teams Telegraph Repeater Mechanic Relationship Specialty Start Date End Date Gay Pablo NP [address] [place] [address] [address] [place] [address] PCP - General 04/07/14 documented as of this encounter
--- OUTSIDE RECORDS SUMMARY | 2023-08-30 23:14 | XMS_ITS | Encounter Summary ---
Author Organization [facility] Address [address] [place] [address] Care Team Providers Care Buttonhole Marker Name Role Phone Unavailable Primary Care Provider Unavailabl e Encounter Details Date Type Department Care Team (Late st Contact Info) Description 12/17/2005 Results Only [facility] [address] [place] [address] Sandra Cancino MD [address] [place] [address] [place] [address] Social History Tobacco Use Types Packs/Day Years Used Date Smoking Tobacco: Never Assessed Sex and Gender Information Value Date Recorded Sex Assigned at Not on file Gender Identity Not on file Sexual Orientation Not on file documented as of this encounter Plan of Treatment Not on file documented as of this encounter Procedures Procedure Name Priority Date/Time Associated Diagnosis Comments SURGICAL PATHOLOGY Routine 12/17/2005 0:00 EST documented in this encounter Results * SURGICAL PATHOLOGY (12/17/2005 0:00 EST) Pathology Report: SURGICAL PATHOLOGY REPORT Reports generated via electronic interface contain original data; however they are lacking the format of the original report. Caution should be taken when reading/interpreting unformatted reports. Name: ? ERENDIRA GUZMAN ? Accession #: ? [id number] ? : ? 1980 (Age: 25) ??F ? Collect Date: ? 12/17/2005 ? Location: ? [facility] ? Receive Date: ? 12/17/2005 ? Provider: SANDRA CANCINO MD Copy to: JOSE SAUNDERS STOCKROOM COORDINATOR ? Final Pathologic Diagnosis: A. ?Cervix, 3 o'clock, biopsy: 1. ?Squamous mucosa with reactive epithelial atypia. ? - No dysplasia identified. B. ?Cervix, 12 o'clock, biopsy: 1. 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 ??See comment. ? - Glandular extension identified. Comment: ? This case was reviewed at intradepartmental consultation conference. ??(Dr. Arias)/[facility] Document reviewed and electronically signed by: Ana Samayoa MD Report ??Date: 12/19/2005 15:56 By the signature above, the attending physician certifies that he/she has personally conducted a gross and/or microscopic examination of the described specimens and rendered or confirmed the above diagnosis. Specimen(s) Received: ? Cx bx @ 3:00 and 12:00 Clinical History: ? 10/05/05 Pap HSIL; LMP: 11/20/05 Gross Description: ? Received in formalin labelled [place]are and cx bx at 3 o'clock and at 8:45 is a mucosal covered mcneal-white soft tissue that is roughly triangular in shape and is 0.4 x 0.3 x 0.2 cm and is submitted as (A). Received in formalin labelled [place] and cx bx at 12 o'clock, at 8:45 is a mcneal-pink mucosal covered soft tissue that is 0.4 x 0.3 x 0.2 cm and is submitted intact as (B). ??(Dr. Crocker-)/tmg End of Report [facility] 12/17/2005 12/17/2005 15: 28 EST Sandra Cancino MD PATHOLOGY ORDERABLES Performing Organization Address City/State/[facility] Co de Phone Number [facility] [address] [place] [address] documented in this encounter Visit Diagnoses Not on filedocumented in this encounter
--- OUTSIDE RECORDS SUMMARY | 2023-08-30 23:14 | XMS_ITS | Encounter Summary ---
Author Organization [facility] Address [address] [place] [address] Care Team Providers Care Shucker Name Role Phone Gay Pablo NP Primary Care Provider + [phone] Encounter Details Date Type Department Care Team (Late st Contact Info) Description 02/24/2020 Lab Requisition [facility] Pathology & Laboratory Medicine - [facility] [address], [place] [address] Outr Resulting Lab, Provider Social History Tobacco [...] Diagnosis Comments HCV RNA DETECT QUANT Today 02/23/2020 15:59 EST HEPATITIS C AB W REFLEX TO HCV RNA BY PCR Routine 02/23/2020 15:59 EST documented in this encounter Results * (ABNORMAL) HCV RNA DETECT QUANT (02/23/2020 15:59 EST) HCV RNA Qualitative Detected( A) Undetected 02/26/2020 12:51 EST [facility] HCV RNA Quantitative 542,859(H ) Undetected IU/mL 02/26/2020 12:51 EST [facility] Blood VENOUS BLOOD / Unknown 02/23/2020 15:59 EST 02/24/2020 15:56 EST Narrative [facility] - 02/26/2020 12:51 EST The quantification range of this assay is 15 IU/mL to 100,000,000 IU/mL. ??Testing was performed on the SANDRA Ampliprep/SANDRA TaqMan HCV v2.0 ([employer] Provider Outr Resulting Lab CHEMISTRY & BLOOD GAS ORDERABLES Performing Organization Address City/[facility] Co de Phone Number [facility] [address] [place] [address] * (ABNORMAL) HEPATITIS C AB W REFLEX TO HCV RNA BY PCR (02/23/2020 15:59 EST) Hep C Antibody Reactive(A ) Negative 02/25/2020 10:04 EST [facility] Comment: Supplemental testing for HCV RNA is ordered to rule out active HCV infection. Blood VENOUS BLOOD / Unknown 02/23/2020 15:59 EST 02/24/2020 15:56 EST Provider Outr Resulting Lab CHEMISTRY & BLOOD GAS ORDERABLES Performing Organization Address [facility] Co de Phone Number [facility] [address] [place] [address] documented in this encounter Visit Diagnoses Not on filedocumented in this encounter Care Teams Shucker Relationship Specialty Start Date End Date Gay Pablo NP [address] [place] [address] [address] [place] [address] PCP - General 04/07/14 documented as of this encounter
--- OUTSIDE RECORDS SUMMARY | 2023-08-30 23:14 | XMS_ITS | Encounter Summary ---
Author Organization [facility] Address [address] [place] [address] Care Team Providers Care Power Technician Name Role Phone Gay Pablo NP Primary Care Provider + [phone] Encounter Details Date Type Department Care Team (Late st Contact Info) Description 01/19/2020 Lab Requisition [facility] Pathology & Laboratory Medicine - [address] [address] Roxie Adkins MD [address] [place] [id number] Encounter for screening for other viral diseases Social History Tobacco Use Types Packs/Day [...] Procedure Name Priority Date/Time Associated Diagnosis Comments DO NOT ORDER STANDALONE - BROAD COVID TEST Today 01/19/2020 14:20 EST Encounter for screening for other viral diseases COVID-19 TESTING Today 01/19/2020 14:2 0 EST Encounter for screening for other viral diseases documented in this encounter Results * DO NOT ORDER STANDALONE - BROAD COVID TEST (01/19/2020 14:20 EST) COVID-19 rt-PCR Result NEGATIVE Negative 01/21/2020 10:38 EST [facility] Comment: 2019-novel Coronavirus (2019-nCoV) not detected by the qRT-PCR assay. Consider testing for other respiratory viruses or re-collecting for 2019-nCoV testing. Note: Optimum timing for peak viral levels during infections caused by 2019-nCoV have not been determined. Collection of multiple specimens from the same patient may be necessary to detect the virus. Limitations Positive results are indicative of active infection with SARS-CoV-2 but do not rule out bacterial infection or co-infection with other viruses. The agent detected may not be the definite cause of disease. In addition, detection of viral RNA may not indicate the presence of infectious virus or that SARS-CoV-2 is the causative agent for clinical symptoms. Negative results do not preclude SARS-CoV-2 infection and should not be used as the sole basis for patient management decisions. Negative results must be combined with clinical observations, patient history, and epidemiological information. False negative results may also occur if amplification inhibitors are present in the specimen or if inadequate numbers of organisms are present in the specimen. Optimum specimen types and timing for peak viral levels during infections caused by SARS-CoV-2 have not been fully determined. Collection of multiple specimens (types and time points) from the same patient may be necessary to detect the virus. The test was validated for use with upper respiratory specimens obtained via nasopharyngeal or oropharyngeal swabs in VTM, UTM, M4, M5, M6, saline, and MTM media. The performance of this test has not been established for other specimens. Specimens collected using other FDA recommended Specimen Collection Materials listed in the FDA COVID-19 Diagnostic Technologies communication (May 14, 2019) are processed with the caveat that they were not all validated for use with this test and the result must be interpreted in this context. Furthermore, a false negative results may occur if a specimen is improperly collected, transported or handled. If the virus mutates in the RT-PCR target region, SARS-CoV-2 may not be detected or may be detected less predictably. Inhibitors or other types of interference may produce a false negative result. An interference study evaluating the effect of common cold medications was not performed. This test is not FDA-cleared but its performance characteristics were established by our CLIA-certified, CAP-accredited, high complexity laboratory in accordance with CLIA regulations, College of [employer] (CAP) guidelines (May 07, 2019), and FDA guidance (Apr 18, 2019). This test is only for use under the Food and Drug Administration's Emergency Use Authorization. Swab ENTIRE NASOPHARYNX / Unknown 01/19/2020 14:20 EST 01/19/2020 22:25 EST Roxie Adkins MD MICROBIOLOGY - GENER AL ORDERABLES [facility] [place], [place] * COVID-19 TESTING (01/19/2020 14:20 EST) Pathologist [facility] COVID-19 rt-PCR Result NEGATIVE Negative 01/21/2020 10:38 EST [facility] Comment: 2019-novel Coronavirus (2019-nCoV) not detected by the qRT-PCR assay. Consider testing for other respiratory viruses or re-collecting for 2019-nCoV testing. Note: Optimum timing for peak viral levels during infections caused by 2019-nCoV have not been determined. Collection of multiple specimens from the same patient may be necessary to detect the virus. Limitations Positive results are indicative of active infection with SARS-CoV-2 but do not rule out bacterial infection or co-infection with other viruses. The agent detected may not be the definite cause of disease. In addition, detection of viral RNA may not indicate the presence of infectious virus or that SARS-CoV-2 is the causative agent for clinical symptoms. Negative results do not preclude SARS-CoV-2 infection and should not be used as the sole basis for patient management decisions. Negative results must be combined with clinical observations, patient history, and epidemiological information. False negative results may also occur if amplification inhibitors are present in the specimen or if inadequate numbers of organisms are present in the specimen. Optimum specimen types and timing for peak viral levels during infections caused by SARS-CoV-2 have not been fully determined. Collection of multiple specimens (types and time points) from the same patient may be necessary to detect the virus. The test was validated for use with upper respiratory specimens obtained via nasopharyngeal or oropharyngeal swabs in VTM, UTM, M4, M5, M6, saline, and MTM media. The performance of this test has not been established for other specimens. Specimens collected using other FDA recommended Specimen Collection Materials listed in the FDA COVID-19 Diagnostic [employer] communication (May 14, 2019) are processed with the caveat that they were not all validated for use with this test and the result must be interpreted in this context. Furthermore, a false negative results may occur if a specimen is improperly collected, transported or handled. If the virus mutates in the RT-PCR target region, SARS-CoV-2 may not be detected or may be detected less predictably. Inhibitors or other types of interference may produce a false negative result. An interference study evaluating the effect of common cold medications was not performed. This test is not FDA-cleared but its performance characteristics were established by our CLIA-certified, CAP-accredited, high complexity laboratory in accordance with CLIA regulations, College of [employer]ologists (CAP) guidelines (May 07, 2019), and FDA guidance (Apr 18, 2019). This test is only for use under the Food and Drug Administration's Emergency Use Authorization. Performing Lab [facility] 01/21/2020 10:38 EST [facility] Swab 01/19/2020 14:2 0 EST 01/19/2020 22:25 EST Roxie Adkins MD MICROBIOLOGY - GENER AL ORDERABLES [facility] [address] [place] [address] [facility] [place], [place] documented in this encounter Visit Diagnoses Diagnosis Encounter for screening for other viral diseases documented in this encounter Care Teams Power Technician Relationship Specialty Start Date End Date Gay Pablo NP [address] [facility] [address] [place] [id number] PCP - General 04/07/14 documented as of this encounter
--- OUTSIDE RECORDS SUMMARY | 2023-08-30 23:14 | XMS_ITS | Encounter Summary ---
Author Organization [facility] Address [address] [place] [address] Care Team Providers Care City Letter Carrier Name Role Phone Gay Pablo NP Primary Care Provider + [phone] Encounter Details Date Type Department Care Team (Late st Contact Info) Description 07/17/2023 Lab Requisition [facility] Pathology & Laboratory Medicine - [facility] [address] [place] [address] Outr Resulting Lab, Provider Social History Tobacco [...] ANTIBODY, 4TH GENERATION Routine 07/17/2023 7:10 EDT documented in this encounter Results * HIV 1/2 ANTIGEN AND ANTIBODY, 4TH GENERATION (07/17/2023 7:10 EDT) HIV 1 and 2 Antibody/p24 Antigen, 4th Generation Negative Negative 07/17/2023 18:39 EDT [facility] Comment:If acute HIV-1 infec tion is suspected in a high risk patient, submit plasma specimen for HIV-1 RNA quantitation test. Blood VENOUS BLOOD / Unknown 07/17/2023 7:10 EDT 07/17/2023 16:38 EDT Narrative [facility] - 07/17/2023 18:39 EDT Fourth Generation assay performed on the [employer] XPT. Provider Outr Resulting Lab IMMUNOLOGY A ND SEROLOGY ORDERABLES [facility] [address] [place] [address] documented in this encounter Visit Diagnoses Not on filedocumented in this encounter Care Teams City Letter Carrier Relationship Specialty Start Date End Date Gay Pablo NP [address] [place] [address] [address] [place] [address] PCP - General 04/07/14 documented as of this encounter
--- OUTSIDE RECORDS SUMMARY | 2023-08-30 23:14 | XMS_ITS | Encounter Summary ---
Author Organization [facility] Address [address] [place] [address] Care Team Providers Care Supervisor Stripping Name Role Phone Gay Pablo NP Primary Care Provider + [phone] Encounter Details Date Type Department Care Team (Late st Contact Info) Description 08/17/2019 Lab Requisition [facility] Pathology & Laboratory Medicine - [address] [id number] Outr Resulting Lab, Provider Social History Tobacco [...] Comments ZZCOVID-19 TEST [facility] PCR Today 08/17/2019 17:42 EDT COVID-19 TESTING Routine 08/17/2019 17:4 2 EDT documented in this encounter Results * COVID-19 TEST [facility] PCR (08/17/2019 17:42 EDT) Swab ENTIRE NASOPHARYNX / Unknown 08/17/2019 17:42 EDT 08/18/2019 15:50 EDT Provider Outr Resulting Lab MICROBIOLOGY - GENERAL ORDERABLES [facility] [address] [place] [address] * COVID-19 TESTING (08/17/2019 17:42 EDT) COVID-19 rt-PCR Result Negative Negative 08/19/2019 17:21 EDT [facility] Comment: Negative results do not preclude 2019-nCoV infection and should not be used as the sole basis for treatment or other patient management decisions. Negative results must be combined with clinical observations, patient history, and epidemiological information. This test was developed and its performance characteristics determined by [facility]. It has not been cleared or approved by the US Food and Drug Administration. FDA does not require this test to go through premarket FDA review. This test is used for clinical purposes. It should not be regarded as investigational or for research. This laboratory is certified under the Clinical Laboratory Improvement Amendments (CLIA) as qualified to perform high complexity clinical laboratory testing. This test is based on the CDC COVID-19 Emergency Use Authorization (EUA) assay, with minor modification as defined by the FDA Performed on the [employer] [address] Fast. Performing Lab [address] [facility] 08/19/2019 17:21 EDT [facility] Swab 08/17/2019 17:4 2 EDT 08/18/2019 15:50 EDT Provider Outr Resulting Lab MICROBIOLOGY - GENERAL ORDERABLES [facility] [address] [place] [address] documented in this encounter Visit Diagnoses Not on filedocumented in this encounter Care Teams Supervisor Stripping Relationship Specialty Start Date End Date Gay Pablo NP [address] [place] [address] [address] [place] [address] PCP - General 04/07/14 documented as of this encounter
--- OUTSIDE RECORDS SUMMARY | 2023-08-30 23:14 | XMS_ITS | Encounter Summary ---
Author Organization [facility] Address [address] [place] [address] Care Team Providers Care Telephone Maintenance Mechanic Name Role Phone Gay Pablo NP Primary Care Provider + [phone] Encounter Details Date Type Department Care Team (Late st Contact Info) Description 07/16/2023 Lab Requisition [facility] Pathology & Laboratory Medicine - [facility] [address] [place] [address] Ana Alicia, DO [address] [address] [place] [address] Alcoholic hepatitis without ascites; Hematemesis; Acute pancreatitis without necrosis or infection, unspecified Social History Tobacco Use Types Packs/Day Years [...] Priority Date/Time Associated Diagnosis Comments SURGICAL PATHOLOGY Today 07/16/2023 12 :33 EDT Alcoholic hepatitis without ascites Hematemesis Acute pancreatitis without necrosis or infection, unspecified documented in this encounter Results * SURGICAL PATHOLOGY (07/16/2023 12:33 EDT) Note to Patient The following pathology results have been interpreted by your pathologist and may be available to you before your health provider has had the opportunity to review them. Please allow time for your provider to receive these results and explore management options, if applicable. 07/18/2023 11:29 [facility] Final Diagnosis A. STOMACH, ANTRUM, BIOPSY: - Mild chronic focally active gastritis. - Helicobacter pylori is positive on immunohistochemistr y. See comment. B. GE STRICTURE, BIOPSY: - Erosive acute esophagitis. - Silver stain is negative for fungal microorganisms. 07/18/2023 11:29 [facility] Diagnosis Comment Positive and negative controls are staining appropriately. Immunoperoxidase stains were performed on this case to further characterize the lesion. Building Appraiser slides of this case were reviewed at the intradepartmental consultation conference. ANTIBODY(CLONE)(BLO CK):RESULT H pylori (Rabbit Monoclonal (SP48), [place]) (A1): Positive NOTE: One or more of [...] performance characteristics have been determined by [facility] and/or by the referring laboratory. The [...] high complexity clinical laboratory testing. 07/18/2023 11:29 [facility] Attestation By the signature below, the attending physician certifies that they have 1) personally conducted a gross and/or microscopic examination of the described specimen(s), and/or personally interpreted the results of laboratory testing of the described specimen(s), and 2) personally rendered or confirmed the above diagnosis. 07/18/2023 11:29 [facility] at [address] Clinical History Coffee ground emesis, esophagitis, mild bile reflux gastritis 07/18/2023 11:29 [facility] Gross Description A. [...] ROSEANN MATTA(ASCP) 07/16/2023 17:20 07/18/2023 11:29 EDT [facility] Performing Lab [facility] 07/18/2023 11:29 EDT [facility] Scanned Images 07/18/2023 11:29 EDT [facility] Tissue ESOPHAGEAL STRUCTURE / Unknown 07/16/2023 12:33 EDT 07/16/2023 16:55 EDT Tissue specimen (specimen) ESOPHAGEAL STRUCTURE / Unknown 07/16/2023 12:33 EDT 07/16/2023 16:55 EDT Ana Alicia DO PATHOLOGY ORDERABLES [facility] [address] [place] [address] documented in this encounter Visit Diagnoses Diagnosis Alcoholic hepatitis without ascites Acute alcoholic hepatitis Hematemesis Acute pancreatitis without necrosis or infection, unspecified documented in this encounter Care Teams Telephone Maintenance Mechanic Relationship Specialty Start Date End Date Gay Pablo NP [address] [place] [address] [address] [place] [phone] PCP - General 04/07/14 documented as of this encounter
--- OUTSIDE RECORDS SUMMARY | 2023-08-30 23:14 | XMS_ITS | Encounter Summary ---
Author Organization [facility] Address [address] [place] [address] Care Team Providers Care Painter Plate Name Role Phone Gay Pablo NP Primary Care Provider + [phone] Encounter Details Date Type Department Care Team (Late st Contact Info) Description 02/24/2020 Lab Requisition [facility] Pathology & Laboratory Medicine - [facility] [address] [place], [place] [address] Outr Resulting Lab, Provider Social History Tobacco [...] 1/2 ANTIGEN AND ANTIBODY, 4TH GENERATION Routine 02/23/2020 15:59 EST documented in this encounter Results * HIV 1/2 ANTIGEN AND ANTIBODY, 4TH GENERATION (02/23/2020 15:59 EST) HIV 1 and 2 Antibody/p24 Antigen, 4th Generation Negative Negative 02/25/2020 10:29 EST [facility] Comment: If acute HIV-1 infection is suspected in a high risk ??patient, submit plasma specimen for HIV-1 RNA quantitation test. Fourth Generation assay performed on the [employer]. Blood VENOUS BLOOD / Unknown 02/23/2020 15:59 EST 02/24/2020 15:56 EST Provider Outr Resulting Lab IMMUNOLOGY A ND SEROLOGY ORDERABLES [facility] [address] [place] [address] documented in this encounter Visit Diagnoses Not on filedocumented in this encounter Care Teams Painter Plate Relationship Specialty Start Date End Date Gay Pablo NP [address] [place] [address] [address] [place] [address] PCP - General 04/07/14 documented as of this encounter
--- OUTSIDE RECORDS SUMMARY | 2023-08-30 23:14 | XMS_ITS | Encounter Summary ---
Author Organization [facility] Address [address] [place] [address] Care Team Providers Care Product Applications Scientist Name Role Phone Gay Pablo NP Primary Care Provider + [phone] Encounter Details Date Type Department Care Team (Late st Contact Info) Description 07/25/2019 Lab Requisition [facility] Pathology & Laboratory Medicine - [address] [address] Outr Resulting Lab, Provider Social History Tobacco [...] ORDER STANDALONE - BROAD COVID TEST Today 07/25/2019 10:00 EDT COVID-19 TESTING Routine 07/25/2019 10:0 0 EDT documented in this encounter Results * DO NOT ORDER STANDALONE - BROAD COVID TEST (07/25/2019 10:00 EDT) COVID-19 rt-PCR Result NEGATIVE Negative 07/27/2019 0:45 EDT [facility] Comment: 2019-novel Coronavirus (2019-nCoV) not [...] in accordance with CLIA regulations, College of [employer] [employer] (CAP) guidelines (May 07, 2019), and FDA guidance (Apr 18, 2019). This test is only for use under the Food and Drug Administration's Emergency Use Authorization. Swab ENTIRE NASOPHARYNX / Unknown 07/25/2019 10:00 EDT 07/25/2019 21:23 EDT Provider Outr Resulting Lab MICROBIOLOGY - GENERAL ORDERABLES [facility] [place], [place] * COVID-19 TESTING (07/25/2019 10:00 EDT) COVID-19 rt-PCR Result NEGATIVE Negative 07/27/2019 7:01 EDT [facility] Comment: 2019-novel Coronavirus (2019-nCoV) not detected [...] in accordance with CLIA regulations, [employer] of [employer] (CAP) guidelines (May 07, 2019), and FDA guidance (Apr 18, 2019). This test is only for use under the Food and Drug Administration's Emergency Use Authorization. Performing Lab [facility] 07/27/2019 7:01 EDT [facility] Swab ENTIRE NASOPHARYNX / Unknown 07/25/2019 10:00 EDT 07/25/2019 21:23 EDT Provider Outr Resulting Lab MICROBIOLOGY - GENERAL ORDERABLES [facility] [address] [place] [address] [facility] [place], [place] documented in this encounter Visit Diagnoses Not on filedocumented in this encounter Care Teams Product Applications Scientist Relationship Specialty Start Date End Date Gay Pablo NP [address] [place] [address] [address] [place] [address] PCP - General 04/07/14 documented as of this encounter
--- OUTSIDE RECORDS SUMMARY | 2023-08-30 23:14 | XMS_ITS | Encounter Summary ---
Author Organization [facility] Address [address] [place] [address] Care Team Providers Care Pizza Driver Name Role Phone aGy Pablo NP Primary Care Provider + [phone] Encounter Details Date Type Department Care Team (Late st Contact Info) Description 04/16/2020 Lab Requisition [facility] Pathology & Laboratory Medicine - [facility] [address], [place] [address] Outr Resulting Lab, Provider Social History Tobacco [...] Diagnosis Comments HCV RNA DETECT QUANT Today 04/15/2020 16:17 EST HEPATITIS C AB W REFLEX TO HCV RNA BY PCR Routine 04/15/2020 16:17 EST documented in this encounter Results * HCV RNA DETECT QUANT (04/15/2020 16:17 EST) HCV RNA Qualitative Undetected Undetected 04/20/2020 13:57 EST [facility] Blood VENOUS BLOOD / Unknown 04/15/2020 16:17 EST 04/17/2020 16:21 EST Narrative [facility] - 04/20/2020 13:57 EST The quantification range of this assay is 15 IU/mL to 100,000,000 IU/mL. ??Testing was performed on the SANDRA Ampliprep/SANDRA TaqMan HCV v2.0 (Shavon [employer] Provider Outr Resulting Lab CHEMISTRY & BLOOD GAS ORDERABLES Performing Organization Address [facility]/ZIP Co de Phone Number [facility] [address] [place] [address] * (ABNORMAL) HEPATITIS C AB W REFLEX TO HCV RNA BY PCR (04/15/2020 16:17 EST) Hep C Antibody Reactive(A ) Negative 04/18/2020 11:33 EST [facility] Comment: Supplemental testing for HCV RNA is ordered to rule out active HCV infection. Blood VENOUS BLOOD / Unknown 04/15/2020 16:17 EST 04/17/2020 16:21 EST Provider Outr Resulting Lab CHEMISTRY & BLOOD GAS ORDERABLES Performing Organization Address [facility] [[email or web address]] Co de Phone Number [facility] [address] [place] [address] documented in this encounter Visit Diagnoses Not on filedocumented in this encounter Care Teams Pizza Driver Relationship Specialty Start Date End Date Gay Pablo NP [address] [place] [address] [address] [place] [address] PCP - General 04/07/14 documented as of this encounter
--- OUTSIDE RECORDS SUMMARY | 2023-08-30 23:14 | XMS_ITS | Encounter Summary ---
Author Organization [facility] Address [address] [place] [address] Care Team Providers Care Wafer Fabrication Technician Name Role Phone Gay Pablo NP Primary Care Provider + [phone] Encounter Details Date Type Department Care Team (Late st Contact Info) Description 04/19/2020 Lab Requisition [facility] Pathology & Laboratory Medicine - [facility] [address] [place] [address] Roxie Adkins MD [address] [place] [address] [phone] Contact with and (suspected) exposure to other [...] Comments ZZCOVID-19 TEST [facility] PCR Today 04/19/2020 11:54 EST Contact with and (suspected) exposure to other viral communicable diseases COVID-19 TESTING Today 04/19/2020 11:5 4 EST Contact with and (suspected) exposure to other viral communicable diseases documented in this encounter Results * COVID-19 TEST [facility] PCR (04/19/2020 11:54 EST) Swab NASAL / Unknown Swab / Unknown 04/19/2020 11:54 EST 04/19/2020 21:19 EST Roxie Adkins MD MICROBIOLOGY - GENER AL ORDERABLES [facility] [address] [place] [address] * COVID-19 TESTING (04/19/2020 11:54 EST) COVID-19 rt-PCR Result Negative Negative 04/20/2020 14:35 EST [facility] Comment: This test has not [...] developed and its performance characteristics determined by [facility]. It has not been cleared or approved [...] testing. This test is based on the [facility] COVID-19 Emergency Use Authorization (EUA) assay, with minor modification as defined by the FDA Performed on the G[employer] 7 Pro RT-PCR System. Performing Lab [facility] 04/20/2020 14:35 EST [facility] Swab NASAL / Unknown Swab / Unknown 04/19/2020 11:54 EST 04/19/2020 21:19 EST Rxoie Adkins MD MICROBIOLOGY - GENER AL ORDERABLES [facility] [address] [place] [address] documented in this encounter Visit Diagnoses Diagnosis Contact with and (suspected) exposure to other viral communicable diseases documented in this encounter Care Teams Wafer Fabrication Technician Relationship Specialty Start Date End Date Gay Pablo NP [address] [place] [address] [address] [place] [address] PCP - General 04/07/14 documented as of this encounter
--- OUTSIDE RECORDS SUMMARY | 2023-08-30 23:14 | XMS_ITS | Encounter Summary ---
Author Organization [facility] Address [address] [place] [address] Care Team Providers Care Gas Fitter Name Role Phone Gay Pablo NP Primary Care Provider + [phone] Encounter Details Date Type Department Care Team (Late st Contact Info) Description 04/12/2020 Lab Requisition [facility] Pathology & Laboratory Medicine - [facility] [address] [place] [address] Roxie Adkins MD [address] [place] [address] [phone] Contact with and (suspected) exposure to other [...] Comments ZZCOVID-19 TEST [facility] PCR Today 04/12/2020 12:22 EST Contact with and (suspected) exposure to other viral communicable diseases COVID-19 TESTING Today 04/12/2020 12:2 2 EST Contact with and (suspected) exposure to other viral communicable diseases documented in this encounter Results * COVID-19 TEST [facility] PCR (04/12/2020 12:22 EST) Swab NASAL / Unknown Swab / Unknown 04/12/2020 12:22 EST 04/12/2020 22:01 EST Roxie Adkins MD MICROBIOLOGY - GENER AL ORDERABLES Performing Organization Address City/[facility]/ZIP Co de Phone Number [facility] [address] [place] [address] * COVID-19 TESTING (04/12/2020 12:22 EST) COVID-19 rt-PCR Result Negative Negative 04/13/2020 15:22 EST [facility] Comment: This test has [...] performed using the miranda SARS-CoV-2 assay ([employer]on [employer] on the Miranda 6800 System Performing Lab [facility] [address] [facility] Lab 04/13/2020 15:22 EST [facility] Swab NASAL / Unknown Swab / Unknown 04/12/2020 12:22 EST 04/12/2020 22:01 EST Roxie Adkins MD MICROBIOLOGY - GENER AL ORDERABLES [facility] [address] [place] [address] documented in this encounter Visit Diagnoses Diagnosis Contact with and (suspected) exposure to other viral communicable diseases documented in this encounter Care Teams Gas Fitter Relationship Specialty Start Date End Date Gay Pablo NP [address] [facility] [address] [place] [address] PCP - General 04/07/14 documented as of this encounter
--- OUTSIDE RECORDS SUMMARY | 2023-08-30 23:14 | XMS_ITS | Encounter Summary ---
Author Organization [facility] Address [address] [place] [address] Care Team Providers Care Security Escort Name Role Phone Gay Pablo NP Primary Care Provider + [phone] Encounter Details Date Type Department Care Team (Late st Contact Info) Description 04/06/2020 Lab Requisition [facility] Pathology & Laboratory Medicine - [facility] [address] [place] [address] Roxie Adkins MD [address] [place] [address] [phone] Contact with and (suspected) exposure to other [...] Comments ZZCOVID-19 TEST [facility] PCR Today 04/05/2020 13:05 EST Contact with and (suspected) exposure to other viral communicable diseases COVID-19 TESTING Today 04/05/2020 13:0 5 EST Contact with and (suspected) exposure to other viral communicable diseases documented in this encounter Results * COVID-19 TEST [facility] PCR (04/05/2020 13:05 EST) Swab NASAL / Unknown Swab / Unknown 04/05/2020 13:05 EST 04/06/2020 21:02 EST Roxie Adkins MD MICROBIOLOGY - GENER AL ORDERABLES [facility] [address] [place] [address] * COVID-19 TESTING (04/05/2020 13:05 EST) COVID-19 rt-PCR Result Negative Negative 04/07/2020 14:58 EST [facility] Comment: This test was developed and its performance characteristics determined by [facility]. It has not been cleared or [...] testing. This test is based on the [facility] COVID-19 Emergency Use Authorization (EUA) assay, with minor modification as defined by the FDA Performed on the [employer] Pro RT-PCR System. This test has not been FDA cleared [...] clinical observations, patient history, and epidemiological information. Performing Lab [facility] Lab 04/07/2020 14:58 EST [facility] Swab NASAL / Unknown Swab / Unknown 04/05/2020 13:05 EST 04/06/2020 21:02 EST Roxie Adkins MD MICROBIOLOGY - GENER AL ORDERABLES [facility] [address] [place] [address] documented in this encounter Visit Diagnoses Diagnosis Contact with and (suspected) exposure to other viral communicable diseases documented in this encounter Care Teams Security Escort Relationship Specialty Start Date End Date Gay Pablo NP [address] [place] [address] [address] [place] [address] PCP - General 04/07/14 documented as of this encounter
--- OUTSIDE RECORDS SUMMARY | 2023-08-30 23:14 | XMS_ITS | Encounter Summary ---
Author Organization [facility] Address [address] [place] [address] Care Team Providers Care High Speed Printer Operator Name Role Phone Gay Pablo NP Primary Care Provider + [phone] Encounter Details Date Type Department Care Team (Late st Contact Info) Description 02/23/2020 Lab Requisition [facility] Pathology & Laboratory Medicine - [facility] [address] [place] [address] Roxie Adkins MD [address] [place] [address] [phone] Contact with and (suspected) exposure to other [...] ORDER STANDALONE - BROAD COVID TEST Today 02/23/2020 13:35 EST Contact with and (suspected) exposure to other viral communicable diseases COVID-19 TESTING Today 02/23/2020 13:3 5 EST Contact with and (suspected) exposure to other viral communicable diseases documented in this encounter Results * DO NOT ORDER STANDALONE - BROAD COVID TEST (02/23/2020 13:35 EST) COVID-19 rt-PCR Result NEGATIVE Negative 02/24/2020 20:36 [facility] Comment: 2019-novel Coronavirus (2019-nCoV) not detected [...] in accordance with CLIA regulations, College of [place] [employer] (CAP) guidelines (May 07, 2019), and FDA guidance (Apr 18, 2019). This test is only for use under the Food and Drug Administration's Emergency Use Authorization. Swab ENTIRE NASOPHARYNX / Unknown 02/23/2020 13:35 EST 02/23/2020 21:19 EST Roxie Adkins MD MICROBIOLOGY - GENER AL ORDERABLES [place], [place] * COVID-19 TESTING (02/23/2020 13:35 EST) COVID-19 rt-PCR Result NEGATIVE Negative 02/24/2020 21:08 EST [facility] Comment: 2019-novel Coronavirus (2019-nCoV) not detected [...] in accordance with CLIA regulations, [employer] [place] [employer] (CAP) guidelines (May 07, 2019), and FDA guidance (Apr 18, 2019). This test is only for use under the Food and Drug Administration's Emergency Use Authorization. Performing Lab [facility] 02/24/2020 21:08 EST [facility] Swab ENTIRE NASOPHARYNX / Unknown 02/23/2020 13:35 EST 02/23/2020 21:19 EST Roxie Adkins MD MICROBIOLOGY - GENER AL ORDERABLES [facility] [address] [place] [address] [facility] [place], [place] documented in this encounter Visit Diagnoses Diagnosis Contact with and (suspected) exposure to other viral communicable diseases documented in this encounter Care Teams High Speed Printer Operator Relationship Specialty Start Date End Date Gay Pablo NP [address] [place] [address] [address] [place] [phone] PCP - General 04/07/14 documented as of this encounter
--- OUTSIDE RECORDS SUMMARY | 2023-08-30 23:14 | XMS_ITS | Encounter Summary ---
Author Organization [facility] Address [address] [place] [address] Care Team Providers Care Photographic Supervisor Name Role Phone Gay Pablo NP Primary Care Provider + [phone] Encounter Details Date Type Department Care Team (Late st Contact Info) Description 02/16/2020 Lab Requisition [facility] Pathology & Laboratory Medicine - [address] [address] Roxie Adkins MD [address] [place] [address] [phone] Contact with and (suspected) exposure to other [...] ORDER STANDALONE - BROAD COVID TEST Today 02/16/2020 6:45 EST Contact with and (suspected) exposure to other viral communicable diseases COVID-19 TESTING Today 02/16/2020 6:45 EST Contact with and (suspected) exposure to other viral communicable diseases documented in this encounter Results * DO NOT ORDER STANDALONE - BROAD COVID TEST (02/16/2020 6:45 EST) COVID-19 rt-PCR Result NEGATIVE Negative 02/17/2020 17:18 [facility] Comment: 2019-novel Coronavirus (2019-nCoV) not detected [...] in accordance with CLIA regulations, College of [place] [employer] (CAP) guidelines (May 07, 2019), and FDA guidance (Apr 18, 2019). This test is only for use under the Food and Drug Administration's Emergency Use Authorization. Swab ENTIRE NASOPHARYNX / Unknown Swab / Unknown 02/16/2020 6:45 EST 02/16/2020 22:30 EST Roxie Adkins MD MICROBIOLOGY - [facility] AL ORDERABLES [place], [place] * COVID-19 TESTING (02/16/2020 6:45 EST) COVID-19 rt-PCR Result NEGATIVE Negative 02/17/2020 18:09 EST [facility] Comment: 2019-novel Coronavirus (2019-nCoV) not [...] in accordance with CLIA regulations, College of [place] [employer]ologists (CAP) guidelines (May 07, 2019), and FDA guidance (Apr 18, 2019). This test is only for use under the Food and Drug Administration's Emergency Use Authorization. Performing Lab [facility] 02/17/2020 18:09 EST [facility] Swab ENTIRE NASOPHARYNX / Unknown Swab / Unknown 02/16/2020 6:45 EST 02/16/2020 22:30 EST Roxie Adkins MD MICROBIOLOGY - GENER AL ORDERABLES [facility] [address] [place] [address] [facility] [place], [place] documented in this encounter Visit Diagnoses Diagnosis Contact with and (suspected) exposure to other viral communicable diseases documented in this encounter Care Teams Photographic Supervisor Relationship Specialty Start Date End Date Gay Pablo NP [address] [place] [address] [address] [place] [phone] PCP - General 04/07/14 documented as of this encounter
--- OUTSIDE RECORDS SUMMARY | 2023-08-30 23:14 | XMS_ITS | Encounter Summary ---
Author Organization [facility] Address [address] [place] [address] Care Team Providers Care Videotape Operator Name Role Phone Gay Pablo NP Primary Care Provider + [phone] Encounter Details Date Type Department Care Team (Late st Contact Info) Description 12/29/2020 Lab Requisition [facility] Pathology & Laboratory Medicine - [address] [address] Outr Resulting Lab, Provider Social History Tobacco [...] Comments ZZCOVID-19 TEST [facility] PCR Today 12/29/2020 11:46 EST COVID-19 TESTING Routine 12/29/2020 11:4 6 EST documented in this encounter Results * COVID-19 TEST [facility] PCR (12/29/2020 11:46 EST) Swab 12/29/2020 11:4 6 EST 12/29/2020 21:43 EST Provider Outr Resulting Lab MICROBIOLOGY - GENERAL ORDERABLES [facility] [address] [place] [address] * COVID-19 TESTING (12/29/2020 11:46 EST) COVID-19 rt-PCR Result Negative Negative 12/30/2020 15:57 EST [facility] Comment: This test has [...] performed using the miranda SARS-CoV-2 assay (Shavon [employer] on the Miranda 6800 System Performing Lab [facility] [address] [facility] 12/30/2020 15:57 EST [facility] Swab 12/29/2020 11:4 6 EST 12/29/2020 21:43 EST Provider Outr Resulting Lab MICROBIOLOGY - GENERAL ORDERABLES Performing Organization Address City/State/[facility] Co de Phone Number [facility] [address] [place] [address] documented in this encounter Visit Diagnoses Not on filedocumented in this encounter Care Teams Videotape Operator Relationship Specialty Start Date End Date Gay Pablo NP [address] [place] [address] [address] [place] [phone] PCP - General 04/07/14 documented as of this encounter
--- OUTSIDE RECORDS SUMMARY | 2023-08-30 23:14 | XMS_ITS | Encounter Summary ---
Author Organization [facility] Address [address] [place] [address] Care Team Providers Care Radiology Transcriptionist Name Role Phone Gay Pablo NP Primary Care Provider + [phone] Encounter Details Date Type Department Care Team (Late st Contact Info) Description 08/26/2020 Lab Requisition [facility] Pathology & Laboratory Medicine - [facility] [address] [place], [place] [address] Outr Resulting Lab, Provider Social History Tobacco [...] Diagnosis Comments HCV RNA DETECT QUANT Today 08/25/2020 10:15 EDT HEPATITIS C AB W REFLEX TO HCV RNA BY PCR Routine 08/25/2020 10:15 EDT documented in this encounter Results * HCV RNA DETECT QUANT (08/25/2020 10:15 EDT) HCV RNA Qualitative Undetected Undetected 08/31/2020 14:48 EDT [facility] Blood VENOUS BLOOD / Unknown 08/25/2020 10:15 EDT 08/26/2020 15:59 EDT Narrative [facility] - 08/31/2020 14:48 EDT The quantification range of this assay is 15 IU/mL to 100,000,000 IU/mL. ??Testing was performed on the SANDRA Ampliprep/SANDRA TaqMan HCV v2.0 ([employer]avon [employer] Provider Outr Resulting Lab CHEMISTRY & BLOOD GAS ORDERABLES Performing Organization Address City/[facility]/ZIP Co de Phone Number [facility] [address] [place] [address] * (ABNORMAL) HEPATITIS C AB W REFLEX TO HCV RNA BY PCR (08/25/2020 10:15 EDT) Hep C Antibody Reactive(A ) Negative 08/29/2020 13:34 EDT [facility] Comment: Supplemental testing for HCV RNA is ordered to rule out active HCV infection. Blood VENOUS BLOOD / Unknown 08/25/2020 10:15 EDT 08/26/2020 15:59 EDT Provider Outr Resulting Lab CHEMISTRY & BLOOD GAS ORDERABLES Performing Organization Address [facility] Co de Phone Number [facility] [address] [place] [address] documented in this encounter Visit Diagnoses Not on filedocumented in this encounter Care Teams Radiology Transcriptionist Relationship Specialty Start Date End Date Gay Pablo NP [address] [place] [address] [address] [place] [address] PCP - General 04/07/14 documented as of this encounter
--- OUTSIDE RECORDS SUMMARY | 2023-08-30 23:14 | XMS_ITS | Encounter Summary ---
Author Organization [facility] Address [address] [place] [address] Care Team Providers Care Director Of Consulting Services Name Role Phone Gay Pablo NP Primary Care Provider + [phone] Encounter Details Date Type Department Care Team (Late st Contact Info) Description 05/03/2020 Lab Requisition [facility] Pathology & Laboratory Medicine - [place] [address] [place] [address] Roxie Adkins MD [address] [place] [phone] Contact with and (suspected) exposure to other [...] Comments ZZCOVID-19 TEST [facility] PCR Today 05/03/2020 11:10 EDT Contact with and (suspected) exposure to other viral communicable diseases COVID-19 TESTING Today 05/03/2020 11:1 0 EDT Contact with and (suspected) exposure to other viral communicable diseases documented in this encounter Results * COVID-19 TEST [facility] PCR (05/03/2020 11:10 EDT) Swab NASAL / Unknown 05/03/2020 1 1:10 EDT 05/03/2020 22:23 EDT Roxie Adkins MD MICROBIOLOGY - GENER AL ORDERABLES [facility] [address] [place] [address] * COVID-19 TESTING (05/03/2020 11:10 EDT) COVID-19 rt-PCR Result Negative Negative 05/04/2020 11:03 EDT [facility] Comment: This test has not [...] performed using the miranda SARS-CoV-2 assay ([employer]on [employer] on the Miranda 6800 System Performing Lab Miranda [address] [facility] 05/04/2020 11:03 EDT [facility] Swab NASAL / Unknown 05/03/2020 1 1:10 EDT 05/03/2020 22:23 EDT Roxie Adkins MD MICROBIOLOGY - GENER AL ORDERABLES [facility] [address] [place] [address] documented in this encounter Visit Diagnoses Diagnosis Contact with and (suspected) exposure to other viral communicable diseases documented in this encounter Care Teams Director Of Consulting Services Relationship Specialty Start Date End Date Gay Pablo NP [address] [place] [address] [address] [place] [address] PCP - General 04/07/14 documented as of this encounter
--- OUTSIDE RECORDS SUMMARY | 2023-08-30 23:14 | XMS_ITS | Encounter Summary ---
Author Organization [facility] Address [address] [place] [address] Care Team Providers Care Acoustical Tile Drill Press Operator Name Role Phone Gay Pablo NP Primary Care Provider + [phone] Encounter Details Date Type Department Care Team (Late st Contact Info) Description 01/12/2020 Lab Requisition [facility] Pathology & Laboratory Medicine - [address] [address] Roxie Adkins MD [address] [place] [phone] Encounter for other general examination Social History Tobacco Use Types Packs/Day Years [...] Comments ZZCOVID-19 TEST [facility] PCR Today 01/12/2020 7:30 EST Encounter for other general examination COVID-19 TESTING Today 01/12/2020 7:30 EST Encounter for other general examination documented in this encounter Results * COVID-19 TEST [facility] PCR (01/12/2020 7:30 EST) Swab ENTIRE NASOPHARYNX / Unknown Swab / Unknown 01/12/2020 7:30 EST 01/12/2020 20:44 EST Roxie Adkins MD MICROBIOLOGY - GENER AL ORDERABLES Performing Organization Address [facility] [[email or web address]] de Phone Number [facility] [address] [place] [address] * COVID-19 TESTING (01/12/2020 7:30 EST) COVID-19 rt-PCR Result Negative Negative 01/13/2020 21:58 EST [facility] Comment: This test has not [...] clinical observations, patient history, and epidemiological information. Performed on the [employer] Fusion instrument Performing Lab [facility] 01/13/2020 21:58 EST [facility] Swab ENTIRE NASOPHARYNX / Unknown Swab / Unknown 01/12/2020 7:30 EST 01/12/2020 20:44 EST Roxie Adkins MD MICROBIOLOGY - GENER AL ORDERABLES Performing Organization Address [facility] Co de Phone Number [facility] [address] [place] [address] documented in this encounter Visit Diagnoses Diagnosis Encounter for other general examination documented in this encounter Care Teams Acoustical Tile Drill Press Operator Relationship Specialty Start Date End Date Gay Pablo NP [address] [place] [address] [address] [place] [id number] PCP - General 04/07/14 documented as of this encounter
--- OUTSIDE RECORDS SUMMARY | 2023-08-30 23:14 | XMS_ITS | Encounter Summary ---
Author Organization [facility] Address [address] [place] [address] Care Team Providers Care Hat Brim Curler Name Role Phone Gay Pablo NP Primary Care Provider + [phone] Encounter Details Date Type Department Care Team (Late st Contact Info) Description 02/02/2020 Lab Requisition [facility] Pathology & Laboratory Medicine - [address] [address] Roxie Adkins MD [address] [place] [phone] Contact with and (suspected) exposure to other [...] ORDER STANDALONE - BROAD COVID TEST Today 02/02/2020 9:48 EST Contact with and (suspected) exposure to other viral communicable diseases COVID-19 TESTING Today 02/02/2020 9:48 EST Contact with and (suspected) exposure to other viral communicable diseases documented in this encounter Results * DO NOT ORDER STANDALONE - BROAD COVID TEST (02/02/2020 9:48 EST) COVID-19 rt-PCR Result NEGATIVE Negative 02/05/2020 17:27 [facility] Comment: 2019-novel Coronavirus (2019-nCoV) not [...] in accordance with CLIA regulations, College of [place] [employer] (CAP) guidelines (May 07, 2019), and FDA guidance (Apr 18, 2019). This test is only for use under the Food and Drug Administration's Emergency Use Authorization. Swab NASAL / Unknown Swab / Unknown 02/02/2020 9:48 EST 02/02/2020 20:51 EST Roxie Adkins MD MICROBIOLOGY - GENER AL ORDERABLES [place] * COVID-19 TESTING (02/02/2020 9:48 EST) Pathologist [facility] COVID-19 rt-PCR Result NEGATIVE Negative 02/05/2020 19:01 EST [facility] Comment: 2019-novel Coronavirus (2019-nCoV) not [...] in accordance with CLIA regulations, College of [place] [employer] (CAP) guidelines (May 07, 2019), and FDA guidance (Apr 18, 2019). This test is only for use under the Food and Drug Administration's Emergency Use Authorization. Performing Lab [facility] 02/05/2020 19:01 EST [facility] Swab NASAL / Unknown Swab / Unknown 02/02/2020 9:48 EST 02/02/2020 20:51 EST Roxie Adkins MD MICROBIOLOGY - GENER AL ORDERABLES [facility] [address] [place] [address] [facility] [place], [place] documented in this encounter Visit Diagnoses Diagnosis Contact with and (suspected) exposure to other viral communicable diseases documented in this encounter Care Teams Hat Brim Curler Relationship Specialty Start Date End Date Gay Pablo NP [address] [place] [address] [address] [place] [address] PCP - General 04/07/14 documented as of this encounter
--- OUTSIDE RECORDS SUMMARY | 2023-08-30 23:14 | XMS_ITS | Encounter Summary ---
Author Organization [facility] Address [address] [place] [address] Care Team Providers Care Coating Supervisor Name Role Phone Unavailable Primary Care Provider Unavailabl e Encounter Details Date Type Department Care Team (Latest Contact Info) Description 04/05/2014 16:57 EST - 04/05/2014 23:59 EST Hospital Encounter [address] [address] Unknown, Provider, Discharge Disposition: Home or Self Care Social History Tobacco Use Types Packs/Day Years Used Date Smoking Tobacco: Never Assessed Sex and Gender Information Value Date Recorded Sex Assigned at Not on file Gender Identity Not on file Sexual Orientation Not on file documented as of this encounter Discharge Disposition Disposition Code Departure Means Destination Home or Self Residential documented in this encounter Plan of Treatment Not on file documented as of this encounter Visit Diagnoses Not on filedocumented in this encounter
--- OUTSIDE RECORDS SUMMARY | 2023-08-30 23:14 | XMS_ITS | Encounter Summary ---
Author Organization [facility] Address [address] [place] [address] Care Team Providers Care Township Supervisor Name Role Phone Unavailable Primary Care Provider Unavailabl e Encounter Details Date Type Department Care Team (Late st Contact Info) Description 04/05/2014 Results Only [facility] [phone] Pricila Cummings MD [address] [place] [address] Social History Tobacco Use Types Packs/Day Years Used Date Smoking Tobacco: Never Assessed Sex and Gender Information Value Date Recorded Sex Assigned at Not on file Gender Identity Not on file Sexual Orientation Not on file documented as of this encounter Plan of Treatment Not on file documented as of this encounter Procedures Procedure Name Priority Date/Time Associated Diagnosis Comments SURGICAL PATHOLOGY Routine 04/05/2014 17 :37 EST documented in this encounter Results * SURGICAL PATHOLOGY (04/05/2014 17:37 EST) Pathology Report: SURGICAL PATHOLOGY REPORT Reports generated via electronic interface contain original data; however they are lacking the format of the original report. Caution should be taken when reading/interpretin g unformatted reports. Name: ? ERENDIRA GUZMAN ? Accession #: ? [id number] ? : ? 1980 (Age: 33) ??F ? Collect Date: ? 04/05/2014 ? Location: ? [facility] ? Receive Date: ? 04/05/2014 ? Provider: PRICILA CUMMINGS MD Copy to: [facility] ? Final Pathologic Diagnosis: A. DUODENUM, ULCER, BIOPSY: - ??Duodenal mucosa with no specific pathologic features. ??See comment. B. GASTROESOPHAGEAL JUNCTION, BIOPSIES: - ??Squamous mucosa with features of reflux esophagitis. - ??Gastric type glandular mucosa with chronic gastritis. - ??No intestinal metaplasia identified. - ??No Helicobacter pylori-like organisms are identified on H&E stains. Comment: Deeper sections of specimen A have been examined and there is no definitive evidence of an ulcer in these biopsies. Dr. Bahena 04/06/2014 6:14 PM Document reviewed and electronically signed by: KADEN BAHENA MD Report ??Date: 04/07/2014 07:25 By the signature above, the attending physician certifies that he/she has personally conducted a gross and/or microscopic examination of the described specimens and rendered or confirmed the above diagnosis. Specimen(s) Received: A. ??Duodenal ulcer bx B. ??GE junction bx Clinical History: Abdominal pain, nausea, wt loss Gross Description: A. ?Received in formalin labelled with proper patient identification (initials L, B) and duodenal ulcer biopsy is a single pink-mcneal tissue fragment (0.3 x 0.2 x 0.1 cm). Submitted intact in A1. B. ?Received in formalin labelled with proper patient identification (initials L, B) and GE junction biopsy are two mcneal-red tissues (averaging 0.3 x 0.2 x 0.1 cm). Entirely submitted in B1. Elvia Lacy 04/05/2014 6:11 PM End of Report [facility] 04/05/2014 17:3 7 EST 04/05/2014 17:37 EST Pricila Cummings MD PATHOLOGY ORDERA DONNIE [facility] [address] [place] [address] documented in this encounter Visit Diagnoses Not on filedocumented in this encounter
--- OUTSIDE RECORDS SUMMARY | 2023-08-30 23:14 | XMS_ITS | Encounter Summary ---
Author Organization [facility] Address [address] [place] [address] Care Team Providers Care Electrical Checkout Mechanic Name Role Phone Gay Pablo NP Primary Care Provider + [phone] Encounter Details Date Type Department Care Team (Late st Contact Info) Description 01/26/2020 Lab Requisition [facility] Pathology & Laboratory Medicine - [address] [address] Roxie Adkins MD [address] [place] [phone] Contact with and (suspected) exposure to other [...] Comments ZZCOVID-19 TEST [facility] PCR Today 01/26/2020 10:23 EST Contact with and (suspected) exposure to other viral communicable diseases COVID-19 TESTING Today 01/26/2020 10:2 3 EST Contact with and (suspected) exposure to other viral communicable diseases documented in this encounter Results * COVID-19 TEST [facility] PCR (01/26/2020 10:23 EST) Swab NASAL / Unknown 01/26/2020 1 0:23 EST 01/26/2020 23:23 EST Roxie Adkins MD MICROBIOLOGY - GENER AL ORDERABLES Performing Organization Address [facility] de Phone Number [facility] [address] [place] [address] * COVID-19 TESTING (01/26/2020 10:23 EST) COVID-19 rt-PCR Result Negative Negative 01/27/2020 14:37 EST [facility] Comment: This test [...] history, and epidemiological information. Performed on the Filmasterher Fusion instrument Performing Lab [facility] 01/27/2020 14:37 EST [facility] Swab NASAL / Unknown 01/26/2020 1 0:23 EST 01/26/2020 23:23 EST Roxie Adkins MD MICROBIOLOGY - GENER AL ORDERABLES Performing Organization Address City/[facility] Co de Phone Number [facility] [address] [place] [address] documented in this encounter Visit Diagnoses Diagnosis Contact with and (suspected) exposure to other viral communicable diseases documented in this encounter Care Teams Electrical Checkout Mechanic Relationship Specialty Start Date End Date Gay Pablo NP [address] [place] [address] [address] [place] [address] PCP - General 2/18/15 documented as of this encounter
== END 2023-08-30 23:09 | disposition home or self-care (01) ==
LOC: NCHCN 23:08
PROVIDERS: PCP Nurse Practitioner Family; Visit Provider Nurse Practitioner Family
DX: K85.90 Acute pancreatitis without necrosis or infection, unspecified (principal); E83.42 Hypomagnesemia
CPT/HCPCS: 80053; 83690; 82150; 83735; 84100; 85025

== ENCOUNTER 2023-09-04 05:56 | Day surgery (SDC) | payer MEDICAID, SELFPAY ==
[2023-09-04] VITALS (52 sets, daily range): BP systolic 97–142; BP diastolic 62–99; PULSE 52–84; RESP 10–21; TEMP 36–36.6; O2SAT 92–98; BMI 28.1
--- OUTSIDE RECORDS SUMMARY | 2023-09-04 05:58 | XMS_ITS | Encounter Summary ---
Author Organization [facility] Address [address] [place] [address] Care Team Providers Care Tree Thinner Name Role Phone Gay Pablo NP Primary Care Provider + [phone] Encounter Details Date Type Department Care Team (Late st Contact Info) Description 02/24/2020 Lab Requisition [facility] Pathology & Laboratory Medicine - [facility] [address] [place], [place] [phone] Outr Resulting Lab, Provider Social History Tobacco [...] 4th Generation Negative Negative 02/25/2020 10:29 EST [facility] Comment: If acute HIV-1 infection is suspected in a high risk ??patient, submit plasma specimen for HIV-1 RNA quantitation test. Fourth Generation assay performed on the Siemens Zinc Aheadaur. Blood VENOUS BLOOD / Unknown 02/23/2020 15:59 EST 02/24/2020 15:56 EST Provider Outr Resulting Lab IMMUNOLOGY A ND SEROLOGY ORDERABLES [facility] [address] [place] [address] documented in this encounter Visit Diagnoses Not on filedocumented in this encounter Care Teams Tree Thinner Relationship Specialty Start Date End Date Gay Pablo NP [address] [place] [address] [address] [place] [address] PCP - General 04/07/14 documented as of this encounter
--- OUTSIDE RECORDS SUMMARY | 2023-09-04 05:58 | XMS_ITS | Encounter Summary ---
Author Organization [facility] Address [address] [place] [address] Care Team Providers Care Travel Professional Name Role Phone Gay Pablo NP Primary Care Provider + [phone] Encounter Details Date Type Department Care Team (Late st Contact Info) Description 02/23/2020 Lab Requisition [facility] Pathology & Laboratory Medicine - [facility] [address] [place] [address] Roxie Adkins MD [address] [place] [address] [phone] Contact with and (suspected) exposure to other [...] COVID-19 rt-PCR Result NEGATIVE Negative 02/24/2020 20:36 [facility] Comment: 2019-novel Coronavirus (2019-nCoV) not [...] in accordance with CLIA regulations, College of [place] Pathologists (CAP) guidelines (May 07, 2019), and FDA guidance (Apr 18, 2019). This test is only for use under the Food and Drug Administration's Emergency Use Authorization. Swab ENTIRE NASOPHARYNX / Unknown 02/23/2020 13:35 EST 02/23/2020 21:19 EST Roxie Adkins MD MICROBIOLOGY - GENER AL ORDERABLES [place], [place] * COVID-19 TESTING (02/23/2020 13:35 EST) COVID-19 rt-PCR Result NEGATIVE Negative 02/24/2020 21:08 EST [facility] Comment: 2019-novel Coronavirus (2019-nCoV) not [...] in accordance with CLIA regulations, College of [place] Pathologists (CAP) guidelines (May 07, 2019), and FDA guidance (Apr 18, 2019). This test is only for use under the Food and Drug Administration's Emergency Use Authorization. Performing Lab [facility] 02/24/2020 21:08 EST [facility] Swab ENTIRE NASOPHARYNX / Unknown 02/23/2020 13:35 EST 02/23/2020 21:19 EST Roxie Adkins MD MICROBIOLOGY - GENER AL ORDERABLES [facility] [address] [place] [address] [facility] [place] documented in this encounter Visit Diagnoses Diagnosis Contact with and (suspected) exposure to other viral communicable diseases documented in this encounter Care Teams Travel Professional Relationship Specialty Start Date End Date Gay Pablo NP [address] [place] [address] [address] [place] [phone] PCP - General 04/07/14 documented as of this encounter
--- OUTSIDE RECORDS SUMMARY | 2023-09-04 05:58 | XMS_ITS | Encounter Summary ---
Author Organization [facility] Address [address] [place] [address] Care Team Providers Care Hat Brim And Crown Laminating Operator Name Role Phone Gay Pablo NP Primary Care Provider + [phone] Encounter Details Date Type Department Care Team (Late st Contact Info) Description 07/16/2023 Lab Requisition [facility] Pathology & Laboratory Medicine - [facility] [address] [place] [address] Ana Alicia, DO [address] [place] [address] [place] [address] Alcoholic hepatitis without ascites; Hematemesis; Acute pancreatitis [...] explore management options, if applicable. 07/18/2023 11:29 [facility] Final Diagnosis A. STOMACH, ANTRUM, BIOPSY: - Mild chronic focally active gastritis. - Helicobacter pylori is positive on immunohistochemistr y. See comment. B. GE STRICTURE, BIOPSY: - Erosive acute esophagitis. - Silver stain is negative for fungal microorganisms. 07/18/2023 11:29 [facility] Diagnosis Comment Positive and negative controls are staining appropriately. Immunoperoxidase stains were performed on this case to further characterize the lesion. Computing Architect slides of this case were reviewed at the intradepartmental consultation conference. ANTIBODY(CLONE)(BLO CK):RESULT H pylori (Rabbit Monoclonal (SP48), [place]) (A1): Positive NOTE: One or more of [...] performance characteristics have been determined by The and/or by the referring laboratory. The positive [...] high complexity clinical laboratory testing. 07/18/2023 11:29 [facility] Attestation By the signature below, the attending physician certifies that they have 1) personally conducted a gross and/or microscopic examination of the described specimen(s), and/or personally interpreted the results of laboratory testing of the described specimen(s), and 2) personally rendered or confirmed the above diagnosis. 07/18/2023 11:29 [facility] at 1129 Clinical History Coffee ground emesis, esophagitis, mild bile reflux gastritis 07/18/2023 11:29 [facility] Gross Description A. [...] ROSEANN MATTA(ASCP) 07/16/2023 17:20 07/18/2023 11:29 EDT [facility] Performing Lab [facility] 07/18/2023 11:29 EDT [facility] Scanned Images 07/18/2023 11:29 EDT [facility] Tissue ESOPHAGEAL STRUCTURE / Unknown 07/16/2023 12:33 EDT 07/16/2023 16:55 EDT Tissue specimen (specimen) ESOPHAGEAL STRUCTURE / Unknown 07/16/2023 12:33 EDT 07/16/2023 16:55 EDT Ana Alicia DO PATHOLOGY ORDERABLES [facility] [address] [place] [address] documented in this encounter Visit Diagnoses Diagnosis Alcoholic hepatitis without ascites Acute alcoholic hepatitis Hematemesis Acute pancreatitis without necrosis or infection, unspecified documented in this encounter Care Teams Hat Brim And Crown Laminating Operator Relationship Specialty Start Date End Date Gay Pablo NP [address] [place] [address] [address] [place] [phone] PCP - General 04/07/14 documented as of this encounter
--- OUTSIDE RECORDS SUMMARY | 2023-09-04 05:58 | XMS_ITS | Encounter Summary ---
Author Organization [facility] Address [address] [place] [address] Care Team Providers Care Upholsterer Inside Name Role Phone Gay Pablo NP Primary Care Provider + [phone] Encounter Details Date Type Department Care Team (Late st Contact Info) Description 07/17/2023 Lab Requisition [facility] Pathology & Laboratory Medicine - [facility] [address] [place] [address] Outr Resulting Lab, Provider Social History Tobacco [...] 4th Generation Negative Negative 07/17/2023 18:39 EDT [facility] Comment:If acute HIV-1 infec tion is suspected in a high risk patient, submit plasma specimen for HIV-1 RNA quantitation test. Blood VENOUS BLOOD / Unknown 07/17/2023 7:10 EDT 07/17/2023 16:38 EDT Narrative [facility] - 07/17/2023 18:39 EDT Fourth Generation assay performed on the batteriiaur XPT. Provider Outr Resulting Lab IMMUNOLOGY A ND SEROLOGY ORDERABLES [facility] [address] [place] [address] documented in this encounter Visit Diagnoses Not on filedocumented in this encounter Care Teams Upholsterer Inside Relationship Specialty Start Date End Date Gay Pablo NP [address] [place] [address] [address] [place] [address] PCP - General 04/07/14 documented as of this encounter
--- OUTSIDE RECORDS SUMMARY | 2023-09-04 05:58 | XMS_ITS | Encounter Summary ---
Author Organization [facility] Address [address] [place] [address] Care Team Providers Care Asphalt Patcher Name Role Phone Gay Pablo NP Primary Care Provider + [phone] Encounter Details Date Type Department Care Team (Late st Contact Info) Description 12/29/2020 Lab Requisition [facility] Pathology & Laboratory Medicine - [address] [address] Outr Resulting Lab, Provider Social History Tobacco [...] Outr Resulting Lab MICROBIOLOGY - GENERAL ORDERABLES [facility] [address] [place] [address] * COVID-19 TESTING (12/29/2020 11:46 EST) COVID-19 rt-PCR Result Negative Negative 12/30/2020 15:57 EST [facility] Comment: This test has [...] performed using the miranda SARS-CoV-2 assay ([employer] on the Miranda 6800 System Performing Lab [facility] [address] [facility] 12/30/2020 15:57 EST [facility] Swab 12/29/2020 11:4 6 EST 12/29/2020 21:43 EST Provider Outr Resulting Lab MICROBIOLOGY - GENERAL ORDERABLES Performing Organization Address City/State/[facility] Co de Phone Number [facility] [address] [place] [address] documented in this encounter Visit Diagnoses Not on filedocumented in this encounter Care Teams Asphalt Patcher Relationship Specialty Start Date End Date Gay Pablo NP [address] [place] [address] [address] [place] [id number] PCP - General 04/07/14 documented as of this encounter
--- OUTSIDE RECORDS SUMMARY | 2023-09-04 05:58 | XMS_ITS | Referral Summary ---
Author Organization [facility] Address [address] [place] [address] Care Team Providers Care Rubber Compounder Name Role Phone Gay Pablo NP Primary Care Provider + [phone] Encounters Date Type Department Care Team Description 07/17/2023 Lab Requisition [facility]ology [facility] Laboratory [address] [address] Outr Resulting Lab, Provider 07/16/2023 Lab Requisition [facility] [address] [address] Ana Alicia, DO Alcoholic hepatitis without ascites; Hematemesis; Acute pancreatitis without necrosis or infection, unspecified 07/16/2023 Lab Requisition [facility] Pathology Laboratory [address] [address] Outr Resulting Lab, Provider from Last 3 [...] 4th Generation Negative Negative 07/17/2023 18:39 EDT [facility] Comment:If acute HIV-1 infec tion is suspected in a high risk patient, submit plasma specimen for HIV-1 RNA quantitation test. Blood VENOUS BLOOD / Unknown 07/17/2023 7:10 EDT 07/17/2023 16:38 EDT Narrative [facility] - 07/17/2023 18:39 EDT Fourth Generation assay performed on the Aucteliaaur XPT. Provider Outr Resulting Lab IMMUNOLOGY A ND SEROLOGY ORDERABLES [facility] [address] [place] [address] * SURGICAL PATHOLOGY (07/16/2023 12:33 EDT) Note to Patient The following pathology results have been interpreted by your pathologist and may be available to you before your health provider has had the opportunity to review them. Please allow time for your provider to receive these results and explore management options, if applicable. 07/18/2023 11:29 EDT [facility] Final Diagnosis A. STOMACH, ANTRUM, BIOPSY: - Mild chronic focally active gastritis. - Helicobacter pylori is positive on immunohistochemistr y. See comment. B. GE STRICTURE, BIOPSY: - Erosive acute esophagitis. - Silver stain is negative for fungal microorganisms. 07/18/2023 11:29 EDT [facility] Diagnosis Comment Positive and negative controls are staining appropriately. Immunoperoxidase stains were performed on this case to further characterize the lesion. Comprehensive Ophthalmologist slides of this case were reviewed at the intradepartmental consultation conference. ANTIBODY(CLONE)(BLO CK):RESULT H pylori (Rabbit Monoclonal (SP48), [place]) (A1): Positive NOTE: One or more of [...] performance characteristics have been determined by [facility] and/or by the referring laboratory. The [...] high complexity clinical laboratory testing. 07/18/2023 11:29 [facility] Attestation By the signature below, the attending physician certifies that they have 1) personally conducted a gross and/or microscopic examination of the described specimen(s), and/or personally interpreted the results of laboratory testing of the described specimen(s), and 2) personally rendered or confirmed the above diagnosis. 07/18/2023 11:29 [facility] at 1129 Clinical History Coffee ground emesis, esophagitis, mild bile reflux gastritis 07/18/2023 11:29 [facility] Gross Description A. Received in [...] B1. ROSEANN MATTA(ASCP) 07/16/2023 17:20 07/18/2023 11:29 [facility] Performing Lab [facility] 07/18/2023 11:29 EDT [facility] Scanned Images 07/18/2023 11:29 EDT [facility] Tissue ESOPHAGEAL STRUCTURE / Unknown 07/16/2023 12:33 EDT 07/16/2023 16:55 EDT Tissue specimen (specimen) ESOPHAGEAL STRUCTURE / Unknown 07/16/2023 12:33 EDT 07/16/2023 16:55 EDT Ana Alicia DO PATHOLOGY ORDERABLES Performing Organization Address [facility] Co de Phone Number [facility] [address] [place], [place] [phone] * HCV RNA DETECT QUANT (07/15/2023 19:00 EDT) [facility] HCV RNA Qualitative Undetected Undetected 07/17/2023 12:38 EDT [facility] Blood VENOUS BLOOD / Unknown 07/15/2023 19:00 EDT 07/16/2023 17:19 EDT Narrative [facility] - 07/17/2023 12:38 EDT The quantification range of this assay is 15 IU/mL to 100,000,000 IU/mL. Testing was performed using the Miranda HCV test ([employer] with the miranda 6800 System. Provider Outr Resulting Lab CHEMISTRY & BLOOD GAS ORDERABLES Performing Organization Address [facility] Co de Phone Number [facility] [address] [place] [phone] * (ABNORMAL) ACUTE HEPATITIS PROFILE (07/15/2023 19:00 EDT) [facility] Hep B Surface Ag Negative Negative 07/16/2023 19:37 EDT [facility] Hep C Antibody Reactive(A) Negative 19:37 EDT [facility] Comment: Supplemental testing for HCV RNA is ordered to rule out active HCV infection. Hepatitis A Antibody, IgM Negative Negative 07/16/2023 19:37 EDT [facility] Comment:The results of this assay can be falsely lowered due to the consumption of Biotin. Hepatitis B Core Ab, Total Negative Negative 07/16/2023 19:37 EDT [facility] Blood VENOUS BLOOD / Unknown 07/15/2023 19:00 EDT 07/16/2023 17:19 EDT Provider Outr Resulting Lab CHEMISTRY & BLOOD GAS ORDERABLES [facility] [address] [place] [address] from Last 3 Months Care Teams Rubber Compounder Relationship Specialty Start Date End Date Gay Pablo NP [address] [place] [address] PCP - General 04/07/14
--- OUTSIDE RECORDS SUMMARY | 2023-09-04 05:58 | XMS_ITS | Encounter Summary ---
Author Organization [facility] Address [address] [place] [address] Care Team Providers Care Commissioner Conservation Of Resources Name Role Phone Gay Pablo NP Primary Care Provider + [phone] Encounter Details Date Type Department Care Team (Late st Contact Info) Description 08/26/2020 Lab Requisition [facility] Pathology & Laboratory Medicine - [facility] [address] [place], [place] [address] Outr Resulting Lab, Provider Social History Tobacco [...] RNA Qualitative Undetected Undetected 08/31/2020 14:48 EDT [facility] Blood VENOUS BLOOD / Unknown 08/25/2020 10:15 EDT 08/26/2020 15:59 EDT Narrative [facility] - 08/31/2020 14:48 EDT The quantification range of this assay is 15 IU/mL to 100,000,000 IU/mL. ??Testing was performed on the SANDRA Ampliprep/SANDRA TaqMan HCV v2.0 (Shavon [employer] Provider Outr Resulting Lab CHEMISTRY & BLOOD GAS ORDERABLES Performing Organization Address City/[facility]/ZIP Co de Phone Number [facility] [address] [place] [address] * (ABNORMAL) HEPATITIS C AB W REFLEX TO HCV RNA BY PCR (08/25/2020 10:15 EDT) Hep C Antibody Reactive(A ) Negative 08/29/2020 13:34 EDT [facility] Comment: Supplemental testing for HCV RNA is ordered to rule out active HCV infection. Blood VENOUS BLOOD / Unknown 08/25/2020 10:15 EDT 08/26/2020 15:59 EDT Provider Outr Resulting Lab CHEMISTRY & BLOOD GAS ORDERABLES Performing Organization Address [facility] Co de Phone Number [facility] [address] [place] [address] documented in this encounter Visit Diagnoses Not on filedocumented in this encounter Care Teams Commissioner Conservation Of Resources Relationship Specialty Start Date End Date Gay Pablo NP [address] [place] [address] [address] [place] [phone] PCP - General 04/07/14 documented as of this encounter
--- OUTSIDE RECORDS SUMMARY | 2023-09-04 05:58 | XMS_ITS | Encounter Summary ---
Author Organization [facility] Address [address] [place] [address] Care Team Providers Care Trip Follower Name Role Phone Gay Pablo NP Primary Care Provider + [phone] Encounter Details Date Type Department Care Team (Late st Contact Info) Description 01/26/2020 Lab Requisition [facility] Pathology & Laboratory Medicine - [address] [address] Roxie Adkins MD [address] [place] [phone] Contact with and (suspected) exposure to other [...] - GENER AL ORDERABLES Performing Organization Address [facility] de Phone Number [facility] [address] [place] [address] * COVID-19 TESTING (01/26/2020 10:23 EST) COVID-19 rt-PCR Result Negative Negative 01/27/2020 14:37 EST [facility] Comment: This test has [...] history, and epidemiological information. Performed on the Jukedeckher Fusion instrument Performing Lab [place] [facility] 01/27/2020 14:37 EST [facility] Swab NASAL / Unknown 01/26/2020 1 0:23 EST 01/26/2020 23:23 EST Roxie Adkins MD MICROBIOLOGY - GENER AL ORDERABLES Performing Organization Address City/[facility] Co de Phone Number [facility] [address] [place] [address] documented in this encounter Visit Diagnoses Diagnosis Contact with and (suspected) exposure to other viral communicable diseases documented in this encounter Care Teams Trip Follower Relationship Specialty Start Date End Date Gay Pablo NP [address] [place] [address] [address] [place] [address] PCP - General 2/18/15 documented as of this encounter
--- OUTSIDE RECORDS SUMMARY | 2023-09-04 05:58 | XMS_ITS | Encounter Summary ---
Author Organization [facility] Address [address] [place] [address] Care Team Providers Care Custodial Officer Name Role Phone Gay Pablo NP Primary Care Provider + [phone] Encounter Details Date Type Department Care Team (Late st Contact Info) Description 04/26/2020 Lab Requisition [facility] Pathology & Laboratory Medicine - [facility] [address] [place] [address] Roxie Adkins MD [address] [place] [phone] Contact with and (suspected) exposure to other [...] Adkins MD MICROBIOLOGY - GENER AL ORDERABLES [facility] [address] [place] [address] * COVID-19 TESTING (04/26/2020 13:25 EST) COVID-19 rt-PCR Result Negative Negative 04/27/2020 11:27 EST [facility] Comment: This test has not [...] performed using the miranda SARS-CoV-2 assay (Shavon [employer] on the Miranda 6800 System Performing Lab Miranda [address] [facility] 04/27/2020 11:27 EST [facility] Swab NASAL / Unknown 04/26/2020 1 3:25 EST 04/26/2020 21:34 EST Roxie Adkins MD MICROBIOLOGY - GENER AL ORDERABLES [facility] [address] [place] [address] documented in this encounter Visit Diagnoses Diagnosis Contact with and (suspected) exposure to other viral communicable diseases documented in this encounter Care Teams Custodial Officer Relationship Specialty Start Date End Date Gay Pablo NP [address] [place] [address] [address] [place] [phone] PCP - General 04/07/14 documented as of this encounter
--- OUTSIDE RECORDS SUMMARY | 2023-09-04 05:58 | XMS_ITS | Encounter Summary ---
Author Organization [facility] Address [address] [place] [address] Care Team Providers Care Yarn Dry Room Worker Name Role Phone Gay Pablo NP Primary Care Provider + [phone] Encounter Details Date Type Department Care Team (Late st Contact Info) Description 07/16/2023 Lab Requisition [facility] Pathology & Laboratory Medicine - [facility] [address] [place] [address] Outr Resulting Lab, Provider Social History Tobacco [...] RNA Qualitative Undetected Undetected 07/17/2023 12:38 EDT [facility] Blood VENOUS BLOOD / Unknown 07/15/2023 19:00 EDT 07/16/2023 17:19 EDT Narrative [facility] - 07/17/2023 12:38 EDT The quantification range of this assay is 15 IU/mL to 100,000,000 IU/mL. Testing was performed using the Miranda HCV test (Shavon [employer] with the miranda 6800 System. Provider Outr Resulting Lab CHEMISTRY & BLOOD GAS ORDERABLES Performing Organization Address [facility] Co de Phone Number [facility] [address] [place], [place] [address] * (ABNORMAL) ACUTE HEPATITIS PROFILE (07/15/2023 19:00 EDT) Hep B Surface Ag Negative Negative 07/16/2023 19:37 EDT [facility] Hep C Antibody Reactive(A) Negative 19:37 EDT [facility] Comment: Supplemental testing for HCV RNA is ordered to rule out active HCV infection. Hepatitis A Antibody, IgM Negative Negative 07/16/2023 19:37 EDT [facility] Comment:The results of this assay can be falsely lowered due to the consumption of Biotin. Hepatitis B Core Ab, Total Negative Negative 07/16/2023 19:37 EDT [facility] Blood VENOUS BLOOD / Unknown 07/15/2023 19:00 EDT 07/16/2023 17:19 EDT Provider Outr Resulting Lab CHEMISTRY & BLOOD GAS ORDERABLES Performing Organization Address [facility] Co de Phone Number [facility] [address] [place], [place] [phone] documented in this encounter Visit Diagnoses Not on filedocumented in this encounter Care Teams Yarn Dry Room Worker Relationship Specialty Start Date End Date Gay Pablo NP [address] [place] [address] [address] [place] [address] PCP - General 04/07/14 documented as of this encounter
--- OUTSIDE RECORDS SUMMARY | 2023-09-04 05:58 | XMS_ITS | Encounter Summary ---
Author Organization [facility] Address [address] [place] [address] Care Team Providers Care Lap Runner Name Role Phone Gay Pablo NP Primary Care Provider + [phone] Encounter Details Date Type Department Care Team (Late st Contact Info) Description 02/02/2020 Lab Requisition [facility] Pathology & Laboratory Medicine - [address] [address] Roxie Adkins MD [address] [place] [phone] Contact with and (suspected) exposure to other [...] COVID-19 rt-PCR Result NEGATIVE Negative 02/05/2020 17:27 [facility] Comment: 2019-novel Coronavirus (2019-nCoV) not [...] in accordance with CLIA regulations, College of [employer] Pathologists (CAP) guidelines (May 07, 2019), and FDA guidance (Apr 18, 2019). This test is only for use under the Food and Drug Administration's Emergency Use Authorization. Swab NASAL / Unknown Swab / Unknown 02/02/2020 9:48 EST 02/02/2020 20:51 EST Roxie Adkins MD MICROBIOLOGY - GENER AL ORDERABLES [place] * COVID-19 TESTING (02/02/2020 9:48 EST) Pathologist [facility] COVID-19 rt-PCR Result NEGATIVE Negative 02/05/2020 19:01 EST [facility] Comment: 2019-novel Coronavirus (2019-nCoV) not detected [...] in accordance with CLIA regulations, College of [employer] Pathologists (CAP) guidelines (May 07, 2019), and FDA guidance (Apr 18, 2019). This test is only for use under the Food and Drug Administration's Emergency Use Authorization. Performing Lab [facility] 02/05/2020 19:01 EST [facility] Swab NASAL / Unknown Swab / Unknown 02/02/2020 9:48 EST 02/02/2020 20:51 EST Roxie Adkins MD MICROBIOLOGY - GENER AL ORDERABLES [facility] [address] [place] [address] [facility] [place], [place] documented in this encounter Visit Diagnoses Diagnosis Contact with and (suspected) exposure to other viral communicable diseases documented in this encounter Care Teams Lap Runner Relationship Specialty Start Date End Date Gay Pablo NP [address] [place] [address] [address] [place] [address] PCP - General 04/07/14 documented as of this encounter
--- OUTSIDE RECORDS SUMMARY | 2023-09-04 05:58 | XMS_ITS | Encounter Summary ---
Author Organization [facility] Address [address] [place] [address] Care Team Providers Care Mainframe Systems Engineer Name Role Phone Gay Pablo NP Primary Care Provider + [phone] Encounter Details Date Type Department Care Team (Late st Contact Info) Description 04/12/2020 Lab Requisition [facility] Pathology & Laboratory Medicine - [facility] [address] [place] [address] Roxie Adkins MD [address] [place] [phone] Contact with and (suspected) exposure to other [...] - GENER AL ORDERABLES Performing Organization Address City/[facility]/ZIP Co de Phone Number [facility] [address] [place] [address] * COVID-19 TESTING (04/12/2020 12:22 EST) COVID-19 rt-PCR Result Negative Negative 04/13/2020 15:22 EST [facility] Comment: This test has [...] performed using the miranda SARS-CoV-2 assay ([employer]on [employer] on the Miranda 6800 System Performing Lab Miranda [address] [facility] 04/13/2020 15:22 EST [facility] Swab NASAL / Unknown Swab / Unknown 04/12/2020 12:22 EST 04/12/2020 22:01 EST Roxie Adkins MD MICROBIOLOGY - GENER AL ORDERABLES [facility] [address] [place] [address] documented in this encounter Visit Diagnoses Diagnosis Contact with and (suspected) exposure to other viral communicable diseases documented in this encounter Care Teams Mainframe Systems Engineer Relationship Specialty Start Date End Date Gay Pablo NP [address] [facility] [address] [place] [address] PCP - General 04/07/14 documented as of this encounter
--- OUTSIDE RECORDS SUMMARY | 2023-09-04 05:58 | XMS_ITS | Encounter Summary ---
Author Organization [facility] Address [address] [place] [address] Care Team Providers Care Car Repair Supervisor Name Role Phone Gay Pablo NP Primary Care Provider + [phone] Encounter Details Date Type Department Care Team (Late st Contact Info) Description 04/06/2020 Lab Requisition [facility] Pathology & Laboratory Medicine - [facility] [address] [place] [address] Roxie Adkins MD [address] [place] [phone] Contact with and (suspected) exposure to other [...] Adkins MD MICROBIOLOGY - GENER AL ORDERABLES [facility] [address] [place] [address] * COVID-19 TESTING (04/05/2020 13:05 EST) COVID-19 rt-PCR Result Negative Negative 04/07/2020 14:58 EST [facility] Comment: This test was developed and its performance characteristics determined by [facility]. It has not been cleared or [...] testing. This test is based on the [facility] COVID-19 Emergency Use Authorization (EUA) assay, with minor modification as defined by the FDA Performed on the [employer] Systems Pro RT-PCR System. This test has not [...] history, and epidemiological information. Performing Lab [facility] 04/07/2020 14:58 EST [facility] Swab NASAL / Unknown Swab / Unknown 04/05/2020 13:05 EST 04/06/2020 21:02 EST Roxie Adkins MD MICROBIOLOGY - GENER AL ORDERABLES [facility] [address] [place] [address] documented in this encounter Visit Diagnoses Diagnosis Contact with and (suspected) exposure to other viral communicable diseases documented in this encounter Care Teams Car Repair Supervisor Relationship Specialty Start Date End Date Gay Pablo NP [address] [place] [address] [address] [place] [address] PCP - General 04/07/14 documented as of this encounter
--- OUTSIDE RECORDS SUMMARY | 2023-09-04 05:58 | XMS_ITS | Encounter Summary ---
Author Organization [facility] Address [address] [place] [address] Care Team Providers Care Teaching Dietitian Name Role Phone Gay Pablo NP Primary Care Provider + [phone] Encounter Details Date Type Department Care Team (Late st Contact Info) Description 02/16/2020 Lab Requisition [facility] Pathology & Laboratory Medicine - [address] [address] Roxie Adkins MD [address] [place] [phone] Contact with and (suspected) exposure to other [...] COVID-19 rt-PCR Result NEGATIVE Negative 02/17/2020 17:18 [facility] Comment: 2019-novel Coronavirus [...] in accordance with CLIA regulations, College of [employer] Pathologists (CAP) guidelines (May 07, 2019), and FDA guidance (Apr 18, 2019). This test is only for use under the Food and Drug Administration's Emergency Use Authorization. Swab ENTIRE NASOPHARYNX / Unknown Swab / Unknown 02/16/2020 6:45 EST 02/16/2020 22:30 EST Roxie Adkins MD MICROBIOLOGY - [facility] AL ORDERABLES [place], [place] * COVID-19 TESTING (02/16/2020 6:45 EST) COVID-19 rt-PCR Result NEGATIVE Negative 02/17/2020 18:09 EST [facility] Comment: 2019-novel Coronavirus (2019-nCoV) not detected [...] in accordance with CLIA regulations, College of [employer] Pathologists (CAP) guidelines (May 07, 2019), and FDA guidance (Apr 18, 2019). This test is only for use under the Food and Drug Administration's Emergency Use Authorization. Performing Lab [facility] 02/17/2020 18:09 EST [facility] Swab ENTIRE NASOPHARYNX / Unknown Swab / Unknown 02/16/2020 6:45 EST 02/16/2020 22:30 EST Roxie Adkins MD MICROBIOLOGY - GENER AL ORDERABLES [facility] [address] [place] [address] [facility] [place], [place] documented in this encounter Visit Diagnoses Diagnosis Contact with and (suspected) exposure to other viral communicable diseases documented in this encounter Care Teams Teaching Dietitian Relationship Specialty Start Date End Date Gay Pablo NP [address] [place] [address] [address] [place] [phone] PCP - General 04/07/14 documented as of this encounter
--- OUTSIDE RECORDS SUMMARY | 2023-09-04 05:58 | XMS_ITS | Encounter Summary ---
Author Organization [facility] Address [address] [place] [address] Care Team Providers Care Food And Beverage Coordinator Name Role Phone Gay Pablo NP Primary Care Provider + [phone] Encounter Details Date Type Department Care Team (Late st Contact Info) Description 04/16/2020 Lab Requisition [facility] Pathology & Laboratory Medicine - [facility] [address] [place], [place] [id number] Outr Resulting Lab, Provider Social History Tobacco [...] RNA Qualitative Undetected Undetected 04/20/2020 13:57 EST [facility] Blood VENOUS BLOOD / Unknown 04/15/2020 16:17 EST 04/17/2020 16:21 EST Narrative [facility] - 04/20/2020 13:57 EST The quantification range of this assay is 15 IU/mL to 100,000,000 IU/mL. ??Testing was performed on the SANDRA Ampliprep/SANDRA TaqMan HCV v2.0 ([employer] Provider Outr Resulting Lab CHEMISTRY & BLOOD GAS ORDERABLES Performing Organization Address [facility]/ZIP Co de Phone Number [facility] [address] [place] [address] * (ABNORMAL) HEPATITIS C AB W REFLEX TO HCV RNA BY PCR (04/15/2020 16:17 EST) Hep C Antibody Reactive(A ) Negative 04/18/2020 11:33 EST [facility] Comment: Supplemental testing for HCV RNA is ordered to rule out active HCV infection. Blood VENOUS BLOOD / Unknown 04/15/2020 16:17 EST 04/17/2020 16:21 EST Provider Outr Resulting Lab CHEMISTRY & BLOOD GAS ORDERABLES Performing Organization Address [facility] [[email or web address]] Co de Phone Number [facility] [address] [place] [address] documented in this encounter Visit Diagnoses Not on filedocumented in this encounter Care Teams Food And Beverage Coordinator Relationship Specialty Start Date End Date Gay Pablo NP [address] [place] [address] [address] [place] [address] PCP - General 04/07/14 documented as of this encounter
--- OUTSIDE RECORDS SUMMARY | 2023-09-04 05:58 | XMS_ITS | Encounter Summary ---
Author Organization [facility] Address [address] [place] [address] Care Team Providers Care Restaurant Cashier Name Role Phone Gay aPblo NP Primary Care Provider + [phone] Encounter Details Date Type Department Care Team (Late st Contact Info) Description 03/04/2020 Lab Requisition [facility] Pathology & Laboratory Medicine - [facility] [address] [place], [place] [address] Outr Resulting Lab, Provider Social History Tobacco [...] 16:45 EST) Hold Hold 03/04/2020 18:31 EST [facility] Blood VENOUS BLOOD / Unknown 03/03/2020 16:45 EST 03/04/2020 17:16 EST Provider Outr Resulting Lab LAB INFO SER VICE AND SUPPORT & PHONE RESULT Performing Organization Address City/[facility]/ZIP Co de Phone Number [facility] [address] [place] [address] * HEPATITIS B SURFACE ANTIBODY (03/03/2020 16:45 EST) Hep B Surface Ab, Quantitative 479.6 See Note mIU/mL 03/07/2020 10:46 EST [facility] Comment: Reference Range for Hep B Surface Ab, Quant: Positive: >= 10.0 mIU/mL Negative: ??< 10.0 mIU/mL Patient is presumed to be immune to infection with Hepatitis B Virus. Hep B Surface Ab, Qualitative Positive See Note 03/07/2020 10:46 EST [facility] Comment: Reference Range for Hep B Surface Ab, Qual: Unvaccinated: ??Negative Vaccinated: ??Positive Blood VENOUS BLOOD / Unknown 03/03/2020 16:45 EST 03/04/2020 17:15 EST Provider Outr Resulting Lab CHEMISTRY & BLOOD GAS ORDERABLES Performing Organization Address City/[facility]/ZIP Co de Phone Number [facility] [address] [place] [address] * HEPATITIS B CORE ANTIBODY (TOTAL) (03/03/2020 16:45 EST) Pathologist [facility] Hepatitis B Core Ab, Total Negative Negative 03/07/2020 11:32 EST [facility] Blood VENOUS BLOOD / Unknown 03/03/2020 16:45 EST 03/04/2020 17:15 EST Provider Outr Resulting Lab CHEMISTRY & BLOOD GAS ORDERABLES Performing Organization Address City/[facility]/ZIP Co de Phone Number [facility] [address] [place] [phone] * HEPATITIS B SURFACE ANTIGEN (03/03/2020 16:45 EST) Hep B Surface Ag Negative Negative 03/07/2020 10:52 EST [facility] Blood VENOUS BLOOD / Unknown 03/03/2020 16:45 EST 03/04/2020 17:15 EST Provider Outr Resulting Lab CHEMISTRY & BLOOD GAS ORDERABLES Performing Organization Address City/[facility] Co de Phone Number [facility] [address] [place] [address] * HEPATITIS A TOTAL ANTIBODY W REFLEX (03/03/2020 16:45 EST) Hepatitis A Antibody, Total Negative Negative 03/07/2020 11:45 EST [facility] Blood VENOUS BLOOD / Unknown 03/03/2020 16:45 EST 03/04/2020 17:15 EST Narrative [facility] - 03/07/2020 11:45 EST The result of this assay can be falsely elevated (Positive) due to the consumption of Biotin. Provider Outr Resulting Lab CHEMISTRY & BLOOD GAS ORDERABLES Performing Organization Address [facility] Co de Phone Number [facility] [address] [place] [address] documented in this encounter Visit Diagnoses Not on filedocumented in this encounter Care Teams Restaurant Cashier Relationship Specialty Start Date End Date Gay Pablo NP [address] [place] [address] [address] [place] [address] PCP - General 04/07/14 documented as of this encounter
--- OUTSIDE RECORDS SUMMARY | 2023-09-04 05:58 | XMS_ITS | Encounter Summary ---
Author Organization [facility] Address [address] [place] [address] Care Team Providers Care Fabric Finisher Name Role Phone Gay Pablo NP Primary Care Provider + [phone] Encounter Details Date Type Department Care Team (Late st Contact Info) Description 01/19/2020 Lab Requisition [facility] Pathology & Laboratory Medicine - [address] [address] Roxie Adkins MD [address] [place] [phone] Encounter for screening for other viral diseases [...] in accordance with CLIA regulations, College of [place] [employer] (CAP) guidelines (May 07, 2019), and FDA guidance (Apr 18, 2019). This test is only for use under the Food and Drug Administration's Emergency Use Authorization. Swab ENTIRE NASOPHARYNX / Unknown 01/19/2020 14:20 EST 01/19/2020 22:25 EST Roxie Adkins MD MICROBIOLOGY - GENER AL ORDERABLES [facility] [place], [place] * COVID-19 TESTING (01/19/2020 14:20 EST) Pathologist [facility] COVID-19 rt-PCR Result NEGATIVE Negative 01/21/2020 10:38 EST [facility] Comment: 2019-novel Coronavirus (2019-nCoV) not detected [...] in accordance with CLIA regulations, College of [place] [employer]ologists (CAP) guidelines (May 07, 2019), and FDA guidance (Apr 18, 2019). This test is only for use under the Food and Drug Administration's Emergency Use Authorization. Performing Lab [facility] 01/21/2020 10:38 EST [facility] Swab 01/19/2020 14:2 0 EST 01/19/2020 22:25 EST Roxie Adkins MD MICROBIOLOGY - GENER AL ORDERABLES [facility] [address] [place] [address] [facility] [place], [place] documented in this encounter Visit Diagnoses Diagnosis Encounter for screening for other viral diseases documented in this encounter Care Teams Fabric Finisher Relationship Specialty Start Date End Date Gay Pablo NP [address] [facility] [address] [place] [phone] PCP - General 04/07/14 documented as of this encounter
--- OUTSIDE RECORDS SUMMARY | 2023-09-04 05:58 | XMS_ITS | Encounter Summary ---
Author Organization [facility] Address [address] [place] [address] Care Team Providers Care Pit Crane Operator Name Role Phone Gay Pablo NP Primary Care Provider + [phone] Encounter Details Date Type Department Care Team (Late st Contact Info) Description 04/19/2020 Lab Requisition [facility] Pathology & Laboratory Medicine - [facility] [address] [place] [address] Roxie Adkins MD [address] [place] [phone] Contact with and (suspected) exposure to other [...] Adkins MD MICROBIOLOGY - GENER AL ORDERABLES [facility] [address] [place] [address] * COVID-19 TESTING (04/19/2020 11:54 EST) COVID-19 rt-PCR Result Negative Negative 04/20/2020 14:35 EST [facility] Comment: This test [...] developed and its performance characteristics determined by [facility]. It has not been cleared or [...] This test is based on the [facility] COVID-19 Emergency Use Authorization (EUA) assay, with minor modification as defined by the FDA Performed on the Metaps 7 Pro RT-PCR System. Performing Lab [facility] 04/20/2020 14:35 EST [facility] Swab NASAL / Unknown Swab / Unknown 04/19/2020 11:54 EST 04/19/2020 21:19 EST Roxie Adkins MD MICROBIOLOGY - GENER AL ORDERABLES [facility] [address] [place] [address] documented in this encounter Visit Diagnoses Diagnosis Contact with and (suspected) exposure to other viral communicable diseases documented in this encounter Care Teams Pit Crane Operator Relationship Specialty Start Date End Date Gay Pablo NP [address] [place] [address] [address] [place] [address] PCP - General 04/07/14 documented as of this encounter
--- OUTSIDE RECORDS SUMMARY | 2023-09-04 05:58 | XMS_ITS | Encounter Summary ---
Author Organization [facility] Address [address] [place] [address] Care Team Providers Care Diagrammer And Seamer Name Role Phone Unavailable Primary Care Provider Unavailabl e Encounter Details Date Type Department Care Team (Late st Contact Info) Description 12/17/2005 Results Only [facility] - Maple conversion [address] [place] [address] Sandra Cancino MD [address] [place] [address] [place] [address] Social History Tobacco Use Types Packs/Day Years [...] ? ERENDIRA GUZMAN ? Accession #: ? [id number] ? : ? 1980 (Age: 25) ??F ? Collect Date: ? 12/17/2005 ? Location: ? [facility] ? Receive Date: ? 12/17/2005 ? Provider: SANDRA CANCINO MD Copy to: JOSE SAUNDERS BOX BENDER ? Final Pathologic Diagnosis: A. ?Cervix, 3 o'clock, biopsy: 1. ?Squamous mucosa with reactive epithelial atypia. ? - No dysplasia identified. B. ?Cervix, 12 o'clock, biopsy: 1. 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 ??See comment. ? - Glandular extension identified. Comment: ? This case was reviewed at intradepartmental consultation conference. ??(Dr. Arias)/[facility] Document reviewed and electronically signed by: Ana [...] Cancino MD PATHOLOGY ORDERABLES Performing Organization Address City/State/[facility] Co de Phone Number [facility] [address] [place] [address] documented in this encounter Visit Diagnoses Not on filedocumented in this encounter
--- OUTSIDE RECORDS SUMMARY | 2023-09-04 05:58 | XMS_ITS | Encounter Summary ---
Author Organization [facility] Address [address] [place] [address] Care Team Providers Care Residential Leasing Agent Name Role Phone Gay Pablo NP Primary Care Provider + [phone] Encounter Details Date Type Department Care Team (Late st Contact Info) Description 05/03/2020 Lab Requisition [facility] Pathology & Laboratory Medicine - [facility] [address] [place] [address] Roxie Adkins MD [address] [place] [phone] Contact with and (suspected) exposure to other [...] Adkins MD MICROBIOLOGY - GENER AL ORDERABLES [facility] [address] [place] [address] * COVID-19 TESTING (05/03/2020 11:10 EDT) COVID-19 rt-PCR Result Negative Negative 05/04/2020 11:03 EDT [facility] Comment: This test [...] performed using the miranda SARS-CoV-2 assay ([employer] on the Miranda 6800 System Performing Lab [facility] [address] [facility] 05/04/2020 11:03 EDT [facility] Swab NASAL / Unknown 05/03/2020 1 1:10 EDT 05/03/2020 22:23 EDT Roxie Adkins MD MICROBIOLOGY - GENER AL ORDERABLES [facility] [address] [place] [address] documented in this encounter Visit Diagnoses Diagnosis Contact with and (suspected) exposure to other viral communicable diseases documented in this encounter Care Teams Residential Leasing Agent Relationship Specialty Start Date End Date Gay Pablo NP [address] [place] [address] [address] [place] [address] PCP - General 04/07/14 documented as of this encounter
--- OUTSIDE RECORDS SUMMARY | 2023-09-04 05:58 | XMS_ITS | Encounter Summary ---
Author Organization [facility] Address [address] [place] [address] Care Team Providers Care Hollow Ware Maker Name Role Phone Unavailable Primary Care Provider Unavailabl e Encounter Details Date Type Department Care Team (Latest Contact Info) Description 04/05/2014 16:57 EST - 04/05/2014 23:59 EST Hospital Encounter [address] [address] Unknown, Provider, Discharge Disposition: Home or Self Care Social History Tobacco Use Types Packs/Day Years Used Date Smoking Tobacco: Never Assessed Sex and Gender Information Value Date Recorded Sex Assigned at Not on file Gender Identity Not on file Sexual Orientation Not on file documented as of this encounter Discharge Disposition Disposition Code Departure Means Destination Home or Self Custodial documented in this encounter Plan of Treatment Not on file documented as of this encounter Visit Diagnoses Not on filedocumented in this encounter
--- OUTSIDE RECORDS SUMMARY | 2023-09-04 05:58 | XMS_ITS | Encounter Summary ---
Author Organization [facility] Address [address] [place] [address] Care Team Providers Care Deep Submergence Vehicle Operator Name Role Phone Unavailable Primary Care Provider Unavailabl e Encounter Details Date Type Department Care Team (Late st Contact Info) Description 10/05/2005 Results Only [facility] Family Medicine - [place] [address] [place] [address] Gabriela Burr MD [address] [place] [phone] Social History Tobacco Use Types Packs/Day Years [...] cancers. [facility] Report Status Final [id number] [facility] 10/05/2005 10:0 2 EDT 10/16/2005 10:02 EDT Gabriela Burr MD MICROBIOLOGY - GENER AL ORDERABLES [facility] [address] [place] [address] * CYTOPATHOLOGY (10/05/2005 0:00 EDT) Pathology Report: CYTOPATHOLOGY REPORT Reports generated via electronic interface contain original data; however they are lacking the format of the original report. Caution should be taken when reading/interpreti ng unformatted reports. Name: ? JESSEEKENYA ERENDIRA ? Accession #: ? [id number] : ? 1980 (Age: 24) ??F ?Collect Date: ? 10/05/2005 Location: ? [facility] ? Receive Date: ? 10/09/2005 Provider: ?GABRIELA BURR MD Copy to: ?ELIZABETH DEL RIO MD ? Specimen/Source: ?ThinPrep Pap Test, Endocervix, processed on [employer]Me[employer] ThinPrep Imaging System, with manual evaluation Last [...] intraepithelial lesion (HSIL). EDUCATIONAL NOTES/RECOMMENDATI ONS ? [facility] recommends following the 2001 Consensus Guidelines for the Management of Women with Cervical Cytological Abnormalities (CESAR,2002;287:212 0-9). Management algorithms have been distributed by [facility] and are available online at www.ASCCP.org. ? Document reviewed and electronically signed by: ? [facility] ? Report Date: ??10/15/2005 14:32 End of Report [facility] 10/05/2005 10/09/2005 Gabriela Burr MD PATHOLOGY ORDERABLES [facility] [address] [place] [address] documented in this encounter Visit Diagnoses Not on filedocumented in this encounter
--- OUTSIDE RECORDS SUMMARY | 2023-09-04 05:58 | XMS_ITS | Encounter Summary ---
Author Organization [facility] Address [address] [place] [address] Care Team Providers Care Circular Clerk Name Role Phone Gay Pablo NP Primary Care Provider + [phone] Encounter Details Date Type Department Care Team (Late st Contact Info) Description 01/12/2020 Lab Requisition [facility] Pathology & Laboratory Medicine - [address] [address] Roxie Adkins MD [address] [place] [phone] Encounter for other general examination Social History [...] - GENER AL ORDERABLES Performing Organization Address [facility] de Phone Number [facility] [address] [place] [address] * COVID-19 TESTING (01/12/2020 7:30 EST) COVID-19 rt-PCR Result Negative Negative 01/13/2020 21:58 EST [facility] Comment: This test has not [...] history, and epidemiological information. Performed on the PanAtlantaher Fusion instrument Performing Lab [place] [facility] 01/13/2020 21:58 EST [facility] Swab ENTIRE NASOPHARYNX / Unknown Swab / Unknown 01/12/2020 7:30 EST 01/12/2020 20:44 EST Roxie Adkins MD MICROBIOLOGY - GENER AL ORDERABLES Performing Organization Address [facility] [[email or web address]] Co de Phone Number [facility] [address] [place] [address] documented in this encounter Visit Diagnoses Diagnosis Encounter for other general examination documented in this encounter Care Teams Circular Clerk Relationship Specialty Start Date End Date Gay Pablo NP [address] [place] [address] [address] [place] [phone] PCP - General 04/07/14 documented as of this encounter
--- OUTSIDE RECORDS SUMMARY | 2023-09-04 05:58 | XMS_ITS | Encounter Summary ---
Author Organization [facility] Address [address] [place] [address] Care Team Providers Care Ruby On Rails Consultant Name Role Phone Gay Pablo NP Primary Care Provider + [phone] Encounter Details Date Type Department Care Team (Late st Contact Info) Description 07/25/2019 Lab Requisition [facility] Pathology & Laboratory Medicine - [address] [address] Outr Resulting Lab, Provider Social History Tobacco [...] rt-PCR Result NEGATIVE Negative 07/27/2019 0:45 EDT [facility] Comment: 2019-novel Coronavirus [...] in accordance with CLIA regulations, [employer] [place] [employer] (CAP) guidelines (May 07, 2019), and FDA guidance (Apr 18, 2019). This test is only for use under the Food and Drug Administration's Emergency Use Authorization. Swab ENTIRE NASOPHARYNX / Unknown 07/25/2019 10:00 EDT 07/25/2019 21:23 EDT Provider Outr Resulting Lab MICROBIOLOGY - GENERAL ORDERABLES [facility] [place], [place] * COVID-19 TESTING (07/25/2019 10:00 EDT) COVID-19 rt-PCR Result NEGATIVE Negative 07/27/2019 7:01 EDT [facility] Comment: 2019-novel Coronavirus (2019-nCoV) not detected [...] in accordance with CLIA regulations, [employer] (CAP) guidelines (May 07, 2019), and FDA guidance (Apr 18, 2019). This test is only for use under the Food and Drug Administration's Emergency Use Authorization. Performing Lab [facility] 07/27/2019 7:01 EDT [facility] Swab ENTIRE NASOPHARYNX / Unknown 07/25/2019 10:00 EDT 07/25/2019 21:23 EDT Provider Outr Resulting Lab MICROBIOLOGY - GENERAL ORDERABLES [facility] [address] [place] [address] [facility] [place], [place] documented in this encounter Visit Diagnoses Not on filedocumented in this encounter Care Teams Ruby On Rails Consultant Relationship Specialty Start Date End Date Gay Pablo NP [address] [place] [address] [address] [place] [address] PCP - General 04/07/14 documented as of this encounter
--- OUTSIDE RECORDS SUMMARY | 2023-09-04 05:58 | XMS_ITS | Clinical Summary ---
Author Organization [facility] Address [address] [place] [address] Care Team Providers Care Cloth Mercerizer Operator Name Role Phone Gay Pablo NP Primary Care Provider + [phone] Encounters Date Type Department Care Team Description 07/17/2023 Lab Requisition [facility] Pathology & Laboratory [address] [address] Outr Resulting Lab, Provider 07/16/2023 Lab Requisition [facility] & Laboratory [address] [address] Ana Alicia, DO Alcoholic hepatitis without ascites; Hematemesis; Acute pancreatitis without necrosis or infection, unspecified 07/16/2023 Lab Requisition [facility] Pathology Laboratory [address] [address] Outr Resulting Lab, Provider from Last 3 [...] 4th Generation Negative Negative 07/17/2023 18:39 EDT [facility] Comment:If acute HIV-1 infec tion is suspected in a high risk patient, submit plasma specimen for HIV-1 RNA quantitation test. Blood VENOUS BLOOD / Unknown 07/17/2023 7:10 EDT 07/17/2023 16:38 EDT Narrative [facility] - 07/17/2023 18:39 EDT Fourth Generation assay performed on the Siemens Responsysaur XPT. Provider Outr Resulting Lab IMMUNOLOGY A ND SEROLOGY ORDERABLES Performing Organization Address [facility]/State/ZIP Co de Phone Number [facility] [address] [place] [address] * SURGICAL PATHOLOGY (07/16/2023 12:33 EDT) Note to Patient The following pathology results have been interpreted by your pathologist and may be available to you before your health provider has had the opportunity to review them. Please allow time for your provider to receive these results and explore management options, if applicable. 07/18/2023 11:29 EDT [facility] Final Diagnosis A. STOMACH, ANTRUM, BIOPSY: - Mild chronic focally active gastritis. - Helicobacter pylori is positive on immunohistochemistr y. See comment. B. GE STRICTURE, BIOPSY: - Erosive acute esophagitis. - Silver stain is negative for fungal microorganisms. 07/18/2023 11:29 [facility] Diagnosis Comment Positive and negative controls are staining appropriately. Immunoperoxidase stains were performed on this case to further characterize the lesion. Awning Assembler slides of this case were reviewed at the intradepartmental consultation conference. ANTIBODY(CLONE)(BLO CK):RESULT H pylori (Rabbit Monoclonal (SP48), [place]) (A1): Positive NOTE: One or more of [...] performance characteristics have been determined by [facility] and/or by the referring laboratory. The [...] high complexity clinical laboratory testing. 07/18/2023 11:29 [facility] Attestation By the signature below, the attending physician certifies that they have 1) personally conducted a gross and/or microscopic examination of the described specimen(s), and/or personally interpreted the results of laboratory testing of the described specimen(s), and 2) personally rendered or confirmed the above diagnosis. 07/18/2023 11:29 [facility] at 1129 Clinical History Coffee ground emesis, esophagitis, mild bile reflux gastritis 07/18/2023 11:29 [facility] Gross Description A. Received in [...] 07/16/2023 17:20 07/18/2023 11:29 EDT [facility] Performing Lab [facility] 07/18/2023 11:29 EDT [facility] Scanned Images 07/18/2023 11:29 EDT [facility] Tissue ESOPHAGEAL STRUCTURE / Unknown 07/16/2023 12:33 EDT 07/16/2023 16:55 EDT Tissue specimen (specimen) ESOPHAGEAL STRUCTURE / Unknown 07/16/2023 12:33 EDT 07/16/2023 16:55 EDT Ana Alicia DO PATHOLOGY ORDERABLES Performing Organization Address [facility]/ZIP Co de Phone Number [facility] [address] [place] [address] * HCV RNA DETECT QUANT (07/15/2023 19:00 EDT) Pathologist [facility] HCV RNA Qualitative Undetected Undetected 07/17/2023 12:38 EDT [facility] Blood VENOUS BLOOD / Unknown 07/15/2023 19:00 EDT 07/16/2023 17:19 EDT Narrative [facility] - 07/17/2023 12:38 EDT The quantification range of this assay is 15 IU/mL to 100,000,000 IU/mL. Testing was performed using the Miranda HCV test ([employer] with the miranda 6800 System. Provider Outr Resulting Lab CHEMISTRY & BLOOD GAS ORDERABLES Performing Organization Address [facility]/ZIP Co de Phone Number [facility] [address] [place] [address] * (ABNORMAL) ACUTE HEPATITIS PROFILE (07/15/2023 19:00 EDT) Hep B Surface Ag Negative Negative 07/16/2023 19:37 EDT [facility] Hep C Antibody Reactive(A) Negative 19:37 EDT [facility] Comment: Supplemental testing for HCV RNA is ordered to rule out active HCV infection. Hepatitis A Antibody, IgM Negative Negative 07/16/2023 19:37 EDT [facility] Comment:The results of this assay can be falsely lowered due to the consumption of Biotin. Hepatitis B Core Ab, Total Negative Negative 07/16/2023 19:37 EDT [facility] Blood VENOUS BLOOD / Unknown 07/15/2023 19:00 EDT 07/16/2023 17:19 EDT Provider Outr Resulting Lab CHEMISTRY & BLOOD GAS ORDERABLES [facility] [address] [place] [address] from Last 3 Months Care Teams Cloth Mercerizer Operator Relationship Specialty Start Date End Date Gay Pablo NP [address] [place] [address] [address] [place] [address] [facility] - General 04/07/14
--- OUTSIDE RECORDS SUMMARY | 2023-09-04 05:58 | XMS_ITS | Encounter Summary ---
Author Organization [facility] Address [address] [place] [address] Care Team Providers Care Gas Fitter Apprentice Name Role Phone Unavailable Primary Care Provider Unavailabl e Encounter Details Date Type Department Care Team (Late st Contact Info) Description 04/05/2014 Results Only [facility] [phone] Pricila Cummings MD [address] [place] [id number] Social History Tobacco Use Types Packs/Day Years [...] ? ERENDIRA GUZMAN ? Accession #: ? [id number] ? : ? 1980 (Age: 33) ??F ? Collect Date: ? 04/05/2014 ? Location: ? [facility] ? Receive Date: ? 04/05/2014 ? Provider: PRICILA CUMMINGS MD Copy to: YANDY SAUNDERS VALIDATION SCIENTIST ? Final Pathologic Diagnosis: A. DUODENUM, ULCER, [...] Lacy 04/05/2014 6:11 PM End of Report [facility] 04/05/2014 17:3 7 EST 04/05/2014 17:37 EST Pricila Cummings MD PATHOLOGY ORDERA DONNIE [facility] [address] [place] [address] documented in this encounter Visit Diagnoses Not on filedocumented in this encounter
--- OUTSIDE RECORDS SUMMARY | 2023-09-04 05:58 | XMS_ITS | Encounter Summary ---
Author Organization [facility] Address [address] [place] [address] Care Team Providers Care Phlebotomy Services Representative Name Role Phone Gay Pablo NP Primary Care Provider + [phone] Encounter Details Date Type Department Care Team (Late st Contact Info) Description 08/17/2019 Lab Requisition [facility] Pathology & Laboratory Medicine - [address] [id number] Outr Resulting Lab, Provider Social History Tobacco [...] Outr Resulting Lab MICROBIOLOGY - GENERAL ORDERABLES [facility] [address] [place] [address] * COVID-19 TESTING (08/17/2019 17:42 EDT) COVID-19 rt-PCR Result Negative Negative 08/19/2019 17:21 EDT [facility] Comment: Negative results do not preclude 2019-nCoV infection and should not be used as the sole basis for treatment or other patient management decisions. Negative results must be combined with clinical observations, patient history, and epidemiological information. This test was developed and its performance characteristics determined by [facility]. It has not been cleared or [...] by the FDA Performed on the Applied Stunable 7500 Fast. Performing Lab AB [address] [facility] 08/19/2019 17:21 EDT [facility] Swab 08/17/2019 17:4 2 EDT 08/18/2019 15:50 EDT Provider Outr Resulting Lab MICROBIOLOGY - GENERAL ORDERABLES [facility] [address] [place] [address] documented in this encounter Visit Diagnoses Not on filedocumented in this encounter Care Teams Phlebotomy Services Representative Relationship Specialty Start Date End Date Gay Pablo NP [address] [place] [address] [address] [place] [address] PCP - General 04/07/14 documented as of this encounter
--- OUTSIDE RECORDS SUMMARY | 2023-09-04 05:58 | XMS_ITS | Encounter Summary ---
Author Organization [facility] Address [address] [place] [address] Care Team Providers Care Gas Operator Name Role Phone Gay Pablo NP Primary Care Provider + [phone] Encounter Details Date Type Department Care Team (Late st Contact Info) Description 02/24/2020 Lab Requisition [facility] Pathology & Laboratory Medicine - [facility] [address] [place], [place] [address] Outr Resulting Lab, Provider Social History Tobacco [...] Qualitative Detected( A) Undetected 02/26/2020 12:51 EST [facility] HCV RNA Quantitative 542,859(H ) Undetected IU/mL 02/26/2020 12:51 EST [facility] Blood VENOUS BLOOD / Unknown 02/23/2020 15:59 EST 02/24/2020 15:56 EST Narrative [facility] - 02/26/2020 12:51 EST The quantification range of this assay is 15 IU/mL to 100,000,000 IU/mL. ??Testing was performed on the SANDRA Ampliprep/SANDRA TaqMan HCV v2.0 ([employer] Provider Outr Resulting Lab CHEMISTRY & BLOOD GAS ORDERABLES Performing Organization Address City/[facility] Co de Phone Number [facility] [address] [place] [address] * (ABNORMAL) HEPATITIS C AB W REFLEX TO HCV RNA BY PCR (02/23/2020 15:59 EST) Hep C Antibody Reactive(A ) Negative 02/25/2020 10:04 EST [facility] Comment: Supplemental testing for HCV RNA is ordered to rule out active HCV infection. Blood VENOUS BLOOD / Unknown 02/23/2020 15:59 EST 02/24/2020 15:56 EST Provider Outr Resulting Lab CHEMISTRY & BLOOD GAS ORDERABLES Performing Organization Address [facility] Co de Phone Number [facility] [address] [place] [address] documented in this encounter Visit Diagnoses Not on filedocumented in this encounter Care Teams Gas Operator Relationship Specialty Start Date End Date Gay Pablo NP [address] [place] [address] [address] [place] [address] PCP - General 04/07/14 documented as of this encounter
--- NOTE | 2023-09-04 06:38 | ANES.PREOP_ITS ---
General Info Date of Service Date Performed: 09/04/23 Height: 5 ft 6.5 in Weight: 80.399 kg Body Mass Index (BMI): 28.1 Surgical Procedure: Operation Date: 09/04/23 07:50 Proposed Procedure Side Surgeon p Appendectomy Laparoscopic Jarvis Da Silva MD s Possible Hemicolectomy Right Jarvis Da Silva MD Meds Allergies and Home Medications Allergies Allergy/AdvReac Type Severity Reaction Status Date / Time No Known Allergies Allergy Verified 09/02/23 14:36 Home Medication ?Medication ?Instructions ?Recorded acetaminophen 500 mg capsule 1,000 mg (2 x 500 mg) PO Q6H #40 07/26/23 caps aluminum-mag hydroxide-simethicone 30 ml PO TID PRN #300 mL 07/27/23 400 mg-400 mg-40 mg/5 mL oral susp (Advanced Antacid-Antigas) buprenorphine 4 mg-naloxone 1 mg 1 film buccal Q24H 08/13/23 sublingual film (Suboxone) bisacodyl 5 mg tablet,delayed 5 mg PO ONCE #8 tabs 08/30/23 release (Dulcolax (bisacodyl)) metronidazole 500 mg tablet 500 mg PO .COMPLEX #8 tabs 08/30/23 neomycin 500 mg tablet 500 mg PO .COMPLEX #8 tabs 08/30/23 polyethylene glycol 3350 17 17 g PO ONCE #238 grams 08/30/23 gram/dose oral powder ondansetron 4 mg disintegrating 4 mg PO Q8H PRN nausea and 09/02/23 tablet vomiting #14 tabs Current Visit Medications: Current Medications Generic Name Dose Route Start Last Admin Trade Name Beth PRN Reason Stop Dose Admin Acetaminophen 1,000 mg 09/04/23 06:00 Acetaminophen 500 Mg Tab PO 09/04/23 16:00 PREOP JACOBO Celecoxib 200 mg 09/04/23 06:00 Celecoxib 200 Mg Cap PO 09/04/23 16:00 PREOP JACOBO Gabapentin 600 mg 09/04/23 06:00 Gabapentin 300 Mg Cap PO 09/04/23 16:00 PREOP JACOBO Ringer's Solution 1,000 mls @ 80 mls/hr 09/04/23 06:00 IV 10/03/23 23:59 INFUSION JACOBO Cefazolin Sodium/Dextrose 2 gm in 50 mls @ 100 mls/hr 09/04/23 06:00 Ancef Duplex IVPB 09/04/23 16:00 PREOP JACOBO IV Miscellaneous Supplies 1 each 09/04/23 06:00 Iv Access IV 10/03/23 23:59 DIRECTED JACOBO Sodium Chloride 0 ml 09/04/23 06:00 Normal Saline Flush 10 Ml Syr IV 10/03/23 23:59 PRN PRN Sodium Chloride 0 ml 09/04/23 06:00 Normal Saline 10 Ml Vial IJ 10/03/23 23:59 DIRECTED PRN Sterile Water 0 ml 09/04/23 06:00 Water,Injection,Sterile 10 Ml Vial IJ 10/03/23 23:59 DIRECTED PRN PFSH Active Problems Active Problems: Problem Status Onset Code Duodenal ulcer Acute K26.9 Pancreatitis Chronic K85.90 H. pylori infection Acute A04.8 Esophageal stricture Acute K22.2 Esophagitis with gastritis Acute K29.70, K20.90 Smoker Acute F17.200 Alcohol abuse Chronic F10.10 Alcoholic hepatitis Acute K70.10 Pancreatitis Chronic K85.90 Osteoarthritis of right hip Acute M16.11 Labral tear of right hip joint Acute S73.191A Viral URI with cough Acute J06.9 Otitis media Acute H66.90 Medical History Medical History (Updated 09/04/23 @ 07:03 by Alka Gomez) Alcohol withdrawal Pt. was the last time ETOH was consumed Insomnia H pylori ulcer History of marijuana use Daily Ovarian cyst, right Umbilical hernia Kidney atrophy History of duodenal ulcer Opioid use disorder, moderate, in early remission, on maintenance therapy, dependence Hepatitis C Treated Cervical cancer kidney stones Surgical History Surgical History History of bilateral tubal ligation section x2 Tobacco Smoking/Tobacco Use Status: Current every day Tobacco Type: cigarettes Alcohol Alcohol Intake: former Substance Use Substance use: Current Sobriety Substance use type: marijuana, heroin (2017) and methamphetamine (2017) Details: occasional marijuana, denies ETOH use since last admission Vital Signs and Lab Results Vital Signs Comment Vital Signs Comment:: Temp Pulse Resp BP Pulse Ox 36.5 C 84 16 109/76 97 09/04/23 06:15 09/04/23 06:15 09/04/23 06:15 09/04/23 06:15 09/04/23 06:15 Lab Results Blood Type / Crossmatch: 2 No Data to Display Complete Blood Count: 2 White Blood Count 8.86 10^3/uL (4.4-10.8) 08/30/23 13:20 Red Blood Count 3.88 10^6/uL (3.93-5.22) L 08/30/23 13:20 Hemoglobin 12.6 g/dL (11.2-15.7) 08/30/23 13:20 Hematocrit 38.3 % (36.0-46.0) 08/30/23 13:20 Platelet Count 10^3/uL (130-400) 08/30/23 13:20 Complete Metabolic Panel: 2 No Data to Display Liver Function Panel: 2 No Data to Display Coagulation Panel: 2 No Data to Display Cardiac Panel: 2 No Data to Display Arterial Blood Gas: 2 No Data to Display Venous Blood Gas: 2 No Data to Display Pancreas Panel: 2 No Data to Display Thyroid Panel: 2 No Data to Display Infectious Disease: 2 No Data to Display Blood Cultures: 2 No Data to Display Toxicology Panel: 2 No Data to Display Panel: 2 No Data to Display Imaging and Studies Imaging and Studies Study information below may be from another EMR and interpreted by another provider. Please see original notes in EMR for more complete details. EKG Summary: EKG PATIENT NAME: Daphnie Guzman UNIT #: [id number] ORDERING PROVIDER: Kishore Estrada M.D. PRIMARY CARE PROVIDER: UNKNOWN,UNKNOWN DATE/TIME OF SERVICE: 07/23/23 0757 : 1980 PERFORMING LOCATION: ER APPROVED REPORT Exam: Resting ECG Reason for Exam: arrythymia Patient Location: E HR:125 bpm ECG Measurements Heart Rate 125 AXIS RI 114 P -4 QRSd 85 QRS 67 QT 315 T30 QTc 453 Conclusion Sinus tachycardia...rate> 99 Ventricular premature complex...V complex w/ short R-R interval Probable inferior infarct, old...Q>35mS, II III aVF - <Electronically signed by Kishore Estrada M.D. in [place]> E-Sign Date: 07/23/23 E-Sign Time: 819 ADDENDUM APPROVED REPORT Exam: Resting ECG Reason for Exam: arrythymia Patient Location: E HR:125 bpm ECG Measurements Heart Rate 125 AXIS RI 114 P -4 QRSd 85 QRS 67 QT 315 T30 QTc 453 Conclusion Sinus tachycardia...rate> 99 Ventricular premature complex...V complex w/ short R-R interval Probable inferior infarct, old...Q>35mS, II III aVF I have reviewed and interpreted ECG and agree with software generated interpretation. Electronically signed by: <Electronically signed by Lore Mcdonnell M.D. in [place]> 07/23/23 0822 Cosigned by: Anesthesia Assessment and Plan Anesthesia History Personal History: No History of Anesthesia Complications Family History: No Family History of Anesthesia Complications Exercise Tolerance Exercise Tolerance: Metabolic Equivalents>4 Pertinent Negatives Pertinent Negatives: No Symptoms of GERD, No Major Cardiovascular Symptoms or Complaints, No Major Pulmonary Symptoms or Complaints and No History of CVA/TIA Cardiac & Pulmonary Exam Cardiac Exam: Normal S1/S2 Heart Sounds Pulmonary Exam: Clear Bilateral Breath Sounds Implantable Cardiac Device Does patient have a Pacemaker or an ICD?: No Airway Exam Known Difficult Airway: No Mallampati Class: 3 Mouth Opening: Narrow (< 3cm) Thyromental Distance: Greater than 3 cm Neck Range of Motion: Full ROM Neck Circumference: Normal Teeth Condition: Generalized Poor Dentition, Loose or Chipped, Dental Caries and Advised tooth loss possible given current condition (indicate tooth) Tooth Numberin 1. Significantly loose tooth, discussed possibility of it's loss during intubation based on how loose it is. ASA Classification ASA Score: ASA 3 Emergency Case?: No NPO Status NPO Status: NPO Clears >2 hours, Solids >8 hours Status Status: Negative HCG Anesthesia Plan Resuscitation Status: Full Code Anesthesia Technique: General Anesthesia Airway Planned: Endotracheal Tube Monitors Used: Standard Monitors
[2023-09-04] MEDS: Gabapentin 300 MG CAP 600 MG PO (06:47)
[2023-09-04] MEDS: Celecoxib 200 MG CAP PO (06:47)
[2023-09-04] MEDS: Acetaminophen 500 MG TAB 1000 MG PO (06:47)
[2023-09-04] MEDS: Lactated Ringers 1,000 ML 80 ML IV (07:30)
[2023-09-04] MEDS: ceFAZolin 2 GM/50 ML BAG IVPB (07:50)
[2023-09-04] MEDS: Bupivacaine 0.25% Pres-Free W/EPI 30 ML VIAL (08:07)
--- NOTE | 2023-09-04 09:43 | APP_PTH ---
PATIENT: Daphnie Guzman LOC: [facility] U#:[id number] AGE/SX: 42/F ROOM: RE09/04/[address]: Jarvis Da Silva MD : 1980 BED: DIS: 09/04/2023 SPEC #: [id number] RECD: 09/04/23 12:51 STATUS: YAMINI REQ #: [id number] CATALINA: 09/04/23 09:[address]: Jarvis Da Silva DEPT: Surgical Specimen RECD BY: Ranjana Fernández ENTERED: 09/04/23 12:52 SP TYPE: Appendix OTHR DR: Deepthi Johnson Tissues: 1 - APPENDIX NOT INCIDENTAL Procedures: SPECIAL STAIN 2 GROSS AND MICRO LEVEL 3 Comments: [id number]
--- NOTE | 2023-09-04 10:11 | PDOC.DSDIS_ITS ---
Date of service: 09/04/23 Time of Service: 10:11 Discharge Plan Disposition Patient Disposition: Home Condition: Good Discharge Details Reason For Visit: APPENDECTOMY Admit Date/Time: 09/04/23 05:56 Admit Provider: Jarvis Da Silva Attending Provider: Jarvis Da Silva Primary Care Provider: Deepthi Johnson Hospital Course Hospital Course: Monet is 42 years old, she had incidental finding of an abnormally dilated lavonne endix with calcifications raising concern for malignancy. She underwent laparoscopic appendectomy. There were thick chronic adhesions around the mesoappendix, but the base of the appendix was soft and healthy. She was discharged home with outpatient follow-up Home Meds and New Rx's Prescriptions: New hydromorphone [Dilaudid] 2 mg tablet 2 mg PO BID Qty: 10 0RF Rx Instructions: Take 1 tablet by mouth up to every 12 hours if needed for more severe pain. Continued buprenorphine-naloxone [Suboxone] 4-1 mg film 1 film buccal Q24H Rx Instructions: place 1 strip/tab under (each) side of tongue ondansetron 4 mg tablet,disintegrating 4 mg PO Q8H PRN (Reason: nausea and vomiting) Qty: 14 0RF acetaminophen 500 mg capsule 1,000 mg PO Q6H Qty: 40 0RF alum-mag hydroxide-simeth [Advanced Antacid-Antigas] 400-400-40 mg/5 mL suspension 30 ml PO TID PRNQty: 300 0RF Rx Instructions: Please educate the patient on interval between antacids and antibiotics Discontinued bisacodyl [Dulcolax (bisacodyl)] 5 mg tablet,delayed release (DR/EC) 5 mg PO ONCE Qty: 8 0RF Rx Instructions: Take per colonoscopy instructions provided by ordering providers office metronidazole 500 mg tablet 500 mg PO .COMPLEX Qty: 8 0RF Rx Instructions: 500 mg orally Per Bowel Surgery Instructions; instructions provided by ordering providers office neomycin 500 mg tablet 500 mg PO .COMPLEX Qty: 8 0RF Rx Instructions: 500 mg orally per bowel surgery instructions; instructions provided by ordering providers office polyethylene glycol 3350 17 gram/dose powder 17 g PO ONCE Qty: 238 0RF Rx Instructions: Take per colonoscopy instructions provided by ordering providers office Discharge Instructions Instructions: Appendectomy, Laparoscopic Surgery (DC) Additional Instructions: Daphnie, it was very nice seeing you today, and hopefully the surgery was relatively comfortable for you. We were able to remove the appendix just like we talked about in the office. The appendix itself was quite abnormal appearing, but it seems that the area where it connects down onto the large intestine may have been spared. Therefore, we just did the appendectomy today. Hopefully, when the pathologist reviews the specimen, we will receive good news. If that is the case that what ever caused her appendix to be abnormal is more serious, we have preserved all options for treatments moving forward. Hopefully however, this will be a cure. Expect to have some bruising over the incision site over the next few days, that is extremely common. I would like you to keep her lifting less than 5 pounds until we see each other in the office. You have some Band-Aids over the incisions that should remain in place until tomorrow. After that, you can remove them. You should wash the incisions with warm soapy water at least 1 time, if not twice per day. Feel free to use Band-Aids over the incisions if they are irritated by her clothing. If you notice any of the incisions turning bright red like a barbosa or fire truck, please let me know. You should do great after this operation, and be moving around a little more more each day. Pathology report usually takes about a week or 2, but as soon as I have it I will be sure to call you. We did schedule a follow-up appointment in the office on the , and I look forward to seeing you then. If you have any questions in the meantime, please let me know. 1. Resume all of your regular medications. 2. Alternate heating pads and ice packs as needed for pain. I recommend 15-daniel te intervals. 3. Alternate gzga-djz-qwlgbim Tylenol and ibuprofen every 6 hours for the first 2 days. Then moved to using it as needed. Use a prescription for Dilaudid if needed for more severe pain. 4. Leave bandage in place for 24 hours, then remove. 5. Shower with warm soapy water. Pat dry. Use a bandaid if needed to protect your clothing. 6. No soaking or tub baths until I see you in the office. 7. No heavy lifting until I see you in the office. 8. Call the office (or go directly to the emergency room after hours) if you notice any of the following: Develop chills (warm to touch), or if you have a thermometer and your temperature is above 101 Difficulty breathing or difficultly swallowing Persistent vomiting Any bleeding ? exceeding one tablespoon 9. Call your physician if the site where your intravenous was started becomes red, swollen, painful, and warm to touch. Referrals: Jarvis Da Silva MD [ [facility] STAFF PHYSICIAN] - (September 16 at 2:30 PM) Activity:: No heavy lifting Equipment/Supplies:: No Equipment Needed Diet:: As Tolerated DS: Diagnosis Discharge Diagnosis (1) Mass of appendix: Status: Acute Asessment and Plan: Appendectomy follow-up in the office
[2023-09-04] MEDS: LORazepam 2 MG/ML VIAL 0.5 MG IVP (10:18)
--- NOTE | 2023-09-04 10:22 | ROE_ITS ---
Date of service: 09/04/23 Time of Service: 10:22 Operative Note Operative Note DATE OF PROCEDURE: 09/04/23 PRE-OP DIAGNOSIS: Appendiceal mass POST-OP DIAGNOSIS: same PROCEDURE: Laparoscopic appendectomy SURGEON: Jarvis Da Silva CABLE MACHINE OPERATOR: Beatriz May ANESTHESIA TYPE: Local By Surgeon and General LMA/ETT Refer to Anesthesia Record ESTIMATED BLOOD LOSS: 25 PATHOLOGY: other (Appendix) COMPLICATIONS: None Patient was transported to: PACU Patient's condition: stable Indications: Daphnie is a 42-year-old woman who was recently hospitalized with pancreatitis. CT scan demonstrated incidental finding of a dilated appendix with some periappendiceal calcifications. Given the uncertainty of the diagnosis, some intermittent right lower quadrant discomfort, and the concern for malignancy here, we talked about surgical resection for definitive diagnosis and treatment. Findings: Dilated and chronically inflamed appendix Procedure Description: After the induction of general anesthesia, I prepped and draped the anterior abdominal wall in the usual fashion. Next, I made an umbilical incision. There is an umbilical hernia. Surrounding fascia was dissected clean, and the fat- containing hernia was incised. Next, a 12 mm port was advanced into the peritoneal cavity under direct vision. The abdomen was then insufflated. Next, I inserted a 5 mm scope and examine the underlying tissue. There was no evidence of any trauma from the insertion. Next, with the assistance of the laparoscope, I placed 5 mm port in the left lower quadrant and suprapubic position. I then moved the scope into the left lower quadrant, and positioned the patient with some Trendelenburg and left side down. I started by examining the area of the right lower quadrant. I reflected the greater omentum cephalad and identified the terminal ileum. There were some adhesions of the greater omentum towards the right anterior abdominal sidewall, as well as the right upper quadrant. The cecum and ascending colon were dissected clean by mobiliza tion of this omentum. I traced this to the insertion at the cecum and then identified the base of the appendix at the confluence of the cecal tenia. The base of the appendix was just a few centimeters away from the terminal ileum, but there did appear to be a margin of healthy tissue here. It felt soft. Distal to this, the appendix was quite difficult to visualize. It was thickened, with chronic adhesions. Mesoappendix was quite thick. It seemed to curve back on itself bit, and the appendix was difficult to visualize. Therefore, using the fold treves to reflect the terminal ileum medially, I began dissecting free the cecum. This was mobilized from the right lower quadrant sidewall allowing me to come up onto the underside of the edge of the appendix. This was elevated anteriorly, and some adhesions of the mesoappendix were divided with the LigaSure. Tedious dissection was used to mobilize the mesoappendix off of the adjacent small bowel and cecum. Once this was elevated anterior and slightly cephalad, I was able to continue dissecting laterally to free up the entire mesoappendix. The distal mesoappendix was divided with sequential fires of the LigaSure. I then brought the dissection back towards the base of the appendix. The whole midportion of the mesoappendix was thickened and dilated. As the dissection came down onto the base of the appendix, the LigaSure was used to control the mesoappendiceal vessels. There was no significant bleeding. Having liberated the base of the appendix, and the dilated midportion and mesoappendix, I had a safe margin to divide off with a healthy cuff of cecum. Great care was taken to make sure that we were well away from the insertion of the terminal ileum into the cecum. The appendix was divided with sequential fires of an Endo JOSE stapler using a purple load. With the specimen divided free, it was placed in Endo Catch bag. The staple line was examined. It was hemostatic, and the tissue appeared healthy. The terminal ileum was also examined, and appeared to insert onto the cecum with an appropriate orientation. The umbilical port site was gently enlarged in order to accommodate removal of the Endo Catch bag. Once this was completed, the midline fascia was closed with interrupted 0 PDS suture. Skin and soft tissues were irrigated, more local anesthetic was applied. Skin was closed with subcuticular stitches, bandages were applied, the patient was extubated and transferred to the recovery unit.
[2023-09-04] MEDS: Normal Saline 10 ML VIAL IJ (10:59)
[2023-09-04] MEDS: HYDROmorphone 2 MG/ML SYR IVP (10:59)
--- NOTE | 2023-09-04 13:07 | W.ANESPOSTOP ---
Postoperative Evaluation Date, Time and Location Date Performed: 09/04/23 Time Performed: 13:08 Patient Location: Day Surgery Unit Vital Signs Most Recent Imported Vital Signs: Most Recent Vital Signs Temp Pulse Resp BP Pulse Ox 36.1 C L 68 13 97/62 L 95 09/04/23 12:14 09/04/23 12:14 09/04/23 12:14 09/04/23 12:14 09/04/23 12:14 Pain Score Most Recent Pain Score: Most Recent Pain Score Pain Level 0 09/04/23 11:43 Assessment Mental Status: Awake (Alert & Oriented to Patient Baseline) Airway and Respiratory Function: Patent airway with normal (patient baseline) respiratory exam Cardiovascular Function: Hemodynamically Stable Hydration Status: Adequately Hydrated Nausea & Vomiting: No Nausea or Vomiting Pain: Pain is tolerable per patient Peripheral Nerve Block: Patient did not receive a nerve block
== END 2023-09-04 13:15 | disposition home or self-care (01) | DRG 398 ==
LOC: PDS 10:14 → DSU 11-01 10:28
PROVIDERS: PCP Nurse Practitioner Family; Visit Provider Surgery
PROC: 0DTJ4ZZ Resection of Appendix, Percutaneous Endoscopic Approach (ICD-10-PCS; CPT 44970; principal; 2023-09-04 07:30)
DX: C18.1 Malignant neoplasm of appendix (principal); F11.20 Opioid dependence, uncomplicated; K86.1 Other chronic pancreatitis; K22.2 Esophageal obstruction; K29.70 Gastritis, unspecified, without bleeding; K20.90 Esophagitis, unspecified without bleeding; F17.210 Nicotine dependence, cigarettes, uncomplicated; F10.10 Alcohol abuse, uncomplicated; K70.10 Alcoholic hepatitis without ascites; M16.11 Unilateral primary osteoarthritis, right hip; F12.90 Cannabis use, unspecified, uncomplicated; G47.00 Insomnia, unspecified
CPT/HCPCS: 44970; 81025; 88304; 88313; J0690; J1100; J1170; J1171; J1885; J2001; J2060; J2250; J2371; J2405; J2704; J3475

== ENCOUNTER 2023-10-25 15:16 | Outpatient (REF) | payer MEDICAID, SELFPAY ==
--- OUTSIDE RECORDS SUMMARY | 2023-10-25 15:17 | XMS_ITS | Encounter Summary ---
Author Organization [facility] Address [address] [place] [id number] Care Team Providers Care Wage And Salary Specialist Name Role Phone Gay Pablo NP Primary Care Provider + [phone] Encounter Details Date Type Department Care Team (Late st Contact Info) Description 12/29/2020 Lab Requisition [facility] Pathology & Laboratory Medicine - [address] [address] Outr Resulting Lab, Provider Social History Tobacco [...] Outr Resulting Lab MICROBIOLOGY - GENERAL ORDERABLES [facility] [address] [place] [address] * COVID-19 TESTING (12/29/2020 11:46 EST) COVID-19 rt-PCR Result Negative Negative 12/30/2020 15:57 EST [facility] Comment: This test has [...] performed using the miranda SARS-CoV-2 assay ([employer] on the Miranda 6800 System Performing Lab Miranda [address] [facility] Lab 12/30/2020 15:57 EST [facility] Swab 12/29/2020 11:4 6 EST 12/29/2020 21:43 EST Provider Outr Resulting Lab MICROBIOLOGY - GENERAL ORDERABLES Performing Organization Address City/State/[facility] Co de Phone Number [facility] [address] [place] [address] documented in this encounter Visit Diagnoses Not on filedocumented in this encounter Care Teams Wage And Salary Specialist Relationship Specialty Start Date End Date Gay Pablo NP [address] [place] [address] [address] [place] [id number] PCP - General 04/07/14 documented as of this encounter
--- OUTSIDE RECORDS SUMMARY | 2023-10-25 15:17 | XMS_ITS | Encounter Summary ---
Author Organization [facility] Address [address] [place] [address] Care Team Providers Care Furnace Worker Name Role Phone Gay Pablo NP Primary Care Provider + [phone] Encounter Details Date Type Department Care Team (Late st Contact Info) Description 08/26/2020 Lab Requisition [facility] Pathology & Laboratory Medicine - [facility] [address] [place], [place] [id number] Outr Resulting Lab, Provider Social History Tobacco [...] RNA Qualitative Undetected Undetected 08/31/2020 14:48 EDT [facility] Blood VENOUS BLOOD / Unknown 08/25/2020 10:15 EDT 08/26/2020 15:59 EDT Narrative [facility] - 08/31/2020 14:48 EDT The quantification range of this assay is 15 IU/mL to 100,000,000 IU/mL. ??Testing was performed on the SANDRA Ampliprep/SANDRA TaqMan HCV v2.0 ([employer] Provider Outr Resulting Lab CHEMISTRY & BLOOD GAS ORDERABLES Performing Organization Address City/[facility]/ZIP Co de Phone Number [facility] [address] [place] [address] * (ABNORMAL) HEPATITIS C AB W REFLEX TO HCV RNA BY PCR (08/25/2020 10:15 EDT) Hep C Antibody Reactive(A ) Negative 08/29/2020 13:34 EDT [facility] Comment: Supplemental testing for HCV RNA is ordered to rule out active HCV infection. Blood VENOUS BLOOD / Unknown 08/25/2020 10:15 EDT 08/26/2020 15:59 EDT Provider Outr Resulting Lab CHEMISTRY & BLOOD GAS ORDERABLES Performing Organization Address [facility] Co de Phone Number [facility] [address] [place] [address] documented in this encounter Visit Diagnoses Not on filedocumented in this encounter Care Teams Furnace Worker Relationship Specialty Start Date End Date Gay Pablo NP [address] [place] [address] [address] [place] [phone] PCP - General 04/07/14 documented as of this encounter
--- OUTSIDE RECORDS SUMMARY | 2023-10-25 15:17 | XMS_ITS | Encounter Summary ---
Author Organization [facility] Address [address] [place] [address] Care Team Providers Care Resolution Expert Name Role Phone Gay Pablo NP Primary Care Provider + [phone] Encounter Details Date Type Department Care Team (Late st Contact Info) Description 07/16/2023 Lab Requisition [facility] Pathology & Laboratory Medicine - [facility] [address] [place] [address] Ana Alicia, DO [address] [place] [address] Alcoholic hepatitis without ascites; Hematemesis; Acute pancreatitis [...] explore management options, if applicable. 07/18/2023 11:29 [facility] Final Diagnosis A. STOMACH, ANTRUM, BIOPSY: - Mild chronic focally active gastritis. - Helicobacter pylori is positive on immunohistochemistr y. See comment. B. GE STRICTURE, BIOPSY: - Erosive acute esophagitis. - Silver stain is negative for fungal microorganisms. 07/18/2023 11:29 [facility] Diagnosis Comment Positive and negative controls are staining appropriately. Immunoperoxidase stains were performed on this case to further characterize the lesion. Pre Planning Advisor slides of this case were reviewed at the intradepartmental consultation conference. ANTIBODY(CLONE)(BLO CK):RESULT H pylori (Rabbit Monoclonal (SP48), [place]) (A1): Positive NOTE: One or more of [...] performance characteristics have been determined by [facility] and/or by the referring laboratory. The [...] high complexity clinical laboratory testing. 07/18/2023 11:29 [facility] Attestation By the signature below, the attending physician certifies that they have 1) personally conducted a gross and/or microscopic examination of the described specimen(s), and/or personally interpreted the results of laboratory testing of the described specimen(s), and 2) personally rendered or confirmed the above diagnosis. 07/18/2023 11:29 [facility] at 1129 Clinical History Coffee ground emesis, esophagitis, mild bile reflux gastritis 07/18/2023 11:29 [facility] Gross Description A. Received [...] ROSEANN MATTA(ASCP) 07/16/2023 17:20 07/18/2023 11:29 EDT [facility] Performing Lab [facility] 07/18/2023 11:29 EDT [facility] Scanned Images 07/18/2023 11:29 EDT [facility] Tissue ESOPHAGEAL STRUCTURE / Unknown 07/16/2023 12:33 EDT 07/16/2023 16:55 EDT Tissue specimen (specimen) ESOPHAGEAL STRUCTURE / Unknown 07/16/2023 12:33 EDT 07/16/2023 16:55 EDT Ana Alicia DO PATHOLOGY ORDERABLES [facility] [address] [place] [address] documented in this encounter Visit Diagnoses Diagnosis Alcoholic hepatitis without ascites Acute alcoholic hepatitis Hematemesis Acute pancreatitis without necrosis or infection, unspecified documented in this encounter Care Teams Resolution Expert Relationship Specialty Start Date End Date Gay Pablo NP [address] [place] [address] [address] [place] [id number] PCP - General 04/07/14 documented as of this encounter
--- OUTSIDE RECORDS SUMMARY | 2023-10-25 15:17 | XMS_ITS | Encounter Summary ---
Author Organization [facility] Address [address] [place] [address] Care Team Providers Care Grain Cleaner Name Role Phone Gay Pablo NP Primary Care Provider + [phone] Encounter Details Date Type Department Care Team (Late st Contact Info) Description 04/26/2020 Lab Requisition [facility] Pathology & Laboratory Medicine - [facility] [address] [place] [address] Roxie Adkins MD [address] [place] [id number] Contact with and (suspected) exposure to other [...] Adkins MD MICROBIOLOGY - GENER AL ORDERABLES [facility] [address] [place] [address] * COVID-19 TESTING (04/26/2020 13:25 EST) COVID-19 rt-PCR Result Negative Negative 04/27/2020 11:27 EST [facility] Comment: This test has [...] performed using the miranda SARS-CoV-2 assay ([employer] on the Miranda 6800 System Performing Lab [address] [facility] Lab 04/27/2020 11:27 EST [facility] Swab NASAL / Unknown 04/26/2020 1 3:25 EST 04/26/2020 21:34 EST Roxie Adkins MD MICROBIOLOGY - GENER AL ORDERABLES [facility] [address] [place] [address] documented in this encounter Visit Diagnoses Diagnosis Contact with and (suspected) exposure to other viral communicable diseases documented in this encounter Care Teams Grain Cleaner Relationship Specialty Start Date End Date Gay Pablo NP [address] [place] [address] [address] [place] [phone] PCP - General 04/07/14 documented as of this encounter
--- OUTSIDE RECORDS SUMMARY | 2023-10-25 15:17 | XMS_ITS | Clinical Summary ---
Author Organization [facility] Address [address] [place] [address] Care Team Providers Care Pecan Sheller Name Role Phone Gay Pablo NP Primary Care Provider + [phone] Encounters Date Type Department Care Team Description 09/05/2023 Lab Requisition [facility] Pathology & Laboratory Medicine - [address] [address] Jarvis Da Silva MD Encounter for other general examination from Last 3 Months Social History Tobacco [...] Date/Time Associated Diagnosis Comments SURGICAL PATHOLOGY Today 09/04/2023 9: 43 EDT Encounter for other general examination HCV RNA DETECT QUANT Today 07/15/2023 19:00 EDT from Last 3 Months or Most Recently Relevant to Health Maintenance Results * SURGICAL PATHOLOGY (09/04/2023 9:43 EDT) Note to Patient The following pathology results have been interpreted by your pathologist and may be available to you before your health provider has had the opportunity to review them. Please allow time for your provider to receive these results and explore management options, if applicable. 09/15/2023 14:21 [facility] Final Diagnosis A. APPENDIX, APPENDECTOMY: - Low-grade appendiceal mucinous neoplasm (LAMN). See comment and synoptic report for details. 09/15/2023 14:21 [facility] Diagnosis Comment The appendiceal wall shows patchy areas of hyalinization. Congo red stain was performed (block A4) and shows no evidence of amyloid deposition in these areas. Marine Painter slides of this case were reviewed at the intradepartmental consultation conference. 09/15/2023 14:21 [facility] Attestation There was significant resident/fellow involvement in the diagnostic evaluation of this case. By the signature below, the attending physician certifies that they have personally conducted a gross and/or microscopic examination of the described specimens and rendered or confirmed the above diagnosis. 09/15/2023 14:21 [facility] at 1420 Synoptic APPENDIX: Resection APPENDIX: RESECTION - All Specimens 9th Edition - Protocol posted: 01/31/2022 SPECIMEN ?? Procedure: ?Appendectomy TUMOR ?? Tumor Site: ?Diffusely involving appendix ?? Histologic Type: ?Low-grade appendiceal mucinous neoplasm ?? Histologic Grade: ?G1, well differentiated ?? Tumor Size: ?Greatest Dimension (Centimeters): ~ 6.0 ??cm ?? Tumor Deposits: ?Not identified ?? Tumor Extent: ?Tumor invades through muscularis propria into subserosa or mesoappendix but does not extend to serosal surface ?? Lymphatic and / or Vascular Invasion: ?Not identified ?? Perineural Invasion: ?Not identified MARGINS ?? Margin Status for Invasive Carcinoma: ?Not applicable ?? Margin Status for Non-Invasive Tumor: ?All margins negative for non-invasive tumor REGIONAL LYMPH NODES ?? Regional Lymph Node Status: ?Not applicable (no regional lymph nodes submitted or found) pTNM CLASSIFICATION (AJCC 9th Version) ?? Reporting of pT, pN, and (when applicable) pM categories is based on information available to the pathologist at the time the report is issued. As per the AJCC (Chapter 1, 8th Ed.) it is the managing physician? s responsibility to establish the final pathologic stage based upon all pertinent information, including but potentially not limited to this pathology report. ?? pT Category: ?pT3 ?? pN Category: ?pN not assigned (no nodes submitted or found) 09/15/2023 14:21 T [facility] Clinical History Appendiceal mass 09/15/2023 14:21 T [facility] Gross Description A. Received in formalin labelled with proper patient identification (initials L, B) and appendix is a centrally folded 7.0 cm in length appendix stapled along its margin. The appendix averages 1.4 cm in diameter and includes a large amount of attached mesoappendix. The mesoappendiceal margin is inked blue. The appendiceal serosa shows minimal wispy adhesions associated with the central fold. Areas of adherent mucin are not identified. The appendiceal wall is intact. Sections through the appendix reveal a dilated lumen throughout the majority of its length. The dilated lumen contains clear and slightly cloudy mucin. The appendiceal mucosal lining is finely granular to smooth. Areas of wall induration are not identified. The majority of the specimen is submitted to include the entire appendix as follows: BLOCK MENDEZ A1- appendiceal margin, en face A2-A13- remaining appendix A14- nearest mesoappendix margin, en face ROSEANN MATTA(ASCP) 09/05/2023 8:35 09/15/2023 14:21 EDT [facility] Resident/Fell ow: Alethea Barclay MD 09/15/2023 14:21 T [facility] Performing Lab [facility] 09/15/2023 14:21 T [facility] Scanned Images 09/15/2023 14:21 T [facility] Tissue APPENDIX STRUCTURE / Unknown 09/04/2023 9:43 EDT 09/05/2023 8:00 EDT Jarvis Da Silva MD PATHOLOGY ORDERABLES Performing Organization Address [facility]/ZIP Co de Phone Number [facility] [address] [place], [place] [address] * HCV RNA DETECT QUANT (07/15/2023 19:00 EDT) HCV RNA Qualitative Undetected Undetected 07/17/2023 12:38 EDT [facility] Blood VENOUS BLOOD / Unknown 07/15/2023 19:00 EDT 07/16/2023 17:19 EDT Narrative [facility] - 07/17/2023 12:38 EDT The quantification range of this assay is 15 IU/mL to 100,000,000 IU/mL. Testing was performed using the Miranda HCV test ([employer] with the miranda Nepris0 System. Provider Outr Resulting Lab CHEMISTRY & BLOOD GAS ORDERABLES Performing Organization Address [facility] Co de Phone Number [facility] [address] [place] [address] from Last 3 Months or Most Recently Relevant to Health Maintenance Care Teams Pecan Sheller Relationship Specialty Start Date End Date Gay Pablo NP [address] [place] [phone] PCP - General 04/07/14
--- OUTSIDE RECORDS SUMMARY | 2023-10-25 15:17 | XMS_ITS | Referral Summary ---
Author Organization [facility] Address [address] [place] [address] Care Team Providers Care Pivot End Polisher Name Role Phone Gay Pablo NP Primary Care Provider + [phone] Encounters Date Type Department Care Team Description 09/05/2023 Lab Requisition [facility] Pathology & Laboratory Medicine - [address] [address] Jarvis Da Silva MD Encounter for other [...] explore management options, if applicable. 09/15/2023 14:21 EDT [facility] Final Diagnosis A. APPENDIX, APPENDECTOMY: - Low-grade appendiceal mucinous neoplasm (LAMN). See comment and synoptic report for details. 09/15/2023 14:21 [facility] Diagnosis Comment The appendiceal wall shows patchy areas of hyalinization. Congo red stain was performed (block A4) and shows no evidence of amyloid deposition in these areas. Biomass Power Plant Manager slides of this case were reviewed at the intradepartmental consultation conference. 09/15/2023 14:21 [facility] Attestation There was significant resident/fellow involvement in the diagnostic evaluation of this case. By the signature below, the attending physician certifies that they have personally conducted a gross and/or microscopic examination of the described specimens and rendered or confirmed the above diagnosis. 09/15/2023 14:21 [facility] at 1420 Synoptic [...] (no nodes submitted or found) 09/15/2023 14:21 EDT [facility] Clinical History Appendiceal mass 09/15/2023 14:21 EDT [facility] Gross Description A. Received in [...] ROSEANN MATTA(ASCP) 09/05/2023 8:35 09/15/2023 14:21 EDT [facility] Resident/Fell ow: Alethea Barclay MD 09/15/2023 14:21 EDT [facility] Performing Lab [facility] 09/15/2023 14:21 EDT [facility] Scanned Images 09/15/2023 14:21 EDT [facility] Tissue APPENDIX STRUCTURE / Unknown 09/04/2023 9:43 EDT 09/05/2023 8:00 EDT Jarvis Da Silva MD PATHOLOGY ORDERABLES [facility] [address] [place] [address] * HCV RNA DETECT QUANT (07/15/2023 19:00 EDT) HCV RNA Qualitative Undetected Undetected 07/17/2023 12:38 EDT [facility] Blood VENOUS BLOOD / Unknown 07/15/2023 19:00 EDT 07/16/2023 17:19 EDT Narrative [facility] - 07/17/2023 12:38 EDT The quantification range of this assay is 15 IU/mL to 100,000,000 IU/mL. Testing was performed using the Miranda HCV test ([employer] with the miranda [employer]0 System. Provider Outr Resulting Lab CHEMISTRY & BLOOD GAS ORDERABLES [facility] [address] [place] [address] from Last 3 Months or Most Recently Relevant to Health Maintenance Care Teams Pivot End Polisher Relationship Specialty Start Date End Date Gay Pablo NP [address] [place] [address] [address] [place] [address] [facility] - General 04/07/14
--- OUTSIDE RECORDS SUMMARY | 2023-10-25 15:17 | XMS_ITS | Encounter Summary ---
Author Organization [facility] Address [address] [place] [address] Care Team Providers Care Biomathematician Name Role Phone Gay Pablo NP Primary Care Provider + [phone] Encounter Details Date Type Department Care Team (Late st Contact Info) Description 05/03/2020 Lab Requisition [facility] Pathology & Laboratory Medicine - [facility] [address] [place] [address] Roxie Adkins MD [address] [place] [id number] Contact with and (suspected) exposure to other [...] MD MICROBIOLOGY - GENER AL ORDERABLES [facility] [address] [place] [address] * COVID-19 TESTING (05/03/2020 11:10 EDT) COVID-19 rt-PCR Result Negative Negative 05/04/2020 11:03 EDT [facility] Comment: This test has [...] performed using the miranda SARS-CoV-2 assay (Shavon [employer] on the Miranda 6800 System Performing Lab Miranda [address] [facility] 05/04/2020 11:03 EDT [facility] Swab NASAL / Unknown 05/03/2020 1 1:10 EDT 05/03/2020 22:23 EDT Roxie Adkins MD MICROBIOLOGY - GENER AL ORDERABLES [facility] [address] [place] [address] documented in this encounter Visit Diagnoses Diagnosis Contact with and (suspected) exposure to other viral communicable diseases documented in this encounter Care Teams Biomathematician Relationship Specialty Start Date End Date Gay Pablo NP [address] [place] [address] [address] [place] [address] PCP - General 04/07/14 documented as of this encounter
--- OUTSIDE RECORDS SUMMARY | 2023-10-25 15:17 | XMS_ITS | Encounter Summary ---
Author Organization [facility] Address [address] [place] [address] Care Team Providers Care Star Route Mail Driver Name Role Phone Gay Pablo NP Primary Care Provider + [phone] Encounter Details Date Type Department Care Team (Late st Contact Info) Description 07/17/2023 Lab Requisition [facility] Pathology & Laboratory Medicine - [facility] [address] [place] [address] Outr Resulting Lab, Provider Social History Tobacco [...] 4th Generation Negative Negative 07/17/2023 18:39 EDT [facility] Comment:If acute HIV-1 infec tion is suspected in a high risk patient, submit plasma specimen for HIV-1 RNA quantitation test. Blood VENOUS BLOOD / Unknown 07/17/2023 7:10 EDT 07/17/2023 16:38 EDT Narrative [facility] - 07/17/2023 18:39 EDT Fourth Generation assay performed on the Codyaur XPT. Provider Outr Resulting Lab IMMUNOLOGY A ND SEROLOGY ORDERABLES [facility] [address] [place] [address] documented in this encounter Visit Diagnoses Not on filedocumented in this encounter Care Teams Star Route Mail Driver Relationship Specialty Start Date End Date Gay Pablo NP [address] [place] [address] [address] [place] [address] PCP - General 04/07/14 documented as of this encounter
--- OUTSIDE RECORDS SUMMARY | 2023-10-25 15:17 | XMS_ITS | Encounter Summary ---
Author Organization [facility] Address [address] [place] [address] Care Team Providers Care User Interface Artist Name Role Phone Gay Pablo NP Primary Care Provider + [phone] Encounter Details Date Type Department Care Team (Late st Contact Info) Description 07/16/2023 Lab Requisition [facility] Pathology & Laboratory Medicine - [facility] [address] [place] [address] Outr Resulting Lab, Provider Social History Tobacco [...] RNA Qualitative Undetected Undetected 07/17/2023 12:38 EDT [facility] Blood VENOUS BLOOD / Unknown 07/15/2023 19:00 EDT 07/16/2023 17:19 EDT Narrative [facility] - 07/17/2023 12:38 EDT The quantification range of this assay is 15 IU/mL to 100,000,000 IU/mL. Testing was performed using the Miranda HCV test (Shavon [employer] with the miranda 6800 System. Provider Outr Resulting Lab CHEMISTRY & BLOOD GAS ORDERABLES Performing Organization Address [facility] Co de Phone Number [facility] [address] [place], [place] [phone] * (ABNORMAL) ACUTE HEPATITIS PROFILE (07/15/2023 19:00 EDT) Hep B Surface Ag Negative Negative 07/16/2023 19:37 EDT [facility] Hep C Antibody Reactive(A) Negative 19:37 EDT [facility] Comment: Supplemental testing for HCV RNA is ordered to rule out active HCV infection. Hepatitis A Antibody, IgM Negative Negative 07/16/2023 19:37 EDT [facility] Comment:The results of this assay can be falsely lowered due to the consumption of Biotin. Hepatitis B Core Ab, Total Negative Negative 07/16/2023 19:37 EDT [facility] Blood VENOUS BLOOD / Unknown 07/15/2023 19:00 EDT 07/16/2023 17:19 EDT Provider Outr Resulting Lab CHEMISTRY & BLOOD GAS ORDERABLES Performing Organization Address [facility] Co de Phone Number [facility] [address] [place], [place] [address] documented in this encounter Visit Diagnoses Not on filedocumented in this encounter Care Teams User Interface Artist Relationship Specialty Start Date End Date Gay Pablo NP [address] [place] [address] [address] [place] [address] PCP - General 04/07/14 documented as of this encounter
--- OUTSIDE RECORDS SUMMARY | 2023-10-25 15:17 | XMS_ITS | Encounter Summary ---
Author Organization [facility] Address [address] [place] [address] Care Team Providers Care Marble Rubber Name Role Phone Gay Pablo NP Primary Care Provider + [phone] Encounter Details Date Type Department Care Team (Late st Contact Info) Description 09/05/2023 Lab Requisition [facility] Pathology & Laboratory Medicine - [facility] [address] [place] [address] Jarvis Da Silva MD [address] [place] [address], [address] [place], [place] [phone] Encounter for other general examination Social History [...] 43 EDT Encounter for other general examination documented in this encounter Results * SURGICAL PATHOLOGY (09/04/2023 9:43 EDT) Note to Patient The following pathology results have been interpreted by your pathologist and may be available to you before your health provider has had the opportunity to review them. Please allow time for your provider to receive these results and explore management options, if applicable. 09/15/2023 14:21 [facility] Final Diagnosis A. APPENDIX, APPENDECTOMY: - Low-grade appendiceal mucinous neoplasm (LAMN). See comment and synoptic report for details. 09/15/2023 14:21 [facility] Diagnosis Comment The appendiceal wall shows patchy areas of hyalinization. Congo red stain was performed (block A4) and shows no evidence of amyloid deposition in these areas. Lead Man Over All Dies In Pattern Shop slides of this case were reviewed at the intradepartmental consultation conference. 09/15/2023 14:21 [facility] Attestation There was significant resident/fellow involvement in the diagnostic evaluation of this case. By the signature below, the attending physician certifies that they have personally conducted a gross and/or microscopic examination of the described specimens and rendered or confirmed the above diagnosis. 09/15/2023 14:21 [facility] at 1420 Synoptic APPENDIX: [...] nodes submitted or found) 09/15/2023 14:21 EDT [facility] Clinical History Appendiceal mass 09/15/2023 14:21 EDT [facility] Gross Description A. Received [...] ROSEANN MATTA(ASCP) 09/05/2023 8:35 09/15/2023 14:21 EDT [facility] Resident/Fell ow: Alethea Barclay MD 09/15/2023 14:21 EDT [facility] Performing Lab [facility] 09/15/2023 14:21 EDT [facility] Scanned Images 09/15/2023 14:21 EDT [facility] Tissue APPENDIX STRUCTURE / Unknown 09/04/2023 9:43 EDT 09/05/2023 8:00 EDT Jarvis Da Silva MD PATHOLOGY ORDERABLES [facility] [address] [place] [address] documented in this encounter Visit Diagnoses Diagnosis Encounter for other general examination documented in this encounter Care Teams Marble Rubber Relationship Specialty Start Date End Date Gay Pablo NP [address] [place] [address] [address] [place] [phone] PCP - General 04/07/14 documented as of this encounter
--- OUTSIDE RECORDS SUMMARY | 2023-10-25 15:18 | XMS_ITS | Encounter Summary ---
Author Organization [facility] Address [address] [place] [address] Care Team Providers Care Creative Services Coordinator Name Role Phone Gay Pablo NP Primary Care Provider + [phone] Encounter Details Date Type Department Care Team (Late st Contact Info) Description 02/02/2020 Lab Requisition [facility] Pathology & Laboratory Medicine - [address] [address] Roxie Adkins MD [address] [place] [phone] Contact with and (suspected) exposure to other [...] COVID-19 rt-PCR Result NEGATIVE Negative 02/05/2020 17:27 [facility] Comment: 2019-novel Coronavirus (2019-nCoV) not [...] in accordance with CLIA regulations, [employer] (CAP) guidelines (May 07, 2019), and FDA guidance (Apr 18, 2019). This test is only for use under the Food and Drug Administration's Emergency Use Authorization. Swab NASAL / Unknown Swab / Unknown 02/02/2020 9:48 EST 02/02/2020 20:51 EST Roxie Adkins MD MICROBIOLOGY - GENER AL ORDERABLES [place] * COVID-19 TESTING (02/02/2020 9:48 EST) Pathologist [facility] COVID-19 rt-PCR Result NEGATIVE Negative 02/05/2020 19:01 EST [facility] Comment: 2019-novel Coronavirus (2019-nCoV) not [...] in accordance with CLIA regulations, [employer] (CAP) guidelines (May 07, 2019), and FDA guidance (Apr 18, 2019). This test is only for use under the Food and Drug Administration's Emergency Use Authorization. Performing Lab [facility] 02/05/2020 19:01 EST [facility] Swab NASAL / Unknown Swab / Unknown 02/02/2020 9:48 EST 02/02/2020 20:51 EST Roxie Adkins MD MICROBIOLOGY - GENER AL ORDERABLES [facility] [address] [place] [address] [facility] [place] documented in this encounter Visit Diagnoses Diagnosis Contact with and (suspected) exposure to other viral communicable diseases documented in this encounter Care Teams Creative Services Coordinator Relationship Specialty Start Date End Date Gay Pablo NP [address] [place] [address] [address] [place] [address] PCP - General 04/07/14 documented as of this encounter
--- OUTSIDE RECORDS SUMMARY | 2023-10-25 15:18 | XMS_ITS | Encounter Summary ---
Author Organization [facility] Address [address] [place] [address] Care Team Providers Care Bottle House Cleaners Supervisor Name Role Phone Gay Pablo NP Primary Care Provider + [phone] Encounter Details Date Type Department Care Team (Late st Contact Info) Description 04/06/2020 Lab Requisition [facility] Pathology & Laboratory Medicine - [facility] [address] [place] [address] Roxie Adkins MD [address] [place] [phone] Contact with and (suspected) exposure to other [...] Adkins MD MICROBIOLOGY - GENER AL ORDERABLES [facility] [address] [place] [address] * COVID-19 TESTING (04/05/2020 13:05 EST) COVID-19 rt-PCR Result Negative Negative 04/07/2020 14:[address] [facility] Comment: This test was developed and its performance characteristics determined by [facility]. It has not been cleared or [...] defined by the FDA Performed on the Propagenix Pro RT-PCR System. This test has not [...] history, and epidemiological information. Performing Lab [facility] 04/07/2020 14:[address] [facility] Swab NASAL / Unknown Swab / Unknown 04/05/2020 13:05 EST 04/06/2020 21:02 EST Roxie Adkins MD MICROBIOLOGY - GENER AL ORDERABLES [facility] [address] [place] [address] documented in this encounter Visit Diagnoses Diagnosis Contact with and (suspected) exposure to other viral communicable diseases documented in this encounter Care Teams Bottle House Cleaners Supervisor Relationship Specialty Start Date End Date Gay Pablo NP [address] [place] [address] [address] [place] [address] PCP - General 04/07/14 documented as of this encounter
--- OUTSIDE RECORDS SUMMARY | 2023-10-25 15:18 | XMS_ITS | Encounter Summary ---
Author Organization [facility] Address [address] [place] [address] Care Team Providers Care Securities Compliance Examiner Name Role Phone Gay Pablo NP Primary Care Provider + [phone] Encounter Details Date Type Department Care Team (Late st Contact Info) Description 04/16/2020 Lab Requisition [facility] Pathology & Laboratory Medicine - [facility] [address], [place] [address] Outr Resulting Lab, Provider Social History Tobacco [...] RNA Qualitative Undetected Undetected 04/20/2020 13:[address] [facility] Blood VENOUS BLOOD / Unknown 04/15/2020 16:17 EST 04/17/2020 16:[address] [facility] - 04/20/2020 13:57 EST The quantification range of this assay is 15 IU/mL to 100,000,000 IU/mL. ??Testing was performed on the SANDRA Ampliprep/SANDRA TaqMan HCV v2.0 ([employer] Provider Outr Resulting Lab CHEMISTRY & BLOOD GAS ORDERABLES Performing Organization Address [facility]/ZIP Co de Phone Number [facility] [address] [place] [address] * (ABNORMAL) HEPATITIS C AB W REFLEX TO HCV RNA BY PCR (04/15/2020 16:17 EST) Hep C Antibody Reactive(A ) Negative 04/18/2020 11:[address] [facility] Comment: Supplemental testing for HCV RNA is ordered to rule out active HCV infection. Blood VENOUS BLOOD / Unknown 04/15/2020 16:17 EST 04/17/2020 16:21 EST Provider Outr Resulting Lab CHEMISTRY & BLOOD GAS ORDERABLES Performing Organization Address [facility] Co de Phone Number [facility] [address] [place] [address] documented in this encounter Visit Diagnoses Not on filedocumented in this encounter Care Teams Securities Compliance Examiner Relationship Specialty Start Date End Date Gay Pablo NP [address] [place] [address] [address] [place] [address] PCP - General 04/07/14 documented as of this encounter
--- OUTSIDE RECORDS SUMMARY | 2023-10-25 15:18 | XMS_ITS | Encounter Summary ---
Author Organization [facility] Address [address] [place] [address] Care Team Providers Care Manager Wireless Name Role Phone Unavailable Primary Care Provider Unavailabl e Encounter Details Date Type Department Care Team (Late st Contact Info) Description 12/17/2005 Results Only [facility] - Maple conversion [address] [place] [address] Sandra Cancino MD [address] [place] [address] [place] [address] Social History Tobacco Use Types Packs/Day Years [...] ? ERENDIRA GUZMAN ? Accession #: ? [id number] ? : ? 1980 (Age: 25) ??F ? Collect Date: ? 12/17/2005 ? Location: ? [facility] ? Receive Date: ? 12/17/2005 ? Provider: SANRDA CANCINO MD Copy to: JOSE SAUNDERS PAROLE HEARING OFFICER ? Final Pathologic Diagnosis: A. ?Cervix, 3 o'clock, biopsy: 1. ?Squamous mucosa with reactive epithelial atypia. ? - No dysplasia identified. B. ?Cervix, 12 o'clock, biopsy: 1. 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 ??See comment. ? - Glandular extension identified. Comment: ? This case was reviewed at intradepartmental consultation conference. ??(Dr. Arias)/[facility] Document reviewed and electronically signed by: Ana [...] Cancino MD PATHOLOGY ORDERABLES Performing Organization Address City/State/[facility] Co de Phone Number [facility] [address] [place] [address] documented in this encounter Visit Diagnoses Not on filedocumented in this encounter
--- OUTSIDE RECORDS SUMMARY | 2023-10-25 15:18 | XMS_ITS | Encounter Summary ---
Author Organization [facility] Address [address] [place] [address] Care Team Providers Care Care Management Specialist Name Role Phone Gay Pablo NP Primary Care Provider + [phone] Encounter Details Date Type Department Care Team (Late st Contact Info) Description 02/24/2020 Lab Requisition [facility] Pathology & Laboratory Medicine - [facility] [address] [place], [place] [address] Outr Resulting Lab, Provider Social History Tobacco [...] Qualitative Detected( A) Undetected 02/26/2020 12:51 EST [facility] HCV RNA Quantitative 542,859(H ) Undetected IU/mL 02/26/2020 12:51 EST [facility] Blood VENOUS BLOOD / Unknown 02/23/2020 15:59 EST 02/24/2020 15:56 EST Narrative [facility] - 02/26/2020 12:51 EST The quantification range of this assay is 15 IU/mL to 100,000,000 IU/mL. ??Testing was performed on the SANDRA Ampliprep/SANDRA TaqMan HCV v2.0 ([employer] Provider Outr Resulting Lab CHEMISTRY & BLOOD GAS ORDERABLES Performing Organization Address City/[facility] Co de Phone Number [facility] [address] [place] [address] * (ABNORMAL) HEPATITIS C AB W REFLEX TO HCV RNA BY PCR (02/23/2020 15:59 EST) Hep C Antibody Reactive(A ) Negative 02/25/2020 10:04 EST [facility] Comment: Supplemental testing for HCV RNA is ordered to rule out active HCV infection. Blood VENOUS BLOOD / Unknown 02/23/2020 15:59 EST 02/24/2020 15:56 EST Provider Outr Resulting Lab CHEMISTRY & BLOOD GAS ORDERABLES Performing Organization Address [facility] Co de Phone Number [facility] [address] [place] [address] documented in this encounter Visit Diagnoses Not on filedocumented in this encounter Care Teams Care Management Specialist Relationship Specialty Start Date End Date Gay Pablo NP [address] [place] [address] [address] [place] [address] PCP - General 04/07/14 documented as of this encounter
--- OUTSIDE RECORDS SUMMARY | 2023-10-25 15:18 | XMS_ITS | Encounter Summary ---
Author Organization [facility] Address [address] [place] [address] Care Team Providers Care Cane Flume Feeding Machine Operator Name Role Phone Gay Pablo NP Primary Care Provider + [phone] Encounter Details Date Type Department Care Team (Late st Contact Info) Description 01/12/2020 Lab Requisition [facility] Pathology & Laboratory Medicine - [address] [address] Roxie Adkins MD [address] [place] [phone] Encounter for other general examination Social History [...] - GENER AL ORDERABLES Performing Organization Address [facility] de Phone Number [facility] [address] [place] [address] * COVID-19 TESTING (01/12/2020 7:30 EST) COVID-19 rt-PCR Result Negative Negative 01/13/2020 21:58 EST [facility] Comment: This test has [...] history, and epidemiological information. Performed on the Overseeher Fusion instrument Performing Lab [place] [facility] 01/13/2020 21:58 EST [facility] Swab ENTIRE NASOPHARYNX / Unknown Swab / Unknown 01/12/2020 7:30 EST 01/12/2020 20:44 EST Roxie Adkins MD MICROBIOLOGY - GENER AL ORDERABLES Performing Organization Address [facility] Co de Phone Number [facility] [address] [place] [address] documented in this encounter Visit Diagnoses Diagnosis Encounter for other general examination documented in this encounter Care Teams Cane Flume Feeding Machine Operator Relationship Specialty Start Date End Date Gay Pablo NP [address] [place] [address] [address] [place] [id number] PCP - General 04/07/14 documented as of this encounter
--- OUTSIDE RECORDS SUMMARY | 2023-10-25 15:18 | XMS_ITS | Encounter Summary ---
Author Organization [facility] Address [address] [place] [address] Care Team Providers Care Primer Supervisor Name Role Phone Gay Pablo NP Primary Care Provider + [phone] Encounter Details Date Type Department Care Team (Late st Contact Info) Description 01/26/2020 Lab Requisition [facility] Pathology & Laboratory Medicine - [address] [address] Roxie Adkins MD [address] [place] [phone] Contact with and (suspected) exposure to other [...] - GENER AL ORDERABLES Performing Organization Address [facility] de Phone Number [facility] [address] [place] [address] * COVID-19 TESTING (01/26/2020 10:23 EST) COVID-19 rt-PCR Result Negative Negative 01/27/2020 14:37 EST [facility] Comment: This test [...] history, and epidemiological information. Performed on the Pristine.ioher Fusion instrument Performing Lab [place] [facility] 01/27/2020 14:37 EST [facility] Swab NASAL / Unknown 01/26/2020 1 0:23 EST 01/26/2020 23:23 EST Roxie Adkins MD MICROBIOLOGY - GENER AL ORDERABLES Performing Organization Address City/[facility] Co de Phone Number [facility] [address] [place] [address] documented in this encounter Visit Diagnoses Diagnosis Contact with and (suspected) exposure to other viral communicable diseases documented in this encounter Care Teams Primer Supervisor Relationship Specialty Start Date End Date Gay Pablo NP [address] [place] [address] [address] [place] [address] PCP - General 2/18/15 documented as of this encounter
--- OUTSIDE RECORDS SUMMARY | 2023-10-25 15:18 | XMS_ITS | Encounter Summary ---
Author Organization [facility] Address [address] [place] [address] Care Team Providers Care Manual Qa Tester Name Role Phone Gay Pablo NP Primary Care Provider + [phone] Encounter Details Date Type Department Care Team (Late st Contact Info) Description 04/19/2020 Lab Requisition [facility] Pathology & Laboratory Medicine - [facility] [address] [place] [address] Roxie Adkins MD [address] [place] [phone] Contact with and (suspected) exposure to other [...] Adkins MD MICROBIOLOGY - GENER AL ORDERABLES [facility] [address] [place] [address] * COVID-19 TESTING (04/19/2020 11:54 EST) COVID-19 rt-PCR Result Negative Negative 04/20/2020 14:35 EST [facility] Comment: This test has [...] developed and its performance characteristics determined by [facility]. It has not been cleared or [...] testing. This test is based on the [facility] COVID-19 Emergency Use Authorization (EUA) assay, with minor modification as defined by the FDA Performed on the qualifyor 7 Pro RT-PCR System. Performing Lab [place] [facility] 04/20/2020 14:35 EST [facility] Swab NASAL / Unknown Swab / Unknown 04/19/2020 11:54 EST 04/19/2020 21:19 EST Roxie Adkins MD MICROBIOLOGY - GENER AL ORDERABLES [facility] [address] [place] [address] documented in this encounter Visit Diagnoses Diagnosis Contact with and (suspected) exposure to other viral communicable diseases documented in this encounter Care Teams Manual Qa Tester Relationship Specialty Start Date End Date Gay Pablo NP [address] [place] [address] [address] [place] [address] PCP - General 04/07/14 documented as of this encounter
--- OUTSIDE RECORDS SUMMARY | 2023-10-25 15:18 | XMS_ITS | Encounter Summary ---
Author Organization [facility] Address [address] [place] [address] Care Team Providers Care Metal Hanging Helper Name Role Phone Gay Pablo NP Primary Care Provider + [phone] Encounter Details Date Type Department Care Team (Late st Contact Info) Description 08/17/2019 Lab Requisition [facility] Pathology & Laboratory Medicine - [address] [id number] Outr Resulting Lab, Provider Social History Tobacco [...] Outr Resulting Lab MICROBIOLOGY - GENERAL ORDERABLES [facility] [address] [place] [address] * COVID-19 TESTING (08/17/2019 17:42 EDT) COVID-19 rt-PCR Result Negative Negative 08/19/2019 17:21 EDT [facility] Comment: Negative results do not preclude 2019-nCoV infection and should not be used as the sole basis for treatment or other patient management decisions. Negative results must be combined with clinical observations, patient history, and epidemiological information. This test was developed and its performance characteristics determined by [facility]. It has not been cleared [...] by the FDA Performed on the [employer] 7500 Fast. Performing Lab [place] [address] [facility] 08/19/2019 17:21 EDT [facility] Swab 08/17/2019 17:4 2 EDT 08/18/2019 15:50 EDT Provider Outr Resulting Lab MICROBIOLOGY - GENERAL ORDERABLES [facility] [address] [place] [address] documented in this encounter Visit Diagnoses Not on filedocumented in this encounter Care Teams Metal Hanging Helper Relationship Specialty Start Date End Date Gay Pablo NP [address] [place] [address] [address] [place] [address] PCP - General 04/07/14 documented as of this encounter
--- OUTSIDE RECORDS SUMMARY | 2023-10-25 15:18 | XMS_ITS | Encounter Summary ---
Author Organization [facility] Address [address] [place] [address] Care Team Providers Care International Student Advisor Name Role Phone Gay Pablo NP Primary Care Provider + [phone] Encounter Details Date Type Department Care Team (Late st Contact Info) Description 02/23/2020 Lab Requisition [facility] Pathology & Laboratory Medicine - [facility] [address] [place] [address] Roxie Adkins MD [address] [place] [phone] Contact with and (suspected) exposure to other [...] COVID-19 rt-PCR Result NEGATIVE Negative 02/24/2020 20:36 [facility] Comment: 2019-novel [...] Adkins MD MICROBIOLOGY - GENER AL ORDERABLES [place], [place] * COVID-19 TESTING (02/23/2020 13:35 EST) COVID-19 rt-PCR Result NEGATIVE Negative 02/24/2020 21:08 EST [facility] Comment: 2019-novel Coronavirus (2019-nCoV) not detected [...] Administration's Emergency Use Authorization. Performing Lab [facility] 02/24/2020 21:08 EST [facility] Swab ENTIRE NASOPHARYNX / Unknown 02/23/2020 13:35 EST 02/23/2020 21:19 EST Roxie Adkins MD MICROBIOLOGY - GENER AL ORDERABLES [facility] [address] [place] [address] [facility] [place] documented in this encounter Visit Diagnoses Diagnosis Contact with and (suspected) exposure to other viral communicable diseases documented in this encounter Care Teams International Student Advisor Relationship Specialty Start Date End Date Gay Pablo NP [address] [place] [address] [address] [place] [address] PCP - General 04/07/14 documented as of this encounter
--- OUTSIDE RECORDS SUMMARY | 2023-10-25 15:18 | XMS_ITS | Encounter Summary ---
Author Organization [facility] Address [address] [place] [address] Care Team Providers Care Professor Of Counseling Name Role Phone Gay Pablo NP Primary Care Provider + [phone] Encounter Details Date Type Department Care Team (Late st Contact Info) Description 03/04/2020 Lab Requisition [facility] Pathology & Laboratory Medicine - [facility] [address] [place], [place] [address] Outr Resulting Lab, Provider Social History Tobacco [...] 16:45 EST) Hold Hold 03/04/2020 18:31 EST [facility] Blood VENOUS BLOOD / Unknown 03/03/2020 16:45 EST 03/04/2020 17:16 EST Provider Outr Resulting Lab LAB INFO SER VICE AND SUPPORT & PHONE RESULT Performing Organization Address City/[facility]/ZIP Co de Phone Number [facility] [address] [place] [address] * HEPATITIS B SURFACE ANTIBODY (03/03/2020 16:45 EST) Hep B Surface Ab, Quantitative 479.6 See Note mIU/mL 03/07/2020 10:46 EST [facility] Comment: Reference Range for Hep B Surface Ab, Quant: Positive: >= 10.0 mIU/mL Negative: ??< 10.0 mIU/mL Patient is presumed to be immune to infection with Hepatitis B Virus. Hep B Surface Ab, Qualitative Positive See Note 03/07/2020 10:46 EST [facility] Comment: Reference Range for Hep B Surface Ab, Qual: Unvaccinated: ??Negative Vaccinated: ??Positive Blood VENOUS BLOOD / Unknown 03/03/2020 16:45 EST 03/04/2020 17:15 EST Provider Outr Resulting Lab CHEMISTRY & BLOOD GAS ORDERABLES Performing Organization Address City/[facility]/ZIP Co de Phone Number [facility] [address] [place] [address] * HEPATITIS B CORE ANTIBODY (TOTAL) (03/03/2020 16:45 EST) Pathologist [facility] Hepatitis B Core Ab, Total Negative Negative 03/07/2020 11:32 EST [facility] Blood VENOUS BLOOD / Unknown 03/03/2020 16:45 EST 03/04/2020 17:15 EST Provider Outr Resulting Lab CHEMISTRY & BLOOD GAS ORDERABLES Performing Organization Address City/[facility]/ZIP Co de Phone Number [facility] [address] [place] [address] * HEPATITIS B SURFACE ANTIGEN (03/03/2020 16:45 EST) Hep B Surface Ag Negative Negative 03/07/2020 10:52 EST [facility] Blood VENOUS BLOOD / Unknown 03/03/2020 16:45 EST 03/04/2020 17:15 EST Provider Outr Resulting Lab CHEMISTRY & BLOOD GAS ORDERABLES Performing Organization Address City/[facility] Co de Phone Number [facility] [address] [place] [address] * HEPATITIS A TOTAL ANTIBODY W REFLEX (03/03/2020 16:45 EST) Hepatitis A Antibody, Total Negative Negative 03/07/2020 11:45 EST [facility] Blood VENOUS BLOOD / Unknown 03/03/2020 16:45 EST 03/04/2020 17:15 EST Narrative [facility] - 03/07/2020 11:45 EST The result of this assay can be falsely elevated (Positive) due to the consumption of Biotin. Provider Outr Resulting Lab CHEMISTRY & BLOOD GAS ORDERABLES Performing Organization Address [facility] Co de Phone Number [facility] [address] [place] [address] documented in this encounter Visit Diagnoses Not on filedocumented in this encounter Care Teams Professor Of Counseling Relationship Specialty Start Date End Date Gay Pablo NP [address] [place] [address] [address] [place] [address] PCP - General 04/07/14 documented as of this encounter
--- OUTSIDE RECORDS SUMMARY | 2023-10-25 15:18 | XMS_ITS | Encounter Summary ---
Author Organization [facility] Address [address] [place] [address] Care Team Providers Care Senior Counsel Name Role Phone Gay Pablo NP Primary Care Provider + [phone] Encounter Details Date Type Department Care Team (Late st Contact Info) Description 02/24/2020 Lab Requisition [facility] Pathology & Laboratory Medicine - [facility] [address] [place], [place] [address] Outr Resulting Lab, Provider Social History Tobacco [...] 4th Generation Negative Negative 02/25/2020 10:29 EST [facility] Comment: If acute HIV-1 infection is suspected in a high risk ??patient, submit plasma specimen for HIV-1 RNA quantitation test. Fourth Generation assay performed on the [employer]. Blood VENOUS BLOOD / Unknown 02/23/2020 15:59 EST 02/24/2020 15:56 EST Provider Outr Resulting Lab IMMUNOLOGY A ND SEROLOGY ORDERABLES [facility] [address] [place] [address] documented in this encounter Visit Diagnoses Not on filedocumented in this encounter Care Teams Senior Counsel Relationship Specialty Start Date End Date Gay Pablo NP [address] [place] [address] [address] [place] [address] PCP - General 04/07/14 documented as of this encounter
--- OUTSIDE RECORDS SUMMARY | 2023-10-25 15:18 | XMS_ITS | Encounter Summary ---
Author Organization [facility] Address [address] [place] [address] Care Team Providers Care Cabinet Installer Name Role Phone Gay Pablo NP Primary Care Provider + [phone] Encounter Details Date Type Department Care Team (Late st Contact Info) Description 04/12/2020 Lab Requisition [facility] Pathology & Laboratory Medicine - [facility] [address] [place] [address] Roxie Adkins MD [address] [place] [phone] Contact with and (suspected) exposure to other [...] - GENER AL ORDERABLES Performing Organization Address City/[facility]/ZIP Co de Phone Number [facility] [address] [place] [address] * COVID-19 TESTING (04/12/2020 12:22 EST) COVID-19 rt-PCR Result Negative Negative 04/13/2020 15:22 EST [facility] Comment: This test [...] performed using the miranda SARS-CoV-2 assay ([employer] on the Miranda 6800 System Performing Lab Miranda [address] [facility] 04/13/2020 15:22 EST [facility] Swab NASAL / Unknown Swab / Unknown 04/12/2020 12:22 EST 04/12/2020 22:01 EST Roxie Adkins MD MICROBIOLOGY - GENER AL ORDERABLES [facility] [address] [place] [address] documented in this encounter Visit Diagnoses Diagnosis Contact with and (suspected) exposure to other viral communicable diseases documented in this encounter Care Teams Cabinet Installer Relationship Specialty Start Date End Date Gay Pablo NP [address] [facility] [address] [place] [address] PCP - General 04/07/14 documented as of this encounter
--- OUTSIDE RECORDS SUMMARY | 2023-10-25 15:18 | XMS_ITS | Encounter Summary ---
Author Organization [facility] Address [address] [place] [address] Care Team Providers Care Energy Director Name Role Phone Unavailable Primary Care Provider Unavailabl e Encounter Details Date Type Department Care Team (Late st Contact Info) Description 10/05/2005 Results Only [facility] Family Medicine - [address] [place] [address] Gabriela Burr MD [address] [place] [phone] Social History Tobacco Use Types Packs/Day Years [...] cancers. [facility] Report Status Final [id number] [facility] 10/05/2005 10:0 2 EDT 10/16/2005 10:02 EDT Gabriela Burr MD MICROBIOLOGY - GENER AL ORDERABLES [facility] [address] [place] [address] * CYTOPATHOLOGY (10/05/2005 0:00 EDT) Pathology Report: CYTOPATHOLOGY REPORT Reports generated via electronic interface contain original data; however they are lacking the format of the original report. Caution should be taken when reading/interpreti ng unformatted reports. Name: ? JESSEEKENYA ERENDIRA ? Accession #: ? [id number] : ? 1980 (Age: 24) ??F ?Collect Date: ? 10/05/2005 Location: ? [facility] ? Receive Date: ? 10/09/2005 Provider: ?GABRIELA BURR MD Copy to: ?ELIZABETH DEL RIO MD ? Specimen/Source: ?ThinPrep Pap Test, Endocervix, processed on [employer] ThinPrep Imaging System, with manual evaluation Last [...] intraepithelial lesion (HSIL). EDUCATIONAL NOTES/RECOMMENDATI ONS ? [facility] recommends following the 2001 Consensus Guidelines for the Management of Women with Cervical Cytological Abnormalities (CESAR,2002;287:212 0-9). Management algorithms have been distributed by [facility] and are available online at www.ASCCP.org. ? Document reviewed and electronically signed by: ? [facility] ? Report Date: ??10/15/2005 14:32 End of Report [facility] 10/05/2005 10/09/2005 Gabriela Burr MD PATHOLOGY ORDERABLES [facility] [address] [place] [address] documented in this encounter Visit Diagnoses Not on filedocumented in this encounter
--- OUTSIDE RECORDS SUMMARY | 2023-10-25 15:18 | XMS_ITS | Encounter Summary ---
Author Organization [facility] Address [address] [place] [address] Care Team Providers Care Poultry Vaccinator Name Role Phone Gay Pablo NP Primary Care Provider + [phone] Encounter Details Date Type Department Care Team (Late st Contact Info) Description 02/16/2020 Lab Requisition [facility] Pathology & Laboratory Medicine - [address] [address] Roxie Adkins MD [address] [place] [id number] Contact with and (suspected) exposure to other [...] COVID-19 rt-PCR Result NEGATIVE Negative 02/17/2020 17:18 [facility] Comment: 2019-novel Coronavirus (2019-nCoV) [...] in accordance with CLIA regulations, College of [place] Pathologists (CAP) guidelines (May 07, 2019), and FDA guidance (Apr 18, 2019). This test is only for use under the Food and Drug Administration's Emergency Use Authorization. Swab ENTIRE NASOPHARYNX / Unknown Swab / Unknown 02/16/2020 6:45 EST 02/16/2020 22:30 EST Roxie Adkins MD MICROBIOLOGY - [employer] AL ORDERABLES [place], [place] * COVID-19 TESTING (02/16/2020 6:45 EST) COVID-19 rt-PCR Result NEGATIVE Negative 02/17/2020 18:[address] [facility] Comment: 2019-novel Coronavirus (2019-nCoV) not [...] in accordance with CLIA regulations, College of [place] Pathologists (CAP) guidelines (May 07, 2019), and FDA guidance (Apr 18, 2019). This test is only for use under the Food and Drug Administration's Emergency Use Authorization. Performing Lab [facility] 02/17/2020 18:[address] [facility] Swab ENTIRE NASOPHARYNX / Unknown Swab / Unknown 02/16/2020 6:45 EST 02/16/2020 22:30 EST Roxie Adkins MD MICROBIOLOGY - GENER AL ORDERABLES [facility] [address] [place] [address] [facility] [place], [place] documented in this encounter Visit Diagnoses Diagnosis Contact with and (suspected) exposure to other viral communicable diseases documented in this encounter Care Teams Poultry Vaccinator Relationship Specialty Start Date End Date Gay Pablo NP [address] [place] [address] [address] [place] [phone] PCP - General 04/07/14 documented as of this encounter
--- OUTSIDE RECORDS SUMMARY | 2023-10-25 15:18 | XMS_ITS | Encounter Summary ---
Author Organization [facility] Address [address] [place] [address] Care Team Providers Care Business Banker Name Role Phone Unavailable Primary Care Provider Unavailabl e Encounter Details Date Type Department Care Team (Late st Contact Info) Description 04/05/2014 Results Only [facility] [phone] Pricila Cummings MD [address] [place] [phone] Social History Tobacco Use Types Packs/Day Years [...] ? ERENDIRA GUZMAN ? Accession #: ? [id number] ? : ? 1980 (Age: 33) ??F ? Collect Date: ? 04/05/2014 ? Location: ? [facility] ? Receive Date: ? 04/05/2014 ? Provider: PRICILA CUMMINGS MD Copy to: YANDY SAUNDERS CANTEEN OPERATOR ? Final Pathologic Diagnosis: A. DUODENUM, ULCER, [...] Lacy 04/05/2014 6:11 PM End of Report [facility] 04/05/2014 17:3 7 EST 04/05/2014 17:37 EST Pricila Cummings MD PATHOLOGY ORDERA DONNIE [facility] [address] [place] [address] documented in this encounter Visit Diagnoses Not on filedocumented in this encounter
--- OUTSIDE RECORDS SUMMARY | 2023-10-25 15:18 | XMS_ITS | Encounter Summary ---
Author Organization [facility] Address [address] [place] [address] Care Team Providers Care Rugby League Footballer Name Role Phone Unavailable Primary Care Provider Unavailabl e Encounter Details Date Type Department Care Team (Latest Contact Info) Description 04/05/2014 16:57 EST - 04/05/2014 23:59 EST Hospital Encounter [address] [address] Unknown, Provider, Discharge Disposition: Home or Self Care Social History Tobacco Use Types Packs/Day Years Used Date Smoking Tobacco: Never Assessed Sex and Gender Information Value Date Recorded Sex Assigned at Not on file Gender Identity Not on file Sexual Orientation Not on file documented as of this encounter Discharge Disposition Disposition Code Departure Means Destination Home or Self Snf documented in this encounter Plan of Treatment Not on file documented as of this encounter Visit Diagnoses Not on filedocumented in this encounter
--- OUTSIDE RECORDS SUMMARY | 2023-10-25 15:18 | XMS_ITS | Encounter Summary ---
Author Organization [facility] Address [address] [place] [address] Care Team Providers Care Vice President Financial Name Role Phone Gay Pablo NP Primary Care Provider + [phone] Encounter Details Date Type Department Care Team (Late st Contact Info) Description 01/19/2020 Lab Requisition [facility] Pathology & Laboratory Medicine - [address] [address] Roxie Adkins MD [address] [place] [phone] Encounter for screening for other viral diseases [...] in accordance with CLIA regulations, College of [place] Pathologists (CAP) guidelines (May 07, 2019), and FDA guidance (Apr 18, 2019). This test is only for use under the Food and Drug Administration's Emergency Use Authorization. Swab ENTIRE NASOPHARYNX / Unknown 01/19/2020 14:20 EST 01/19/2020 22:25 EST Roxie Adkins MD MICROBIOLOGY - GENER AL ORDERABLES [facility] [place], [place] * COVID-19 TESTING (01/19/2020 14:20 EST) Pathologist [facility] COVID-19 rt-PCR Result NEGATIVE Negative 01/21/2020 10:38 EST [facility] Comment: 2019-novel Coronavirus (2019-nCoV) not [...] in accordance with CLIA regulations, College of [place] Pathologists (CAP) guidelines (May 07, 2019), and FDA guidance (Apr 18, 2019). This test is only for use under the Food and Drug Administration's Emergency Use Authorization. Performing Lab [facility] 01/21/2020 10:38 EST [facility] Swab 01/19/2020 14:2 0 EST 01/19/2020 22:25 EST Roxie Adkins MD MICROBIOLOGY - GENER AL ORDERABLES [facility] [address] [place] [address] [facility] [place], [place] documented in this encounter Visit Diagnoses Diagnosis Encounter for screening for other viral diseases documented in this encounter Care Teams Vice President Financial Relationship Specialty Start Date End Date Gay Pablo NP [address] [facility] [address] [place] [phone] PCP - General 04/07/14 documented as of this encounter
--- OUTSIDE RECORDS SUMMARY | 2023-10-25 15:18 | XMS_ITS | Encounter Summary ---
Author Organization [facility] Address [address] [place] [address] Care Team Providers Care Knot Tying Operator Name Role Phone Gay Pablo NP Primary Care Provider + [phone] Encounter Details Date Type Department Care Team (Late st Contact Info) Description 07/25/2019 Lab Requisition [facility] Pathology & Laboratory Medicine - [address] [address] Outr Resulting Lab, Provider Social History Tobacco [...] rt-PCR Result NEGATIVE Negative 07/27/2019 0:45 EDT [facility] Comment: 2019-novel Coronavirus (2019-nCoV) [...] in accordance with CLIA regulations, College of [place] Pathologists (CAP) guidelines (May 07, 2019), and FDA guidance (Apr 18, 2019). This test is only for use under the Food and Drug Administration's Emergency Use Authorization. Swab ENTIRE NASOPHARYNX / Unknown 07/25/2019 10:00 EDT 07/25/2019 21:23 EDT Provider Outr Resulting Lab MICROBIOLOGY - GENERAL ORDERABLES [facility] [place], [place] * COVID-19 TESTING (07/25/2019 10:00 EDT) COVID-19 rt-PCR Result NEGATIVE Negative 07/27/2019 7:01 EDT [facility] Comment: 2019-novel Coronavirus (2019-nCoV) [...] in accordance with CLIA regulations, College of [place]ian Pathologists (CAP) guidelines (May 07, 2019), and FDA guidance (Apr 18, 2019). This test is only for use under the Food and Drug Administration's Emergency Use Authorization. Performing Lab [facility] 07/27/2019 7:01 EDT [facility] Swab ENTIRE NASOPHARYNX / Unknown 07/25/2019 10:00 EDT 07/25/2019 21:23 EDT Provider Outr Resulting Lab MICROBIOLOGY - GENERAL ORDERABLES [facility] [address] [place] [address] [facility] [place], [place] documented in this encounter Visit Diagnoses Not on filedocumented in this encounter Care Teams Knot Tying Operator Relationship Specialty Start Date End Date Gay Pablo NP [address] [place] [address] [address] [place] [address] PCP - General 04/07/14 documented as of this encounter
[2023-10-25 22:09] LABS: FREE T4 0.78 ng/dL (0.76-1.46)
[2023-10-26 21:22] LABS: Progesterone 3.8 ng/mL (See Table)
[2023-10-28 08:50] LABS: Prolactin 12.8 ng/mL (See Note)
[2023-10-28 08:55] LABS: FSH 6.8 mIU/mL (See Note)
== END 2023-10-25 15:17 | disposition home or self-care (01) ==
LOC: NCHCN 15:16
PROVIDERS: PCP Nurse Practitioner Family; Visit Provider Nurse Practitioner Family
DX: N64.4 Mastodynia (principal)
CPT/HCPCS: 83001; 84144; 84146; 84439; 84443

== ENCOUNTER 2023-11-04 03:27 | Outpatient (CLI) | payer MEDICAID, SELFPAY ==
--- NOTE | 2023-11-04 14:20 | DI.MAMMO_ITS ---
Exam(s) MAMMO SCREENING EXAM: MAMMO SCREENING CLINICAL HISTORY: Screening, family h/o malignant neoplasm of breast in first-degree relative. TECHNIQUE: Bilateral full field digital CC and MLO mammographic images were obtained with 3D tomosyn thesis and utilizing computer aided detection (CAD). COMPARISON: None. This is a baseline mammogram on this 43-year-old. FINDINGS: Fibroglandular tissue pattern is moderately dense. There are no obvious spiculated masses nor malignant appearing microcalcification groups. There is no significant architectural distortion nor skin thickening-retraction. IMPRESSION: Moderate dense fibroglandular tissue. No obvious radiographic evidence of malignancy. However, given the family history and patient's apparent symptoms I recommend that she undergo comple te bilateral breast ultrasound. BI-RADS Category 0 - Incomplete: Need additional imaging evaluation Breast Density - Category C - Heterogeneously dense Breast density Category C or D implies that the patient has dense breast tissue. Dense breast tissue can make it harder to find cancer on a mammogram. Dense breast tissue is also associated with an incr eased risk of breast cancer. This information about the result of the mammogram report was provided to the patient to raise their awareness. Use this report when you speak with the patient about their risks for breast cancer, which includes their family history. At that time, you may recommend additional screening tests (Ultrasoun d or MRI) as these tests may add significant information. A negative radiographic report should not delay biopsy if a dominant or clinically suspicious mass is present. Up to ten percent of cancers are not identified on mammography. A negative report may reinforce clinical impression. Adenosis and dense breasts may obscure an underlying neoplasm. False positive reports average 6 to 10%. Patient will receive a letter notifying them of these results.
== END 2023-11-04 03:47 ==
LOC: DI 03:27
PROVIDERS: PCP Nurse Practitioner Family; Visit Provider Nurse Practitioner Family
DX: Z12.31 Encounter for screening mammogram for malignant neoplasm of breast (principal)
CPT/HCPCS: 77063; 77067

== ENCOUNTER 2023-11-07 01:26 | Outpatient (CLI) | payer MEDICAID, SELFPAY ==
--- NOTE | 2023-11-07 | DI.US_ITS ---
Exam(s) US BREAST LT COMPLETE US BREAST RT COMPLETE EXAM: US BREAST BILATERAL COMPLETE CLINICAL HISTORY: F/U MAMMO, FAMILY H/O BREAST CA,DENSE TISSUE. TECHNIQUE: Complete ultrasound of BOTH BREASTS was performed including all 4 quadrants, the retroare olar regions, and both axillary regions. COMPARISON: Prior mammogram reviewed. FINDINGS: There is no evidence of solid or significant cystic lesions in either breast. Scanning of both axillary regions is negative for adenopathy. IMPRESSION: Negative bilateral complete breast ultrasound BI-RADS Category 1 - Negative Breast Density - Category C - Heterogeneously dense Breast density Category C or D implies that the patient has dense breast tissue. Dense breast tissue can make it harder to find cancer on a mammogram. Dense breast tissue is also associated with an incr eased risk of breast cancer. This information about the result of the mammogram report was provided to the patient to raise their awareness. Use this report when you speak with the patient about their risks for breast cancer, which includes their family history. At that time, you may recommend additional screening tests (Ultrasoun d or MRI) as these tests may add significant information. A negative radiographic report should not delay biopsy if a dominant or clinically suspicious mass is present. Up to ten percent of cancers are not identified on mammography. A negative report may reinforce clinical impression. Adenosis and dense breasts may obscure an underlying neoplasm. False positive reports average 6 to 10%. Patient will receive a letter notifying them of these results.
== END 2023-11-07 01:46 ==
LOC: DI 01:26
PROVIDERS: PCP Nurse Practitioner Family; Visit Provider Nurse Practitioner Family
DX: Z12.31 Encounter for screening mammogram for malignant neoplasm of breast (principal); Z80.3 Family history of malignant neoplasm of breast
CPT/HCPCS: 76642

== ENCOUNTER 2024-03-17 11:09 | Outpatient (CLI) | payer MEDICAID, SELFPAY ==
--- OUTSIDE RECORDS SUMMARY | 2024-03-17 11:12 | XMS_ITS | Encounter Summary ---
Author Organization [facility] Address [address] [place] [address] Care Team Providers Care Elementary School Counselor Name Role Phone Gay Pablo NP Primary Care Provider [phone] Encounter Details Date Type Department Care Team (Late st Contact Info) Description 07/16/2023 Lab Requisition [facility] Pathology & Laboratory Medicine - [facility] [address] [place] [address] Ana Alicia, DO [address] [place] [address] Alcoholic hepatitis without ascites; Hematemesis; Acute pancreatitis without necrosis or infection, unspecified Social History Tobacco Use Types Packs/Day Years Used Date Smoking Tobacco: Never Assessed Interpersonal Safety Answer Date Record ed Physically Hurt Never 09/20/2019 Verbally Threaten Not on file 09/20/2019 Comments Unknown Sex and Gender Information Value Date Recorded Sex Assigned at Not on file Legal Sex Female 18:38 EST Gender Identity Not on file Sexual Orientation [...] explore management options, if applicable. 07/18/2023 11:29 [facility] Final Diagnosis A. STOMACH, ANTRUM, BIOPSY: - Mild chronic focally active gastritis. - Helicobacter pylori is positive on immunohistochemistr y. See comment. B. GE STRICTURE, BIOPSY: - Erosive acute esophagitis. - Silver stain is negative for fungal microorganisms. 07/18/2023 11:29 [facility] Diagnosis Comment Positive and negative controls are staining appropriately. Immunoperoxidase stains were performed on this case to further characterize the lesion. Quality Control Expert slides of this case were reviewed at the intradepartmental consultation conference. ANTIBODY(CLONE)(BLO CK):RESULT H pylori (Rabbit Monoclonal (SP48), Ransom) (A1): Positive NOTE: One or more of [...] performance characteristics have been determined by [facility] and/or by the referring laboratory. The positive [...] high complexity clinical laboratory testing. 07/18/2023 11:29 [facility] Attestation By the signature below, the attending physician certifies that they have 1) personally conducted a gross and/or microscopic examination of the described specimen(s), and/or personally interpreted the results of laboratory testing of the described specimen(s), and 2) personally rendered or confirmed the above diagnosis. 07/18/2023 11:29 [facility] at 1129 Clinical History Coffee ground emesis, esophagitis, mild bile reflux gastritis 07/18/2023 11:29 EDT [facility] Gross Description A. Received [...] ROSEANN MATTA(ASCP) 07/16/2023 17:20 07/18/2023 11:29 EDT [facility] Performing Lab [facility] 07/18/2023 11:29 EDT [facility] Scanned Images 07/18/2023 11:29 EDT [facility] Tissue ESOPHAGEAL STRUCTURE / Unknown 07/16/2023 12:33 EDT 07/16/2023 16:55 EDT Tissue specimen (specimen) ESOPHAGEAL STRUCTURE / Unknown 07/16/2023 12:33 EDT 07/16/2023 16:55 EDT us Ana Alicia DO PATHOLOGY ORDERABLES Final Re sult [facility] [address] [place] [address] documented in this encounter Visit Diagnoses Diagnosis Alcoholic hepatitis without ascites Acute alcoholic hepatitis Hematemesis Acute pancreatitis without necrosis or infection, unspecified documented in this encounter Care Teams Elementary School Counselor Relationship Specialty Start Date End Date Gay Pablo NP [address] [place] [address] [address] [place] [phone] PCP - General 04/07/14 documented as of this encounter
--- OUTSIDE RECORDS SUMMARY | 2024-03-17 11:12 | XMS_ITS | Encounter Summary ---
Author Organization [facility] Address [address] [place] [address] Care Team Providers Care Bar Assistant Name Role Phone Gay Pablo NP Primary Care Provider [phone] Encounter Details Date Type Department Care Team (Late st Contact Info) Description 09/05/2023 Lab Requisition [facility] Pathology & Laboratory Medicine - [facility] [address] [place] [address] Jarvis Da Silva MD [address] [place] [address], [address] [place], [place] [address] Encounter for other general examination Social History [...] evidence of amyloid deposition in these areas. Gore Maker slides of this case were reviewed at [...] nodes submitted or found) 09/15/2023 14:21 EDT [facility] Clinical History Appendiceal mass 09/15/2023 14:21 EDT [facility] Gross Description [...] ROSEANN MATTA(ASCP) 09/05/2023 8:35 09/15/2023 14:21 EDT [facility] Resident/Fell ow: Alethea Barclay MD 09/15/2023 14:21 EDT [facility] Performing Lab [facility] 09/15/2023 14:21 T [facility] Scanned Images 09/15/2023 14:21 T [facility] Tissue APPENDIX STRUCTURE / Unknown 09/04/2023 9:43 EDT 09/05/2023 8:00 EDT us Jarvis Da Silva MD PATHOLOGY ORDERABLES Final Resu lt [facility] [address] [place] [address] documented in this encounter Visit Diagnoses Diagnosis Encounter for other general examination documented in this encounter Care Teams Bar Assistant Relationship Specialty Start Date End Date Gay Pablo NP [address] [place] [address] [address] [place] [address] PCP - General 04/07/14 documented as of this encounter
--- OUTSIDE RECORDS SUMMARY | 2024-03-17 11:12 | XMS_ITS | Encounter Summary ---
Author Organization [facility] Address [address] [place] [address] Care Team Providers Care Supervisor Facepiece Line Name Role Phone Gay Pablo NP Primary Care Provider [phone] Encounter Details Date Type Department Care Team (Late st Contact Info) Description 07/16/2023 Lab Requisition [facility] Pathology & Laboratory Medicine - [facility] [address] [place] [address] Outr Resulting Lab, Provider Social History Tobacco [...] RNA Qualitative Undetected Undetected 07/17/2023 12:38 EDT [facility] Blood VENOUS BLOOD / Unknown 07/15/2023 19:00 EDT 07/16/2023 17:19 EDT Narrative [facility] - 07/17/2023 12:38 EDT The quantification range of this assay is 15 IU/mL to 100,000,000 IU/mL. Testing was performed using the Miranda HCV test ([employer] with the miranda [id number] System. us Provider Outr Resulting Lab CHEMISTRY & BLOOD GA S ORDERABLES Final Result Performing Organization Address [facility] Co de Phone Number [facility] [address] [place] [address] * (ABNORMAL) ACUTE HEPATITIS PROFILE (07/15/2023 19:00 EDT) Hep B Surface Ag Negative Negative 07/16/2023 19:37 EDT [facility] Hep C Antibody Reactive(A) Negative 19:37 EDT [facility] Comment: Supplemental testing for HCV RNA is ordered to rule out active HCV infection. Hepatitis A Antibody, IgM Negative Negative 07/16/2023 19:37 EDT [facility] Comment:The results of this assay can be falsely lowered due to the consumption of Biotin. Hepatitis B Core Ab, Total Negative Negative 07/16/2023 19:37 EDT [facility] Blood VENOUS BLOOD / Unknown 07/15/2023 19:00 EDT 07/16/2023 17:19 EDT us Provider Outr Resulting Lab CHEMISTRY & BLOOD GA S ORDERABLES Final Result Performing Organization Address [facility] Co de Phone Number [facility] [address] [place] [address] documented in this encounter Visit Diagnoses Not on filedocumented in this encounter Care Teams Supervisor Facepiece Line Relationship Specialty Start Date End Date Gay Pablo NP [address] [place] [address] [address] [place] [address] PCP - General 04/07/14 documented as of this encounter
--- OUTSIDE RECORDS SUMMARY | 2024-03-17 11:12 | XMS_ITS | Encounter Summary ---
Author Organization [facility] Address [address] [place] [address] Care Team Providers Care Plate Fitter Name Role Phone Gay Pablo NP Primary Care Provider [phone] Encounter Details Date Type Department Care Team (Late st Contact Info) Description 04/19/2020 Lab Requisition [facility] Pathology & Laboratory Medicine - [facility] [address] [place] [address] Roxie Adkins MD [address] [place] [phone] Contact with and (suspected) exposure to other [...] 21:19 EST Roxie Adkins MD MICROBIOLOGY - GENERAL ORDER RUSSEL Final Result [facility] [address] [place] [address] * COVID-19 TESTING (04/19/2020 11:54 EST) COVID-19 rt-PCR Result Negative Negative 04/20/2020 14:35 EST [facility] Comment: This test [...] developed and its performance characteristics determined by [facility]. It has not been cleared [...] This test is based on the [facility] COVID-19 Emergency Use Authorization (EUA) assay, with minor modification as defined by the FDA Performed on the Perfect Memoryo 7 Pro RT-PCR System. Performing Lab [facility] Lab 04/20/2020 14:35 EST [facility] Swab NASAL / Unknown Swab / Unknown 04/19/2020 11:54 EST 04/19/2020 21:19 EST us Roxie Adkins MD MICROBIOLOGY - GENERAL ORDER RUSSEL Final Result [facility] [address] [place] [address] documented in this encounter Visit Diagnoses Diagnosis Contact with and (suspected) exposure to other viral communicable diseases documented in this encounter Care Teams Plate Fitter Relationship Specialty Start Date End Date Gay Pablo NP [address] [place] [address] [address] [place] [address] PCP - General 04/07/14 documented as of this encounter
--- OUTSIDE RECORDS SUMMARY | 2024-03-17 11:12 | XMS_ITS | Encounter Summary ---
Author Organization [facility] Address [address] [place] [address] Care Team Providers Care Music Worker Name Role Phone Gay Pablo NP Primary Care Provider [phone] Encounter Details Date Type Department Care Team (Late st Contact Info) Description 01/12/2020 Lab Requisition [facility] Pathology & Laboratory Medicine - [address] [address] Roxie Adkins MD [address] [place] [phone] Encounter for other general examination Social History [...] 20:44 EST Roxie Adkins MD MICROBIOLOGY - GENERAL ORDER RUSSEL Final Result Performing Organization Address [facility] Co de Phone Number [facility] [address] [place] [address] * COVID-19 TESTING (01/12/2020 7:30 EST) COVID-19 rt-PCR Result Negative Negative 01/13/2020 21:58 EST [facility] Comment: This test has [...] history, and epidemiological information. Performed on the [employer] Fusion instrument Performing Lab [facility] Lab 01/13/2020 21:58 EST [facility] Swab ENTIRE NASOPHARYNX / Unknown Swab / Unknown 01/12/2020 7:30 EST 01/12/2020 20:44 EST us Roxie Adkins MD MICROBIOLOGY - GENERAL ORDER RUSSEL Final Result Performing Organization Address City/[facility]/ZIP Co de Phone Number [facility] [address] [place] [address] documented in this encounter Visit Diagnoses Diagnosis Encounter for other general examination documented in this encounter Care Teams Music Worker Relationship Specialty Start Date End Date Gay Pablo NP [address] [place] [address] [address] [place] [phone] PCP - General 04/07/14 documented as of this encounter
--- OUTSIDE RECORDS SUMMARY | 2024-03-17 11:12 | XMS_ITS | Referral Summary ---
Author Organization [facility] Address [address] [place] [address] Care Team Providers Care Staff Assistant Name Role Phone Gay Pablo NP Primary Care Provider [phone] Social History Tobacco Use Types Packs/Day Years [...] Recently Relevant to Health Maintenance Results * HCV RNA DETECT QUANT (07/15/2023 19:00 EDT) HCV RNA Qualitative Undetected Undetected 07/17/2023 12:38 EDT [facility] Blood VENOUS BLOOD / Unknown 07/15/2023 19:00 EDT 07/16/2023 17:19 EDT Narrative [facility] - 07/17/2023 12:38 EDT The quantification range of this assay is 15 IU/mL to 100,000,000 IU/mL. Testing was performed using the Miranda HCV test (Shavon [employer] with the miranda 6800 System. us Provider Outr Resulting Lab CHEMISTRY & BLOOD GA S ORDERABLES Final Result [facility] [address] [place] [address] from Last 3 Months or Most Recently Relevant to Health Maintenance Insurance [place] Care Teams Staff Assistant Relationship Specialty Start Date End Date Gay Pablo NP [address] [place] [address] [address] [place] [address] PCP - General 04/07/14
--- OUTSIDE RECORDS SUMMARY | 2024-03-17 11:12 | XMS_ITS | Encounter Summary ---
Author Organization [facility] Address [address] [place] [address] Care Team Providers Care Attendance Secretary Name Role Phone Gay Pablo NP Primary Care Provider [phone] Encounter Details Date Type Department Care Team (Late st Contact Info) Description 02/02/2020 Lab Requisition [facility] Pathology & Laboratory Medicine - [address] [address] Roxie Adkins MD [address] [place] [phone] Contact with and (suspected) exposure to other [...] - BROAD COVID TEST (02/02/2020 9:48 EST) [facility] COVID-19 rt-PCR Result NEGATIVE Negative 02/05/2020 17:27 EST [facility] Comment: 2019-novel Coronavirus (2019-nCoV) not [...] in accordance with CLIA regulations, College of Malagasy Pathologists (CAP) guidelines (May 07, 2019), and FDA guidance (Apr 18, 2019). This test is only for use under the Food and Drug Administration's Emergency Use Authorization. Swab NASAL / Unknown Swab / Unknown 02/02/2020 9:48 EST 02/02/2020 20:51 EST Roxie Adkins MD MICROBIOLOGY - GENERAL ORDER RUSSEL Final Result [place], [place] * COVID-19 TESTING (02/02/2020 9:48 EST) COVID-19 rt-PCR Result NEGATIVE Negative 02/05/2020 19:01 EST [facility] Comment: 2019-novel Coronavirus (2019-nCoV) not [...] in accordance with CLIA regulations, College of Malagasy Pathologists (CAP) guidelines (May 07, 2019), and FDA guidance (Apr 18, 2019). This test is only for use under the Food and Drug Administration's Emergency Use Authorization. Performing Lab [facility] 02/05/2020 19:01 EST [facility] Swab NASAL / Unknown Swab / Unknown 02/02/2020 9:48 EST 02/02/2020 20:51 EST Roxie Adkins MD MICROBIOLOGY - GENERAL ORDER RUSSEL Final Result [facility] [address] [place] [address] [facility] [place] documented in this encounter Visit Diagnoses Diagnosis Contact with and (suspected) exposure to other viral communicable diseases documented in this encounter Care Teams Attendance Secretary Relationship Specialty Start Date End Date Gay Pablo NP [address] [place] [address] [address] [place] [phone] PCP - General 04/07/14 documented as of this encounter
--- OUTSIDE RECORDS SUMMARY | 2024-03-17 11:12 | XMS_ITS | Encounter Summary ---
Author Organization [facility] Address [address] [place] [address] Care Team Providers Care Bankruptcy Processor Name Role Phone Gay Pablo NP Primary Care Provider [phone] Encounter Details Date Type Department Care Team (Late st Contact Info) Description 07/17/2023 Lab Requisition [facility] Pathology & Laboratory Medicine - [facility] [address] [place] [address] Outr Resulting Lab, Provider Social History Tobacco [...] 4th Generation Negative Negative 07/17/2023 18:39 EDT [facility] Comment:If acute HIV-1 infec tion is suspected in a high risk patient, submit plasma specimen for HIV-1 RNA quantitation test. Blood VENOUS BLOOD / Unknown 07/17/2023 7:10 EDT 07/17/2023 16:38 EDT Narrative [facility] - 07/17/2023 18:39 EDT Fourth Generation assay performed on the Atonarpaur XPT. us Provider Outr Resulting Lab IMMUNOLOGY AND SEROL OGY ORDERABLES Final Result [facility] [address] [place] [address] documented in this encounter Visit Diagnoses Not on filedocumented in this encounter Care Teams Bankruptcy Processor Relationship Specialty Start Date End Date Gay Pablo NP [address] [place] [address] [address] [place] [phone] PCP - General 04/07/14 documented as of this encounter
--- OUTSIDE RECORDS SUMMARY | 2024-03-17 11:12 | XMS_ITS | Encounter Summary ---
Author Organization [facility] Address [address] [place] [address] Care Team Providers Care Peoplesoft Functional Analyst Name Role Phone Gay Pablo NP Primary Care Provider [phone] Encounter Details Date Type Department Care Team (Late st Contact Info) Description 02/24/2020 Lab Requisition [facility] Pathology & Laboratory Medicine - [facility] [address] [place] [address] Outr Resulting Lab, Provider Social History Tobacco [...] A) Undetected 02/26/2020 12:[address] [facility] HCV RNA Quantitative 542,859(H ) Undetected IU/mL 02/26/2020 12:[address] [facility] Blood VENOUS BLOOD / Unknown 02/23/2020 15:59 EST 02/24/2020 15:56 EST Narrative [facility] - 02/26/2020 12:51 EST The quantification range of this assay is 15 IU/mL to 100,000,000 IU/mL. ??Testing was performed on the SANDRA Ampliprep/SANDRA TaqMan HCV v2.0 (Shavon [employer] us Provider Outr Resulting Lab CHEMISTRY & BLOOD GA S ORDERABLES Final Result Performing Organization Address City/[facility] Co de Phone Number [facility] [address] [place] [address] * (ABNORMAL) HEPATITIS C AB W REFLEX TO HCV RNA BY PCR (02/23/2020 15:59 EST) Hep C Antibody Reactive(A ) Negative 02/25/2020 10:[address] [facility] Comment: Supplemental testing for HCV RNA is ordered to rule out active HCV infection. Blood VENOUS BLOOD / Unknown 02/23/2020 15:59 EST 02/24/2020 15:56 EST Provider Outr Resulting Lab CHEMISTRY & BLOOD GA S ORDERABLES Final Result Performing Organization Address City/[facility]/ZIP Co de Phone Number [facility] [address] [place] [address] documented in this encounter Visit Diagnoses Not on filedocumented in this encounter Care Teams Peoplesoft Functional Analyst Relationship Specialty Start Date End Date Gay Pablo NP [address] [place] [address] [address] [place] [address] PCP - General 04/07/14 documented as of this encounter
--- OUTSIDE RECORDS SUMMARY | 2024-03-17 11:12 | XMS_ITS | Encounter Summary ---
Author Organization [facility] Address [address] [place] [address] Care Team Providers Care Bilingual Elementary School Teacher Name Role Phone Gay Pablo NP Primary Care Provider [phone] Encounter Details Date Type Department Care Team (Late st Contact Info) Description 05/03/2020 Lab Requisition [facility] Pathology & Laboratory Medicine - [facility] [address] [place] [address] Roxie Adkins MD [address] [place] [phone] Contact with and (suspected) exposure to other [...] 22:23 EDT Roxie Adkins MD MICROBIOLOGY - GENERAL ORDER RUSSEL Final Result Performing Organization Address [facility] Co de Phone Number [facility] [address] [place] [address] * COVID-19 TESTING (05/03/2020 11:10 EDT) COVID-19 rt-PCR Result Negative Negative 05/04/2020 11:03 EDT [facility] Comment: This test [...] performed using the miranda SARS-CoV-2 assay (Shavon [employer] on the Miranda 6800 System Performing Lab Miranda 6800 [facility] Lab 05/04/2020 11:03 EDT [facility] Swab NASAL / Unknown 05/03/2020 1 1:10 EDT 05/03/2020 22:23 EDT Roxie Adkins MD MICROBIOLOGY - GENERAL ORDER RUSSEL Final Result Performing Organization Address [facility] Co de Phone Number [facility] [address] [place] [address] documented in this encounter Visit Diagnoses Diagnosis Contact with and (suspected) exposure to other viral communicable diseases documented in this encounter Care Teams [employer] Teacher Relationship Specialty Start Date End Date Gay Pablo NP [address] [place] [address] [address] [place] [phone] PCP - General 04/07/14 documented as of this encounter
--- OUTSIDE RECORDS SUMMARY | 2024-03-17 11:12 | XMS_ITS | Encounter Summary ---
Author Organization [facility] Address [address] [place] [address] Care Team Providers Care Search Developer Name Role Phone Gay Pablo NP Primary Care Provider [phone] Encounter Details Date Type Department Care Team (Late st Contact Info) Description 08/17/2019 Lab Requisition [facility] Pathology & Laboratory Medicine - [address] [address] Outr Resulting Lab, Provider Social History Tobacco Use Types Packs/Day Years Used Date Smoking Tobacco: Never Assessed Comments Unknown Sex and Gender Information Value [...] Unknown 08/17/2019 17:42 EDT 08/18/2019 15:50 EDT us Provider Outr Resulting Lab MICROBIOLOGY - GENER AL ORDERABLES Final Result [facility] [address] [place] [address] * COVID-19 TESTING (08/17/2019 17:42 EDT) COVID-19 rt-PCR Result Negative Negative 08/19/2019 17:21 EDT [facility] Comment: Negative results do not preclude 2019-nCoV infection and should not be used as the sole basis for treatment or other patient management decisions. Negative results must be combined with clinical observations, patient history, and epidemiological information. This test was developed and its performance characteristics determined by [facility] [place]. It has not been cleared or approved [...] by the FDA Performed on the [employer] 7500 Fast. Performing Lab AB [address] [facility] [place] Lab 08/19/2019 17:21 EDT [facility] Swab 08/17/2019 17:4 2 EDT 08/18/2019 15:50 EDT us Provider Outr Resulting Lab MICROBIOLOGY - GENER AL ORDERABLES Final Result [facility] [address] [place] [address] documented in this encounter Visit Diagnoses Not on filedocumented in this encounter Care Teams Search Developer Relationship Specialty Start Date End Date Gay Pablo NP [address] [place] [address] [address] [place] [address] PCP - General 04/07/14 documented as of this encounter
--- OUTSIDE RECORDS SUMMARY | 2024-03-17 11:12 | XMS_ITS | Encounter Summary ---
Author Organization [facility] Address [address] [place] [address] Care Team Providers Care Trainmaster Name Role Phone Gay Pablo NP Primary Care Provider [phone] Encounter Details Date Type Department Care Team (Late st Contact Info) Description 02/16/2020 Lab Requisition [facility] Pathology & Laboratory Medicine - [address] [address] Roxie Adkins MD [address] [place] [phone] Contact with and (suspected) exposure to other [...] - BROAD COVID TEST (02/16/2020 6:45 EST) [facility] COVID-19 rt-PCR Result NEGATIVE Negative 02/17/2020 17:18 EST [facility] Comment: 2019-novel Coronavirus (2019-nCoV) not [...] in accordance with CLIA regulations, College of Somali Pathologists (CAP) guidelines (May 07, 2019), and FDA guidance (Apr 18, 2019). This test is only for use under the Food and Drug Administration's Emergency Use Authorization. Swab ENTIRE NASOPHARYNX / Unknown Swab / Unknown 02/16/2020 6:45 EST 02/16/2020 22:30 EST Roxie Adkins MD MICROBIOLOGY - GENERAL ORDER RUSSEL Final Result [place], [place] * COVID-19 TESTING (02/16/2020 6:45 EST) COVID-19 rt-PCR Result NEGATIVE Negative 02/17/2020 18:09 EST [facility] Comment: 2019-novel Coronavirus (2019-nCoV) not [...] in accordance with CLIA regulations, College of Somali Pathologists (CAP) guidelines (May 07, 2019), and FDA guidance (Apr 18, 2019). This test is only for use under the Food and Drug Administration's Emergency Use Authorization. Performing Lab [facility] 02/17/2020 18:09 EST [facility] Swab ENTIRE NASOPHARYNX / Unknown Swab / Unknown 02/16/2020 6:45 EST 02/16/2020 22:30 EST Roxie Adkins MD MICROBIOLOGY - GENERAL ORDER RUSSEL Final Result [facility] [address] [place] [address] [facility] [place], [place] documented in this encounter Visit Diagnoses Diagnosis Contact with and (suspected) exposure to other viral communicable diseases documented in this encounter Care Teams Trainmaster Relationship Specialty Start Date End Date Gay Pablo NP [address] [place] [address] [address] [place] [phone] PCP - General 04/07/14 documented as of this encounter
--- OUTSIDE RECORDS SUMMARY | 2024-03-17 11:12 | XMS_ITS | Encounter Summary ---
Author Organization [facility] Address [address] [place] [address] Care Team Providers Care Product Steward Name Role Phone Gay Pablo NP Primary Care Provider [phone] Encounter Details Date Type Department Care Team (Late st Contact Info) Description 02/24/2020 Lab Requisition [facility] Pathology & Laboratory Medicine - [facility] [address] [place] [address] Outr Resulting Lab, Provider Social History Tobacco [...] 4th Generation Negative Negative 02/25/2020 10:29 EST [facility] Comment: If acute HIV-1 infection is suspected in a high risk ??patient, submit plasma specimen for HIV-1 RNA quantitation test. Fourth Generation assay performed on the Siemens Bright View Technologiesaur. Blood VENOUS BLOOD / Unknown 02/23/2020 15:59 EST 02/24/2020 15:56 EST us Provider Outr Resulting Lab IMMUNOLOGY AND SEROL OGY ORDERABLES Final Result [facility] [address] [place] [address] documented in this encounter Visit Diagnoses Not on filedocumented in this encounter Care Teams Product Steward Relationship Specialty Start Date End Date Gay Pablo NP [address] [place] [address] [address] [place] [phone] PCP - General 04/07/14 documented as of this encounter
--- OUTSIDE RECORDS SUMMARY | 2024-03-17 11:12 | XMS_ITS | Encounter Summary ---
Author Organization [facility] Address [address] [place] [address] Care Team Providers Care Civil Manager Name Role Phone Gay Pablo NP Primary Care Provider [phone] Encounter Details Date Type Department Care Team (Late st Contact Info) Description 10/26/2023 Lab Requisition [facility] Pathology & Laboratory Medicine - [facility] [address] [place] [address] Outr Resulting Lab, Provider Social History Tobacco [...] Procedure Name Priority Date/Time Associated Diagnosis Comments PROLACTIN Routine 10/25/2023 13:00 EDT PROGESTERONE Routine 10/25/2023 13:00 EDT FSH Routine 10/25/2023 13:00 EDT documented in this encounter Results * FSH (10/25/2023 13:00 EDT) FSH 6.8 See Note mIU/mL 10/28/2023 8:49 EDT [facility] Blood VENOUS BLOOD / Unknown 10/25/2023 13:00 EDT 10/26/2023 20:26 EDT Narrative [facility] - 10/28/2023 8:49 EDT NOTE: Female FSH Reference Ranges (Menstruating): PHYSIOLOGICAL STATUS ? REFERENCE RANGE ? Follicular (-12 to -4 days): ?? 2.5 - 10.2 mIU/mL Midcycle (-3 to +2 days): ?3.4 - 33.4 mIU/mL Luteal (+4 to +12 days): ? 1.5 - 9.1 mIU/mL Postmenopausal: ?23.0 - 116.3 mIU/mL Reference Ranges for pediatric non-menstruating female patients have not been established. us Provider Outr Resulting Lab CHEMISTRY & BLOOD GA S ORDERABLES Final Result [facility] [address] [place] [address] * PROLACTIN (10/25/2023 13:00 EDT) [facility] Prolactin 12.8 See Note ng/mL 10/28/2023 8:45 EDT [facility] Comment: NOTE: Female Reference Ranges: PHYSIOLOGICAL STATUS ?REFERENCE RANGE ? Postmenopausal ?1.8 - 20.3 ng/mL ?9.7 - 208.5 ng/mL Non- ?2.8 - 29.2 ng/mL Blood VENOUS BLOOD / Unknown 10/25/2023 13:00 EDT 10/26/2023 20:26 EDT us Provider Outr Resulting Lab CHEMISTRY & BLOOD GA S ORDERABLES Final Result [facility] [address] [place] [address] * PROGESTERONE (10/25/2023 13:00 EDT) [facility] Progesterone 3.8 See Table ng/mL 10/26/2023 21:18 EDT [facility] Comment: Female Reference Ranges: PHYSIOLOGICAL STATUS ?REFERENCE RANGE ? Pre-Pubertal: ? <= 0.2 ng/mL Menstruating: (Non-) Follicular Phase: ? <= 1.4 ng/mL Luteal Phase: ? 3.3 - 25.6 ng/mL Mid-luteal Phase: ? 4.4 - 28.0 ng/mL Postmenopausal: ? <= 0.7 ng/mL : -------- First Trimester: ?11.2 - 90.0 ng/mL Second Trimester: ? 25.6 - 89.4 ng/mL Third Trimester: ?48.4 - 422.5ng/mL For ectopic , consult a pathologist. Blood VENOUS BLOOD / Unknown 10/25/2023 13:00 EDT 10/26/2023 20:26 EDT us Provider Outr Resulting Lab CHEMISTRY & BLOOD GA S ORDERABLES Final Result Performing Organization Address City/State/[facility] Co de Phone Number [facility] [address] [place] [address] documented in this encounter Visit Diagnoses Not on filedocumented in this encounter Care Teams Civil Manager Relationship Specialty Start Date End Date Gay Pablo NP [address] [place] [address] [address] [place] [phone] PCP - General 04/07/14 documented as of this encounter
--- OUTSIDE RECORDS SUMMARY | 2024-03-17 11:12 | XMS_ITS | Encounter Summary ---
Author Organization [facility] Address [address] [place] [address] Care Team Providers Care Commercial Lines Sales Executive Name Role Phone Gay Pablo NP Primary Care Provider [phone] Encounter Details Date Type Department Care Team (Late st Contact Info) Description 07/25/2019 Lab Requisition [facility] Pathology & Laboratory Medicine - [address] [address] Outr Resulting Lab, Provider Social History Tobacco [...] rt-PCR Result NEGATIVE Negative 07/27/2019 0:45 EDT [facility] Comment: 2019-novel Coronavirus [...] in accordance with CLIA regulations, College of [place] Pathologists (CAP) guidelines (May 07, 2019), and FDA guidance (Apr 18, 2019). This test is only for use under the Food and Drug Administration's Emergency Use Authorization. Swab ENTIRE NASOPHARYNX / Unknown 07/25/2019 10:00 EDT 07/25/2019 21:23 EDT us Provider Outr Resulting Lab MICROBIOLOGY - GENER AL ORDERABLES Final Result [facility] [place], [place] * COVID-19 TESTING (07/25/2019 10:00 EDT) COVID-19 rt-PCR Result NEGATIVE Negative 07/27/2019 7:01 EDT [facility] Comment: 2019-novel Coronavirus (2019-nCoV) not [...] in accordance with CLIA regulations, College of [place] Pathologists (CAP) guidelines (May 07, 2019), and FDA guidance (Apr 18, 2019). This test is only for use under the Food and Drug Administration's Emergency Use Authorization. Performing Lab [facility] 07/27/2019 7:01 EDT [facility] Swab ENTIRE NASOPHARYNX / Unknown 07/25/2019 10:00 EDT 07/25/2019 21:23 EDT us Provider Outr Resulting Lab MICROBIOLOGY - GENER AL ORDERABLES Final Result [facility] [address] [place] [address] [facility] [place], [place] documented in this encounter Visit Diagnoses Not on filedocumented in this encounter Care Teams Commercial Lines Sales Executive Relationship Specialty Start Date End Date Gay Pablo NP [address] [place] [address] [address] [place] [address] PCP - General 04/07/14 documented as of this encounter
--- OUTSIDE RECORDS SUMMARY | 2024-03-17 11:12 | XMS_ITS | Encounter Summary ---
Author Organization [facility] Address [address] [place] [address] Care Team Providers Care Digital Account Director Name Role Phone Gay Pablo NP Primary Care Provider [phone] Encounter Details Date Type Department Care Team (Late st Contact Info) Description 01/19/2020 Lab Requisition [facility] Pathology & Laboratory Medicine - [address] [address] Roxie Adkins MD [address] [place] [id number] Encounter for screening for other viral diseases [...] COVID-19 rt-PCR Result NEGATIVE Negative 01/21/2020 10:38 [facility] Comment: 2019-novel Coronavirus (2019-nCoV) [...] in accordance with CLIA regulations, College of [place] Pathologists (CAP) guidelines (May 07, 2019), and FDA guidance (Apr 18, 2019). This test is only for use under the Food and Drug Administration's Emergency Use Authorization. Swab ENTIRE NASOPHARYNX / Unknown 01/19/2020 14:20 EST 01/19/2020 22:25 EST Roxie Adkins MD MICROBIOLOGY - GENERAL ORDER RUSSEL Final Result [place], [place] * COVID-19 TESTING (01/19/2020 14:20 EST) COVID-19 rt-PCR Result NEGATIVE Negative 01/21/2020 10:38 EST [facility] Comment: 2019-novel Coronavirus (2019-nCoV) not [...] in accordance with CLIA regulations, College of [place] Pathologists (CAP) guidelines (May 07, 2019), and FDA guidance (Apr 18, 2019). This test is only for use under the Food and Drug Administration's Emergency Use Authorization. Performing Lab [facility] 01/21/2020 10:38 EST [facility] Swab 01/19/2020 14:2 0 EST 01/19/2020 22:25 EST us Roxie Adkins MD MICROBIOLOGY - GENERAL ORDER RUSSEL Final Result [facility] [address] [place] [address] [facility] [place] documented in this encounter Visit Diagnoses Diagnosis Encounter for screening for other viral diseases documented in this encounter Care Teams Digital Account Director Relationship Specialty Start Date End Date Gay Pablo NP [address] [place] [address] [address] [place] [address] PCP - General 04/07/14 documented as of this encounter
--- OUTSIDE RECORDS SUMMARY | 2024-03-17 11:12 | XMS_ITS | Encounter Summary ---
Author Organization [facility] Address [address] [place] [address] Care Team Providers Care Operations Research Manager Name Role Phone Gay Pablo NP Primary Care Provider [phone] Encounter Details Date Type Department Care Team (Late st Contact Info) Description 04/16/2020 Lab Requisition [facility] Pathology & Laboratory Medicine - [facility] [address] [place] [address] Outr Resulting Lab, Provider Social History Tobacco [...] RNA Qualitative Undetected Undetected 04/20/2020 13:57 EST [facility] Blood VENOUS BLOOD / Unknown 04/15/2020 16:17 EST 04/17/2020 16:21 EST Narrative [facility] - 04/20/2020 13:57 EST The quantification range of this assay is 15 IU/mL to 100,000,000 IU/mL. ??Testing was performed on the SANDRA Ampliprep/SANDRA TaqMan HCV v2.0 ([employer] us Provider Outr Resulting Lab CHEMISTRY & BLOOD GA S ORDERABLES Final Result Performing Organization Address City/[facility]/ZIP Co de Phone Number [facility] [address] [place] [address] * (ABNORMAL) HEPATITIS C AB W REFLEX TO HCV RNA BY PCR (04/15/2020 16:17 EST) Hep C Antibody Reactive(A ) Negative 04/18/2020 11:33 EST [facility] Comment: Supplemental testing for HCV RNA is ordered to rule out active HCV infection. Blood VENOUS BLOOD / Unknown 04/15/2020 16:17 EST 04/17/2020 16:21 EST us Provider Outr Resulting Lab CHEMISTRY & BLOOD GA S ORDERABLES Final Result Performing Organization Address City/[facility] Co de Phone Number [facility] [address] [place] [address] documented in this encounter Visit Diagnoses Not on filedocumented in this encounter Care Teams Operations Research Manager Relationship Specialty Start Date End Date Gay Pablo NP [address] [place] [address] [address] [place] [phone] PCP - General 04/07/14 documented as of this encounter
--- OUTSIDE RECORDS SUMMARY | 2024-03-17 11:12 | XMS_ITS | Encounter Summary ---
Author Organization [facility] Address [address] [place] [address] Care Team Providers Care Telephone Quotation Clerk Name Role Phone Gay Pablo NP Primary Care Provider [phone] Encounter Details Date Type Department Care Team (Late st Contact Info) Description 03/04/2020 Lab Requisition [facility] Pathology & Laboratory Medicine - [facility] [address] [place] [address] Outr Resulting Lab, Provider Social History Tobacco [...] 16:45 EST) Hold Hold 03/04/2020 18:31 EST [facility] Blood VENOUS BLOOD / Unknown 03/03/2020 16:45 EST 03/04/2020 17:16 EST us Provider Outr Resulting Lab LAB INFO SERVICE AND SUPPORT & PHONE RESULT Final Result Performing Organization Address City/[facility] Co de Phone Number [facility] [address] [place] [address] * HEPATITIS B SURFACE ANTIBODY (03/03/2020 16:45 EST) Pathologist [facility] Hep B Surface Ab, Quantitative 479.6 See Note mIU/mL 03/07/2020 10:46 EST [facility] Comment: Reference Range for Hep B Surface Ab, Quant: Positive: >= 10.0 mIU/mL Negative: ??< 10.0 mIU/mL Patient is presumed to be immune to infection with Hepatitis B Virus. Hep B Surface Ab, Qualitative Positive See Note 03/07/2020 10:46 EST [facility] Comment: Reference Range for Hep B Surface Ab, Qual: Unvaccinated: ??Negative Vaccinated: ??Positive Blood VENOUS BLOOD / Unknown 03/03/2020 16:45 EST 03/04/2020 17:15 EST us Provider Outr Resulting Lab CHEMISTRY & BLOOD GA S ORDERABLES Final Result Performing Organization Address City/[facility]/ZIP Co de Phone Number [facility] [address] [place] [address] * HEPATITIS B CORE ANTIBODY (TOTAL) (03/03/2020 16:45 EST) Pathologist [facility] Hepatitis B Core Ab, Total Negative Negative 03/07/2020 11:32 EST [facility] Blood VENOUS BLOOD / Unknown 03/03/2020 16:45 EST 03/04/2020 17:15 EST us Provider Outr Resulting Lab CHEMISTRY & BLOOD GA S ORDERABLES Final Result Performing Organization Address City/[facility]/ZIP Co de Phone Number [facility] [address] [place] [address] * HEPATITIS B SURFACE ANTIGEN (03/03/2020 16:45 EST) Hep B Surface Ag Negative Negative 03/07/2020 10:52 EST [facility] Blood VENOUS BLOOD / Unknown 03/03/2020 16:45 EST 03/04/2020 17:15 EST us Provider Outr Resulting Lab CHEMISTRY & BLOOD GA S ORDERABLES Final Result Performing Organization Address [facility] Co de Phone Number [facility] [address] [place] [address] * HEPATITIS A TOTAL ANTIBODY W REFLEX (03/03/2020 16:45 EST) Hepatitis A Antibody, Total Negative Negative 03/07/2020 11:45 EST [facility] Blood VENOUS BLOOD / Unknown 03/03/2020 16:45 EST 03/04/2020 17:15 EST Narrative [facility] - 03/07/2020 11:45 EST The result of this assay can be falsely elevated (Positive) due to the consumption of Biotin. us Provider Outr Resulting Lab CHEMISTRY & BLOOD GA S ORDERABLES Final Result Performing Organization Address [facility] Co de Phone Number [facility] [address] [place] [address] documented in this encounter Visit Diagnoses Not on filedocumented in this encounter Care Teams Telephone Quotation Clerk Relationship Specialty Start Date End Date Gay Pablo NP [address] [place] [address] PCP - General 04/07/14 documented as of this encounter
--- OUTSIDE RECORDS SUMMARY | 2024-03-17 11:12 | XMS_ITS | Encounter Summary ---
Author Organization [facility] Address [address] [place] [address] Care Team Providers Care Embalmer Apprentice Name Role Phone Unavailable Primary Care Provider Unavailabl e Encounter Details Date Type Department Care Team (Late st Contact Info) Description 12/17/2005 Results Only [facility] - Maple conversion [address] [place] [address] Sandra Cancino MD [address] [place] [address] [place] [address] Social History Tobacco Use Types Packs/Day Years [...] ? ERENDIRA GUZMAN ? Accession #: ? [id number] ? : ? 1980 (Age: 25) ??F ? Collect Date: ? 12/17/2005 ? Location: ? [facility] ? Receive Date: ? 12/17/2005 ? Provider: SANDRA CANCINO MD Copy to: JOSE SAUNDERS HARNESS INSTALLER ? Final Pathologic Diagnosis: A. ?Cervix, 3 o'clock, biopsy: 1. ?Squamous mucosa with reactive epithelial atypia. ? - No dysplasia identified. B. ?Cervix, 12 o'clock, biopsy: 1. 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 ??See comment. ? - Glandular extension identified. Comment: ? This case was reviewed at intradepartmental consultation conference. ??(Dr. Arias)/[facility] Document reviewed and electronically signed by: [...] (B). ??(Dr. Crocker-)/[facility] End of Report [facility] 12/17/2005 12/17/2005 15: 28 EST us Sandra Cancino MD PATHOLOGY ORDERABLES Final Resu lt [facility] [address] [place] [address] documented in this encounter Visit Diagnoses Not on filedocumented in this encounter
--- OUTSIDE RECORDS SUMMARY | 2024-03-17 11:12 | XMS_ITS | Encounter Summary ---
Author Organization [facility] Address [address] [place] [address] Care Team Providers Care Security Operations Engineer Name Role Phone Gay Pablo NP Primary Care Provider [phone] Encounter Details Date Type Department Care Team (Late st Contact Info) Description 01/26/2020 Lab Requisition [facility] Pathology & Laboratory Medicine - [address] [address] Roxie Adkins MD [address] [place] [phone] Contact with and (suspected) exposure to other [...] 23:23 EST Roxie Adkins MD MICROBIOLOGY - GENERAL ORDER RUSSEL Final Result Performing Organization Address City/[facility]/ZIP Co de Phone Number [facility] [address] [place] [address] * COVID-19 TESTING (01/26/2020 10:23 EST) COVID-19 rt-PCR Result Negative Negative 01/27/2020 14:37 EST [facility] Comment: This test [...] history, and epidemiological information. Performed on the [employer] Fusion instrument Performing Lab [facility] 01/27/2020 14:37 EST [facility] Swab NASAL / Unknown 01/26/2020 1 0:23 EST 01/26/2020 23:23 EST us Roxie Adkins MD MICROBIOLOGY - GENERAL ORDER RUSSEL Final Result [facility] [address] [place] [address] documented in this encounter Visit Diagnoses Diagnosis Contact with and (suspected) exposure to other viral communicable diseases documented in this encounter Care Teams Security Operations Engineer Relationship Specialty Start Date End Date Gay Pablo NP [address] [place] [address] [address] [place] [address] PCP - General 04/07/14 documented as of this encounter
--- OUTSIDE RECORDS SUMMARY | 2024-03-17 11:12 | XMS_ITS | Encounter Summary ---
Author Organization [facility] Address [address] [place] [address] Care Team Providers Care Power Generation Equipment Repairer Name Role Phone Unavailable Primary Care Provider Unavailabl e Encounter Details Date Type Department Care Team (Late st Contact Info) Description 04/05/2014 Results Only [facility]- [facility] [phone] Pricila Cummings MD [facility] [place], [place] [id number] Social History Tobacco Use Types Packs/Day Years [...] ? ERENDIRA GUZMAN ? Accession #: ? [id number] ? : ? 1980 (Age: 33) ??F ? Collect Date: ? 04/05/2014 ? Location: ? [facility] ? Receive Date: ? 04/05/2014 ? Provider: PRICILA CUMMINGS MD Copy to: YANDY SAUNDERS MANUFACTURING ENGINEER AUTOMOTIVE ? Final Pathologic Diagnosis: A. DUODENUM, ULCER, [...] Lacy 04/05/2014 6:11 PM End of Report [facility] 04/05/2014 17:3 7 EST 04/05/2014 17:37 EST us Pricila Cummings MD PATHOLOGY ORDERABLES Fin al Result Performing Organization Address City/State/[facility] Co de Phone Number [facility] [address] [place] [address] documented in this encounter Visit Diagnoses Not on filedocumented in this encounter
--- OUTSIDE RECORDS SUMMARY | 2024-03-17 11:12 | XMS_ITS | Encounter Summary ---
Author Organization [facility] Address [address] [place] [address] Care Team Providers Care Ditching Machine Operator Name Role Phone Gay Pablo NP Primary Care Provider [phone] Encounter Details Date Type Department Care Team (Late st Contact Info) Description 08/26/[address] [facility] Pathology & Laboratory Medicine - [facility] [address] [place] [address] Outr Resulting Lab, Provider Social History Tobacco [...] RNA Qualitative Undetected Undetected 08/31/2020 14:[address] [facility] [place] [facility] Blood VENOUS BLOOD / Unknown 08/25/2020 10:15 EDT 08/26/2020 15:59 EDT Narrative [facility] [place] [facility] - 08/31/2020 14:48 EDT The quantification range of this assay is 15 IU/mL to 100,000,000 IU/mL. ??Testing was performed on the SANDRA Ampliprep/SANDRA TaqMan HCV v2.0 ([employer] us Provider Outr Resulting Lab CHEMISTRY & BLOOD GA S ORDERABLES Final Result Performing Organization Address City/[facility]/ZIP Co de Phone Number [facility] [place] [facility] [address] [place] [address] * (ABNORMAL) HEPATITIS C AB W REFLEX TO HCV RNA BY PCR (08/25/2020 10:15 EDT) Hep C Antibody Reactive(A ) Negative 08/29/2020 13:[address] [facility] Comment: Supplemental testing for HCV RNA is ordered to rule out active HCV infection. Blood VENOUS BLOOD / Unknown 08/25/2020 10:15 EDT 08/26/2020 15:59 EDT us Provider Outr Resulting Lab CHEMISTRY & BLOOD GA S ORDERABLES Final Result Performing Organization Address [facility] Co de Phone Number [facility] [place] [facility] [address] [place] [address] documented in this encounter Visit Diagnoses Not on filedocumented in this encounter Care Teams Ditching Machine Operator Relationship Specialty Start Date End Date Gay Pablo NP [address] [place] [address] [address] [place] [address] PCP - General 04/07/14 documented as of this encounter
--- OUTSIDE RECORDS SUMMARY | 2024-03-17 11:12 | XMS_ITS | Encounter Summary ---
Author Organization [facility] Address [address] [place] [address] Care Team Providers Care Research Assistant Professor Name Role Phone Gay Pablo NP Primary Care Provider [phone] Encounter Details Date Type Department Care Team (Late st Contact Info) Description 04/12/2020 Lab Requisition [facility] Pathology & Laboratory Medicine - [facility] [address] [place] [address] Roxie Adkins MD [address] [place] [phone] Contact with and (suspected) exposure to other [...] 22:01 EST Roxie Adkins MD MICROBIOLOGY - GENERAL ORDER RUSSEL Final Result [facility] [address] [place] [address] * COVID-19 TESTING (04/12/2020 12:22 EST) COVID-19 rt-PCR Result Negative Negative 04/13/2020 15:22 EST [facility] Comment: This test has not [...] performed using the miranda SARS-CoV-2 assay ([employer]avon [employer] on the Miranda 6800 System Performing Lab Miranda [address] [facility] 04/13/2020 15:22 EST [facility] Swab NASAL / Unknown Swab / Unknown 04/12/2020 12:22 EST 04/12/2020 22:01 EST Roxie Adkins MD MICROBIOLOGY - GENERAL ORDER RUSSEL Final Result [facility] [address] [place] [address] documented in this encounter Visit Diagnoses Diagnosis Contact with and (suspected) exposure to other viral communicable diseases documented in this encounter Care Teams Research Assistant Professor Relationship Specialty Start Date End Date Brodzinski, Rashid, RANCH SUPERVISOR [address] [place] [address] [address] [place] [id number] PCP - General 04/07/14 documented as of this encounter
--- OUTSIDE RECORDS SUMMARY | 2024-03-17 11:12 | XMS_ITS | Encounter Summary ---
Author Organization [facility] Address [address] [place] [address] Care Team Providers Care Hand Welt Butter Name Role Phone Unavailable Primary Care Provider Unavailabl e Encounter Details Date Type Department Care Team (Latest Contact Info) Description 04/05/2014 16:57 EST - 04/05/2014 23:59 EST Hospital Encounter [address] [address] Unknown, Provider, MD Discharge Disposition: Home or Self Care Social [...] Code Departure Means Destination Home or Self [facility] documented in this encounter Plan of Treatment Not on file documented as of this encounter Visit Diagnoses Not on filedocumented in this encounter
--- OUTSIDE RECORDS SUMMARY | 2024-03-17 11:12 | XMS_ITS | Encounter Summary ---
Author Organization [facility] Address [address] [place] [address] Care Team Providers Care Photo Finisher Name Role Phone Gay Pablo NP Primary Care Provider [phone] Encounter Details Date Type Department Care Team (Late st Contact Info) Description 04/06/2020 Lab Requisition [facility] Pathology & Laboratory Medicine - [facility] [address] [place] [address] Roxie Adkins MD [address] [place] [phone] Contact with and (suspected) exposure to other [...] 21:02 EST Roxie Adkins MD MICROBIOLOGY - GENERAL ORDER RUSSEL Final Result [facility] [address] [place] [address] * COVID-19 TESTING (04/05/2020 13:05 EST) COVID-19 rt-PCR Result Negative Negative 04/07/2020 14:58 EST [facility] Comment: This test was developed and its performance characteristics determined by [facility]. It has not been cleared [...] testing. This test is based on the [facility] COVID-19 Emergency Use Authorization (EUA) assay, with minor modification as defined by the FDA Performed on the [employer] 7 Pro RT-PCR System. This test has not [...] history, and epidemiological information. Performing Lab [facility] 04/07/2020 14:58 EST [facility] Swab NASAL / Unknown Swab / Unknown 04/05/2020 13:05 EST 04/06/2020 21:02 EST us Roxie Adkins MD MICROBIOLOGY - GENERAL ORDER RUSSEL Final Result [facility] [address] [place] [address] documented in this encounter Visit Diagnoses Diagnosis Contact with and (suspected) exposure to other viral communicable diseases documented in this encounter Care Teams Photo Finisher Relationship Specialty Start Date End Date [place] Pablo NP [address] [place] [address] [address] [place] [address] PCP - General 04/07/14 documented as of this encounter
--- OUTSIDE RECORDS SUMMARY | 2024-03-17 11:12 | XMS_ITS | Clinical Summary ---
Author Organization [facility] Address [address] [place] [address] Care Team Providers Care Manager Code Name Role Phone Gay Pablo NP Primary Care Provider [phone] Social History Tobacco Use Types Packs/Day Years [...] - 19+ 3-dose series) 10/15/1999 COVID-19 Vaccine (2023-2 5 season) 2023 Hepatitis C Screen Completed 07/15/2023, 0 08/25/2020, 08/25/2020, Additional history exists Procedures Procedure Name Priority Date/Time Associated Diagnosis Comments HCV RNA DETECT QUANT Today 07/15/2023 19:00 EDT from Last 3 Months or Most Recently Relevant to Health Maintenance Results * HCV RNA DETECT QUANT (07/15/2023 19:00 EDT) HCV RNA Qualitative Undetected Undetected 07/17/2023 12:38 EDT [facility] Blood VENOUS BLOOD / Unknown 07/15/2023 19:00 EDT 07/16/2023 17:19 EDT Narrative [facility] - 07/17/2023 12:38 EDT The quantification range of this assay is 15 IU/mL to 100,000,000 IU/mL. Testing was performed using the Miranda HCV test ([employer]avon [employer] with the miranda 6800 System. us Provider Outr Resulting Lab CHEMISTRY & BLOOD GA S ORDERABLES Final Result [facility] [address] [place] [address] from Last 3 Months or Most Recently Relevant to Health Maintenance Insurance MEDICAID [place] Care Teams Manager Code Relationship Specialty Start Date End Date Brodzinski, Rashid, SOCIAL WORK THERAPIST [address] [place] [address] [address] [place] [address] PCP - General 04/07/14
--- OUTSIDE RECORDS SUMMARY | 2024-03-17 11:12 | XMS_ITS | Encounter Summary ---
Author Organization [facility] Address [address] [place] [address] Care Team Providers Care [employer] Department Head Name Role Phone Gay Pablo NP Primary Care Provider [phone] Encounter Details Date Type Department Care Team (Late st Contact Info) Description 12/29/2020 Lab Requisition [facility] Pathology & Laboratory Medicine - [facility] [address] [place] [address] Outr Resulting Lab, Provider Social History Tobacco [...] 12/29/2020 11:4 6 EST 12/29/2020 21:43 EST us Provider Outr Resulting Lab MICROBIOLOGY - GENER AL ORDERABLES Final Result [facility] [address] [place] [address] * COVID-19 TESTING (12/29/2020 11:46 EST) COVID-19 rt-PCR Result Negative Negative 12/30/2020 15:57 EST [facility] Comment: This test has [...] performed using the miranda SARS-CoV-2 assay ([employer] on the Miranda 6800 System Performing Lab [facility] [address] [facility] Lab 12/30/2020 15:57 EST [facility] Swab 12/29/2020 11:4 6 EST 12/29/2020 21:43 EST us Provider Outr Resulting Lab MICROBIOLOGY - GENER AL ORDERABLES Final Result Performing Organization Address City/[facility]/ZIP Co de Phone Number [facility] [address] [place] [address] documented in this encounter Visit Diagnoses Not on filedocumented in this encounter Care Teams [employer] Department Head Relationship Specialty Start Date End Date Gay Pablo NP [address] [place] [address] [address] [place] [id number] PCP - General 04/07/14 documented as of this encounter
--- OUTSIDE RECORDS SUMMARY | 2024-03-17 11:12 | XMS_ITS | Encounter Summary ---
Author Organization [facility] Address [address] [place] [address] Care Team Providers Care Director Mba Name Role Phone Gay Pablo NP Primary Care Provider [phone] Encounter Details Date Type Department Care Team (Late st Contact Info) Description 02/23/2020 Lab Requisition [facility] Pathology & Laboratory Medicine - [facility] [address] [place] [address] Roxie Adkins MD [address] [place] [phone] Contact with and (suspected) exposure to other [...] - BROAD COVID TEST (02/23/2020 13:35 EST) [facility] COVID-19 rt-PCR Result NEGATIVE Negative 02/24/2020 20:36 EST [facility] Comment: 2019-novel Coronavirus (2019-nCoV) not detected [...] in accordance with CLIA regulations, [employer] (CAP) guidelines (May 07, 2019), and FDA guidance (Apr 18, 2019). This test is only for use under the Food and Drug Administration's Emergency Use Authorization. Swab ENTIRE NASOPHARYNX / Unknown 02/23/2020 13:35 EST 02/23/2020 21:19 EST Roxie Adkins MD MICROBIOLOGY - GENERAL ORDER RUSSEL Final Result [facility] [place], [place] * COVID-19 TESTING (02/23/2020 13:35 EST) COVID-19 rt-PCR Result NEGATIVE Negative 02/24/2020 21:08 EST [facility] Comment: 2019-novel Coronavirus (2019-nCoV) not detected [...] in accordance with CLIA regulations, [employer] (CAP) guidelines (May 07, 2019), and FDA guidance (Apr 18, 2019). This test is only for use under the Food and Drug Administration's Emergency Use Authorization. Performing Lab [facility] 02/24/2020 21:08 EST [facility] Swab ENTIRE NASOPHARYNX / Unknown 02/23/2020 13:35 EST 02/23/2020 21:19 EST Roxie Adkins MD MICROBIOLOGY - GENERAL ORDER RUSSEL Final Result [facility] [address] [place] [address] [facility] [place], [place] documented in this encounter Visit Diagnoses Diagnosis Contact with and (suspected) exposure to other viral communicable diseases documented in this encounter Care Teams Director Mba Relationship Specialty Start Date End Date Gay Pablo NP [address] [place] [address] [address] [place] [address] PCP - General 04/07/14 documented as of this encounter
--- OUTSIDE RECORDS SUMMARY | 2024-03-17 11:12 | XMS_ITS | Encounter Summary ---
Author Organization [facility] Address [address] [place] [address] Care Team Providers Care Polishing Machine Tender Name Role Phone Gay Pablo NP Primary Care Provider [phone] Encounter Details Date Type Department Care Team (Late st Contact Info) Description 04/26/2020 Lab Requisition [facility] Pathology & Laboratory Medicine - [facility] [address] [place] [address] Roxie Adkins MD [address] [place] [phone] Contact with and (suspected) exposure to other [...] 21:34 EST Roxie Adkins MD MICROBIOLOGY - GENERAL ORDER RUSSEL Final Result [facility] [address] [place] [address] * COVID-19 TESTING (04/26/2020 13:25 EST) COVID-19 rt-PCR Result Negative Negative 04/27/2020 11:27 EST [facility] Comment: This test has not [...] performed using the miranda SARS-CoV-2 assay ([employer] on the Miranda 6800 System Performing Lab [facility] [address] [facility] Lab 04/27/2020 11:27 EST [facility] Swab NASAL / Unknown 04/26/2020 1 3:25 EST 04/26/2020 21:34 EST Roxie Adkins MD MICROBIOLOGY - GENERAL ORDER RUSSEL Final Result [facility] [address] [place] [address] documented in this encounter Visit Diagnoses Diagnosis Contact with and (suspected) exposure to other viral communicable diseases documented in this encounter Care Teams Polishing Machine Tender Relationship Specialty Start Date End Date Gay Pablo NP [address] [place] [address] [address] [place] [address] PCP - General 04/07/14 documented as of this encounter
--- OUTSIDE RECORDS SUMMARY | 2024-03-17 11:13 | XMS_ITS | Encounter Summary ---
Author Organization [facility] Address [address] [place] [address] Care Team Providers Care Ssis Ssrs Developer Name Role Phone Unavailable Primary Care Provider Unavailabl e Encounter Details Date Type Department Care Team (Late st Contact Info) Description 10/05/2005 Results Only [facility] Family Medicine - [place] [address] [place] [address] Gabriela Burr MD Social History Tobacco Use Types Packs/Day Years [...] EDT) Specimen Description Cervix, ThinPrep vial [facility] Result Positive for one or more of HPV types 16,18,31,33,35 ,39,45,51,52,5 6,58,59, or 68. These high/intermedi ate risk HPV types are associated with dysplasia and some cervical cancers. [facility] Report Status Final [id number] [facility] 10/05/2005 10:0 2 EDT 10/16/2005 10:02 EDT us Gabriela Burr MD MICROBIOLOGY - GENERAL ORDERABLE S Final Result [facility] [address] [place] [address] * CYTOPATHOLOGY (10/05/2005 0:00 EDT) Pathology Report: CYTOPATHOLOGY REPORT Reports generated via electronic interface contain original data; however they are lacking the format of the original report. Caution should be taken when reading/interpreti ng unformatted reports. Name: ? ERENDIRA GUZMAN ? Accession #: ? [id number] : ? 1980 (Age: 24) ??F ?Collect Date: ? 10/05/2005 Location: ? [facility] ? Receive Date: ? 10/09/2005 Provider: ?GABRIELA BURR MD Copy to: ?ELIZABETH DEL RIO MD ? Specimen/Source: ?ThinPrep Pap Test, Endocervix, processed on Intern ThinPrep Imaging System, with manual evaluation Last [...] lesion (HSIL). EDUCATIONAL NOTES/RECOMMENDATI ONS ? [facility] recommends following the 2001 Consensus Guidelines for the Management of Women with Cervical Cytological Abnormalities (CESAR,2002;287:212 0-9). Management algorithms have been distributed by [facility] and are available online at www.ASCCP.org. ? Document reviewed and electronically signed by: ? [facility] ? Report Date: ??10/15/2005 14:32 End of Report [facility] 10/05/2005 10/09/2005 us Gabriela Burr MD PATHOLOGY ORDERABLES Final Resul t [facility] [address] [place] [address] documented in this encounter Visit Diagnoses Not on filedocumented in this encounter
--- NOTE | 2024-03-17 14:01 | DI.RAD_ITS ---
Exam(s) XR TMJ BL EXAM: XR TMJ BL INDICATION: TEMPOROMANDIBULAR JOINT PAIN, DYSFUNCTION SYNDROME,M26.629. COMPARISON: No exams were available for comparison TECHNIQUE: 2D digital imaging was performed. FINDINGS: The TMJ appear symmetric. The articular surfaces are well maintained. The mandible is normally mine ralized. No suspicious lytic or sclerotic lesions are seen. There are several missing teeth. The v isualized sinuses are unremarkable. No air-fluid levels are seen. The soft tissues are unremarkable . IMPRESSION: Symmetric and unremarkable TMJ. DATA REPOSITORY: RADIATION DOSE DELIVERED:
== END 2024-03-17 11:29 ==
LOC: DI 11:10
PROVIDERS: PCP Nurse Practitioner Family; Visit Provider Nurse Practitioner Family
DX: M26.623 Arthralgia of bilateral temporomandibular joint (principal)
CPT/HCPCS: 70330

== ENCOUNTER 2024-11-17 18:54 | Emergency (ER) | payer MEDICAID, SELFPAY ==
[2024-11-17] VITALS (8 sets, daily range): BP systolic 139–157; BP diastolic 97–105; PULSE 72–115; RESP 12–22; TEMP 36.6; O2SAT 96–99
--- NOTE | 2024-11-17 19:59 | W.ED.GENAD ---
Discharge Plan Disposition Patient Disposition: Home Condition: Stable Discharge Details Clinical Impression: Gastritis Primary Care Provider: Deepthi Johnson ED Provider: Gokul Clarke Home Meds and New Rx's Prescriptions: Continued buprenorphine-naloxone [Suboxone] 8-2 mg film 1 film buccal .AM buprenorphine-naloxone [Suboxone] 4-1 mg film 1 film buccal .PM Rx Instructions: place 1 strip/tab under (each) side of tongue sertraline 100 mg tablet Patient Comments: TAKE ONE TABLET BY MOUTH EVERY DAY hydroxyzine HCl 25 mg tablet Patient Comments: TAKE 1-2 TABLETS BY MOUTH 1 HOUR PRIOR TO RIDING IN A CAR, DO NOT DRIVE WHEN TAKING Discharge Instructions Instructions: Ondansetron, Gastritis ED Additional Instructions: You were seen in the emergency department for your nausea and vomiting, you have been vomiting for a few days and your hemoglobin is normal and indicating no significant upper GI bleeding, you likely have an element of ulcer in your stomach or duodenum from alcohol use. You are not displaying any signs of withdrawal, have no elevated white blood cell count and your pancreas and liver enzymes are normal, please trial taking [id number] famotidine/Pepcid twice daily for 2 weeks while you wait to have an upper endoscopy scheduled, please cessate alcohol use as this is likely contributing to all of your pain, take Tylenol and ibuprofen as needed for minor aches and pains, please return for any intractable nausea or vomiting, severe increase in abdominal pain, vomiting blood or coffee-ground colored vomitus Referrals: [facility] [Provider Group] Deepthi Johnson [Primary Care Provider, Medicine] Discharge Data Discharge Date/Time-TO BE ENTERED AT DEPARTURE: 11/17/24 22:35 HPI General Date/Time Provider Initiated Documentation: 11/17/24 19:54. HPI Narrative: 44 year-old female presents to ED today by POV/ambulating with a chief complaint of LUQ tenderness with nausea/vomiting with onset 2 days ago. Quality described as deep aching pain, no radiation to black/bloody stools, chest pain, shortness of breath, fever, dizziness. Severity is described as moderate to severe. Palliating factors include nothing specific. Provoking factors include nothing specific. Events leading up to the incident/Associated Symptoms: Patient is a heavy drinker- denies history of withdrawal seizures- questions if she had coffee-colored vomitus. Patient not anticoagulated. Related Data Home Medications ?Medication ?Instructions ?Recorded ?Confirmed buprenorphine 4 mg-naloxone 1 mg 1 film buccal .PM 09/17/23 11/17/24 sublingual film (Suboxone) buprenorphine 8 mg-naloxone 2 mg 1 film buccal .AM 09/17/23 11/17/24 sublingual film (Suboxone) hydroxyzine HCl 25 mg tablet mg 11/17/24 sertraline 100 mg tablet mg 11/17/24 Allergies Allergy/AdvReac Type Severity Reaction Status Date / Time No Known Allergies Allergy Verified 11/17/24 18:58 General Stated Complaint: Abd Prob CINDY: 3 Review of Systems All systems reviewed & are unremarkable except as noted in HPI and below Exam Narrative Exam Narrative: GENERAL APPEARANCE: Well-nourished, non-toxic, awake and alert, atraumatic, mild acute distress. SKIN: Warm, pink, dry, intact, without rashes/lesions/ulcerations. HEAD: Normocephalic, atraumatic, normal hair distribution for gender/age. EYES: Normal conjunctiva, no exudates on lids/lashes. ENT: Nares patent, no circumoral cyanosis, no facial swelling NECK: Supple, trachea midline, painless cervical ROM. LUNGS/CHEST: Lungs CTA bilaterally, non-labored respirations, normal A/P diameter, symmetrical expansion, no chest wall deformity HEART (CV/PV): Regular rate and rhythm without murmur, no peripheral edema, no JVD. ABDOMEN: Soft, non-distended, no guarding, epigastric tenderness without peritoneal signs. MSK: Normal ROM, no swelling/deformity to bilateral UEs or LEs, moving all extremities without weakness, no cyanosis, spine midline without tenderness, normal curvature. NEURO: Mental Status AAOx4 - alert to person, place, time, events No facial droop, no forehead involvement. Motor: No focal weakness - strength 5/5 in bilateral UEs and LEs, proximal and distal, symmetric. Sensory: sensation intact to light touch globally. Gait normal: patient ambulated without ataxia into ED room. PSYCH: euthymic, cooperative, pleasant, appropriate speech Course Vital Signs Vital signs: Vital Signs Temperature 36.6 C 11/17/24 18:55 Pulse 115 H 11/17/24 18:55 Respiratory Rate 18 11/17/24 18:55 Blood Pressure 139/99 H 11/17/24 18:55 Pulse Oximetry 96 11/17/24 18:55 Temperature 36.6 C 11/17/24 18:55 Temperature Source Tympanic 11/17/24 18:55 Pulse 115 H 11/17/24 18:55 Respiratory Rate 18 11/17/24 18:55 Blood Pressure 139/99 H 11/17/24 18:55 Pulse Oximetry 96 11/17/24 18:55 Pain Level 8 11/17/24 18:55 Medical Decision Making This dictation utilizes [id number]-ph-ehlb dictation software and may contain unedited grammatical errors. 44 year-old female presents to ED today by POV/ambulating with a chief complaint of LUQ tenderness with nausea/vomiting with onset 2 days ago. Quality described as deep aching pain, no radiation to black/bloody stools, chest pain, shortness of breath, fever, dizziness. Severity is described as moderate to severe. Palliating factors include nothing specific. Provoking factors include nothing specific. Events leading up to the incident/Associated Symptoms: Patient is a heavy drinker- denies history of withdrawal seizures- questions if she had coffee-colored vomitus. Patients' medical history: Low-grade mucinous neoplasm of appendix, history of marijuana use, H. pylori ulcer, umbilical hernia, opioid use disorder, history of duodenal ulcer, history of hepatitis C, cervical cancer, alcohol abuse. Family and social history: Daily drinking-states 1 drink today, denies IVDU. Pertinent exam findings / vital signs include epigastric tenderness, benign cardiopulmonary exam, tachycardic on arrival quickly normalized, nonperitoneal abdomen, nontoxic and afebrile. Differential / pathologies of concern include gastritis, duodenitis, alcohol abuse, pancreatitis, alcoholic hepatitis. Diagnostic studies of: - CBC, CMP, lactate, magnesium, troponin, lipase, alcohol level, type and screen, CT ABD/pelvis with contrast. - CBC shows no actionable abnormality, no anemia do not suspect any GI hemorrhage from an ulcer, no leukocytosis or left shift - Lactate within normal limits - CMP shows no actionable abnormality - Magnesium within normal limits - Lipase negative - Alcohol level 181 - Type and screen A+ with negative antibody screen - CT shows no emergent abnormality, does have some mild dilatation of the common bile duct measuring 9.5, upper limit of normal is 10, no evidence of biliary obstruction on labs with normal bilirubin Interventions of: - 40 mg IVP Protonix, 1 L IVF NS, 3 tab Zofran to go. ED Course/Assessment/Plan: 44-year-old female presents with epigastric abdominal pain and nausea and vomiting for 2 years and daily alcohol use with history of polysubstance abuse, her bilirubin is normal, lipase is normal LFTs not overtly elevated and her CT is overtly negative for any acute pathology, do not suspect any significant bleeding or Boerhaave syndrome, counseled that she should take daily famotidine for probable ulcer as it is consistent with her history, no concerns for sepsis at this time, strict return criteria for any intractable nausea or vomiting or severe worsening. Findings not consistent with acute alcoholic hepatitis, pancreatitis, biliary obstruction, GI hemorrhage, sepsis. Disposition of gastritis. Patient verbalized understanding of the plan and return to ED criteria and engaged in shared decision making. Medical Records Medical records reviewed: Yes I reviewed the patient's medical records. Imaging Data Radiologic Study: Attestation: I personally reviewed and interpreted this imaging study as follows: Imaging: CT Scan Radiologist's impression: Exam: CT Abdomen And Pelvis With Contrast Exam date and time: 11/17/2024 8:53 PM Age: 44 years old Clinical indication: Abdominal pain; Epigastric; Additional info: Epigastric pain; ? Pancreatitis TECHNIQUE: Imaging protocol: Computed tomography of the abdomen and pelvis with contrast. Contrast material: OMNI 350; Contrast volume: 75 ml; Contrast route: INTRAVENOUS (IV); COMPARISON: CT ABDOMEN PELVIS W 07/26/2023 1:51 PM FINDINGS: Lungs: Visualized lung bases are clear. Heart: Heart size normal. Diaphragm: Small hiatal hernia. Liver: Hepatomegaly measuring 21 cm craniocaudal. Mild generalized hepatic steatosis. 19 x 21 x 15 mm mass in the lateral right hepatic lobe with early peripheral contrast puddling consistent with hemangioma is unchanged from 07/26/2023. Normal contour. No intrahepatic biliary ductal dilatation. Gallbladder and biliary ducts: Gallbladder is unremarkable. Mildly dilated common bile duct measuring 9.5 mm diameter, new from 07/26/2023. Clinical/laboratory correlation recommended regarding evidence of biliary obstruction. Consider sonographic assessment as clinically indicated. Pancreas: Moderate pancreatic atrophy without acute abnormality. No pancreatic ductal dilatation. Spleen: Normal. No splenomegaly. Adrenal glands: Normal. No adrenal mass. Kidneys and ureters: Chronic renal cortical atrophy with multifocal cortical scarring in the upper pole, stable in appearance. 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 No hydronephrosis or hydroureter. Small nonobstructive right renal stones, largest 3 mm. No ureteral stones. Stomach and bowel: The small bowel is nondilated with no gross abnormality. Cecal surgical clips suggest appendectomy, correlate with operative history. No evidence of appendicitis. No acute colonic abnormalities. Appendix: See Stomach and bowel finding. Intraperitoneal space: No peritoneal free fluid or air. Vasculature: No acute vascular abnormalities. Lymph nodes: Borderline enlarged left periaortic nodes at the mid aortic level, nonspecific. Urinary bladder: Unremarkable as visualized. Reproductive: Unremarkable as visualized. Bilateral tubal ligation clips noted. Bones/joints: No acute osseous abnormalities. Severe disc osteoarthritic changes L5-S1. Moderate bilateral hip osteoarthritic changes with sclerosis and subarticular cystic change in the anterior superior acetabula bilaterally, unchanged. Soft tissues: No acute soft tissue abnormalities. Small to moderate sized fatty umbilical hernia . No evidence of associated bowel herniation or strangulation. IMPRESSION: 1. New mild dilatation of the extrahepatic bile duct segments with common bile duct measuring up to 9.5 mm diameter. Clinical/laboratory correlation recommended regarding evidence of biliary obstruction. Consider sonographic assessment as clinically indicated. 2. Pancreas is moderately atrophic but demonstrates no acute abnormality, with no evidence of pancreatitis or ductal dilatation. 3. Hepatomegaly and mild generalized steatosis. 4. Moderate-sized umbilical fatty hernia with no bowel herniation or features of strangulation. 5. Additional nonemergent findings detailed above. Dictated and Authenticated by: Jonnathan Hawkins MD. Lab Data Lab results reviewed: Yes I reviewed the patient's lab results. Labs: Laboratory Tests Range/Units 11/17/24 11/17/24 20:35 21:05 WBC (4.4-10.8) 10^3/uL 7.53 RBC (3.93-5.22) 10^6/uL 3.99 Hgb (11.2-15.7) g/dL 13.0 Hct (36.0-46.0) % 38.2 MCV (80-95) fL 96 H MCH (27.0-33.0) pg 32.6 MCHC (32.0-36.0) % 34.0 RDW (11.7-14.6) % 12.8 Plt Count (130-400) 10^3/uL 222 MPV (8.0-11.0) fL 9.3 Immature Gran % % 0.4 Neutrophils % % 71.6 Lymphocytes % % 21.0 Monocytes % % 6.1 Eosinophils % % 0.5 Basophils % % 0.4 Nucleated RBC % (0.0-0.3) % 0.0 Absolute Neutrophils (1.2-6.7) 10^3/uL 5.39 Absolute Lymphocytes (1.2-3.4) 10^3/uL 1.58 Absolute Monocytes (0.1-0.8) 10^3/uL 0.46 Absolute Eosinophils (0.0-0.7) 10^3/uL 0.04 Absolute Basophils (0.0-0.2) 10^3/uL 0.03 VBG Lactate (<or=2.0) mmol/L 1.2 Sodium (136-145) mmol/L 141 Potassium (3.5-5.1) mmol/L 3.7 Chloride (98-107) mmol/L 105 Carbon Dioxide (21.0-32.0) mmol/L 26.3 Anion Gap (3-11) mmol/L 9.7 BUN (7-18) mg/dL 10 Creatinine (0.55-1.02) mg/dL 0.6 Est GFR (CKD-EPI 2020) (mL/min/1.73m2) 113.44 Glucose (74-106) mg/dL 89 Calcium (8.5-10.1) mg/dL 8.2 L Magnesium (1.8-2.4) mg/dL 1.8 Total Bilirubin (0.2-1.0) mg/dL 0.4 AST (15-37) U/L 40 H ALT (14-59) U/L 44 Alkaline Phosphatase (46-116) U/L 76 Troponin I (<or=51) ng/L 5 Total Protein (6.4-8.2) g/dL 7.8 Albumin (3.4-5.0) g/dL 3.9 Lipase (<78) U/L 26 Ethyl Alcohol (<10) mg/dL 181.4 H ABO/Rh A Positive Antibody Screen NEGATIVE PFSH All Active Problems (Updated 11/17/24 @ 22:19 by ROSEANN Poole) Gastritis (Acute) Difficult intravenous access (Acute) Duodenal ulcer (Acute) Pancreatitis (Chronic) H. pylori infection (Acute) Esophageal stricture (Acute) Esophagitis with gastritis (Acute) Smoker (Acute) Alcohol abuse (Chronic) Alcoholic hepatitis (Acute) Pancreatitis (Chronic) Osteoarthritis of right hip (Acute) Labral tear of right hip joint (Acute) Viral URI with cough (Acute) Otitis media (Acute) Medical History (Updated 11/17/24 @ 22:19 by ROSEANN Poole) Low grade mucinous neoplasm of appendix Alcohol withdrawal Pt. states was the last time ETOH was consumed Insomnia H pylori ulcer History of marijuana use Daily Ovarian cyst, right Umbilical hernia Kidney atrophy History of duodenal ulcer Opioid use disorder, moderate, in early remission, on maintenance therapy, dependence Hepatitis C Treated Cervical cancer kidney stones Surgical History (Updated 09/04/23 @ 15:34 by Patience Rojas) Hx of appendectomy (~08/2023) History of bilateral tubal ligation section x2 Social History Smoking/Tobacco Use Status: Current every day Tobacco Type: cigarettes Smoking risk assessment performed?: Yes Alcohol Intake: former Drug use: Current Sobriety Substance use type: marijuana, heroin and methamphetamine Details: occasional marijuana, denies ETOH use since last admission Housing: house Do you feel safe at home: Yes Do you feel safe in your relationship?: Yes
--- NOTE | 2024-11-17 20:00 | DI.CT_ITS ---
Exam(s) CT ABDOMEN PELVIS W EXAM: CT ABDOMEN PELVIS W CLINICAL HISTORY: epigastric pain; ?pancreatitis. TECHNIQUE: Imaging Protocol: Axial computed tomography images with coronal and sagittal reformatted images were created and reviewed CONTRAST MATERIAL: Intravenous: Omnipaque 350 Contrast volume:75 ml Oral: no COMPARISON: CT CT ABDOMEN PELVIS W from 07/26/2023 FINDINGS: ABDOMEN and PELVIS: Lung Bases: No acute findings. Liver: Enlarged at 21 cm in length. Mild hepatic steatosis. Stable appearance of hemangioma in the right lobe. No suspicious mass. Gallbladder and biliary tract: No radiodense calculus. No wall thickening or pericholecystic fluid. No common bile duct is mildly dilated compared to the previous exam, measuring maximally 10 millimeters.. There is no visible common duct stone. Pancreas: Normal density. Somewhat atrophic. No abnormal calcifications or inflammatory process. No evidence of mass. Spleen: Normal. Kidneys: Normal atrophic right kidney with cortical scarring and several calcifications. Compensatory hypertrophy of the left kidney. No radiodense stones. No obstructive uropathy. No suspicious masses seen. Adrenal glands: No masses seen. Vasculature: Abdominal aorta non-dilated. Soft tissues: Moderate size fat containing umbilical hernia has enlarged since the previous exam. No abnormal stranding.. Bladder: No gross wall thickening. No calculi.No focal mass. Bowel: No obstruction. No bowel wall thickening. Appendix not seen. Surgical clips at cecum consistent with appendectomy. Peritoneal cavity: No ascites. No focal collection. No mesenteric inflammatory response. No free air. Bones: Degenerative changes at L5-S1. Degenerative changes of hips. Reproductive organs: Unremarkable. Two ligation clips. Lymph nodes: No pathologically enlarged lymph nodes. IMPRESSION:: No CT evidence of pancreatitis. Common bile duct now appears mildly dilated but tapers normally into the head of the pancreas. No stone is visible. Stable appearance enlarged liver and hemangioma. The preliminary [facility] report was reviewed. RADIATION DOSE DELIVERED: 454.48mGy.cm Total DLP DATA REPOSITORY: All CT scans at this facility are submitted to the National Radiology Data Registry (NRDR) Dose Index Registry (DIR) with the [employer] ([employer]). RADIATION OPTIMIZATION: All CT scans at this facility use at least one of these dose optimization techniques: automated exposure control; mA and/or kV adjustment per patient size (includes targeted exams where dose is matched to clinical indication); or iterative reconstruction.
[2024-11-17 20:46] LABS: Abs Immature Grans 0.03 10^3/uL (0.0-0.06); HCT 38.2 % (36.0-46.0); HGB 13.0 g/dL (11.2-15.7); Immature Grans % 0.4 %; MCH 32.6 pg (27.0-33.0); MCHC 34.0 % (32.0-36.0); MCV 96 fL (80-95); MPV 9.3 fL (8.0-11.0); Platelet Count 222 10^3/uL (130-400); RBC 3.99 10^6/uL (3.93-5.22); RDW 12.8 % (11.7-14.6); RDW-SD 45.4 fL; WBC 7.53 10^3/uL (4.4-10.8)
[2024-11-17] MEDS: Omnipaque 350 MG/ML 100 ML BTL IJ (20:57)
[2024-11-17] MEDS: Normal Saline - Diluent 50 ML VIAL IJ (20:57)
[2024-11-17] MEDS: Normal Saline Flush 10 ML SYR IVP (20:58)
[2024-11-17] MEDS: Normal Saline 1,000 ML 1000 ML IV (21:02)
[2024-11-17] MEDS: Pantoprazole 40 MG VIAL IVP (21:02)
[2024-11-17 21:08] LABS: ALT 44 U/L (14-59); AST 40 U/L (15-37); Albumin 3.9 g/dL (3.4-5.0); Alkaline Phosphatase 76 U/L (46-116); Anion Gap 9.7 mmol/L (3-11); BUN 10 mg/dL (7-18); Bilirubin, Total 0.4 mg/dL (0.2-1.0); CO2 26.3 mmol/L (21.0-32.0); Calcium 8.2 mg/dL (8.5-10.1); Chloride 105 mmol/L (98-107); Estimated GFR 113.44 (mL/min/1.73m2); Glucose 89 mg/dL (74-106); Magnesium 1.8 mg/dL (1.8-2.4); Potassium 3.7 mmol/L (3.5-5.1); Sodium 141 mmol/L (136-145); Total Protein 7.8 g/dL (6.4-8.2); Troponin I 5 ng/L (<or=51)
[2024-11-17 21:16] LABS: Lipase 26 U/L (<78)
--- NOTE | 2024-11-17 22:09 | DI.[facility]_ITS ---
PROCEDURE INFORMATION: Exam: CT Abdomen And Pelvis With Contrast Exam date and time: 11/17/2024 8:53 PM Age: 44 years old Clinical indication: Abdominal pain; Epigastric; Additional info: Epigastric pain; ? Pancreatitis TECHNIQUE: Imaging protocol: Computed tomography of the abdomen and pelvis with contrast. Contrast material: OMNI 350; Contrast volume: 75 ml; Contrast route: INTRAVENOUS (IV); COMPARISON: CT ABDOMEN PELVIS W 07/26/2023 1:51 PM FINDINGS: Lungs: Visualized lung bases are clear. Heart: Heart size normal. Diaphragm: Small hiatal hernia. Liver: Hepatomegaly measuring 21 cm craniocaudal. Mild generalized hepatic steatosis. 19 x 21 x 15 mm mass in the lateral right hepatic lobe with early peripheral contrast puddling consistent with hemangioma is unchanged from 07/26/2023. Normal contour. No intrahepatic biliary ductal dilatation. Gallbladder and biliary ducts: Gallbladder is unremarkable. Mildly dilated common bile duct measuring 9.5 mm diameter, new from 07/26/2023. Clinical/laboratory correlation recommended regarding evidence of biliary obstruction. Consider sonographic assessment as clinically indicated. Pancreas: Moderate pancreatic atrophy without acute abnormality. No pancreatic ductal dilatation. Spleen: Normal. No splenomegaly. Adrenal glands: Normal. No adrenal mass. Kidneys and ureters: Chronic renal cortical atrophy with multifocal cortical scarring in the upper pole, stable in appearance. 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 No hydronephrosis or hydroureter. Small nonobstructive right renal stones, largest 3 mm. No ureteral stones. Stomach and bowel: The small bowel is nondilated with no gross abnormality. Cecal surgical clips suggest appendectomy, correlate with operative history. No evidence of appendicitis. No acute colonic abnormalities. Appendix: See Stomach and bowel finding. Intraperitoneal space: No peritoneal free fluid or air. Vasculature: No acute vascular abnormalities. Lymph nodes: Borderline enlarged left periaortic nodes at the mid aortic level, nonspecific. Urinary bladder: Unremarkable as visualized. Reproductive: Unremarkable as visualized. Bilateral tubal ligation clips noted. Bones/joints: No acute osseous abnormalities. Severe disc osteoarthritic changes L5-S1. Moderate bilateral hip osteoarthritic changes with sclerosis and subarticular cystic change in the anterior superior acetabula bilaterally, unchanged. Soft tissues: No acute soft tissue abnormalities. Small to moderate sized fatty umbilical hernia . No evidence of associated bowel herniation or strangulation. IMPRESSION: 1. New mild dilatation of the extrahepatic bile duct segments with common bile duct measuring up to 9.5 mm diameter. Clinical/laboratory correlation recommended regarding evidence of biliary obstruction. Consider sonographic assessment as clinically indicated. 2. Pancreas is moderately atrophic but demonstrates no acute abnormality, with no evidence of pancreatitis or ductal dilatation. 3. Hepatomegaly and mild generalized steatosis. 4. Moderate-sized umbilical fatty hernia with no bowel herniation or features of strangulation. 5. Additional nonemergent findings detailed above. Dictated and Authenticated by: Jonnathan Hawkins MD. Orderin Tricia Hodgson MD
[2024-11-17] MEDS: Ondansetron O.D.T. 4 MG TABEF, 3 TABS/BTL PO (22:28)
--- NOTE | 2024-11-18 17:44 | ED.FU.B_ITS ---
Date of service: 11/18/24 Time of Service: 17:44 Follow Up Plan: I received a phone call from this patient looking for clarification after an ER visit. Unfortunately, at the time that I reviewed the chart to the ED provider's note was not completely available. I was able to review her discharge instructions and the CT abdomen pelvis, which showed no evidence of gallstones or other concerning pathology. She appears to have been discharged with a diagnosis of gastritis and a referral to general surgery for endoscopy. The patient reports that she had been told that she had gallstones and wanted to know how that was possible since she had already had her gallbladder out. I did express to the patient my review of her radiology report, which does not show gallstones. I also reaffirmed the concern for gastritis and peptic ulcer disease. The patient reports that she takes pantoprazole, which was not d ocumented on her medication list in our chart. She had been counseled to start taking famotidine or Pepcid and has not yet been able to do this. I recommended that she contact the general surgery department to schedule her endoscopy, and continue her PPI. She has a primary care provider with whom she can follow. The patient had an opportunity to have all of her questions answered to her satisfaction. Yadira Grant MD
== END 2024-11-17 22:35 | disposition home or self-care (01) ==
PROVIDERS: Emergency Provider Physician Assistant; PCP Nurse Practitioner Family
DX: K29.70 Gastritis, unspecified, without bleeding (principal)
CPT/HCPCS: 99285; 99284; 36415; 96374; 80053; 83690; 86850; 86900; 86901; 96361; 74177; 80320; 83605; 83735; 84484; 85025; J2470; J3490

== ENCOUNTER 2024-11-24 11:13 | Outpatient (REF) | payer MEDICAID, SELFPAY ==
[2024-11-24 15:34] LABS: HCT 39.5 % (36.0-46.0); HGB 13.1 g/dL (11.2-15.7); MCH 33.4 pg (27.0-33.0); MCHC 33.2 % (32.0-36.0); MCV 101 fL (80-95); MPV 10.1 fL (8.0-11.0); Platelet Count 241 10^3/uL (130-400); RBC 3.92 10^6/uL (3.93-5.22); RDW 13.5 % (11.7-14.6); RDW-SD 50.4 fL; WBC 4.38 10^3/uL (4.4-10.8)
[2024-11-24 15:54] LABS: Calculated LDL 152 mg/dL (<100); Cholesterol 238 mg/dL (<200); HDL Cholesterol 78 mg/dL (>or=50); Triglyceride 41 mg/dL (<150)
[2024-11-24 16:15] LABS: Hemoglobin A1C 4.6 % (<5.7)
== END 2024-11-24 11:14 | disposition home or self-care (01) ==
LOC: NCHCN 11:13
PROVIDERS: PCP Nurse Practitioner Family; Visit Provider Physician Assistant
DX: K21.9 Gastro-esophageal reflux disease without esophagitis (principal); Z13.220 Encounter for screening for lipoid disorders; Z13.1 Encounter for screening for diabetes mellitus
CPT/HCPCS: 80061; 85027; 83036